=== PATIENT | female | born 1945 | race American Indian/Alaskan Native ===

== ENCOUNTER 2017-04-22 13:23 | Emergency (ER) | payer MEDICARE, OTHER ==
[~2017-04-22] VITALS: Ht 149.9 cm; Wt 101.6 kg
[~2017-04-22 13:23] MED LIST: CENTRAL-VITE H1 EACH PO; CLINDAMYCIN HC150 MG PO; FLEXERIL10 MG PO; GABAPENTIN600 MG PO; HYDROCODON-ACE1 EA10 PO; LEVOTHYROXINE75 MCG PO; LISINOPRIL10 MG PO; PLAQUENIL200 MG; TREXALL5 MG PO; ULTRAM50 MG PO
[2017-04-22] MEDS ORDERED: MAGNESIUM100 MG PO (13:35)
[2017-04-22] MEDS ORDERED: MILLIPRED5 MG PO (13:35)
[2017-04-22] MEDS ORDERED: FOLIC ACID1 MG PO (13:36)
== END 2017-04-22 13:41 | disposition home or self-care (01) ==
LOC: ED 13:23
DX: R52 Pain, unspecified (principal); Z00.8 Encounter for other general examination

== ENCOUNTER 2018-03-03 01:33 | Observation (INO) | payer MEDICARE, OTHER ==
[~2018-03-03] VITALS: Ht 149.9 cm; Wt 97.4 kg
--- OUTSIDE RECORDS SUMMARY | ~2018-03-03 | XMS | Encounter Summary ---
Demographics + + + | Address | [address] | | | [place] [address] | + + + | Home Phone | | + + + | Preferred Language | Unknown | + + + | Marital Status | | + + + | Protestant Affiliation | Unknown | + + + | Race | Unknown | + + + | Ethnic Group | Unknown | + + + Author + + + | Author | [facility] | + + + | Organization | [facility] | + + + | Address | [...] Team Providers + +------+ + | Care Box Office Attendant Name | Role | Phone | + +------+ + | Arnulfo Pacheco MD | PCP | | + +------+ + Reason for Visit + + + | Reason | Comments | + + + | Rheumatology visit | | + + + | Rheumatoid Arthritis | 3-4 month follow up | + + + Encounter Details +--------+---------+ + + + | Date | Type | Department | Care Team | Description | +--------+---------+ + + + | 01/03/ | Office | [facility] | [place], | Rheumatoid arthritis | | 2018 | Visit | Rheumatology [address] | involving multiple | | | | [facility] | [facility] | sites with positive | | | | [place] [address] | [place] [address] | rheumatoid factor | | | | [phone] | [phone] | ([facility]) (Primary Dx); | | | | | | High risk medication | | | | | | use; Chronic | | | | | | left-sided low back | | | | | | pain without | | | | | | sciatica; Primary | | | | | | osteoarthritis | | | | | | involving multiple | | | | | | joints | +--------+---------+ + + + Social History + +-------+ [...] + +---------+ + | Alcohol Use | Drinks/We | oz/Week | Comments | | | ek | | | + + +---------+ + | No | | | | + + +---------+ + + + + | Sex Assigned at | Date Recorded | | | | + + + | Not on file | | + + + as of this encounter Last Filed Vital Signs + + + + | Vital Sign | Reading | Time Taken | + + + + | Blood Pressure | 132/92 | 01/03/2018 2:31 PM PDT | + + + + | Pulse | 103 | 01/03/2018 2:31 PM PDT | + + + + | Temperature | 36.3 C (97.3 F) | 01/03/2018 2:31 PM PDT | + + + + | Respiratory Rate | - | - | + + + + | Oxygen Saturation | - | - | + + + + | Inhaled Oxygen | - | - | | Concentration | | | + + + + | Weight | 96.2 kg (212 lb) | 01/03/2018 2:31 PM PDT | + + + + | Height | 149.9 cm (4' 11") | 01/03/2018 2:31 PM PDT | + + + + | Body Mass Index | 42.82 | 01/03/2018 2:31 PM PDT | + + + + in this encounter Instructions Patient Instructions - Ignacia Guardado MA - 01/03/2018 2:30 PM PDTWe hope that you méndez ve experienced exceptional care today and that you found our service to be courteous and hel pful. If you have any questions you can send us a message/request using [employer] or call our o oscar at [phone]. To reach Samantha HERRERA type extension [phone]. If you are unable to reach a nurse during clinic hours, please leave a detailed message. We check our messages often and return calls in a timely manner during clinic hours. Medication refills- please contact your pharmacy first Orders for labs or imaging: Please remember that Annika will only call you if something i s of concern AND needs to be addressed, otherwise results will be discussed at your next of fice visit. You can also look at your results on [facility]. If you are experiencing an emergency, please call 911 in this encounter Progress Notes Annika Murdock, [facility] - 01/03/2018 2:30 PM PDTFormatting of this note may be differe nt from the original. Subjective: Patient ID: Michelle Amaya is a 72 y.o. female. Reason for visit: Rheumatoid Arthritis Here forFollow up Rheumatological History Patient was diagnosed in 1985 with RA. Established care with 2003. Initial pre sentation is unknown Serology: Positive RF and Negative PEYMAN Pertinent Imaging:OA changes to H/F- xrays-2008 HPI Last visit: 08/23/17 Changes in overall health since last visit: No Main Concern: RA-joint pain and swelling in the hands has resolved after increasing dose of Plaquenil 400 mg qd. She does occasionally miss the p.m. dose of Plaquenil as she forgets t o take the medication Main concern today is right sided low back pain. She is using an OTC TENS unit which does r elieve back symptoms. She did attend physical therapy 6 months ago for chronic low back pain and found this beneficial for relief of symptoms. She does not perform home exercises for c hronic low back pain Denies joint pain, swelling, AM stiffness > 30 minutes, fevers, illness, infection, rashes or abdominal pain. Location: Low back- right side Quality: ache Severity: mild Duration: chronic Timing:intermittent Aggravated by:rest Relieved by:OTC TENS unit and PT prn Current medications:MTX 20 mg weekly, FA 1,g QD,Plaquenil 400mg daily, prednisone 5mg daily Previous Medications tried and failed: Cimizia-sepsis, diclofenac-dec.renal function The following portions of the patient's history were reviewed and updated as appropriate an d is available elsewhere in the record: allergies, current medications, past family history, past social history, past surgical history and problem list. Past Medical History Diagnosis Date Osteoarthritis Rheumatoid arteritis Review of Systems Constitutional: Positive for fatigue. Negative for fever. HENT: Negative for mouth sores and sore throat. Eyes: Negative for pain and redness. Respiratory: Negative for cough and shortness of breath. Cardiovascular: Negative for chest pain. Gastrointestinal: Negative for abdominal pain and blood in stool. Genitourinary: Negative for dysuria and hematuria. Musculoskeletal: Positive for back pain. Negative for arthralgias and joint swelling. Skin: Negative for rash. Neurological: Negative for numbness and headaches. Psychiatric/Behavioral: The patient is not nervous/anxious. Aninka Dooley, reviewed the above ROS. Objective: Physical Exam Constitutional: She is oriented to person, place, and time. She appears well-developed and well-nourished. HENT: Head: Normocephalic. Mouth/Throat: Oropharynx is clear and moist. Eyes: Conjunctivae are normal. Pupils are equal, round, and reactive to light. Neck: Normal range of motion. Neck supple. Cardiovascular: Normal rate, regular rhythm and normal heart sounds. Pulmonary/Chest: Effort normal and breath sounds normal. Musculoskeletal: Normal range of motion. Musculoskeletal examination of the RIGHT and LEFT upper extremity, RIGHT and LEFT lower ext remity, spine, ribs ,pelvis ,head and neck was performed Musculoskeletal examination reveals no synovitis with no tenderness,soft tissue swelling or instability in all the joints She is ambulatory without assistance and using cane Musculoskeletal examination reveals degenerative changes. Lymphadenopathy: Head (right side): No submandibular adenopathy present. Head (left side): No submandibular adenopathy present. She has no cervical adenopathy. Neurological: She is alert and oriented to person, place, and time. Skin: Skin is warm, dry and intact. [facility] AMB RHEUM JOINT EXAM: Tender Joints: 0 Swollen Joints: 0 Patient Assessment: 5 Provider Assessment: 2 CDAI: 7 Labs reviewed in Epic 08/23/172007- Hep B/C neg. 04/22/17- [facility] L knee x-ray- no acute fractures/dislocations. Joint spaces maintain ed. 12/07 eye exam-satisfactory Reviewed chart notes, labs and imaging form other provider(s) since the last visit. Assessment and Plan: Visit Diagnoses and Associated Orders: Rheumatoid arthritis involving multiple sites with positive rheumatoid factor (HCC) Initially diagnosed with RA in 1985. Positive rheumatoid factor, negative PEYMAN No clinical evidence of active disease on today's exam Doing well on current regimen No change in plan of care. Continue methotrexate 20 mg once per week and Plaquenil 400 mg qd (if she misses PM dose of Plaquenil, ok to take 2 tabs in the AM) Return to clinic 3-4 months High risk medication use Update labs today and continue to monitor closely while on DMARD and/or biologic medication . Counseled regarding medication compliance as well as potential toxicities with medication s such as cytopenias, liver abnormalities and risks for infection, and the need for routine blood work monitoring. Chronic left-sided low back pain without sciatica Right sided low back pain. She is using OTC TENS unit She would like to resume physical therapy. She will make appointment to discuss this with Tamy MINA Primary osteoarthritis involving multiple joints Continue conservative measures, encourage low-impact exercise and discussed ways to avoid fall risk in the home Risks and benefits of a treatment plan were explained to patient. Patient will follow up with their primary care physician in regards to non-rheumatological symptoms listed under review of systems. Patient was advised to contact our office if there are any change in their symptoms. This document has been prepared with [employer] voice recognition system. The possibility of "s ound alike" extraction operator errors, and additions, or deletions may occur. If there is any que stion with respect to clarity of the message being conveyed, please contact me directly for clarification. Answers for HPI/ROS submitted by the patient on 01/03/2018 Joint problem FN subscore: : 4.66 Patient overall Assessment: 5 RAPID3 Score: : 9.16 in this encounter Plan of Treatment +--------+---------+ + + + | Date | Type | Specialty | Care Team | Description | +--------+---------+ + + + | 05/17/ | Office | Rheumatology | [place], | | | 2017 | Visit | | [address] | | | | | | [facility] | | | | | | [place] [address] | | | | | | [phone] | | | | | | | | +--------+---------+ + + + as of this encounter Results C-reactive protein (01/03/2018 2:49 PM) + +---------+ + + | Component | Value | Ref Range | Performed At | + +---------+ + + | CRP | 0.5 (H) | <0.5 mg/dL | [facility] | | | | | LABORATORY | + +---------+ + + + + | Specimen | + + | Blood | + + + + + + + | Performing | Address | City/State/Zipcode | Phone Number | | Organization | | | | + + + + + | [facility] | [address] | [place] [address] | [phone] | | LABORATORY | [address] | | | + + + + + Comprehensive metabolic panel (01/03/2018 2:49 PM) + + + + + | Component | Value | Ref Range | Performed At | + + + + + | SODIUM | 142 | 135 - 145 mmol/L | [facility] | | | | | LABORATORY | + + + + + | POTASSIUM | 4.0 | 3.5 - 4.9 mmol/L | [facility] | | | | | LAB[facility]AT[facility] | + + + + + | CHLORIDE | 105 | 99 - 109 mmol/L | [facility] | | | | | LAB[facility]AT[facility] | + + + + + | CO2 | 30 | 23 - 32 mmol/L | [facility] | | | | | LAB[facility]AT[facility] | + + + + + | ANION GAP AGAP | 11 | 5 - 20 mmol/L | [facility] | | | | | LAB[facility]AT[facility] | + + + + + | GLUCOSE | 96 | 65 - 99 mg/dL | [facility] | | | | | [facility] | + + + + + | BUN | 12 | 8 - 25 mg/dL | [facility] | | | | | LAB[facility] | + + + + + | CREATININE | 0.9 | 0.50 - 1.00 mg/dL | [facility] | | | | | LAB[facility]ATORY | + + + + + | BUN/CREAT | 13 | | [facility] | | | | | LAB[facility] | + + + + + | CALCIUM | 9.7 | 8.5 - 10.5 mg/dL | [facility] | | | | | LAB[facility]ATORY | + + + + + | TOTAL PROTEIN | 7.1 | 6.3 - 8.2 g/dL | [facility] | | | | | LABORATORY | + + + + + | Albumin | 3.7 | 3.3 - 4.8 g/dL | [facility] | | | | | LAB[facility] | + + + + + | GLOBULIN | 3.4 | 1.3 - 4.9 g/dL | [facility] | | | | | LAB[facility] | + + + + + | A/G | 1.1 | 1.0 - 2.4 | [facility] | | | | | LAB[facility] | + + + + + | TBIL | 0.7 | 0.1 - 1.5 mg/dL | [facility] | | | | | LAB[facility] | + + + + + | ALK PHOS | 66 | 35 - 115 U/L | [facility] | | | | | LAB[facility] | + + + + + | AST | 29 | 10 - 45 U/L | [facility] | | | | | LAB[facility] | + + + + + | ALT | 20 | 10 - 65 U/L | [facility] | | | | | LAB[facility]ATORY | + + + + + | EGFR | >60Comment: GFR <60: | >60 mL/min/1.73_m2 | [facility] | | | CHRONIC KIDNEY DISEASE, | | LABORATORY | | | IF FOUND OVER A 3 MONTH | | | | | PERIOD. GFR <15: KIDNEY | | | | | FAILURE. FOR | | | | | AMERICANS, MULTIPLY THE | | | | | CALCULATED GFR BY 1.210. | | | | | This eGFR is calculated | | | | | using the MDRD IDMS | | | | | traceable equation. | | | | | PLEASE NOTE NEW | | | | | CALCULATION EFFECTIVE | | | | | 12/19/2017 | | | + + + + + + + | Specimen | + + | Blood | + + + + + + + | Performing | Address | City/State/Zipcode | Phone Number | | Organization | | | | + + + + + | [facility] | [address] | [place] [address] | [phone] | | LABORATORY | [address] | | | + + + + + Sedimentation rate, automated (01/03/2018 2:49 PM) + +--------+ + + | Component | Value | Ref Range | Performed At | + +--------+ + + | ESR | 32 (H) | 0 - 30 mm/h | [facility] | | | | | LABORATORY | + +--------+ + + + + | Specimen | + + | Blood | + + + + + + + | Performing | Address | City/State/Zipcode | Phone Number | | Organization | | | | + + + + + | [facility] | [address] | [place] [address] | [phone] | | LABORATORY | [address] | | | + + + + + CBC W/Auto Diff (Reflex to Manual) (01/03/2018 2:49 PM) + + + + + | Component | Value | Ref Range | Performed At | + + + + + | WBC | 6.85 | 3.80 - 11.00 10*3/uL | [facility] | | | | | LABORATORY | + + + + + | RBC | 4.73 | 3.70 - 5.10 10*6/uL | [facility] | | | | | LAB[facility]ATORY | + + + + + | HGB | 13.3 | 11.3 - 15.5 g/dL | [facility] | | | | | LABORATORY | + + + + + | HCT | 39.3 | 34.0 - 46.0 % | [facility] | | | | | LABORATORY | + + + + + | MCV | 83.1 | 80.0 - 100.0 fL | [facility] | | | | | LABORATORY | + + + + + | MCH | 28.0 | 27.0 - 34.0 pg | [facility] | | | | | LABORATORY | + + + + + | MCHC | 33.7 | 32.0 - 35.5 g/dL | [facility] | | | | | LABORATORY | + + + + + | RDW SD | 47.7 | 37 - 53 fL | [facility] | | | | | LABORATORY | + + + + + | PLT | 233 | 150 - 400 10*3/uL | [facility] | | | | | LAB[facility]ATORY | + + + + + | MPV | 7.3 | fL | [facility] | | | | | LAB[facility]ATORY | + + + + + | DIFF TYPE | AUTOMATED | | [facility] | | | | | LAB[facility]ATORY | + + + + + | NEUTROPHILS | 73.08 | % | [facility] | | | | | LAB[facility]ORY | + + + + + | LYMPHOCYTES | 17.63 | % | [facility] | | | | | LAB[facility]ORY | + + + + + | MONOCYTES | 6.86 | % | [facility] | | | | | LABORATORY | + + + + + | EOSINOPHILS | 1.77 | % | [facility] | | | | | LABORATORY | + + + + + | BASOPHILS | 0.66 | % | [facility] | | | | | LABORATORY | + + + + + | NEUTROPHILS ABS | 5.01 | 1.90 - 7.40 10*3/uL | [facility] | | | | | LABORATORY | + + + + + | LYMPHOCYTES ABS | 1.21 | 1.00 - 3.90 10*3/uL | [facility] | | | | | LAB[facility]ATORY | + + + + + | MONOCYTES ABS | 0.47 | 0.00 - 0.80 10*3/uL | [facility] | | | | | LABORATORY | + + + + + | EOSINOPHILS ABS | 0.12 | 0.00 - 0.50 10*3/uL | [facility] | | | | | LABORATORY | + + + + + | BASOPHILS ABS | 0.05 | 0.00 - 0.10 10*3/uL | [facility] | | | | | LABORATORY | + + + + + + + | Specimen | + + | Blood | + + + + + + + | Performing | Address | City/State/Zipcode | Phone Number | | Organization | | | | + + + + + | [facility] | [address] | [place] [address] | [phone] | | LABORATORY | [address] | | | + + + + + in this encounter Visit Diagnoses + + | Diagnosis | + + | Rheumatoid arthritis involving multiple sites with positive rheumatoid factor (HCC) - | | Primary | + + | High risk medication use | + + | Encounter for long-term (current) use of other medications | + + | Chronic left-sided low back pain without sciatica | + + | Primary osteoarthritis involving multiple joints | + +
--- OUTSIDE RECORDS SUMMARY | ~2018-03-03 | XMS | Encounter Summary ---
Demographics + + + | Address | [address] | | | [place] [address] | + + + | Home Phone | | + + + | Preferred Language | Unknown | + + + | Marital Status | | + + + | Congregation Affiliation | Unknown | + + + | Race | Unknown | + + + | Ethnic Group | Unknown | + + + Author + + + | Author | [facility] | + + + | Organization | [facility] | + + + | [...] Team Providers + +------+ + | Care Lace Tearing Supervisor Name | Role | Phone | + +------+ + | Arnulfo Pacheco MD | PCP | | + +------+ + Encounter Details +--------+ + + + + | Date | Type | Department | Care Team | Description | +--------+ + + + + | 01/03/ | Orders Only | [facility] | Denis Eric, | Rheumatoid arthritis | | 2018 | | [address] | Pick Up | involving multiple | | | | [place] [address] | | sites with positive | | | | [phone] | | rheumatoid factor | | | | | | ([facility]); High risk | | | | | | medication use | +--------+ + + + + Social [...] + + + as of this encounter Plan of Treatment +--------+---------+ + + + | Date | Type | Specialty | Care Team | Description | +--------+---------+ + + + | 05/17/ | Office | Rheumatology | [place], | | | 2018 | Visit | | [address] | | | | | | [facility] | | | | | | [place] [address] | | | | | | [phone] | | | | | | | | +--------+---------+ + + + as of this encounter Procedures + +--------+ + + + | Procedure Name | Priori | Date/Time | Associated Diagnosis | Comments | | | ty | | | | + +--------+ + + + | SEDIMENTATION RATE, | Routin | 01/03/2018 | Rheumatoid | Results for this | | AUTOMATED | e | 2:49 PM | arthritis involving | procedure are in the | | | | PDT | multiple sites with | results section. | | | | | positive rheumatoid | | | | | | factor (HCC) High | | | | | | risk medication use | | + +--------+ + + + | CBC W/AUTO DIFF | Routin | 01/03/2018 | Rheumatoid | Results for this | | (REFLEX TO MANUAL) | e | 2:49 PM | arthritis involving | procedure are in the | | | | PDT | multiple sites with | results section. | | | | | positive rheumatoid | | | | | | factor (HCC) High | | | | | | risk medication use | | + +--------+ + + + | C-REACTIVE PROTEIN | Routin | 01/03/2018 | Rheumatoid | Results for this | | | e | 2:49 PM | arthritis involving | procedure are in the | | | | PDT | multiple sites with | results section. | | | | | positive rheumatoid | | | | | | factor (HCC) High | | | | | | risk medication use | | + +--------+ + + + | COMPREHENSIVE | Routin | 01/03/2018 | Rheumatoid | Results for this | | METABOLIC PANEL | e | 2:49 PM | arthritis involving | procedure are in the | | | | PDT | multiple sites with | results section. | | | | | positive rheumatoid | | | | | | factor (HCC) High | | | | | | risk medication use | | + +--------+ + + + in this encounter Results C-reactive protein (01/03/2018 2:49 [...] + + + | [facility] | [address] | [place] [address] | [phone] | | LABORATORY | Blvd. | | [...] | | | | using the MDRD IDUT | | | | | traceable equation. [...] | + + + + + | [facility] | [address] | [place] [address] | [phone] | | LABORATORY | Blvd. | | [...] | + + + + + | [facility] | [address] | [place] [address] | [phone] | | LABORATORY | Blvd. | | [...] | + + + + + | [facility] | [address] | [place] [address] | [phone] | | LABORATORY | Blvd. | | | + + + + + in this encounter Visit Diagnoses + + | Diagnosis | + + | Rheumatoid arthritis involving multiple sites with positive rheumatoid factor (HCC) | + + | High risk medication use | + + | Encounter for long-term (current) use of other medications | + +"
--- OUTSIDE RECORDS SUMMARY | ~2018-03-03 | XMS | Encounter Summary ---
Demographics + + + | Address | [address] | | | [place] [address] | + + + | Home Phone | | + + + | Preferred Language | Unknown | + + + | Marital Status | | + + + | Holiness Affiliation | Unknown | + + + | Race | Unknown | + + + | Ethnic Group | Unknown | + + + Author + + + | Author | [facility] | + + + | Organization | [facility] | + + + [...] Team Providers + +------+ + | Care Brim Shaper Name | Role | Phone | + [...] + + | 01/03/ | Office | [facility] | [place], | Rheumatoid arthritis | | 2018 | Visit | Rheumatology [address] | [address] | involving multiple | | | | [facility] | [facility] | sites with positive | | | | [place] [address] | [place] [address] | rheumatoid factor | | | | [phone] | [phone] | ([facility]) (Primary Dx); | | | | | [...] you can send us a message/request using MeriTaleem or call our o oscar at [phone]. To reach Samantha HERRERA type extension [phone]. If you are unable to reach a [...] can also look at your results on [facility]. If you are experiencing an emergency, please call 911 in this encounter Progress Notes Annika Murdock, [facility] - 01/03/2018 2:30 PM PDTFormatting of this [...] not nervous/anxious. Annika Dooley, reviewed the above ROS. Objective: Physical [...] in Epic 08/23/172007- Hep B/C neg. 04/22/17- Baden's L knee x-ray- no acute fractures/dislocations. Joint [...] symptoms. This document has been prepared with [employer] voice recognition system. The possibility of "s ound alike" public information coordinator errors, and additions, or deletions may occur. [...] [address] | | | | | | [facility] | | | | | | [place] [address] | | | | | | [phone] | | | | | | | [...] + + + | [facility] | [address] | [place] [address] | [phone] | | LABORATORY | Blvd. | | [...] | + + + + + | [facility] | [address] | [place] [address] | [phone] | | LABORATORY | [address] | | [...] + + + | [facility] | [address] | [place] [address] | [phone] | | LABORATORY | Blvd. | | [...] + + + | [facility] | [address] | [place] [address] | [phone] | | LABORATORY | Blvd. | | [...]
--- OUTSIDE RECORDS SUMMARY | ~2018-03-03 | XMS | Clinical Summary ---
Demographics + + + | Address | [address] | | | [place] [address] | + + + | Home Phone | | + + + | Preferred Language | Unknown | + + + | Marital Status | | + + + | Baptist Affiliation | Unknown | + + + | Race | Unknown | + + + | Ethnic Group | Unknown | + + + Author + + + | Author | [facility] [facility] | + + + | Organization | [facility] | + + + | Address | Unknown | + + + | Phone | Unavailable | + + + Support + + +---------+ + | Name | Relationship | Address | Phone | + + +---------+ + | Dian Clarke | ECON | Unknown | | + + +---------+ + | Doyle Clarke | ECON | Unknown | | + + +---------+ + Care Team Providers + +------+ + | Care Construction Specialist Name | Role | Phone | + +------+ + | Arnulfo Pacheco MD | PP | | + +------+ + Allergies + + + + + + | Active Allergy | Reactions | Severity | Noted | Comments | | | | | Date | | + + + + + + | Sulfa Antibiotics | Hives | High | 05/14/20 | | | | | | 15 | | + + + + + + Current Medications + + +---------+---------+------+------+-------+ | Prescription | Sig. | Disp. | Refills | Star | End | Statu | | | | | | t | Date | s | | | | | | Date | | | + + +---------+---------+------+------+-------+ | lisinopril | Take 10 mg by mouth | | | | | Activ | | (ZESTRIL) 10 MG | daily. | | | | | e | | tablet | | | | | | | + + +---------+---------+------+------+-------+ | Magnesium 100 MG | Take by mouth. | | | | | Activ | | TABS | | | | | | e | + + +---------+---------+------+------+-------+ | levothyroxine | Take 100 mcg by | | | | | Activ | | (SYNTHROID) 100 MCG | mouth every morning | | | | | e | | tablet | before breakfast. | | | | | | + + +---------+---------+------+------+-------+ | cyclobenzaprine | Take 10 mg by mouth | | | | | Activ | | (FLEXERIL) 10 MG | every evening. | | | | | e | | tablet | | | | | | | + + +---------+---------+------+------+-------+ | gabapentin | Take 1 capsule by | 60 | 2 | 02/0 | | Activ | | (NEURONTIN) 300 MG | mouth 2 (two) times | capsule | | 4/20 | | e | | capsuleIndications: | daily. | | | 16 | | | | Low back pain, | | | | | | | | unspecified back | | | | | | | | pain laterality, | | | | | | | | with sciatica | | | | | | | | presence unspecified | | | | | | | + + +---------+---------+------+------+-------+ | folic acid | Take 1 mg by mouth | | | | | Activ | | (FOLVITE) 1 MG | daily. | | | | | e | | tablet | | | | | | | + + +---------+---------+------+------+-------+ | Multiple | Take 1 tablet by | | | | | Activ | | Vitamins-Minerals | mouth daily. | | | | | e | | (MULTIVITAMIN WITH | | | | | | | | MINERALS) tablet | | | | | | | + + +---------+---------+------+------+-------+ | | Take 1 tablet by | | | | | Activ | | HYDROcodone-acetamin | mouth every 6 (six) | | | | | e | | ophen (NORCO) 10-325 | hours as needed for | | | | | | | MG per tablet | Pain. | | | | | | + + +---------+---------+------+------+-------+ | predniSONE | Take 1 tablet by | 90 | 1 | 05/0 | | Activ | | (DELTASONE) 5 MG | mouth daily with | tablet | | 3/20 | | e | | tabletIndications: | breakfast. | | | 18 | | | | Rheumatoid arthritis | | | | | | | | involving multiple | | | | | | | | sites with positive | | | | | | | | rheumatoid factor | | | | | | | | (HCC) | | | | | | | + + +---------+---------+------+------+-------+ | methotrexate 2.5 | Take 8 tablets by | 96 | 0 | 06/1 | 09/1 | Activ | | MG | mouth once a week | tablet | | 3/20 | 1/20 | e | | tabletIndications: | for 90 days. | | | 18 | 18 | | | Rheumatoid Arthritis | | | | | | | + + +---------+---------+------+------+-------+ | hydroxychloroquine | Take 2 tablets by | 180 | 0 | 06/1 | | Activ | | (PLAQUENIL) 200 MG | mouth daily. | tablet | | 3/20 | | e | | tabletIndications: | | | | 18 | | | | Rheumatoid arthritis | | | | | | | | involving multiple | | | | | | | | sites with positive | | | | | | | | rheumatoid factor | | | | | | | | (HCC) | | | | | | | + + +---------+---------+------+------+-------+ Active Problems + + + | Problem | Noted Date | + + + | Chronic left-sided low back pain without sciatica | 04/25/2017 | + + + + + | Last Assessment & Plan: Right sided low back pain. She is | | using OTC TENS unitShe would like to resume physical therapy. She | | will make appointment to discuss this with PCP | + + + + + | Rheumatoid arthritis involving multiple sites with positive | 04/25/2017 | | rheumatoid factor (HCC) | | + + + + + | Last Assessment & Plan: Initially diagnosed with RA in 1985. | | Positive rheumatoid factor, negative ANANo clinical evidence of | | active disease on today's examDoing well on current regimenNo | | change in plan of care. Continue methotrexate 20 mg once per week | | and Plaquenil 400 mg qd (if she misses PM dose of Plaquenil, ok | | to take 2 tabs in the AM)Return to clinic 3-4 months | + + + + + | High risk medication use | 04/25/2017 | + + + + + | Last Assessment & Plan: Update labs today and continue to | | monitor closely while on DMARD and/or biologic medication. | | Counseled regarding medication compliance as well as potential | | toxicities with medications such as cytopenias, liver | | abnormalities and risks for infection, and the need for routine | | blood work monitoring. | + + + + + | Primary osteoarthritis involving multiple joints | 04/25/2017 | + + + + + | Last Assessment & Plan: Continue conservative measures, | | encourage low-impact exercise and discussed ways to avoid fall | | risk in the home | + + + + + | Acute pain of left knee | 04/25/2017 | + + + + + | Last Assessment & Plan: Treatment options, risks and benefits | | discussed. Verbal consent given for Kenalog injection 40 mg for | | relief of acute L knee pain.Instructed on post injection care and | | if no improvement, contact our office.Will refer to PT for L | | knee painMay benefit to use an adaptive device such as a walker | | with L sided low back and L knee pain. | + + Encounters +--------+ + + + + | Date | Type | Specialty | Care Team | Description | +--------+ + + + + | 02/01/ | Telephone | | Samantha Flores, | | | 2018 | | | MUSEUM INFORMATICS SPECIALIST | | +--------+ + + + + | 01/03/ | Office | | [place], | Rheumatoid arthritis | | 2018 | Visit | | KASEY Mackenzie | involving multiple | | | | | | sites with positive | | | | | | rheumatoid factor | | | | | | ([facility]) (Primary Dx); | | | | | [...] | | | | | joints | +--------+ + + + + | 01/03/ | Orders Only | | Denis Eric, | Rheumatoid arthritis | | 2017 | | | Employee Health Nurse | involving multiple | | | | | | sites with positive | | | | | | rheumatoid factor | | | | | | ([facility]); High risk | | | | | | medication use | +--------+ + + + + from Last 3 Months Family History + +------+ + + | Relation | Name | Status | Comments | + +------+ + + | Father | | | | + +------+ + + | Mother | | | | + +------+ + + Social History + +-------+ +--------+------+ [...] on file | | + + + Last Filed Vital Signs + + + [...] PM PDT | + + + + Plan of Treatment +--------+---------+ + + + | Date | Type | Specialty | Care Team | Description | +--------+---------+ + + + | 05/17/ | Office | | [place], | | | 2018 | Visit | | [address] | | | | | | [facility] | | | | | | [place] [address] | | | | | | [phone] | | | | | | | | +--------+---------+ + + + + + + + + | Health Maintenance | Due Date | Last Done | Comments | + + + + + | Vaccine: | | | | | Dtap/Tdap/Td (1 - | 2 | | | | Tdap) | | | | + + + + + | Breast Cancer | | | | | Screening | 3 | | | | (Mammogram) | | | | + + + + + | Colon Cancer | | | | | Screening | 3 | | | | (Colonoscopy) | | | | + + + + + | DEXA SCAN SCREENING | | | | | | 8 | | | + + + + + | Vaccine: | | | | | Pneumococcal 65+ | 8 | | | | Low/Medium Risk (1 | | | | | of 2 - PCV13) | | | | + + + + + | Vaccine: Influenza | | | | | (#1) | 8 | | | + + + + + Procedures + +--------+ + + + | [...] | | + +--------+ + + + from Last 3 Months Results Sedimentation rate, automated (01/03/2018 2:49 PM) + [...] + + + | [facility] | [address] | [place] [address] | [phone] | | LABORATORY | Blvd. | | [...] + + + | [facility] | [address] | [place] [address] | [phone] | | LABORATORY | Blvd. | | | + + + + + C-reactive protein (01/03/2018 2:49 PM) + +---------+ [...] | + + + + + | [facility] | [address] | [place] [address] | [phone] | | LABORATORY | Blvd. | | [...] | | | | using the MDRD IDCT | | | | | traceable equation. [...] | + + + + + | [facility] | [address] | [place] [address] | [phone] | | LABORATORY | Blvd. | | | + + + + + from Last 3 Months Insurance + +--------+ +------+-------+ + | Payer | Benefi | Subscriber | Type | Phone | Address | | | t Plan | ID | | | | | | / | | | | | | | Group | | | | | + +--------+ +------+-------+ + | MEDICARE | MEDICA | [id number] | | | [address] | | | RE | | | | [place] [id number] | | | IP-OP | | | | | + +--------+ +------+-------+ + | /[employer] | YELLOW | [id number] | | | | | PLANS | [place] | | | | | + +--------+ +------+-------+ + + +--------+ +--------+ + + | Guarantor Name | Accoun | Relation to | Date | Phone | Billing Address | | | t Type | Patient | of | | | | | | | | | | + +--------+ +--------+ + + | NIKITA CLARKE | Person | Self [birth year] | Home: | [address] | | | al/Fam | | 1945 | [phone] | [place] | | | [place] | | | [phone] | [phone] | + +--------+ +--------+ + +
--- OUTSIDE RECORDS SUMMARY | ~2018-03-03 | XMS | Clinical Summary ---
Demographics + + + | Address | [address] | | | [place] [address] | + + + | Home Phone | | + + + | Preferred Language | Unknown | + + + | Marital Status | | + + + | Church Affiliation | Unknown | + + + | Race | Unknown | + + + | Ethnic Group | Unknown | + + + Author + + + | Author | [facility] | + + + | Organization | [facility] | + + + | [...] Team Providers + +------+ + | Care Process Control Specialist Name | Role | Phone | [...] | | | 2018 | | | LOADING RACK SUPERVISOR | | +--------+ + + + + | 01/03/ | Office | | [place], | Rheumatoid arthritis | | 2018 | Visit | | KASEY Mackenzie | involving multiple | | | | | | sites with positive | | | | | | rheumatoid factor | | | | | | ([facility]) (Primary Dx); | | | | | [...] arthritis | | 2017 | | | Block Greaser | involving multiple | | | | | | sites with positive | | | | | | rheumatoid factor | | | | | | ([facility]); High risk | | | [...] [address] | | | | | | [facility] | | | | | | [place] [address] | | | | | | [phone] | | | | | | | [...] + + + | [facility] | [address] | [place] [address] | [phone] | | LABORATORY | Blvd. | | [...] + + + | [facility] | [address] | [place] [address] | [phone] | | LABORATORY | Blvd. | | [...] | + + + + + | [facility] | [address] | [place] [address] | [phone] | | LABORATORY | Blvd. | | [...] | | | | using the MDRD IDWA | | | | | traceable equation. [...] | + + + + + | [facility] | [address] | [place] [address] | [phone] | | LABORATORY | Blvd. | | [...] +------+-------+ + | MEDICARE | MEDICA | [id number] | | | [address] | | | RE | | | | [place] [id number] | | | IP-OP | | | | | + +--------+ +------+-------+ + | /[employer] | YELLOW | [id number] | | | | | PLANS | [...] | Self | [birth year] | Home: | [address] | | | al/Fam | | 1945 | [phone] | [place] | | | [place] | | | [phone] | [phone] | + +--------+ +--------+ + +
--- OUTSIDE RECORDS SUMMARY | ~2018-03-03 | XMS | Clinical Summary ---
Demographics + + + | Address | [address] | | | [place] [address] | + + + | Home Phone | | + + + | Preferred Language | Unknown | + + + | Marital Status | | + + + | Restorationist Affiliation | Unknown | + + + | Race | Unknown | + + + | Ethnic Group | Unknown | + + + Author + + + | Author | [facility] | | | and [place] | + + + | Organization | [facility] | | | and [place] | + + + | Address | Unknown | + + + | Phone | Unavailable | + + + Support + + +---------+ + | Name | Relationship | Address | Phone | + + +---------+ + | Dian Clarke | ECON | Unknown | | + + +---------+ + Care Team Providers + +------+ + | Care Sail Maker Name | Role | Phone | + +------+ + | Arnulfo Pacheco DO | PP | | + +------+ + Allergies Not on File Current Medications Not on file Active Problems Not on file Social History + +-------+ +--------+------+ | Tobacco [...] on file | | + + + Plan of Treatment + + + + + | Health [...] | | + + + + + Results Not on filefrom Last 3 Months Insurance + +--------+ +--------+ +---------+ | Payer | Benefi | Subscriber | Type | Phone | Address | | | t Plan | ID | | | | | | / | | | | | | | Group | | | | | + +--------+ +--------+ +---------+ | MEDICARE | MEDICA | [id number] | Medica | [phone] | | | | RE | | re | [phone] | | | | PART A | | | | | | | AND B | | | | | + +--------+ +--------+ +---------+ | HEALTH | IHS | [id number] | Indemn | | | | SERVICE | YELLOW | | ity | | | | | [place] | | | | | + +--------+ +--------+ +---------+ + +--------+ +--------+ + + | Guarantor Name | Accoun | Relation to | Date | Phone | Billing Address | | | t Type | Patient | of | | | | | | | | | | + +--------+ +--------+ + + | NIKITA CLARKE | Person | Self [birth year] | Home: | [address] | | | al/Fam | | 1945 | [phone] | [place] | | | [place] | | | [phone] | [phone] | + +--------+ +--------+ + +"
--- OUTSIDE RECORDS SUMMARY | ~2018-03-03 | XMS | Clinical Summary ---
Demographics + + + | Address | [address] | | | [place] [address] | + + + | Home Phone | | + + + | Preferred Language | Unknown | + + + | Marital Status | | + + + | Mu-Ism Affiliation | Unknown | + + + [...] Team Providers + +------+ + | Care Steam Flattener Name | Role | Phone | + [...] +--------+ +---------+ | MEDICARE | MEDICA | [id number] | Medica | [phone] | | | | RE | | re | [phone] | | | | PART A | | | | | | | AND B | | | | | + +--------+ +--------+ +---------+ | HEALTH | IHS | [id number] | Indemn | | | | SERVICE [...] | Self | [birth year] | Home: | [address] | | | al/Fam | | 1945 | [phone] | [place] | | | [place] | | | [phone] | [phone] | + +--------+ +--------+ + +"
--- OUTSIDE RECORDS SUMMARY | ~2018-03-03 | XMS | Clinical Summary ---
Demographics + + + | Address | [address] | | | [place] [address] | + + + | Home Phone | | + + + | Preferred Language | Unknown | + + + | Marital Status | | + + + | Congregation Affiliation | Unknown | + + + | Race | Unknown | + + + | Ethnic Group | Unknown | + + + Author + + + | Author | [facility] | | | and [place] | + + + | Organization | [facility] | | [...] Team Providers + +------+ + | Care Explosive Ordnance Manager Name | Role | Phone | + [...] +--------+ +---------+ | MEDICARE | MEDICA | [id number] | Medica | [phone] | | | | RE | | re | [phone] | | | | PART A | | | | | | | AND B | | | | | + +--------+ +--------+ +---------+ | HEALTH | IHS | [id number] | Indemn | | | | SERVICE [...] | Self | [birth year] | Home: | [address] | | | al/Fam | | 1945 | [phone] | [place] | | | [place] | | | [phone] | [phone] | + +--------+ +--------+ + +"
--- OUTSIDE RECORDS SUMMARY | ~2018-03-03 | XMS | Encounter Summary ---
Demographics + + + | Address | [address] | | | [place] [address] | + + + | Home Phone | | + + + | Preferred Language | Unknown | + + + | Marital Status | | + + + | Yazdanism Affiliation | Unknown | + + + | Race | Unknown | + + + | Ethnic Group | Unknown | + + + Author + + + | Author | [facility] | + + + | Organization | [facility] | + + + | [...] Team Providers + +------+ + | Care Fourth Hand Name | Role | Phone | [...] 2018 | | [address] | Book Store Associate | involving multiple | | | | [place] [address] | | sites with positive | | | | [phone] | | rheumatoid factor | | | | | | ([facility]); High risk | | | | | [...] | 05/17/ | Office | Rheumatology | [place], | | | 2018 | Visit | | [address] | | | | | | [facility] | | | | | | [place] [address] | | | | | | [phone] | | | | | | | [...] + + + | [facility] | [address] | [place] [address] | [phone] | | LABORATORY | Blvd. | | [...] | | | | using the MDRD IDMN | | | | | traceable equation. [...] | + + + + + | [facility] | [address] | [place] [address] | [phone] | | LABORATORY | Blvd. | | [...] | + + + + + | [facility] | [address] | [place] [address] | [phone] | | LABORATORY | Blvd. | | [...] | + + + + + | [facility] | [address] | [place] [address] | [phone] | | LABORATORY | Blvd. | | [...]
--- OUTSIDE RECORDS SUMMARY | ~2018-03-03 | XMS | Encounter Summary ---
Demographics + + + | Address | [address] | | | [place] [address] | + + + | Home Phone | | + + + | Preferred Language | Unknown | + + + | Marital Status | | + + + | Yazidism Affiliation | Unknown | + + + | Race | Unknown | + + + | Ethnic Group | Unknown | + + + Author + + + | Author | [facility] | + + + | Organization | [facility] | + + + [...] Team Providers + +------+ + | Care Fruit Picker Name | Role | Phone | + [...] 2018 | | [address] | Chili Powder Mixer | involving multiple | | | | [place] [address] | | sites with positive | | | | [phone] | | rheumatoid factor | | | | | | ([facility]); High risk | | | | [...] 2018 | Visit | | KASE[address] Mackenzie [address] | | | | | | [facility] | | | | | | [place] [address] | | | | | | [phone] | | | | | | | [...] + + + | [facility] | [address] | [place] [address] | [phone] | | LABORATORY | [address]vd. | | [...] | | | | using the MDRD IDAR | | | | | traceable equation. [...] | + + + + + | [facility] | [address] | [place] [address] | [phone] | | LABORATORY | Blvd. | | [...] | + + + + + | [facility] | [address] | [place] [address] | [phone] | | LABORATORY | Blvd. | | [...] | + + + + + | [facility] | [address] | [place] [address] | [phone] | | LABORATORY | Blvd. | | [...]
--- OUTSIDE RECORDS SUMMARY | ~2018-03-03 | XMS | Encounter Summary ---
Demographics + + + | Address | [address] | | | [place] [address] | + + + | Home Phone | | + + + | Preferred Language | Unknown | + + + | Marital Status | | + + + | Zoroastrian Affiliation | Unknown | + + + | Race | Unknown | + + + | Ethnic Group | Unknown | + + + Author + + + | Author | [facility] [facility] | + + + | Organization | [facility] | + + + [...] Providers + +------+ + | Care Process Technician Name | Role | Phone | + +------+ + | Arnulfo Pacheco MD | PCP | | + +------+ + Encounter Details +--------+ + + + + | Date | Type | Department | Care Team | Description | +--------+ + + + + | 02/01/ | Telephone | [facility] | Samantha Flores, | | | 2018 | | Rheumatology [address] | [address] | | | | | [address] | | | | | | [place] [address] | | | | | | [phone] | | | +--------+ + + + [...] [address] | | | | | | [facility] | | | | | | [place] [address] | | | | | | [phone] | | | | | | | | +--------+---------+ + + + as of this encounter Visit Diagnoses Not on filein this encounter"
--- OUTSIDE RECORDS SUMMARY | ~2018-03-03 | XMS | Encounter Summary ---
Demographics + + + | Address | [address] | | | [place] [address] | + + + | Home Phone | | + + + | Preferred Language | Unknown | + + + | Marital Status | | + + + | Jain Affiliation | Unknown | + + + | Race | Unknown | + + + | Ethnic Group | Unknown | + + + Author + + + | Author | [facility] | + + + | Organization | [facility] | + + + [...] Team Providers + +------+ + | Care Cd Reactor Operator Head Name | Role | Phone | + [...] + + | 01/03/ | Office | [facility] | [place], | Rheumatoid arthritis | | 2018 | Visit | Rheumatology [address] | [address] | involving multiple | | | | [facility] | [facility] | sites with positive | | | | [place] [address] | [place] [address] | rheumatoid factor | | | | [phone] | [phone] | ([facility]) (Primary Dx); | | | | | [...] you can send us a message/request using [employer] or call our o oscar at [phone]. To reach Samantha HERRERA type extension [phone]. If you are unable to reach a [...] in this encounter Progress Notes Annika Murdock, [facility] - 01/03/2018 2:30 PM PDTFormatting of this [...] in Epic 08/23/172007- Hep B/C neg. 04/22/17- Navarre's L knee x-ray- no acute fractures/dislocations. Joint [...] symptoms. This document has been prepared with [employer] voice recognition system. The possibility of "s ound alike" scrap hoist operator errors, and additions, or deletions may [...] [address] | | | | | | [facility] | | | | | | [place] [address] | | | | | | [phone] | | | | | | | [...] + + | [facility] | [address] | [place] [address] | [phone] | | LABORATORY | Blvd. | | [...] | + + + + + | [facility] | [address] | [place] [address] | [phone] | | LABORATORY | [address] | | [...] + + | [facility] | [address] | [place] [address] | [phone] | | LABORATORY | Blvd. | | [...] + + | [facility] | [address] | [place] [address] | [phone] | | LABORATORY | Blvd. | | [...]
--- OUTSIDE RECORDS SUMMARY | ~2018-03-03 | XMS | Clinical Summary ---
Demographics + + + | Address | [address] | | | [place] [address] | + + + | Home Phone | | + + + | Preferred Language | Unknown | + + + | Marital Status | | + + + | Sikh Affiliation | Unknown | + + + | Race | Unknown | + + + | Ethnic Group | Unknown | + + + Author + + + | Author | [facility] | + + + | Organization [...] Team Providers + +------+ + | Care Accounting Assistant Name | Role | Phone | [...] | | | 2018 | | | MAGICIAN/ILLUSIONIST | | +--------+ + + + + | 01/03/ | Office | | [place], | Rheumatoid arthritis | | 2018 | Visit | | KASEY Mackenzie | involving multiple | | | | | | sites with positive | | | | | | rheumatoid factor | | | | | | ([facility]) (Primary Dx); | | | | [...] arthritis | | 2017 | | | Marsh Buggy Operator | involving multiple | | | | | | sites with positive | | | | | | rheumatoid factor | | | | | | ([facility]); High risk | | | | [...] [address] | | | | | | [facility] | | | | | | [place] [address] | | | | | | [phone] | | | | | | | [...] + + + | [facility] | [address] | [place] [address] | [phone] | | LABORATORY | Blvd. | | [...] + + + | [facility] | [address] | [place] [address] | [phone] | | LABORATORY | Blvd. | | [...] | + + + + + | [facility] | [address] | [place] [address] | [phone] | | LABORATORY | Blvd. | | [...] | | | | using the MDRD IDGA | | | | | traceable equation. [...] | + + + + + | [facility] | [address] | [place] [address] | [phone] | | LABORATORY | Blvd. | | [...] +------+-------+ + | MEDICARE | MEDICA | [id number] | | | [address] | | | RE | | | | [place] [id number] | | | IP-OP | | | | | + +--------+ +------+-------+ + | /[facility] | YELLOW | [id number] | | | | | PLANS | [...] | Self | [birth year] Home: | [address] | | | al/Fam | | 1945 | [phone] | [place] | | | tonie | | | [phone] | [phone] | + +--------+ +--------+ + +
--- OUTSIDE RECORDS SUMMARY | ~2018-03-03 | XMS | Encounter Summary ---
Demographics + + + | Address | [address] | | | [place] [address] | + + + | Home Phone | | + + + | Preferred Language | Unknown | + + + | Marital Status | | + + + | Anglican Affiliation | Unknown | + + + | Race | Unknown | + + + | Ethnic Group | Unknown | + + + Author + + + | Author | [facility] | + + + | Organization | [facility] | + + + | [...] Team Providers + +------+ + | Care Manager Voice Name | Role | Phone | + +------+ + | Arnulfo Pacheco MD | PCP | | + +------+ + Encounter Details +--------+ + + + + | Date | Type | Department | Care Team | Description | +--------+ + + + + | 02/01/ | Telephone | [facility] | Samantha Flores, | | | 2018 | | Rheumatology [address] | [address] | | | | | [address] | | | | | | [place] [address] | | | | | | [phone] | | | +--------+ + + + [...] [address] | | | | | | [facility] | | | | | | [place] [address] | | | | | | [phone] | | | | | | | | +--------+---------+ + + + as of this encounter Visit Diagnoses Not on filein this encounter"
--- OUTSIDE RECORDS SUMMARY | ~2018-03-03 | XMS | Encounter Summary ---
Demographics + + + | Address | [address] | | | [place] [address] | + + + | Home Phone | | + + + | Preferred Language | Unknown | + + + | Marital Status | | + + + | Anabaptist Affiliation | Unknown | + + + | Race | Unknown | + + + | Ethnic Group | Unknown | + + + Author + + + | Author | [facility] [facility] | + + + | Organization | [facility] | + [...] Team Providers + +------+ + | Care Jumpbasting Machine Operator Name | Role | Phone | + +------+ + | Arnulfo Pacheco MD | PCP | | + +------+ + Encounter Details +--------+ + + + + | Date | Type | Department | Care Team | Description | +--------+ + + + + | 02/01/ | Telephone | [facility] | Samantha Flores, | | | 2018 | | Rheumatology [address] | [address] | | | | | [address] | | | | | | [place] [address] | | | | | | [phone] | | | +--------+ + + + [...] | | | | | | [facility] | | | | | | [place] [address] | | | | | | [phone] | | | | | | | | +--------+---------+ + + + as of this encounter Visit Diagnoses Not on filein this encounter"
[~2018-03-03 01:33] MED LIST changes: -CENTRAL-VITE H1 EACH PO; +FOLIC ACID1 MG PO; +MAGNESIUM250 M1 PO; -PLAQUENIL200 MG; +PLAQUENIL200 MG PO; +PREDNISONE5 MG PO; +[UNRECOGNIZED DRUG - OTHER] PO
--- NOTE | 2018-03-03 04:15 | NUR ---
PT ARRIVES FROM ER ADMITTED ICU OBS FOR SEPSIS AND ABDOMINAL CELLULTIIS, WAS TREATED FOR THIS CELLULTIS APPROX ONE MONTH AGO, FINISHED HER ANTIBIOTICS AND HAD NOT HAD ANY PROBLEMS UNTIL LAST NIGHT WHEN HER FEVER SPIKED TO 103 F . HAS BEEN GIVEN IVF BOLUS AND ANTIBIOTICS. SHE WAS GIVEN TYLENOL AND IBUPROFEN IN THE ED, CURRENT TEMP IS 100.3 ORALLY. HR 100, ON ROOM AIR SPO2 94% WITH RR 26 AND LUNGS CLEAR BUT DIM IN BASES. UP TO VOID IN BR, HAD APPROX 100ML OUT DARK URINE AND SMALL STOOL. BACK TO BED, QUESTIONS ABOUT PLAN PT IS ALERT AN ORIENTED.
--- NOTE | 2018-03-03 06:24 | NUR ---
PT STATES SHE HAS BEEN ABLE TO SLEEP FOR A COUPLE HOURS. HR 105, BPS A LITTLE LOW, 109/47 MAP 58, RR 24 AND SPO2 94%. PT STILL REEIVING BOLUS OF LR, WILL CONTT TO MONITOR FOR NOW. DENIES ANY PAIN/NAUSEA/SOB, NO REQUESTS.
--- NOTE | 2018-03-03 08:14 | NUR ---
PT AWAKE AND ALERT X4, C/O SLIGHT NAUSEA GIVEN PO ZOFRAN. PT DENIES PAIN AND SOB AT THIS TIME. IV SITES INTACT, NO REDNESS OR SWELLING NOTED AT EITHER SITE, FLUSH AND FLUIDS INFUSE EASILY. PT ABLE TO AMBULATED TO BSC WITH ONE PERSON ASSIST.
--- NOTE | 2018-03-03 09:50 | NUR ---
IV TO SL AT THIS TIME. PT RESTING COMFORTABLY.
--- NOTE | 2018-03-03 12:10 | NUR ---
MINIMAL ASSIST UP TO BSC FOR MED BM, IN GOOD SPIRITS, SPOKE WITH SON ON THE PHONE, DENIES ANY PAIN. DR TAVAREZ IN TO SEE PT. RECIEVED ORDER FOR MRSA NASAL SWAB TO BE DONE. COMPLETED AND SENT TO LAB. PT SITTING UP EATING LUNCH IN CHAIR. CALL LIGHT IN EASY REACH.
[2018-03-03] MEDS ORDERED: CYCLOBENZAPRINE10 MG PO (12:23)
--- NOTE | 2018-03-03 14:30 | NUR ---
SPOKE WITH DR TAVAREZ, STATES HE IS CHANGING ABX ORDERS, WILL LOOK AT LABS FIRST. PT DOES NOT WANT TO TAKE METHOTREXATE UNTIL DINNER TIME. JEANIE IN PHARMACY NOTIFIED AND WILL CHANGE TIME OF DOSE. DAUGHTER HAS JUST GOT HERE TO VISIT. PT ASSISTED INTO BED TO REST. CALL LIGHT IN EASY REACH. DENIES FURTHER NEEDS.
--- NOTE | 2018-03-03 15:10 | NUR ---
ORDER NOTED TO TRANSFER PT TO MED-SURG UNIT. REPORT GIVEN TO HERNAN BURKS. PT TRANSPORTED IN HER BED AT THIS TIME ACCOMPANIED BY HER DAUGHTER.
--- NOTE | 2018-03-03 15:15 | NUR ---
PT ARRIVED TO RO0M 113 AT THIS TIME. PT ALERT AND ORIENTED. REPORT FROM [facility].
--- NOTE | 2018-03-03 15:53 | NUR ---
PT UP TO BATHROOM ONE PERSON ASSIST WITH FWW. TOELRATED ACTIVITY WELL. PT REPORTED MILD DISCOMFORT AND AT LEFT SHOULDER PROVIDED PILLOW TO RE-POSITION ARM, PT REPORTS FEELS MUCH BETTER.
--- NOTE | 2018-03-03 15:56 | NUR ---
Medications reconciled with patient interview. Methotrexate dose verified at 20mg every Monday. As patient did not take yesterday's dose, she will take it today
--- NOTE | 2018-03-03 16:01 | NUR ---
ABD ASSESSMENT. RED AREA OUTLINED WITH SKIN MARKER, REDDNESS REMAINS WITHIN THE LINES, WARM TO TOUCH PT REPORTS TENDER, BUT IMPOVING
--- NOTE | 2018-03-03 16:50 | NUR ---
PT REPORTS NAUSEA, NO EMESIS. PO ZOFRAN 4MG ADMINISTERED. SHE IS SITTING UP IN RECLINER AT THIS TIME, PT REPORTS SITTING UP ALSO HELPS WITH UPSET STOMACH.
--- NOTE | 2018-03-03 17:12 | NUR ---
PT TRANSFERED FROM CCU AT 1515. SHE HAS BEEN UP TO BATHROOM TWICE ONE PERSON ASSIST WITH FWW. AMBUALTES WELL WITH STEADY GAIT. SHE REPORTS MILD CONTINUOUS, PO ZOFRAN 4MG PRN ADMINISTERED. PT APPETITE POOR FOR LUNCH AND DINNER. DAUGHTER HAS BEEN IN ROOM WITH HER SINCE TRANSFER. PT IS ALERT AND ORIENTED REPORTS MILD DISCOMFORT AT LEFT SHOULDER IMPROVED WITH REPOSITIONING, PILLOWS.
--- NOTE | 2018-03-03 17:30 | NUR ---
CALLED TO REPORT PT AND DAUGHTER IN ROOM WOULD LIKE TO SEE IF PATIENTS REGULAR HOME PAIN REGIME COULD BE ORDER PT IS HAVING CHRONIC PAIN. STATED HE WOULD PUT ORDERS IN AND PT AND DAUGHTER NOTIFIED OF THIS.
--- NOTE | 2018-03-03 17:43 | NUR ---
pt was sitting up in chair walked to bathroom, used the toilet, then walked to bed and is now resting in bed with call light in reach. pt did not need anything else at the moment
--- NOTE | 2018-03-03 19:05 | NUR ---
RECEIVED REPORT FROM DAY SHIFT RN. PT APPEARS TO BE SLEEPING IN BED, REPORT OUTSIDE PT ROOM D/T PRECAUTION STATUS. FAMILY AT BEDSIDE. RESPIRATIONS ARE EQUAL AND NONLABORED. PT SL. CALL LIGHT IN REACH.
--- NOTE | 2018-03-03 19:40 | NUR ---
CALL LIGHT ANSWERED. SBA TO BATHROOM. PT STEADY ON FEET WITH NO C/O SOB WHILE AMBULATING. VOIDED 400ML. BACK TO BED. CALL IGHT IN REACH. REPORTS NO OTHER NEEDS.
--- NOTE | 2018-03-03 19:47 | EKG ---
[facility] [address] [place], [place] [address] Signed Sinus tachycardia Right bundle branch block Left anterior fascicular block Bifascicular block Left ventricular hypertrophy with repolarization abnormality Possible Lateral infarct , age undetermined Abnormal ECG No previous ECGs available Confirmed by SELENA MATTHEW MD ([id number]) on 03/03/2018 7:47:14 PM Electronically Signed By: SELENA MATTHEW MD 03/03/18 1947 PATIENT NAME: NIKITA CLARKE PAUL Electrocardiogram DATE OF : 41 PHYSICIAN: SELENA MATTHEW MD REPORT #: [id number] REPORT IS CONFIDENTIAL AND NOT TO BE RELEASED WITHOUT AUTHORIZATION
--- NOTE | 2018-03-03 21:30 | NUR ---
PT REQUESTING HOME GABAPENTIN AND FLEXERIL. DR BLACKBURN NOTIFIED. NEW ORDERS RECIEVED.
--- NOTE | 2018-03-03 22:11 | NUR ---
ASSESSMENT COMPLETED. LUNGS HAVE FINE CRACKLES IN BASE. IS ENCOURAGED. HEART SOUNDS NORMAL. REDDENED AREA ON PANNUS MARKED. AREA HOT TO THE TOUCH. PT REPORTS GENERAL CHRONIC PAIN. TYLENOL AND HOME MEDS GIVEN. CALL LIGHT WITHIN REACH. WATER REFRESHED. PT TO BATHROOM AND BACK WITH FWW AND SBA. VOIDED 400ML.
--- NOTE | 2018-03-04 00:09 | NUR ---
PT ASLEEP IN BED, WAKING BRIEFLY. LIGHTS TURNED OUT AND TV SHUT OFF. CALL LIGHT IN REACH. REPORTS 5/10 GENERAL PAIN. DENIES NEEDS AT THIS TIME.
--- NOTE | 2018-03-04 02:15 | NUR ---
PT APPEARS TO BE SLEEPING. RESPIRATIONS EQUAL NAD NONLABRED. SCD'S IN PLACE. CALL LIGHT IN REACH. CONTACT PRECAUTIONS IN PLACE.
--- NOTE | 2018-03-04 07:42 | NUR ---
REPORT RECEIVED FROM JESSEE BURKS. WHITE BOARD UPDATED. PATIENT LYING IN BED RESTING COMFORTABLY. THYROID PILL RESCHEDULED FOR 732 TO ADMINISTER BEFORE BREAKFAST. BREAKFAST CALLED DOWN TO DIETARY AFTER REPORT. C/O 09/30 DISCOMFORT IN STERNUM AREA. DESCRIBES "PINCHING" SENSATION. ALL BELONGINGS WITHIN REACH. NO NEEDS AT THIS TIME.
--- NOTE | 2018-03-04 09:47 | NUR ---
PATIENT WAS GETTING UP TO USE THE RESTROOM W/ THE NURSE NURSE SAID SHE WOULD DO THE VITAL SIGNS, WILL RETURN TO ENTER INTAKE AND OUTPUT
--- NOTE | 2018-03-04 13:52 | NUR ---
PT DAUGHTER CALLED TO UPDATE ON CARE PLAN AND NOTIFY PT TO STAY ANOTHER NIGHT IN HOSPITAL, PER PT REQUEST TO NOTIFY DAUGHTER
--- NOTE | 2018-03-04 15:14 | NUR ---
pt is resting bed. pt asked for extra blanket, blanket given. call light within reach.
--- NOTE | 2018-03-04 17:44 | NUR ---
SBA FWW. SHOWERED TODAY. PANNUS MARKED EDGED FROM REDNESS. WARM TO TOUCH. REDNESS IMPROVING. NO PAIN. VIBRAMYCIN STARTED PO. SALINE LOCKED. NAPPED MOST OF DAY. DAILY WEIGHT. LIKELY DISCHARGING HOME TOMORROW.
--- NOTE | 2018-03-04 18:34 | NUR ---
pt resting in bed safely. pt family visiting. call light within reach. pt needed nothing at this time.
--- NOTE | 2018-03-04 19:41 | NUR ---
RECEIVED REPORT FROM VERONICA BURKS. PT IN BED WITH DAUGHTER AT BEDSIDE. PT REPORTS NO NEEDS AT THIS TIME. CALL LIGHT IN REACH. DENIES SOB. CALL LIGHT IN REACH.
--- NOTE | 2018-03-04 21:05 | NUR ---
ROUNDED CHARGE. PATIENT IS RESTING IN BED VISITING WITH FAMILY. PATIENT AND FAMILY DENY ANY COMMENTS, QUESTIONS, OR CONCERNS. NO NEEDS NOTED. CALL LIGHT IN REACH.
--- NOTE | 2018-03-04 22:00 | NUR ---
ASSESSMENT COMPLETED. RESPIRATIONS EQUAL AND NONLABORED. LUNGS ARE DIM IN BASES. HEART SOUNDS NORMAL. REDNESS ON PANNUS IS MARKED AND APPEARS TO BE DECREASING. AREA HOT TO TOUCH. PULSES +2 RADIAL AND PEDAL. TRACE EDEMA IN BILAT ANKLES. VS TAKEN AND STABLE. PT UP IN CHAIR. CALL LIGHT IN REACH. REPORTS 5/10 PAIN. PRN PAIN MEDICATION GIVEN. CALL LIGHT IN REACH. DENIES FURTHER NEEDS.
--- NOTE | 2018-03-04 23:42 | NUR ---
PT REPORTED FEELING NAUSEOUS. 4MG ZOFRAN GIVEN. PT COMFORTABLE IN BED. CALL LIGHT IN REACH. DENIES OTHER NEEDS.
--- NOTE | 2018-03-05 03:16 | NUR ---
PT APPEARS TO BE SLEEPING. REPIRATIONS EQUAL AND NONLABORED. CALL LIGHT IN REACH.
--- NOTE | 2018-03-05 04:44 | NUR ---
SLEPT ALL NIGHT. PRN PAIN MEDICAITON. PO ABX. PANNUS MARKED FOR CELLULITIS. AFEBRILE. VSS. AMBULATING WELL WITH MIN ASSISTANCE. PLAN TO DC HOME BEFORE 12 FOR SISTERS .
--- NOTE | 2018-03-05 05:42 | NUR ---
SBA TO BATHROOM. VOIEDED 800ML. BACK TO BED. REPORTS NO PAIN AT THIS TIME. CALL LIGHT IN REACH. DENIES FURTHER NEEDS.
--- NOTE | 2018-03-05 07:05 | NUR ---
REPORT RC'D FROM FIELD INSPECTOR NURSE, REPORTS PT SELPT WELL THROUGH NIGHT AND PT REQUESTING TO DC EARLY THIS MORNING FOR SISTER . PT RESTING IN BED WITH EYES CLOSED, RESPIRATIONS EVEN AND UNLABORED, NO ACUTE DISTRESS NOTED.
--- NOTE | 2018-03-05 09:10 | NUR ---
PATIENT RESTING IN BED WITH EYES CLOSED. WASHCLOTH PROVIDED TO PATIENT TO HELP WAKE UP. PATIENT TO BATHROOM WITH 1 PERSON ASSIST FWW. CLEAN GOWN AND DEPENDS PROVIDED. LINENS CHANGED. PATIENT CURRENTLY SITTING UP IN BED. CALL LIGHT IN REACH. NO FURTHER NEEDS AT THIS TIME.
--- NOTE | 2018-03-05 09:20 | NUR ---
PT RESTING COMFORTABLY IN BED SLEEPING, EASILY AWAKENS. PT A&O X3, RESPONDING APPROPRIATELY, VERBALIZATIONS CLEAR, PERRLA. HEART RHYTHM REGULAR, CPT LESS THAN 3 SECONDS, PERIPHERAL PULSE PALPABLE +2, NO EDEMA NOTED, ANALI HOSE AND SCD IN PLACE, PT REPORTS CHRONIC NUMBNESS IN BLE. RESPIRATIONS EVEN AND UNLABORED, LUNGS CLEAR IN BUL AND CLEAR/DIMINISHED IN BLL, NO COUGH NOTED. ABD SOFT, OBESE, ACTIVE BOWEL TONES X 4 QUADRANTS, LAST BM 03/03/18, DUE FOR BM, DENIES NAUSEA, TOLERATING CARDIAC DIET. PT VOIDING QS, REPORTS DRIBBLING OF URINE, ATTEND IN PLACE. CELLULITIS OF ABD OUTLINED AND IMPROVING, REDDENED, WARM TO TOUCH, NO OPEN AREAS, DENIES PAIN, PO ABX. LFA AND RAC IV SITES WNL AND SALINE LOCKED. PT REPORTS RECENT LOSS OF SISTER AND WOULD LIKE TO DC HOME FOR TODAY. DENIES OTHER NEEDS AT THIS TIME. CALL LIGHT WITHIN REACH.
[2018-03-05] MEDS ORDERED: DOXYCYCLINE HY100 MG PO (11:00)
--- NOTE | 2018-03-05 11:50 | NUR ---
PT UP IN CHAIR EATING LUNCH. NO ACUTE CHANGES. IV SITES DC'D WNL. SANTY PAPERWORK DISCUSSED. PT TO DC HOME THIS AFTERNOON.
--- NOTE | 2018-03-05 12:06 | NUR ---
CASE MANAGEMENT EDITA CALLED IN REGARDS TO PT REQUEST IF POSSIBLE TO HAVE REPLACEMENT CANE. EDITA SAID SHE WILL GO TO PT ROOM TO DISCUSS WITH HER
--- NOTE | 2018-03-05 12:20 | NUR ---
CALLED TO PT ROOM FOR A QUESTION REGARDING GETTING HER A NEW CANE, WHEN I ENTERED HER ROOM GRACE RN IN ROOM AND SHE IS TALKING WITH PT ABOUT GETTING A NEW CANE [facility]ROUGH [facility]. PT AGREEABLE TO THIS.
== END 2018-03-05 12:30 | disposition home or self-care (01) ==
LOC: ED 01:33 → CCU 01:34 → MS 15:15
PROVIDERS: ADMIT Student in an Organized Health Care Education/Training Program
DX: A41.9 Sepsis, unspecified organism (principal); L03.311 Cellulitis of abdominal wall; M06.9 Rheumatoid arthritis, unspecified; E66.01 Morbid (severe) obesity due to excess calories; I10 Essential (primary) hypertension; E03.9 Hypothyroidism, unspecified; M54.9 Dorsalgia, unspecified; G89.29 Other chronic pain; R00.0 Tachycardia, unspecified; J44.9 Chronic obstructive pulmonary disease, unspecified; M19.90 Unspecified osteoarthritis, unspecified site; Z87.891 Personal history of nicotine dependence; Z79.899 Other long term (current) drug therapy; Z79.891 Long term (current) use of opiate analgesic; Z79.52 Long term (current) use of systemic steroids; Z88.2 Allergy status to sulfonamides; Z68.41 Body mass index [BMI] 40.0-44.9, adult
CPT/HCPCS: 36415; 71045; 80048; 80053; 81001; 82550; 83605; 85025; 86140; 93005; 93010; 94640; 96361; 96365; 96367; 96372; 96375; 96376; 99285; G0378; J0690; J0692; J1650; J3370; J7030; J7060; J7120; J7512; J8610

== ENCOUNTER 2018-08-13 01:33 | Inpatient (IN) | payer MEDICARE, OTHER ==
[~2018-08-13] VITALS: Ht 149.9 cm; Wt 94.1 kg
[~2018-08-13 01:33] MED LIST changes: +CYCLOBENZAPRINE10 MG PO; +DOXYCYCLINE HY100 MG PO
--- NOTE | 2018-08-13 05:15 | NUR ---
ADMIT TO CCU AT 0430. ABLE TO TRANSFER FROM STRETCHER TO BED BY AMB WITH ASSIST. MOVES SLOWLY DUE TO KNEE PAIN WHICH IS NORMAL FOR HER DUE TO RHEUMATOID ARTHRITIS. LOWER ABD IS DARK RED FROM LEFT OF UMBILICUS TO ALMOST R FLANK AND TO GROIN. PT STATED IT STARTED AFTER HER SHOWER. PT STATES SHE USES A BRUSH ON HER SKIN. WHEN ASKED WHEN THE BRUSH WAS LAST CHANGED STATED MAYBE 2 YEARS AGO. ADVISED NEEDED TO CHANGE BRUSH OR PREFERABLY USE WASHCLOTHS. PT ACKNOWLEGDED THIS. CALL LIGHT GIVEN AND ADVISED NOT TO GET UP WITHOUT CALLING STAFF.
--- NOTE | 2018-08-13 05:50 | NUR ---
UP TO BSC TO VOID AND BM. KATTY WELL.
--- NOTE | 2018-08-13 06:36 | NUR ---
SLEEPING AT THIS TIME.
--- NOTE | 2018-08-13 07:11 | NUR ---
AWAKENS EASILY, ASKING FOR TEMPERATURE IN ROOM TO BE TURNED DOWN. TEMP IS 99.9. CONT TO MONITOR BP.
--- NOTE | 2018-08-13 07:30 | NUR ---
PT SHIFT REPORT RECEIVED FROM FISHER TRAMMEL NET RN. PT IS RESTING IN BED AT THIS TIME. PT RESTING IN BED AND CALLS APPROPRIATELY. CALL LIGHT IN REACH. PT DENIES ANY NEEDS AT THIS TIME.
--- NOTE | 2018-08-13 08:15 | NUR ---
MD MAGANAO IN TO VISIT WITH PATIENT REGUARDING CURRENT HOSPITALIZATION. ALL QUESTIONS ANSWERED. WILL GIVE A LITTER BOLUS PER MD AND NEW ORDERES TO FOLLOW. WILL CONTINUE TO CLOSELY MONITOR.
--- NOTE | 2018-08-13 09:36 | NUR ---
PT UP TO CAMMODE WITH RN ASSIST. PT TOELRATED WELL. PT IS A 1 PERSON STAND-BY. PT NOW EATING BREAKFAST. WILL CONTINUE TO CLOSELY MONITOR. ASSESSMENT COMPLETED. BREATH SOUNDS CLEAR. BOWEL TONES ACTIVE. RED AREA OVER ABD REGION. MD ALREADY SEEN IT THIS AM. WILL CONTINUE TO CLOSELY MONITOR.
--- NOTE | 2018-08-13 10:00 | NUR ---
PT UP AND WORKING WITH PHYSICAL THERAPY. PT WALKING THE MADRID WITH A WALK. WILL CONTINUE TO CLOSELY MONITOR.
--- NOTE | 2018-08-13 11:15 | NUR ---
PT UP TO CAMMODE. PT TOLERATED WELL. ASSISTED BACK TO BED. PT DENIES ANY OTHER NEEDS AT THIS TIME. WILL CONTINUE TO CLOSELY MONITOR.
--- NOTE | 2018-08-13 12:08 | NUR ---
ASSISTED PT UP TO BATHROOM WITH FRONT WHEEL WALKER. PT TOELRATED WELL. WILL CONTINUE TO CLOSELY MONITOR.
--- NOTE | 2018-08-13 12:15 | NUR ---
PATIENT VISITING WITH CLERGY. WILL RETURN ANOTHER TIME.
--- NOTE | 2018-08-13 12:24 | NUR ---
PT IS RESTING IN BED AT THSI TIME WITH A VISITOR AT THE BEDSIDE. PT DENEIS LUNCH AT THIS TIME. FRESH ICE WATER REFILLED AND AT BEDSIDE. CALL LIGHT IN REACH. ASSESSMENT REMAINS UNCHANGED FROM PRIOR ASSESSMENT. WILL CONTINUE TO CLOSELY MONITOR.
--- NOTE | 2018-08-13 13:20 | NUR ---
PT TRANSFERED AT THIS TIME TO ROOM 112 FROM [facility] CCU. PT ALERT, REPORTS MILD NAUSEA. WILL GIVEN ZOFRAN AND CALL IN REGARDS TO PT REPORT FEELING SHORT OF BREATH
--- NOTE | 2018-08-13 13:25 | NUR ---
PT REPORT GIVEN TO VITALIY WEN AND TOM CHARGE NURSE. WHEN CHARGE NURSE CAME TO MOVE PT TO ROOM, PT COMPLAINED OF BELLY PAIN WITH SITTING UP RIGHT. PT STATES SHE NORMALLY TAKES A STOOL FOTENER AND HYDROCODONE FOR HER PAIN. OTHER RN WILL ADRESS THIS WITH MD. ALL BELONGINGS GATHERED AND PATIENT TRANSFERED TO ROOM 112.
--- NOTE | 2018-08-13 13:37 | NUR ---
CALLED AFTER PT TRANSFERED, PT RR 28, SHE REPORTS FEELING SHORT OF BREATH. SHE REPORTS NAUSEA, AND PAIN AT HER BACK THAT IS CHRONIC. SAID HE WOULD COME DOWN TO ASSESS PT.
--- NOTE | 2018-08-13 13:41 | NUR ---
PT HAS SOME FINE CRACKLES IN LLL.
--- NOTE | 2018-08-13 13:51 | NUR ---
PT SITTING UP IN CHAIR, REPORTS BEING SOB. 02 SATURATION LEVEL IS 98%, RESPIRATIONS ARE NON LABORED, 24/MIN. DR. BLACKBURN AWARE.
--- NOTE | 2018-08-13 13:55 | NUR ---
PROVIDER TO COME SEE PT.
--- NOTE | 2018-08-13 14:11 | NUR ---
Dr. Recio in to see pt. New order to be placed for a diuretic per provider.
--- NOTE | 2018-08-13 15:06 | NUR ---
MED REC COMPLETE-PATIENT INTERVIEW
--- NOTE | 2018-08-13 16:36 | NUR ---
1PA WITH JAMEL. RA. IV AB/SL. LASIX. TOLERATING REG DIET. C/O SOB THIS SHIFT. NEW ORDER FOR LASIX GIVEN; RESOLVED. CELLULITIS ABD MANUELA. MRSA CULTURE PENDING.
--- NOTE | 2018-08-13 17:30 | NUR ---
PT RESTING IN BED AT THIS TIME, RESP EVEN AND NON LABORED. PT DENIES NEEDS AT THIS TIME.
--- NOTE | 2018-08-13 19:10 | NUR ---
CHARGE NURSE REPORT [facility]. PT AWAKE, DENIED NEEDS.
--- NOTE | 2018-08-13 19:24 | NUR ---
RECIEVED CHANGE OF SHIFT REPORT FROM BEHZAD BURKS. PATIENT RESTING AWAKE IN BED WITH FAMILY AT BEDSIDE. WHITE BOARD UPDATED. NO MORE NEEDS AT THIS TIME. CALL LIGHT WITHIN REACH.
--- NOTE | 2018-08-13 21:39 | NUR ---
ASSESSMENT COMPLETE. SCHEDULED MEDICATION ADMINSTRATION COMPLETE. PATIENT DENIES CHEST PAIN OR SOB. PATIENT REPORTS HAVING DIFFICULTY BREATHING, STATES THIS IS NORMAL AND HER DOCTOR KNOWS ABOUT IT, PATIENT SHOWS NO SIGNS OF RESPIRATORY DISTRESS, ABLE TO TALK IN COMPLETE AND CONCISE SENTENCES. PATIENT REPORTS HAVING SLIGHT NAUSEA, DENIES PRN NAUSEA MEDICATION. DRESSING ON IV CHANGED. PATIENT REPORTS PAIN A "5/10" IN ABDOMEN, DENIES WANTING PRN PAIN MEDICATION. REDDENED AREA ON ABDOMEN IS WARM TO TOUCH AND CONTAINED WITHIN OUTLINED AREA OF ABDOMEN. PATIENT SBA ASSIST TO RESTROOM WITH FWW, PATIENT SAFELY BACK INTO BED. FRESH WATER BROUGHT TO PATIENT. CALL LIGHT WITHIN REACH. NO MORE NEEDS AT THIS TIME.
--- NOTE | 2018-08-14 01:01 | NUR ---
ROUNDED ON PATIENT. RESTING IN BED WITH EYES CLOSED, RESPIRATORY RATE IS EVEN AND UNLABORED. NO SIGN OF TENSING OR GRIMACING. IV INFUSING PER MAR ORDER. CALL LIGHT WITHIN REACH.
--- NOTE | 2018-08-14 02:30 | NUR ---
ASSESSEMENT COMPLETE. INTAKE AND OUTPUT ASSESSED AND RECORDED. VITALS ASSESSED AND RECORDED. PATIENT DENIES SOB, CHEST PAIN, OR DIFFICULTY BREATHING. IV ASSESSED TO BE LEAKING, D/C'd WNL. PATIENT REPORTS PAIN A "2-3/10 PAIN IN ABDOMEN, DENIES WANTING PRN PAIN MEDICATION. PATIENT SBA TO RESTROOM WITH FWW. ABDOMEN IS WARM TO TOUCH, REDDNESS CONTAINED WITHIN OUTLINED AREA. CALL LIGHT WITHIN REACH.
--- NOTE | 2018-08-14 02:39 | NUR ---
VITALIY CLEANING IS AWARE RE PATIENT'S TEMP.
--- NOTE | 2018-08-14 03:42 | NUR ---
NEW IV STARTED BY ADAM BURKS. PATIENT HAS IV ABX INFUSING PER ORDER IN IV. PATIENT TOLERATED ACTIVITY WELL. PATIENT RATES PAIN AT A 3/10. PATIENT DENIES THE NEED FOR PRN PAIN MEDICATION AT THIS TIME. CALL LIGHT IN REACH.
--- NOTE | 2018-08-14 04:54 | NUR ---
ROUNDED ON PATIENT RESTING IN BED, RESPIRATORY RATE IS EVEN AND UNLABORED. CALL LIGHT WITHIN REACH. IV INFUSING PER MAR ORDER.
--- NOTE | 2018-08-14 06:24 | NUR ---
PATIENT RESTED WELL THROUGHOUT THE SHIFT. PATIENTIS ON A REGUALR DIET. PATIENT IS ON RA. PATIENT IS WORKING WITH PT. PATIENT IS A SBA W/FWW. PATIENT IS SL. PATIENTS ABD IS RED AND WARM TO THE TOUCH. REDNESS ON ABD IS OUTLINED. PATIENT IS AAOX3 ANS USES CALL LIGHT APPROPRIATELY.
--- NOTE | 2018-08-14 06:25 | NUR ---
ASSESSMENT COMPLETE. INTAKE AND OUTPUT ASSESSED AND RECORDED. VITALS ASSESSED AND RECORDED. PATIENT REPORTS "6/10" IN RIGHT LEG, PATIENT REPORTS PAIN IS FROM HER "SCIATIC NERVE", DENIES WANTING PRN PAIN MEDICATION. REDDENED AREA ON ABDOMEN IS STILL CONTAINED WITHIN OUTLINED AREA, WARM TO TOUCH. SCHEDULED MEDICATIONS PROVIDED PER [facility] ORDER. SBA PATIENT TO RESTROOM WITH FWW. PATIENT DENIES HAVING CHEST PAIN, SOB, OR DIFFICULTY BREATHING. IV ASSESSED TO BE PATENT, WNL. CALL LIGHT WITHIN REACH. NO MORE NEEDS AT THIS TIME.
--- NOTE | 2018-08-14 07:35 | NUR ---
BEDSIDE REPORT RECEIVED FROM CHRISTY BURKS. WHITE BOARD UPDATED. PATIENT ASLEEP LYING ON LEFT SIDE. MAXIPIME INFUSING NOW. VANCO TROUGH EXPECTED TODAY. ATTENDS IN PLACE FOR DRIBBLING. NO NEEDS AT THIS TIME.
--- NOTE | 2018-08-14 08:57 | NUR ---
PT AWAKENED TO VOICE AND TOUCH. UP TO BATHROOM. VOIDED 700ML YELLOW CLEAR URINE. REDNESS OUTLINED WITH PEN ON ABDOMEN. NO PAIN TO TOUCH. PT UP TO RECLINER NOW. FIELD APPLICATION ENGINEER, EDITA, VISITING WITH PATIENT NOW. WARM BLANKET AND COFFEE PROVIDED TO PATIENT.
--- NOTE | 2018-08-14 09:43 | NUR ---
PATIENT SITTING UP IN CHAIR EATING BREAKFAST. FRESH WATER GIVEN. CALL LIGHT IN REACH. NO FURTHER NEEDS AT THIS TIME.
--- NOTE | 2018-08-14 10:47 | NUR ---
SALINE LOCKED PATIENT. RESTING WITH EYES CLOSED IN RECLINER. TV ON. NO NEEDS AT THIS TIME.
--- NOTE | 2018-08-14 11:32 | NUR ---
TALKED WITH PT ABOUT THE [facility] NURSE COMING TO SEE HER AND SHE SAYS IT IS OK FOR THEM TO DO THAT, STATES MAYBE THAT WILL HELP. CALLED AND SPOKE WITH JONNY ONE OF [facility] AT [facility]. AND JONNY STATES THAT UP TO THIS POINT THE PT HAS NOT LET THE [facility] INTO THE HOME. I TOLD JONNY SHE HAS TOLD US THAT SHE WOULD HAVE THEM COME IN.
--- NOTE | 2018-08-14 13:17 | NUR ---
PT UP TO BATHROOM. PICC LINE NURSE AND ORIENTEE ARE IN TO SEE PATIENT FOR LINE PLACEMENT.
--- NOTE | 2018-08-14 13:41 | NUR ---
PT SITTING IN CHAIR, MENTIONED THAT SHE IS FEELING BETTER. THANKED ME FOR COMING BY, EXTENDED A BLESSING. WILL FOLLOW NEEDED
--- NOTE | 2018-08-14 14:39 | NUR ---
UP TO SHOWER. DID MOST OF SHOWER INDEPENDENTLY. NEW GOWN, SOCKS, AND ATTENDS ON. CEFEPIME INFUSING INTO NEW PERIPHERAL LINE. DR MATTHEW IN TO SEE PATIENT. EXPECT TO STAY FOR SEVERAL MORE DAYS FOR IV ABX THERAPY.
--- NOTE | 2018-08-14 14:41 | NUR ---
PATIENT IN BED WATCHING TV. FRESH WATER GIVEN. CALL LIGHT IN REACH. NO FURTHER NEEDS AT THIS TIME.
--- NOTE | 2018-08-14 16:16 | NUR ---
CALLED VIA CALL LIGHT TO USE BATHROOM. VOIDED 600ML AND UP TO RECLINER NOW. CALL LIGHT WITHIN REACH.
--- NOTE | 2018-08-14 17:04 | NUR ---
Changed to inpatient. Expect to stay for several more days of abx therapy. Vanco and Rocephin. Vanco rescheduled d/t high trough level today. Longer peripheral IV placed in LFA. Attends in place for dribbling. Showered today. Redness on abdomen marked with pen. Non-tender, warm, red. Saline locked between abx. MRSA abd swab negative. No pain medicine today. Working with physical therapy. SBA with FWW. Lives with daughter at home.
--- NOTE | 2018-08-14 17:59 | NUR ---
PATIENT IN CHAIR WATIING FOR DINNER. FRESH WATER GIVEN. CALL LIGHT IN REACH. NO FURTHER NEEDS AT THIS TIME.
--- NOTE | 2018-08-14 19:17 | NUR ---
RECIEVED CHANGE OF SHIFT REPORT FROM VERONICA BURKS. PATIENT LAYING AWAKE IN BED WITH FAMILY AT BEDSIDE. WHITE BOARD UPDATED. CALL LIGHT WITHIN REACH. POSSESSIONS AT BEDSIDE. NO MORE NEEDS AT THIS TIME.
--- NOTE | 2018-08-14 20:40 | NUR ---
ASSESSMENT COMPLETE. INTAKE AND OUTPUT ASSESSED AND RECORDED. VITALS ASSESSED AND RECORDED. PATIENT REPORTS "6/10" PAIN IN ABDOMEN, PRN PAIN MEDICATION PROVIDED PER MAR ORDER. SCHEDULED MEDICATIONS ADMINISTRED PER ORDER. REDNESS ON ABDOMEN CONTAINED WITHIN OUTLINED MARGINS, WARM TO TOUCH. NYSTATIN POWDER APPLIED BENEATH ABDOMINAL FOLD/PANNUS. PATIENT DENIES CHEST PAIN, SOB, OR DIFFICULTY BREATHING. FINE CRACKLES NOTED IN BASES OF LUNGS, NO SOB OR DIFFICULTY BREATHING EXHIBITED, CLEAR AND CONCISE SENTENCES SPOKEN. DENIES NUMBNESS AND TINGLING. CALL LIGHT WITHIN REACH. NO MORE NEEDS AT THIS TIME.
--- NOTE | 2018-08-14 20:45 | NUR ---
VITALS TAKEN AND RECORDED. PATIENTS INTAKE AND OUPUT RECORDED. HERMILA BURKS IN THE ROOM.
--- NOTE | 2018-08-14 21:37 | NUR ---
PATIENT ASSISTED TO THE RESTROOM A SBA W/FWW. PATIENT IS STEADY ON HER FEET. PATIENT WAS ABLE TO VOID. PATIENT IS NOW BACK IN BED RESTING. PATIENTS IV ABX COMPLETED INFUSING. PATIENT IS NOW SL PER ORDER. NO FURTHER NEEDS NOTED. CALL LIGHT IN REACH.
--- NOTE | 2018-08-14 23:18 | NUR ---
ROUNDED ON PATIENT FOR SCHEDULED MEDICATION ADMINISTRATON PER MAR ORDER. PROVIDED PATIENT POUCH THAT CONTAINED TOOTHBRUSH, COMB, TOOTHPASTE, ECT. PER PATIENT REQUEST. FRESH WATER BROUGHT TO PATIENT. CALL LIGHT WITHIN REACH. NO MORE NEEDS AT THIS TIME.
--- NOTE | 2018-08-15 01:15 | NUR ---
PATIENTS IV ABX DONE INFUSING. PATIENT IS RESTING IN BED WITH EYES CLOSED, RR 18. CALL LIGHT IN REACH.
--- NOTE | 2018-08-15 02:50 | NUR ---
THIS RN ANSWERED PATIENT CALL LIGHT. SBA PATIENT TO RESTROOM. PATIENT REPORTS PAIN IS "DOING OK", DENIES WANTING PAIN MEDICATION AT THIS TIME. PATIENT SAFELY BACK IN BED. CALL LIGHT WITHIN REACH. NO MORE NEEDS AT THIS TIME.
--- NOTE | 2018-08-15 05:08 | NUR ---
ASSESSMENT COMPLETE. PATIENT REPORTS THAT EARLIER IN NIGHT WHEN SHE MOVED IN BED SHE FELT "CHEST PRESSURE" AND HAD "SHORTNESS OF BREATH" THAT LASTED ONLY A "FEW SECONDS". PATIENT DENIES HAVING CHEST PAIN, SOB, OR DIFFICULY BREATHING AT THIS TIME. EDUCATED PATIENT TO UPDATE NURSING STAFF IF PATIENT FEELS THIS WAY AGAIN, PATIENT EXPRESSED UNDERSTANDING. REDDNESS ON ABDOMEN PRESENT, CONTAINED WITHIN OUTLINED REGION, SLIGHTLY WARMER TO TOUCH THAN SKIN THAT IS NOT REDDENED. PATIENT REPORTS "6/10" PAIN IN RIGHT LEG, PRN PAIN MEDICATION PROVIDED. IV PATENT, WNL. CALL LIGHT WITHIN REACH. NO MORE NEEDS AT THIS TIME.
--- NOTE | 2018-08-15 06:21 | NUR ---
PATIENT RESTED WELL THROUGHOUT THE SHIFT. PATIENT IS ON A REGULAR DIET. PATIENT IS WORKING WITH PT. PATIENT IS A SBA W/FWW. PATIENT IS SL. PATIENTS ABD IS OUTLINED, WARM TO THE TOUCH, AND RED IN COLOR. PATIENT IS AAOX3 AND USES CALL LIGHT APPROPRIATELY.
--- NOTE | 2018-08-15 06:39 | NUR ---
morning medication given per order. dru ricketts in room completing vitals.
--- NOTE | 2018-08-15 07:50 | NUR ---
BEDSIDE REPORT RECEIVED FROM DENNIS BURKS. PATIENT SLEEPING ON LEFT SIDE. WHITE BOARD UPDATED. RECEIVED ONE DOSE OF OXYCODONE OVERNIGHT FOR RIGHT LEG PAIN. NO COMPLAINTS OF PAIN FROM CELLULITIS ON ABDOMEN. SALINE LOCKED NOW.
--- NOTE | 2018-08-15 09:18 | NUR ---
PT REPORTS NOT SLEEPING WELL OVERNIGHT. ATE 75% OF BREAKFAST. "I ATE IT TOO FAST". WANTS TO CONTINUE TO REST. DENIED WANT TO SIT UP IN CHAIR. ENCOURAGED PLAN TO AMBULATE LATER TODAY. PT SOUNDS COOPERATIVE WITH PLAN. IV FLUSHED IN LFA. NYSTATIN APPLIED UNDER PANUS. PT REPORTS ITCHING. PROVIDED LOTION TO APPLY TO ITCHING AREAS. NO OTHER NEEDS AT THIS TIME. CALL LIGHT WITHIN REACH.
--- NOTE | 2018-08-15 11:24 | NUR ---
pt napping most of morning. vancomycin infusing now. ambulated [address] this morning. tolerated well. SBA FWW. up in recliner now with call light and belongings in reach. reports soreness in muscles after exercising.
--- NOTE | 2018-08-15 11:55 | NUR ---
PT SITTING IN CHAIR, BIG SMILE AND WELCOMING. PT STATED THAT SHE FEELS BETTER, BUT NOT MUCH SLEEP LAST NIGHT. PT MENTIONED THAT SHE WAS RESTLESS AND HAD STRANGE DREAMS. EXTENDED A BLESSING, WILL FOLLOW NEEDED
--- NOTE | 2018-08-15 12:58 | NUR ---
LFA IV INFILTRATED. CALLED PICC LINE NURSE TO POSSIBLY REINSERT A NEW IV.
--- NOTE | 2018-08-15 14:41 | NUR ---
REPORT FROM VERONICA BURKS, PATIENT SITTING UP IN RECLINER. PLAN FOR PATIENT TO GET MIDLINE TODAY. PATIENT WORKING WITH PHYSICAL THERAPY. NO COMPLAINTS OF PAIN AT THIS TIME. CALL LIGHT WITHIN REACH.
--- NOTE | 2018-08-15 17:31 | NUR ---
PATIENT UP THROUGHOUT DAY WITH PHYSICAL THERAPY. IV TO RIGHT FA INFILATRATED, MIDLINE TO LEFT ARM PLACED FOR 2-3 DAYS OF IV ANTIBIOTICS. PATIENT PAIN WELL CONTROLLED. VS STABLE.
--- NOTE | 2018-08-15 19:17 | NUR ---
RECEIVED CHANGE OF SHIFT FROM JAZMIN BURKS. PATIENT SITTING ON SIDE OF BED. PRESSURE DRESSING IN PLACE, PLACED BY DAY SHIFT NURSE. ARM ELEVATED ON PILLOW. BROUGHT PATIENT WARM BLANKET. ASSISTED PATIENT TO LAY BACK IN BED. CALL LIGHT WITHIN REACH. NO MORE NEEDS AT THIS TIME.
--- NOTE | 2018-08-15 19:42 | NUR ---
ROUNDED ON PATIENT DUE TO PATIENT REPORTING PAIN IN LEFT ARM. PRESSURE DRESSING ON LEFT ARM REWRAPPED. PATIENT REPORTS DECREASED TINGLING IN LEFT ARM. LEFT ARM ELEVATED ON PILLOW. CALL LIGHT WITHIN REACH. NO MORE NEEDS AT THIS TIME.
--- NOTE | 2018-08-15 19:44 | NUR ---
PATIENT MIDLINE SITE BLOODY, ONCOMING NURSE HERRERA PLACED TIGHT PRESSURE DRESSING TO SIGHT, AND THEN CALLED PICC LINE NURSE NICOLE TO COME IN. NICOLE ADVISED NURSE TO FLUSH AND SEE IF PULLS BACK BLOOD AND THEN FLUSH WITH 20 MLS OF NS. MIDLINE IV PATENT, FLUSHES EASILY AND DRAWS BACK BLOOD. NICOLE TO ROOM, OKAYED FOR PRESSURE DRESSING TO STAY. REASSURED GOOD PLACEN- MENT OF IV CATHETER.
--- NOTE | 2018-08-15 21:55 | NUR ---
ASSESSMENT COMPLETE. PATIENT REPORTS "5/10" PAIN BACK, "6/10" PAIN IN ABDOMEN, PRN PAIN MEDICATION PROVIDED. SCHEDULED MEDICATIONS ADMINISTERED PER MAR ORDER. PATIENT REPORTS RESTLESS LEGS MAKES PATIENT FEEL "ANXIOUS", LASTS "5-10 MINUTES", PATIENT STATES NO RESTLESS LEGS AT THIS TIME. BLOOD PRESENT AT PICC LINE INSERTION SITE, REFER TO ASSESSMENT, PICC FLUSHES WELL AND GOOD BLOOD RETURN. PATIENT REPORTS CHRONIC NUMBNESS AND TINGLING AT "BOTTOMS OF FEET". LEFT ARM ELEVATED ON PILLOW. PATIENT DENIES CHEST PAIN, SOB, OR DIFFICULY BREATHING. NYSTATIN POWDER APPLIED TO PANNUS REGION. CALL LIGHT WITHIN REACH. NO MORE NEEDS AT THIS TIME.
--- NOTE | 2018-08-15 22:09 | NUR ---
ROUNDED CHARGE. HERMILA BURKS IN THE ROOM. PATIENT DENIES ANY COMMENTS, QUESTIONS OR CONCERNS. NO NEEDS NOTED. CALL LIGHT IN REACH.
--- NOTE | 2018-08-15 23:00 | NUR ---
ROUNDED ON PATIENT FOR MEDICATION ADMINSTRATION PER MAR ORDER. PATIENT REPORTS PAIN A "4/10" IN BACK. POSSESSIONS AT BEDSIDE. PATIENT WATCHING TV. CALL LIGHT WITHIN REACH. NO MORE NEEDS AT THIS TIME.
--- NOTE | 2018-08-16 01:48 | NUR ---
PATIENTS MIDLINE DRESSING CHANGED. PATIENT TOLERATED ACITVITY WELL. PATIENT IS NOW HEPLOCKER. BLOOD RETURN NOTED. HERMILA BURKS IN THE ROOM.
--- NOTE | 2018-08-16 03:24 | NUR ---
ASSISTED PATIENT TO THE BATHROOM A SBA. PATIENT IS STEADY ON HER FEET. PATIENT WAS ABLE TO VOID. PATIENTS BEDDING AND GOWEN CHANGED. PATIENT IS NOW BACK IN BED RESTING. PATIENTS ICE WATER REFILLED. PATIENTS MIDLINE ASSESED. NO NEW DRAINAGE NOTED AFTER DRESSING CHANGE. PATIENT DENIES ANY NEEDS. CALL LIGHT IN REACH.
--- NOTE | 2018-08-16 04:24 | NUR ---
ROUNDED ON PATIENT RESTING IN BED WITH EYES CLOSED, RESPIRATORY RATE IS EVEN AND UNLABORED. CALL LIGHT WITHIN REACH.
--- NOTE | 2018-08-16 05:12 | NUR ---
SLEPT THROUGHOUT THE NIGHT. MIDLINE PRESENT IN LEFT ARM, FLUSHES WELL, GOOD BLOOD RETURN, HEP LOCKED. DRESSING ON MIDLINE CHANGED THIS SHIFT. PRN PAIN MEDICATION X1. ROOM AIR. PT. SBA WITH FWW. REGULAR DIET.
--- NOTE | 2018-08-16 06:08 | NUR ---
ASSESSMENT COMPLETE. PATIENT DROWSY THROUGHOUT ASSESSMENT. PATIENT DENIES SOB, DIFFICULTY BREATHING OR CHEST PAIN. MIDLINE DRESSING ASSESSED, WNL. PATIENT DENIES NAUSEA. REDNESS ON ABDOMEN WARM TO TOUCH, CONTAINED WITHIN OUTLINE REGION, SLIGHTLY LESS RED IN COLOR. MEDCATION ADMINSTRATION COMPLETE PER MAR ORDER. PATIENT DENIES PAIN. CALL LIGHT WITHIN REACH. NO MORE NEEDS AT THIS TIME.
--- NOTE | 2018-08-16 07:00 | NUR ---
MARIELOS RECELIZABETH FROM NIGHT BRADLEY BURKS. PT IN BED WITH EYES CLOSED. RESPIRATIONS EQUAL AND NONLABORED. CALL LIGHT IN REACH.
--- NOTE | 2018-08-16 08:00 | NUR ---
PATIENT SITTING UP IN CHAIR. PATIENT'S BREAKFAST ORDERED
--- NOTE | 2018-08-16 08:15 | NUR ---
PATIENT USING BATHROOM. LINENS CHANGED. PATIENT BACKS TO CHAIR. PATIENT REFUSED SHOWER. CALL LIGHT WITHIN REACH. NO OTHER NEEDS AT THIS TIME
--- NOTE | 2018-08-16 09:38 | NUR ---
PATIENT SITTING UP IN CHAIR. VITAL SIGNS AND I&O DONE. ICE WATER GIVEN. CALL LIGHT WITHIN REACH. NO OTHER NEEDS AT THIS TIME
--- NOTE | 2018-08-16 10:00 | NUR ---
PT UP IN CAIR. SOMEWHAT DROWSY. ASSESSMENT COMPLETED. CELLULITIS ON ABDOMEN APEEARS TO BE DECREASING IN REDNESS. PT REPORTS SOME TENDERNEES WITH TOUCH, IS WARM. LUNGS DIM IN BASES. HEART SOUNDS REGULAR. NO EDEMA. CALL LIGHT IN REACH. BOWEL TONES HYPOACTIVE. REPORTS BM THIS AM.
--- NOTE | 2018-08-16 12:52 | NUR ---
LOBO STARTED. PT UP IN CHAIR WITH VISITOR AT BEDSIDE. DENIES NEEDS. CALL LIGHT IN REACH
--- NOTE | 2018-08-16 13:10 | NUR ---
PT SITTING IN CHAIR, ALERT, ORIENTED AND EATING LUNCH. PT SAID SHE SLEPT REALLY WELL, AND HAD A HARD TIME WAKING UP. PLEASANT VISIT, PT SAID SHE WAS WAITING FOR FR RODRIGUEZ TO COME AFTER MASS TODAY. EXTENDED A BLESSING, WILL FOLLOW NEEDED
--- NOTE | 2018-08-16 13:26 | NUR ---
TOOK OVER CARE OF THIS PATIENT AT THIS TIME, PATIENT ATE 75% OF HER LUNCH AND TOLERATED IT WITHOUT ANY NAUSEA OR VOMITING. SHE DENIES ANY PAIN AT THIS TIME AND IS A ONE PERSON ASSIST UP TO THE BATHROOM WITH A FWW.
--- NOTE | 2018-08-16 13:33 | NUR ---
PATIENT SITTING UP IN CHAIR. PATIENT WALKS TO USE BATHROOM USING A WALKER. ONE PERSON ASSISTING. PATIENT BACKS TO BED. VITAL SIGNS AND I&O DONE. CALL LIGHT WITHIN REACH. NO OTHER NEEDS AT THIS TIME
--- NOTE | 2018-08-16 13:53 | NUR ---
LOBO COMPLETED. PIV S/L AT THIS TIME.
--- NOTE | 2018-08-16 14:34 | NUR ---
PATIENT RESTING WITH EYES CLOSED ON RIGHT LATERAL SIDE AT THIS TIME. RAILS REMAIN UP AND BED IS IN THE LOW POSITON. CALL LIGHT WITHIN REACH.
--- NOTE | 2018-08-16 15:16 | NUR ---
PATIENT GIVEN 5MG OF OXYCODONE PO AT THIS TIME. SHE IS AGREEABLE TO AMBULATE BUT WANTS TO WAIT UNTIL PAIN PILL IS EFFECTIVE. PAIN IS CURRENTLY AT A 6/10.
--- NOTE | 2018-08-16 16:12 | NUR ---
PATIENT AMBULATED AROUND BOTH NURSES STATIONS WITH 2 PERSON STANDBY AND HER FWW. SHE DENIED ANY SOB OR PAIN WHILE UP AMBULATING.
--- NOTE | 2018-08-16 17:00 | NUR ---
THIS NURSE IS TAKING OVER CARES FOR THIS PT.
--- NOTE | 2018-08-16 18:17 | NUR ---
PATIENT SITTING UP IN BED. DAUGHTER IN ROOM. VITAL SIGNS AND I&O DONE. CALL LIGHT WITHIN REACH. NO OTHER NEEDS AT THIS TIME
--- NOTE | 2018-08-16 18:26 | NUR ---
PT HAD GOOD DAY. AMBULATED IN [place] X1. PRN OXYCODONE FOR CHRONIC BACK PAIN. PT IS AAO. MIDLINE TO LEFT UPPER ARM FLUSHES WELL BUT DOES NOT PULL BACK BLOOD. TOELRATING PO INTAKE WELL. REDNESS ON ABDOMEN OUTLOINED AND APPEARS TO BE IMPROVING. SBA WITH FWW.
--- NOTE | 2018-08-16 19:50 | NUR ---
CHARGE NURSE ROUNDING NOTE: AWAKE, VISITING WITH FAMILY, MEDICATED EARLIER PER LEG PAIN, NO REUESTS, TOLERATING FLUIDS AND DIET WELL. CALL LIGHT AND FLUIDS AT BEDSIDE.
--- NOTE | 2018-08-16 20:00 | NUR ---
PATIENT SITTING IN BED WATCHING TV AND HAVING NO PAIN.
--- NOTE | 2018-08-16 21:50 | NUR ---
HELPED PT TO THE BATHROOM AND BACK TO BED WITH HER FWW. BEDSIDE TABLE AND CALL LIGHT IN REACH.
--- NOTE | 2018-08-16 21:59 | NUR ---
VITALS AND I&OS DONE AND CHARTED. FRESH ICE WATER GIVEN. BEDSIDE TABLE AND CALL LIGHT IN REACH.
--- NOTE | 2018-08-17 00:16 | NUR ---
LOBO REAL, PATIENT STILL AWAKE AND WATCHING TV AND EATING.
--- NOTE | 2018-08-17 01:53 | NUR ---
PATIENT CONTINUES TO BE AWAKE AND IS WATCHING TV.
--- NOTE | 2018-08-17 05:45 | NUR ---
vitals and i&os done and charted. emptied garbages , helped pt to the bathroom and back to bed with her fww.fresh water given bedside table and call light in reach.
--- NOTE | 2018-08-17 06:09 | NUR ---
PATIENT HAS REMAINED AWAKE MOST OF THE SHIFT WATCHING TV. SHE DID ASK FOR A PAIN PILL FOR HER HIPS AND BACK THIS AM AND HER PAIN WENT DOWN TO A 5/10 FROM 6-7/10 AND SHE WAS COMFORTABLE WITH THAT AND DID NOT FEEL SHE NEEDED ANY OTHER MEDICATION FOR PAIN. PATIENT CURRENTLY RESTING EYES CLOSED, RESPIRATIONS REGULAR AND EVEN AT A RATE OF 18, AND NO S/S OF DISTRESS NOTED AT THIS TIME.
--- NOTE | 2018-08-17 07:39 | NUR ---
REPORT RECIEVED FROM CASTING MACHINE SERVICE OPERATOR RN. PT IN BED WITH EYES CLOSED. RESPIRATIONS EQUAL AND NONLABORED.
--- NOTE | 2018-08-17 08:00 | NUR ---
PT UP TO SIDE OF BED WITH BREAKFAST. DENIES PAIN. PLAN FOR WALK AT 0900
--- NOTE | 2018-08-17 09:00 | NUR ---
PATIENT WENT FOR A WALK AROUND MED/SURG. SHE ONLY DID ONE LAP WITH QIANA OSUNA. SHOWER WAS SET UP PATIENT WHEN SHE IS READY. CALL LIGHT IN REACH. NO FURTHER NEEDS AT THIS TIME.
--- NOTE | 2018-08-17 09:00 | NUR ---
PT UP WITH SBA FOR WALK IN [place]. DENEIS NEED FOR PAIN MEDICATION. TOLERATED WALK WELL. ABLE TO DO 1 LAP.
--- NOTE | 2018-08-17 09:45 | NUR ---
PATIENT IN BED. PATIENT WALKS TO USE BATHROOM. PATIENT BACKS TO BED. VITAL SIGNS AND I&O DONE. CALL LIGHT WITHIN REACH. NO OTHER NEEDS AT THIS TIME
--- NOTE | 2018-08-17 10:11 | NUR ---
SUPPOSITORY ADMINSITERED.
--- NOTE | 2018-08-17 13:43 | NUR ---
PATIENT USING BATHROOM. PATIENT BACKS TO BED. ONE PERSON ASSISTING. VITAL SIGNS AND I&O DONE. ICE WATER GIVEN. CALL LIGHT WITHIN REACH. NO OTHER NEEDS AT THIS TIME
--- NOTE | 2018-08-17 16:45 | NUR ---
PATIENT USING BATHROOM. PATIENT BACKS TO BED. ICE WATER GIVEN. CALL LIGHT WITHIN REACH. NO OTHER NEEDS AT THIS TIME
--- NOTE | 2018-08-17 17:00 | NUR ---
PT SBA TO BATHROOM FOR LARGE LIQ BM.
--- NOTE | 2018-08-17 18:05 | NUR ---
PATIENT SITTING UP IN BED. SON IN ROOM. VITAL SIGNS AND I&O DONE. ICE WATER GIVEN. CALL LIGHT WITHIN REACH. NO OTHER NEEDS AT THIS TIME
--- NOTE | 2018-08-17 18:55 | NUR ---
SBA WIT H FWW BATHROOM FOR LARGE LIQUID BM
--- NOTE | 2018-08-17 19:00 | NUR ---
REPORT RECEIVED, PT RESTING IN BED, FAMILY AT BEDSIDE. PT STATES THAT SHE WOULD LIKE TO HAVE HER OXYCODONE WITH HER EVENING MEDS IF POSSIBLE RELATED TO PAIN IN HER KNEES. PT DENIES FURTHER NEEDS AT THIS TIME, CALL LIGHT WITHIN REACH. FALL PRECAUTIONS IN PLACE.
--- NOTE | 2018-08-17 20:54 | NUR ---
IN ROOM TO ADMIN EVENING MEDS. PT GIVEN PRN PAIN MED PER EMAR PER PT'S REQUEST, PT C/O 7/10 PAIN IN BACK AND KNEES, PT TOLERATED PO MEDS WELL. IV ABX STARTED, MIDLINE FLUSHED, FLUSHES WELL. PT AOX4, CELLULITIS ON STOMACH APPEARS DARK RED, OUTLINE NOTED, REDNESS HAS RECEEDED FROM OUTLINE, PT DENIES ANY DISCOMFORT ASSOCIATED WITH CELLULITIS, NYSTATIN APPLIED BENEATH PANNUS, PT REPOSTITIONED IN BED FOR COMFORT, PT DENIES FURTHER NEEDS, PT AGREEABLE TO POC, AGREES TO USE CALL LIGHT IF A NEED ARISES, CALL IGHT WITHIN REACH, FALL PRECAUTIONS IN PLACE, HYDRATION AT BEDSIDE.
--- NOTE | 2018-08-17 23:15 | NUR ---
PT RESTING IN BED WATCHING TV, NO REQUESTS AT THIS TIME, CALL LIGHT WITHIN REACH, FALL PRECAUTIONS IN PLACE, PT DENIES ANY SIGNIFICANT PAIN AT THIS TIME, DENIES NEED FOR PRN MEDICATION.
--- NOTE | 2018-08-18 00:29 | NUR ---
PT RESTING IN BED, IV ABX INFUSING PER EMAR WNL, BLANKET PROVIDED TO PT, NO FURTHER REQUESTS AT THIS TIME, CALL LIGHT WITHIN REACH. FALL PRECAUITON IN PLACE.
--- NOTE | 2018-08-18 01:54 | NUR ---
ASSESSMENT COMPLETE, PT C/O 12/31 PAIN RELATED TO CHRONIC BACK/HIP PAIN. PT GIVEN PRN PAIN MEDICATION PER EMAR, TOLERATED WELL. PT ALSO GIVEN EYE DROPS PER REQUEST. NO FURTHER NEEDS AT THIS TIME, CALL LIGHT WITHIN REACH. FALL PRECAUITONS IN PLACE. MIDLINE HEP LOCKED.
--- NOTE | 2018-08-18 04:15 | NUR ---
PT RESTING IN BED, EYES CLOSED, BREATHS EVEN, UNLABORED, NO REQUESTS AT THIS TIME, CALL LIGHT WITHIN REACH. FALL PRECAUTIONS IN PLACE.
--- NOTE | 2018-08-18 04:59 | NUR ---
PT AOX4 THIS SHIFT, ON RA. MIDLINE IN LEFT ARM HEPARIN LOCKED, PT RECEIVING IV VANCO AND ROCEPHIN, PT TOLERATING REGULAR DIET WELL, PT RECEIVED PRN PAIN MEDICATION X2 THIS SHIFT RELATED TO CHRONIC BACK/HIP PAIN. NO C/O SOB/CP, NO C/O NAUSEA. PT'S REDNESS ON STOMACH OUTLINED, REDNESS RECEEDING. NYSTATIN PLACED UNDER PT'S PANNUS. 1 PERSON SBA/FWW. VSS.
--- NOTE | 2018-08-18 06:38 | NUR ---
MORNING MEDS ADMINISTERED, PT DENIES ANY PAIN, NO REQUESTS AT THIS TIME, CALL LIGHT WITHIN REACH. FALL PRECAUTIONS IN PLACE.
--- NOTE | 2018-08-18 07:34 | NUR ---
Pt awake, alert and oriented x3. Pt is on ra, resp even and non labored. Pt denies pain at this time. Personal supplies and call light within reach.
--- NOTE | 2018-08-18 07:34 | NUR ---
PATIENT RESTING IN BED. PATIENT'S BREAKFAST ORDERED. CALL LIGHT WITHIN REACH. NO OTHER NEEDS AT THIS TIME
[2018-08-18] MEDS ORDERED: DOXYCYCLINE HY100 MG PO (09:57)
--- NOTE | 2018-08-18 10:01 | NUR ---
PATIENT IN BED. VITAL SIGNS AND I&O DONE. CALL LIGHT WITHIN REACH. NO OTHER NEEDS AT THIS TIME
--- NOTE | 2018-08-18 12:45 | NUR ---
MIDLINE REMOVED PER PROTOCOL. PT TOLERATED WELL.
== END 2018-08-18 12:50 | disposition home or self-care (01) | DRG 872 ==
LOC: ED 01:33 → MS 01:34 → ED 04:11 → CCU 04:11 → MS 13:20 → CCU 13:20 → MS 13:20
PROVIDERS: ADMIT Student in an Organized Health Care Education/Training Program
PROC: 05HY33Z Insertion of Infusion Device into Upper Vein, Percutaneous Approach (ICD-10-PCS; principal; 2018-08-15 15:30)
DX: A41.2 Sepsis due to unspecified staphylococcus (principal); L03.311 Cellulitis of abdominal wall; A40.9 Streptococcal sepsis, unspecified; M06.9 Rheumatoid arthritis, unspecified; E66.9 Obesity, unspecified; I10 Essential (primary) hypertension; E03.9 Hypothyroidism, unspecified; M54.9 Dorsalgia, unspecified; G89.29 Other chronic pain; Z88.2 Allergy status to sulfonamides; Z79.899 Other long term (current) drug therapy; Z79.891 Long term (current) use of opiate analgesic; Z79.52 Long term (current) use of systemic steroids
CPT/HCPCS: 36415; 36569; 71045; 80048; 80053; 80202; 81001; 82565; 83605; 83735; 84520; 85025; 85730; 86060; 87040; 87077; 87088; 87186; 96365; 96367; 97110; 97116; 97162; 99284-25; C1751; J0692; J0696; J1650; J1940; J2405; J3370; J3475; J7030; J7060; J7120; J7512

== ENCOUNTER 2019-04-11 04:02 | Inpatient (IN) | payer MEDICARE, OTHER ==
[~2019-04-11] VITALS: Ht 149.9 cm; Wt 91.9 kg
[~2019-04-11 04:02] MED LIST changes: +AUGMENTIN 875-1 EACH PO; -HYDROCODON-ACE1 EA10 PO; +LEVOTHYROXINE112 MCG PO; -MAGNESIUM250 M1 PO; +MAGOX 400400 MG PO; +NEURONTIN300 MG PO; +NORCO 10-325 T1 EACH PO; +ZESTRIL5 MG PO
--- OUTSIDE RECORDS SUMMARY | 2019-04-11 04:08 | XMS ---
PreManage Notification: NIKITA CLARKE Security Gluer [employer] Wedger Events No recent Security Events currently on file CRITERIA MET - [facility] - Has Care Guidelines CARE PROVIDERS MARCELLUS ARCEO Nurse Practitioner 02/07/2019-Current PHONE: [phone] Myla has no Care Guidelines for this patient. Care History Medical/Surgical 02/07/2019 [facility] \T\middot;\T\nbsp; PATIENT IS A [employer] MEMBER. \T\middot;\T\nbsp; PLEASE REFER PATIENT TO [facility] FOR NON EMERGENT MEDICAL NEEDS. \T\middot;\ T\nbsp; [facility] CAN SEE PATIENTS SAME DAY FOR APTS IF PATIENT CALLS FIRST THING IN THE MORNING. E.D. VISIT COUNT (12 MO.) 3 [facility] TOTAL 3 NOTE: Visits indicate total known visits. ED/UCC VISIT TRACKING (12 MO.) 04/11/2019 04:03 [facility] TYPE: Emergency COMPLAINT: - CHILLS 02/06/2019 03:32 [facility] TYPE: Emergency COMPLAINT: - FACIAL SWELLING/PAIN DIAGNOSES: - Sialoadenitis, unspecified - Other emt intermediate (current) drug therapy - Personal history of nicotine dependence - Allergy status to sulfonamides status - Hypothyroidism, unspecified - Essential (primary) hypertension - Cervicalgia - Chronic obstructive pulmonary disease, unspecified - half-way (current) use of systemic steroids 08/13/2018 01:33 [facility] TYPE: Emergency COMPLAINT: - SEPSIS INPATIENT VISIT TRACKING (12 MO.) 08/14/2018 14:42 [facility] TYPE: Medical Surgical COMPLAINT: - SEPSIS, CELLULITIS DIAGNOSES: - Dorsalgia, unspecified - Obesity, unspecified - Allergy status to sulfonamides status - Sepsis due to unspecified staphylococcus - Cellulitis of abdominal wall - Rheumatoid arthritis, unspecified - Other penitentiary (current) drug therapy - Hypothyroidism, unspecified - Sepsis, unspecified organism - Other chronic pain - Essential (primary) hypertension - half-way (current) use of systemic steroids - termination clerk (current) use of opiate analgesic - Streptococcal sepsis, unspecified [email or web address]
--- NOTE | 2019-04-11 08:22 | NUR ---
IN TO COMPLETE INITIAL CASE MANAGEMENT ASSESSMENT. PTS FAMILY AT BEDSIDE. DENIED ANY ISSUES AT HOME.
--- NOTE | 2019-04-11 10:38 | NUR ---
FAILED PICC INSERTION NOTE ORDERS RECIEVED TO EVALUATE "DONNIE" FOR POSSIBLE PICC INSERTION, AFTER REVEIWING THE CHART AND INTERVEIWNG THE PATIENT, NO ABSOLUTE CONTRANDICATIONS WERE IDENTIFIED. RISKS AND COMPLICATIONS OF PICC LINE INSERTION WERE REVIEWED WITH ALBIN WITH FAMILY AT THE BEDSIDE AND INFORMED CONSENT WAS SIGNED PRIOR TO THE START OF THE PROCEDURE. THE RIGHT ARM WAS ASSESSED AND HER BASILIC VEIN WAS LARGE ENOUGH TO ACCOMIDATE A 5 FR PICC PER SITE RITE U/S. THE LENTGTH OF THE VEIN WAS EXAMINED AND NO ABNORMALATIES WERE FOUND. THE RIGHT CEPHALIC VEIN WAS ALSO EXAMINED. THE RIGHT BASILIC VEIN WAS ACCESSED WITH A 20G 1.75 CATH JELCO AND THE GUIDEWIRE PASSED EASILY UP THE VEIN. THE DILATOR WAS PASSED OVER THE GUIDEWIRE AND ABNORMAL RESISTANCE WAS FELT. THE DILATOR WAS THEN TAKEN INTO TWO PIECES AND THE SMALLER INTERNAL PIECE OF THE DILATOR WAS PASSED OVER THE GUIDWIRE, REMOVED, AND REINSERTED WITH THE OUTER PORTION IN PLACE. THE ABNORMAL RESISTANCE WAS STILL FELT SO THE U/S WAS USED AND IT DID CONFIRM THE TIP OF THE INTRODUCER IN THE VESSEL. THE PICC WOULD NOT PASS UP THE ARM AFTER MULTIPLE ATTEMPTS AT SUBTLE REPOSITIONING. THE SITE WAS ABANDONED AND ATTENTION TURNED TO THE LEFT ARM. THE LEFT BASILIC VEIN WAS ACCESSED TWICE WITH AN IV BUT THE IV WOULD NOT THREAD UP THE VEIN AND THE GUIDEWIRE COULD NOT PASS UP THE VEIN EITHER. MY INABILITY TO PALCE A PICC WAS DISCUSSED WITH THE OTHER IV ACCESS NURSES, THE DANIEL CCU RN, AND THE MD. IF SHE DOES INDEED NEED CENTRAL ACCESS, PERHAPS A GENERAL SURGEON COULD PLACE A CENTRAL LINE.
--- NOTE | 2019-04-11 14:40 | NUR ---
PT ASSISTED WITH BEDPAN, ABLE TO VOID 600 ML STRONG SMELLING FLUID. DRAW SHEET AND WIN PAD UNDER PT CHANGED. PT COOPERTIVE, ALERT AND ORIENTED.
--- NOTE | 2019-04-11 15:02 | NUR ---
[facility]ITAL[facility] STEELE REQUESTED I LET PT REST. 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 WILL FOLLOW NEEDED
--- NOTE | 2019-04-11 18:00 | NUR ---
PT UP TO BEDSIDE COMMODE FROM BED. TWO PERSON ASSIST TO COMMODE. PT ABLE TO VOID 650 ML URINE. PT ABLE TO TAKE A FEW STEPS TO CHAIR WITH ONE PERSON ASSIST. PT HAS CALL LIGHT WITHIN REACH. ALERT AND ORIENTED X4, COOPERATIVE.
--- NOTE | 2019-04-11 18:52 | NUR ---
PT STARTED SHIFT WITH SOFT BP'S AND ELEVATED HR. CALLED TO UPDATE, ORDER GIVEN FOR LR BOLUS. ONCE EVALUATED BY MD, ORDER GIVEN TO ATTEMPT PICC LINE FOR POSSIBLE NOREPI DRIP TO CONTROL BP. PICC LINE ATTEMPT UNSUCESSFUL. PT RECIEVED ADDITIONAL IV FLUIDS AND STEROIDS. PT REMAINS ALERT AND ORIENTED FOR ALL SHIFT, DROWSY AND SLEEPS EASILY. PT GIVEN PO PAIN MEDICATION 3 TIMES FOR CRONIC NECK, JOINT, AND LEG PAIN. PT VITALS IMPROVED SLOWLY OVER THE SHIFT. PT USED BEDPAN TO VOID UNTIL APPROXIMATLY 1700 UP TO BEDSIDE COMMODE. PT KATTY PO WATER AND SMALL MEALS WELL. VOIDS QS.
--- NOTE | 2019-04-11 19:17 | NUR ---
IN TO CHECK ON PATIENT.DAUGHTERE AT BEDSIDE. NO NEEDS AT THIS TIME. CALL LIGHT WITHIN REACH.
--- NOTE | 2019-04-11 20:00 | NUR ---
PT BACK IN BED, REQUESTING PAIN MEDICAITON AT THIS TIME. PT GIVEN PRN TYLENOL. CALL LIGHT WITHIN REACH. NO FURTHER REQUESTS AT THIS TIME.
--- NOTE | 2019-04-11 21:00 | NUR ---
IN FOR ASSESSMENT. PT DROWSY BUT EASILY AROUSABLE, ANSWERING QUESTIONS APPROPRIATELY. LUNGS DIM IN THE BASES. HEART RATE IN THE MID 90S AT REST, SATURATIONS 95 PERCENT ON ROOM AIR. CALL LIGHT WITHIN REACH. NO FURTHER NEEDS AT THIS TIME
--- NOTE | 2019-04-11 21:10 | EKG ---
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 rate has decreased BY 40 BPM Borderline criteria for Lateral infarct are no longer present T wave inversion now evident in Inferior leads Confirmed by ODALIS BLACKBURN DO ([id number]) on 04/11/2019 9:10:20 PM Electronically Signed By: ODALIS BLACKBURN DO 04/11/192109 PATIENT NAME: NIKITA CLARKE PAUL Electrocardiogram DATE OF : 41 PHYSICIAN: ODALIS BLACKBURN DO REPORT #: [id number] REPORT IS CONFIDENTIAL AND NOT TO BE RELEASED WITHOUT AUTHORIZATION
--- NOTE | 2019-04-11 21:10 | EKG ---
[facility] [address] [facility] [place] [address] Signed Sinus tachycardia Left axis deviation Right bundle branch block Left ventricular hypertrophy with repolarization abnormality Possible Lateral infarct (cited on or before 03-MAR-2018) Inferior infarct , age undetermined Abnormal ECG When compared with ECG of 03-MAR-2018 01:45, T wave inversion more evident in Anterior leads Confirmed by ODALIS BLACKBURN DO ([id number]) on 04/11/2019 9:10:11 PM Electronically Signed By: ODALIS BLACKBURN DO 04/11/192109 PATIENT NAME: NIKITA CLARKE PAUL Electrocardiogram DATE OF : 41 PHYSICIAN: ODALIS BLACKBURN DO REPORT #: [id number] REPORT IS CONFIDENTIAL AND NOT TO BE RELEASED WITHOUT AUTHORIZATION
--- NOTE | 2019-04-11 23:15 | NUR ---
ASSISTED PT TO BSC, PT REQUIRING STAND BY ASSIST ONLY. URINE HAS STRONG ODOR AND IS YESIKA IN COLOR. PT BACK IN BED. PAIN MEDICATION ADMINISTERED. IV ABX INFUSING. NO FURTHER NEEDS AT THIS TIME.
--- NOTE | 2019-04-12 02:01 | NUR ---
PT UP TO BATHROOM, REQUIRED ONE PERSON STAND BY ASSIST ONLY. BACK IN BED. ASSISTED PT WITH REPOSITIONING IN BED. CALL LIGHT WITHIN REACH. NO FURTHER REQUESTS AT THIS TIME.
--- NOTE | 2019-04-12 04:00 | NUR ---
IN FOR ASSESSMENT PATIENT DROWSY BUT AWOKE LONG ENOUGH TO ANSWER QUESTIONS. ASSISTED PT WITH REPOSITIONING. PERSONAL ITEMS AND CALL LIGHT WITHIN REACH. NO FURTHER NEEDS AT THIS TIME.
--- NOTE | 2019-04-12 04:35 | NUR ---
IN TO RECHECK PATIENT BLOOD PRESSURE, PT RESTING ON RIGHT SIDE, ASSISTED WITH REPOSITIONING ONTO BACK. PT DENIES PAIN OR DISCOMFORT AT THIS TIME. CALL LIGHT WITHIN REACH, NO FURTHER NEEDS AT THIS TIME.
--- NOTE | 2019-04-12 05:40 | NUR ---
PT UP TO BSC. NO COMPLAINTS OF PAIN OR DISCOMFORT AT THIS TIME. REQUIRING STAND BY ASSIST ONLY TO GET UP FROM BED TO COMMODE. BACK IN BED AT THIS TIME. WARM BLANKETS PROVIDED. CALL LIGHT WITHIN REACH. NO FURTHER NEEDS AT THIS TIME.
--- NOTE | 2019-04-12 08:04 | NUR ---
PT SLEEPING SOUNDLY AT THIS TIME, VITALS WNL. CALL LIGHT WITHIN REACH.
[2019-04-12] MEDS ORDERED: VITAMIN D5000 UNIT PO (08:58)
--- NOTE | 2019-04-12 09:20 | NUR ---
IV SITE FLUSHES EASILY, SLIGHT LEAKING NOTED, PT DENIES PAIN AT THE SITE. PT IS ALERT AND ORIENTED X4. VITALS ARE WNL.
[2019-04-12] MEDS ORDERED: COLACE100 MG PO (10:56)
--- NOTE | 2019-04-12 10:56 | NUR ---
MED REC COMPLETE
--- NOTE | 2019-04-12 12:14 | NUR ---
IV SITE IN LEFT AC DC'D DUE TO LEAKING. PT KATTY WELL. PT IS ALERT AND ORIENTED X4, DENIES NEED FOR PAIN MEDICATION AT THIS TIME. VITALS ARE WNL.
--- NOTE | 2019-04-12 13:01 | NUR ---
22 G IV STARTED IN LEFT HAND, BLOOD RETURN OBTAINED EASILY, FLUSHES EASILY. PT DENIES PAIN WITH INFUSION OF FLUIDS. PT IS ALERT AND ORIENTED X4, DENIES SOB, REPORTS PAIN IS WELL CONTROLED AND DENIES NAUSEA. PT HAS CALL LIGHT WITHIN REACH. VITALS ARE WNL AT THIS TIME.
--- NOTE | 2019-04-12 13:45 | NUR ---
PT UP TO BEDSIDE COMMODE TO VOID. PT THEN UP TO CHAIR. VITALS WNL AT THIS TIME PT DEINES NEED FOR PAIN MEDICATION, SOB, OR NAUSEA. PT IS ALERT AND ORIENTED X4. IV SITE IS INTACT, NO REDNESS OR SWELLING NOTED, FLUIDS INFUSE EASILY.
--- NOTE | 2019-04-12 16:40 | NUR ---
PT BACK TO BED FROM BEDSIDE COMMODE. PT ASSISTED WITH BED BATH, PT ABLE TO DO OWN ORAL CARES WHEN GIVEN SUPPLIES. VITALS ARE WNL. IV ACCESS IS INTACT, NO REDNESS OR SWELLING NOTED, FLUIDS AND FLUSHES INFUSE EASILY. ASSISTED PT TO ORDER DINNER. DAUGHTER IS AT THE BEDSIDE. PT GIVEN PO TYLENOL AND 5 MG PO OXYCODONE FOR 6/10 ARM/BACK/LEG PAIN. PT DENIES SOB AND NAUSEA.
--- NOTE | 2019-04-12 17:59 | NUR ---
PT EATING DINNER WHILE SITTING UP IN BED WITH DAUGHTER AT BEDSIDE. PT REPORTS IMPROVEMENT IN CRONIC PAIN AFTER MEDICATION, DENIES NEED FOR ADDITIONAL MEDICATIONS AT THIS TIME. PT IS ALERT AND ORIENTED.
--- NOTE | 2019-04-12 19:46 | NUR ---
SHIFT REPORT RECEIVED. PATIENT RESTING IN BED WATCHING TV. FAMILY AT BEDSIDE. PATIENT DENIES ANY NEEDS AT THIS TIME.
--- NOTE | 2019-04-12 20:15 | NUR ---
PATIENT REQUEST HER EVENING DOSE OF FLEXERIL. SPOKE WITH DR. BLACKBURN, VERBAL ORDER RECIEVED.
--- NOTE | 2019-04-12 20:56 | NUR ---
ASSISTED PATIENT UP TO BSC, PATIENT REQUIRES MINIMAL ASSISTANCE. PATIENT RETUNRED TO BED, WARM BLANKET PROVIDED. PATIENT REPORTS WELL CONTROLLED PAIN 4/10 IN JOINTS. LUNGS ARE CLEAR. NO NAUSEA. AFEBRILE AT THIS TIME. REDNESS NOTED ON PANIS AND ABD, SKIN IS HOT AND TENDER TO TOUCH. IV FLUIDS INFUSING PER ORDER, IV SITE WNL. PATIENT DENIES ANY FURTHER NEEDS. CALL LIGHT IN HAND. FAMILY LEFT FOR THE NIGHT.
--- NOTE | 2019-04-13 00:15 | NUR ---
ASSISTED PATIENT UP TO BSC. PATIENT REPORTS PAIN IN HER RIGHT EYE, DESCRIBED A DULL THROBBING. PRN TYLNEOL PROVIDED. WARM BLANKET PROVIDED. PATIENT DENIES ANY FURTHER NEEDS. ASSESSMENT REMAINS UNCHANGED. VS STABLE.
--- NOTE | 2019-04-13 02:00 | NUR ---
PATIENT REPORTS UPSET STOMACH, DECRIBED HEARTBURN MORE THAN NAUSEA. NIO FOR MAALOX PROVIDED. PATIENT ALSO HAD SOME CRACKERS. PATIENT SITTING UP TO BEDSIDE READING THE NEWS PAPER. DENIES ANY FURTHER NEEDS.
--- NOTE | 2019-04-13 02:24 | NUR ---
PT TO BSC X1 ASSIST. VOIDED, PERICARE DONE PER PT. BACK TO BED WITH SBA. CALL LIGHT IN REACH. KATTY ACTIVITY WELL.
--- NOTE | 2019-04-13 04:00 | NUR ---
PATIENT APPEARS TO BE SLEEPING SOUNDLY. VS STABLE.
--- NOTE | 2019-04-13 06:00 | NUR ---
ASSISTED PATIENT UP TO BSC. NEW ATTENDS PROVIDED. PATIENT BACK TO BED. WARM BLANKET PROVIDED. IV FLUIDS AND ABX PER ORDER, SITES WNL. PATIENT DENIES ANY NEEDS AT THIS TIME.
--- NOTE | 2019-04-13 07:45 | NUR ---
NORM SHIFT REPORT RECIEVED FROM IT BUSINESS PROCESS ARCHITECT RN. PATIENT IS RESTING IN BED AND ASKED TO GET UP TO BATHROOM. ASSISTED TO CAMMODE WITH NO ISSUES AND BACK TO BED. PATIENT DENIES ANY OTHER NEEDS AT THIS TIME. WILL CONTINUE TO CLOSELY MONITOR.
--- NOTE | 2019-04-13 09:21 | NUR ---
PT SHIFT ASSESSMENT COMPLETED. ASSISTED PATIENT UP TO THE CHAIR WITH 1 PERSON STAND-BY ASSIST. PATIENT TOELRATED WELL. MEDICATIONS ADMINISTERED. PATIENT BREATH SOUNDS CLEAR, BOWEL TONES ACTIVE. PANNUS/BELLY REDNESS IS IMPROVED THIS MORNING. MD IN TO SEE PATIENT. WILL TRANSFER PATIENT TO [facility] TODAY. PATIENT IS AGREEABLE TO PLAN OF CARE. WILL CONTINUE TO CLOSELY MONITOR.
--- NOTE | 2019-04-13 10:51 | NUR ---
PATIENT BACK IN BED RESTING AT THIS TIME. PATIENT DENIES ANY NEEDS AT THIS TIME. CALL LIGHT IN REACH. WILL CONTINUE TO CLOSELY MONITOR.
--- NOTE | 2019-04-13 11:15 | NUR ---
PATIENT CALLED AND REQUESTED A PAIN PILL. PATIENT STATES IT IS A 7/10 AND IT IS MOSTLY HER HANDS BUT ALSO ALL OVER PAIN TOO. GAVE PRN PAIN MEDICATION. PATIENT DENIES ANY OTHER NEEDS AT THIS TIME. WILL CONTINUE TO CLOSELY MONITOR.
--- NOTE | 2019-04-13 13:30 | NUR ---
IN TO CHECK ON PATINET. OTHER RN ASSISTED PATIENT UP TO CHAIR. PATIENT IS RESTING IN THE CHAIR AT THIS TIME. ORDERED ICE CREAM AND COOKIE PER PATIENT REQUEST. PATIENT DENIES BEING HUNGRY FOR ANYTHING ELSE AT THIS TIME.
--- NOTE | 2019-04-13 15:40 | NUR ---
PATIENT REPORT GAVE TO EUGENIO BURKS. PATIENT IS RESTING IN CHAIR AT THIS TIME AND WHEELED OVER TO [facility] WITH ALL BELONINGS. UPDATED RN REGARDING ASSESSMENT FINDINGS AND HISTORY. PATIENT AND RN DENY FURTHER QUESTIONS. PATIENT TRANSFERED TO ROOM 119. OTHER RN WILL RESUME CARE AT THIS TIME.
--- NOTE | 2019-04-13 17:29 | NUR ---
PATIENT RESTING IN BED. VITAL SIGNS AND I&O DONE. ICE WATER GIVEN. CALL LIGHT WITHIN REACH. NO OTHER NEEDS AT THIS TIME
--- NOTE | 2019-04-13 18:39 | NUR ---
PT ALERT AND COOPERATIVE SITTING UP FOR EVENING MEAL. DENIES DISCOMFORTS OR FURTHER NEEDS AGREES OXY 5 MG GIVEN EARLIER HAS BEEN EFFECTIVE FOR HER
--- NOTE | 2019-04-13 21:54 | NUR ---
PT AWAKE, WATCHING TV, NO C/O PAIN. COOP WITH ASSESSMENT. LOTION TO R UPPER EYEBROW, R MID FACE AND R LOW LIP. AREAS SLIGHTLY RED, SCALY. R MID-TO-LOW ABD AREA RED COLORED, WARM TO TOUCH, NON TENDER. , 2 SL PATENT, INTACT. TOLERATING FLUIDS WELL. NO C/O PAIN. CALL LIGHT AT BEDSIDE
--- NOTE | 2019-04-14 00:07 | NUR ---
PT AWAKE, WATCHING TV. C/O 7/ H/A AND BACK PAIN, MEDICATED WITH TYLENOL 650MG PO. CALL LIGHT AND FLUIDS AT BEDSIDE
--- NOTE | 2019-04-14 01:56 | NUR ---
up sitting edge opf bed, c/o 7/10 Back and generalized pains and aches, cooperative. tolerating fluids well, no n/v. repositions self in bed. Call light at bedside, fresh fluids given
--- NOTE | 2019-04-14 08:06 | NUR ---
BEDSIDE REPORT RECEIVED PT RESTING SOUNDLY EYES CLOSED
--- NOTE | 2019-04-14 08:10 | NUR ---
DR BLACKBURN IN TO SEE PT DISCUSSES PLAN OF CARE
--- NOTE | 2019-04-14 10:03 | NUR ---
PATIENT RESTING IN BED. VITAL SIGNS AND I&O DONE. PATIENT DID NOT VOID DURING THIS PERIOD STILL WHEN WAS ENCOURAGE TO USE THE TOILET. RN NOTIFIED. CALL LIGHT WITHIN REACH. NO OTHER NEEDS AT THIS TIME
--- NOTE | 2019-04-14 11:17 | NUR ---
PATIENT RESTING IN BED. PHYSICAL THERAPIST IN ROOM. PATIENT IV WRAPPED. PATIENT GOES TO THE BATHROOM TO TAKE A SHOWER. PATIENT USES WALKER. ONE PERSON ASSISTING. PATIENT USING A CLEAN GOWN AND ADULT PULL UP. PATIENT BACKS TO CHAIR. LINENS CHANGED. WARM BLANKET PROVIDED. CALL LIGHT WITHIN REACH. NO OTHER NEEDS AT THIS TIME
--- NOTE | 2019-04-14 11:32 | NUR ---
PT SITTING UPRIGHT IN THE RECLINER, REPORTS SHE HAD HER SHOWER AND NOW FEELS SLEEPY. NO C/O PAIN OR OTHER DISCOMFORTS
--- NOTE | 2019-04-14 13:02 | NUR ---
PT HAS SPENT MUCH OF THE SHIFT UP IN HER CHAIR RETURNS TO BED AT THIS TIME AFTER TOILETING. PT REFUSES LUNCH/SNACK, STATES SHE'S JUST NOT HUNGRY. SHE DID HAVE A LARGE BREAKFAST.
--- NOTE | 2019-04-14 13:06 | NUR ---
PATIENT RESTING IN BED. RN IN ROOM. PATIENT REFUSED TO ORDER LUNCH. VITAL SIGNS AND I&O DONE. CALL LIGHT WITHIN REACH. NO OTHER NEEDS AT THIS TIME
--- NOTE | 2019-04-14 14:27 | NUR ---
PT SITTING UP IN A CHAIR WATCHING FOOTBALL WITH HER DAUGHTER. DENIES NEEDS OF AT THIS TIME
--- NOTE | 2019-04-14 14:50 | NUR ---
CALL LIGHT ANSWERED. PATIENT SITTING UP IN CHAIR. DAUGHTER IN ROOM. PATIENT GOES TO USE BATHROOM. PATIENT USES WALKER. ONE PERSON ASSISTING. PATIENT ASKS FOR PAIN MEDICINE. RN NOTIFIED. CALL LIGHT WITHIN REACH. NO OTHER NEEDS AT THIS TIME
--- NOTE | 2019-04-14 17:05 | NUR ---
CALL LIGHT ANSWERED. PATIENT RESTING IN BED. DAUGHTER IN ROOM. PATIENT GOES TO USE BATHROOM. PATIENT USES WALKER. ONE PERSON ASSISTING. PATIENT BACKS TO BED. VITAL SIGNS AND I&O DONE. CALL LIGHT WITHIN REACH. NO OTHER NEEDS AT THIS TIME
--- NOTE | 2019-04-14 19:50 | NUR ---
RECIEVED BEDSIDE REPORT FROM LIMA BURKS. PT UP IN CHAIR, WATCHING TV. NO NEEDS AT THIS TIME. CALL LIGHT WITHIN REACH.
--- NOTE | 2019-04-14 20:44 | NUR ---
PT ASSESSMENT COMPLETED. PRN PAIN MEDICATION GIVEN PER EMAR. PT UP TO VOID IN TOILET SBA FWW. PT IN BED, WATHCING TV, REQUESTS SNACK. PUDDING AND SORBET GIVEN. IV FLUSHED AND DRESSING INTACT. PT DENIES ANY OTHER NEEDS AT THIS TIME. BED ALARMS ON, CALL LIGHT AND BELONGINGS IN REACH.
--- NOTE | 2019-04-14 23:10 | NUR ---
PT AWAKE IN ROOM, WATCHING TV. PAIN 5/10, GERNERAL BODY ACHE. PT UP TO TOILET AND BACK TO BED SBA, FWW. PT POSITION CHANGED. WARM BLANKET APPLIED. DISCUSSED PRN PAIN MEDICATIONS. NO OTHER NEEDS AT THIS TIME. BED ALARM ON. CALL LIGHT AND BELONGINGS IN REACH.
--- NOTE | 2019-04-15 01:13 | NUR ---
CALL LIGHT ANSWERED. SWEATER HANDED TO PT REQUESTED. DENIES ADDITIONAL NEEDS. RESTING IN BED, LIGHTS OFF IN ROOM. CALL LIGHT IN REACH.
--- NOTE | 2019-04-15 03:03 | NUR ---
PT CALL LIGHT ON. UP TO TOILET AND BACK TO BED SBA, FWW. PT STATES PAIN IN KNEES 01/30. PT REPOSITIONED. PRN PAIN MEDICATION GIVEN PER EMAR. PT STATES SHE WILL READ FOR AWHILE. ASSESSMENT COMPLETED. VSS. NO OTHER NEEDS AT THIS TIME. CALL LIGHT AND BELONGINGS IN REACH.
--- NOTE | 2019-04-15 05:10 | NUR ---
PT WOKE X2 THIS SHIFT WITH INCREASED PAIN IN HER KNEES. PT GIVEN LAST PRN PAIN MED AT 0300 WITH RELIEF. AAO X 3. IV SL LEFT HAND. 2G LOW SODIUM DIET. SBA, FWW TO BATHROOM. PT HAS SLEPT WELL SINCE LAST PRN PAIN MED.
--- NOTE | 2019-04-15 06:13 | NUR ---
PT WAKES TO VOICE. SBA, FWW UP TO TOILET, STANDING WEIGHT AND BACK TO BED. PAIN 5/10. PRN PAIN MEDICATION GIVEN PER EMAR. PT REPOSITIONED. CALL LIGHT AND BELONGINGS IN REACH.
--- NOTE | 2019-04-15 08:46 | NUR ---
PT SITTING UP AT BEDSIDE EATING BREAKFAST. NO COMPLAINTS OF PAIN AT THIS TIME
--- NOTE | 2019-04-15 10:22 | NUR ---
PATIENT IN BED WATCHING TV. PATIENT REFUSED SHOWER. FRESH WATER GIVEN. CALL LIGHT IN REACH. NO FURTHER NEEDS AT THIS TIME.
[2019-04-15] MEDS ORDERED: AMOX TR-K CLV1 EAC1 PO (11:22)
[2019-04-15] MEDS ORDERED: TERBINAFINE HCL30 GM TOP (11:23)
--- NOTE | 2019-04-15 11:30 | NUR ---
PT UP AMBULATING IN HALLS WITH PHYSCIAL THERAPY MARYJO
--- NOTE | 2019-04-15 13:23 | NUR ---
PATIENT UP TO BATHROOM AND BACK TO CHAIR, SBA FWW. PATIENT DRESSED SELF. IV TAKEN OUT UPON RN REQUEST. CATH INTACT AND LOOKED GOOD, RN NOTIFIED. CALL LIGHT IN REACH. NO FURTHER NEEDS AT THIS TIME.
--- NOTE | 2019-04-15 13:30 | NUR ---
DISCHARGE EDUCATIONS GIVEN ON MEDICATIONS LAST DOSE, NEXT DOSE. SIGNS AND SYMPTOMS TO SEEK MEDICAL ATTENTION RIGHT AWAY. FOLLOW UP APPOINTMENT TO BE SEEN IN 7-10 DAYS, [facility] IS TO CONTACT PT WITH APPOINTMENT. PT ABLE TO VERBALIZE UNDERSTANDING, NO FURTHER QUESTIONS. IV SITE REMOVED WNL TIP INTACT.
--- NOTE | 2019-04-15 13:42 | NUR ---
oxycodone 5mg po admin for 6/10 right knee pain.
== END 2019-04-15 13:57 | disposition home or self-care (01) | DRG 872 ==
LOC: ED 04:02 → CCU 04:04 → MS 04-13 15:35
PROVIDERS: ADMIT Student in an Organized Health Care Education/Training Program
DX: A40.1 Sepsis due to streptococcus, group B (principal); N17.9 Acute kidney failure, unspecified; L03.311 Cellulitis of abdominal wall; N39.0 Urinary tract infection, site not specified; Z68.41 Body mass index [BMI] 40.0-44.9, adult; R65.20 Severe sepsis without septic shock; R82.71 Bacteriuria; B96.20 Unspecified Escherichia coli [E. coli] as the cause of diseases classified elsewhere; M06.9 Rheumatoid arthritis, unspecified; E66.9 Obesity, unspecified; I10 Essential (primary) hypertension; E03.9 Hypothyroidism, unspecified; M54.9 Dorsalgia, unspecified; G89.29 Other chronic pain; M48.062 Spinal stenosis, lumbar region with neurogenic claudication; R21 Rash and other nonspecific skin eruption; B35.9 Dermatophytosis, unspecified; Z88.2 Allergy status to sulfonamides; Z79.52 Long term (current) use of systemic steroids; Z79.899 Other long term (current) drug therapy; Z79.891 Long term (current) use of opiate analgesic
CPT/HCPCS: 36415; 51701; 71045; 80048; 80053; 80202; 81001; 83605; 83735; 83880; 85025; 87040; 87077; 87088; 87186; 93005; 93010; 93308; 97116; 97162; 97165; 97530; 99285-25; J0692; J0696; J1650; J1720; J3370; J3475; J7030; J7060; J7120; J7512

== ENCOUNTER 2020-03-16 16:58 | Emergency (ER) | payer MEDICARE, OTHER ==
[~2020-03-16] VITALS: Ht 149.9 cm; Wt 95.2 kg
--- OUTSIDE RECORDS SUMMARY | ~2020-03-16 | XMS | Encounter Summary ---
Demographics + + + | Address | [address] | | | [place] [address] | + + + | Home Phone | | + + + | Preferred Language | Unknown | + + + | Marital Status | | + + + | Buddhism Affiliation | Unknown | + + + | Race | or | + + + | Ethnic Group | Not or | + + + Author + + + | Author | [facility] | | | and [place] | + + + | Organization | [facility] | | | and [place] | + + + | Address | Unknown | + + + | Phone | Unavailable | + + + Support + + +---------+ + | Name | Relationship | Address | Phone | + + +---------+ + | Dian Amaya | ECON | Unknown | | + + +---------+ + | Doyle Jose Luis | ECON | Unknown | | + + +---------+ + Care Team Providers + +------+ + | Care Primary Special Educator Name | Role | Phone | + +------+ + | Anrulfo Pacheco DO | PCP | | + +------+ + Encounter Details +--------+ + + + + | Date | Type | Department | Care Team | Description | +--------+ + + + + | 03/08/ | Orders Only | [facility] | [facility], | Other termite inspector | | 2019 | | RHEUMATOLOGY [address] | [address] | (current) drug | | | | [address] | [address] | therapy; Rheumatoid | | | | [place], [place] | [place] [address] | arthritis of | | | | [address] | [phone] | multiple sites | | | | [phone] | | without organ or | | | | | | system involvement | | | | | | with positive | | | | | | rheumatoid factor | | | | | | (HCC) | +--------+ + + + + Social History + +-------+ +--------+------+ | Tobacco Use | Types | Packs/Day | Years | Date | | | | | Used | | + +-------+ +--------+------+ | Former Smoker | | | | | + +-------+ +--------+------+ + + + | Sex Assigned at | Date Recorded | | | | + + + | Not on file | | + + + documented as of this encounter Plan of Treatment +--------+---------+ + + + | Date | Type | Specialty | Care Team | Description | +--------+---------+ + + + | 04/16/ | Office | Rheumatology | [place], | | | 2019 | Visit | | [address] | | | | | | [address] | | | | | | [place] [address] | | | | | | [phone] | | | | | | | | +--------+---------+ + + + + +------+--------+ + + | Name | Type | Priori | Associated Diagnoses | Order Schedule | | | | ty | | | + +------+--------+ + + | CBC with | Lab | Routin | Other termite inspector | Expected: | | Differential | | e | (current) drug | 05/17/2018, Expires: | | | | | therapy Rheumatoid | 05/16/2019 | | | | | arthritis of | | | | | | multiple sites | | | | | | without organ or | | | | | | system involvement | | | | | | with positive | | | | | | rheumatoid factor | | | | | | (HCC) | | + +------+--------+ + + | Sedimentation Rate | Lab | Routin | Other residential | Expected: | | | | e | (current) drug | 05/17/2018, Expires: | | | | | therapy Rheumatoid | 05/16/2019 | | | | | arthritis of | | | | | | multiple sites | | | | | | without organ or | | | | | | system involvement | | | | | | with positive | | | | | | rheumatoid factor | | | | | | (HCC) | | + +------+--------+ + + | Comprehensive | Lab | Routin | Other termite inspector | Expected: | | Metabolic Panel | | e | (current) drug | 05/17/2018, Expires: | | | | | therapy Rheumatoid | 05/16/2019 | | | | | arthritis of | | | | | | multiple sites | | | | | | without organ or | | | | | | system involvement | | | | | | with positive | | | | | | rheumatoid factor | | | | | | (HCC) | | + +------+--------+ + + | CBC with | Lab | Routin | Other termite inspector | 3 Occurrences | | Differential | | e | (current) drug | starting 03/08/2019 | | | | | therapy Rheumatoid | until 01/30/2020, 2 | | | | | arthritis of | completed | | | | | multiple sites | | | | | | without organ or | | | | | | system involvement | | | | | | with positive | | | | | | rheumatoid factor | | | | | | (HCC) | | + +------+--------+ + + | Comprehensive | Lab | Routin | Other residential | 3 Occurrences | | Metabolic Panel | | e | (current) drug | starting 03/08/2019 | | | | | therapy Rheumatoid | until 01/30/2020, 2 | | | | | arthritis of | completed | | | | | multiple sites | | | | | | without organ or | | | | | | system involvement | | | | | | with positive | | | | | | rheumatoid factor | | | | | | (HCC) | | + +------+--------+ + + | Sedimentation Rate | Lab | Routin | Other termite inspector | 3 Occurrences | | | | e | (current) drug | starting 03/08/2019 | | | | | therapy Rheumatoid | until 01/30/2020, 2 | | | | | arthritis of | completed | | | | | multiple sites | | | | | | without organ or | | | | | | system involvement | | | | | | with positive | | | | | | rheumatoid factor | | | | | | (HCC) | | + +------+--------+ + + | Comprehensive | Lab | Routin | Other residential | Expected: | | Metabolic Panel | | e | (current) drug | 02/14/2019, Expires: | | | | | therapy Rheumatoid | 01/31/2020 | | | | | arthritis of | | | | | | multiple sites | | | | | | without organ or | | | | | | system involvement | | | | | | with positive | | | | | | rheumatoid factor | | | | | | (HCC) | | + +------+--------+ + + documented as of this encounter Results Sedimentation Rate (12/04/2019 2:20 PM PDT) + + + + + + | Component | Value | Ref Range | Performed | Pathologist | | | | | At | Signature | + + + + + + | ESR | 33 (H)Comment: Testing | 0 - 30 mm/Hr | REFERENCE | | | | performed at [facility];[address] | | LAB | | | | [place] | | [facility] | | | | [address];[place] [address] | | LABORATORY | | + + + + + + + + | Specimen | + + | Blood | + + + + + + + | Performing | Address | City/State/Zipcode | Phone Number | | Organization | | | | + + + + + | REFERENCE LAB | [address] [facility] | [place] | [phone] | | [facility] | [address] | [address] | | | LABORATORY | | | | + + + + + | REFERENCE LAB | [address] [place] [address] | [place] | | | [facility] | Bl[address] | [address] | | | LABORATORY | | | | + + + + + Comprehensive Metabolic Panel (12/04/2019 2:20 PM PDT) + + + + + + | Component | Value | Ref Range | Performed | Pathologist | | | | | At | Signature | + + + + + + | Na | 140 | 135 - 145 | REFERENCE | | | | | mmol/L | LAB | | | | | | [facility] | | | | | | LABORATORY | | + + + + + + | K | 4.2 | 3.5 - 4.9 | REFERENCE | | | | | mmol/L | LAB | | | | | | [facility] | | | | | | LABORATORY | | + + + + + + | Cl | 106 | 99 - 109 mmol/L | REFERENCE | | | | | | LAB | | | | | | [facility] | | | | | | LABORATORY | | + + + + + + | CO2 | 29 | 23 - 32 mmol/L | REFERENCE | | | | | | LAB | | | | | | [facility] | | | | | | LABORATORY | | + + + + + + | Anion Gap | 9 | 5 - 20 mmol/L | REFERENCE | | | | | | LAB | | | | | | [facility] | | | | | | LABORATORY | | + + + + + + | Glucose | 69 | 65 - 99 mg/dL | REFERENCE | | | | | | LAB | | | | | | [facility] | | | | | | LABORATORY | | + + + + + + | BUN | 15 | 8 - 25 mg/dL | REFERENCE | | | | | | LAB | | | | | | [facility] | | | | | | LABORATORY | | + + + + + + | Creatinine | 1.0 | 0.50 - 1.00 | REFERENCE | | | | | mg/dL | LAB | | | | | | [facility] | | | | | | LABORATORY | | + + + + + + | BUN/Creatin | 15 | | REFERENCE | | | ine Ratio | | | LAB | | | | | | [facility] | | | | | | LABORATORY | | + + + + + + | Calcium | 9.8 | 8.5 - 10.5 | REFERENCE | | | | | mg/dL | LAB | | | | | | [facility] | | | | | | LABORATORY | | + + + + + + | Protein, | 7.4 | 6.3 - 8.2 g/dL | REFERENCE | | | Total | | | LAB | | | | | | [facility] | | | | | | LABORATORY | | + + + + + + | Albumin | 3.4 | 3.3 - 4.8 g/dL | REFERENCE | | | | | | LAB | | | | | | [facility] | | | | | | LABORATORY | | + + + + + + | Globulin | 4.0 | 1.3 - 4.9 g/dL | REFERENCE | | | | | | LAB | | | | | | [facility] | | | | | | LABORATORY | | + + + + + + | A/G Ratio | 0.9 (L) | 1.0 - 2.4 | REFERENCE | | | | | | LAB | | | | | | [facility] | | | | | | LABORATORY | | + + + + + + | BILIRUBIN, | 0.7 | 0.1 - 1.5 mg/dL | REFERENCE | | | TOTAL | | | LAB | | | | | | [facility] | | | | | | LABORATORY | | + + + + + + | ALK PHOS | 65 | 35 - 115 U/L | REFERENCE | | | | | | LAB | | | | | | [facility] | | | | | | LABORATORY | | + + + + + + | AST | 28 | 10 - 45 U/L | REFERENCE | | | | | | LAB | | | | | | [facility] | | | | | | LABORATORY | | + + + + + + | ALT | 21 | 10 - 65 U/L | REFERENCE | | | | | | LAB | | | | | | [facility] | | | | | | LABORATORY | | + + + + + + | Estimated | 54 (L)Comment: GFR <60: | >60 | REFERENCE | | | GFR | CHRONIC KIDNEY DISEASE, | mL/min/1.73m2 | LAB | | | | IF FOUND OVER A 3 MONTH | | [facility] | | | | PERIOD.GFR <15: KIDNEY | | LABORATORY | | | | FAILURE.FOR | | | | | | AMERICANS, MULTIPLY THE | | | | | | CALCULATED GFR BY | | | | | | 1.210.This eGFR is | | | | | | calculated using the | | | | | | MDRD IDMS traceable | | | | | | equation.Testing | | | | | | performed at [facility];[address] | [address] | | | [facility] | | | | | | Blvd;[place] [address] | | | | | | | | | | + + + + + + + + | Specimen | + + | Blood | + + + + + + + | Performing | Address | City/State/Zipcode | Phone Number | | Organization | | | | + + + + + | REFERENCE LAB | [address] | [place], [place] | [phone] | | [facility] | Bl[address] | [address] | | | LABORATORY | | | | + + + + + | REFERENCE LAB | [address] | [place] | | | [facility] | [address] | [address] | | | LABORATORY | | | | + + + + + CBC with Differential (12/04/2019 2:20 PM PDT) + + + + + + | Component | Value | Ref Range | Performed | Pathologist | | | | | At | Signature | + + + + + + | WBC | 7.25 | 3.80 - 11.00 | REFERENCE | | | | | K/uL | LAB | | | | | | [facility] | | | | | | LABORATORY | | + + + + + + | Red Blood | 4.76 | 3.70 - 5.10 | REFERENCE | | | Cells | | M/uL | LAB | | | | | | [facility] | | | | | | LABORATORY | | + + + + + + | Hemoglobin | 12.9 | 11.3 - 15.5 | REFERENCE | | | | | g/dL | LAB | | | | | | [facility] | | | | | | LABORATORY | | + + + + + + | Hematocrit | 40.1 | 34.0 - 46.0 % | REFERENCE | | | | | | LAB | | | | | | [facility] | | | | | | LABORATORY | | + + + + + + | MCV | 84.2 | 80.0 - 100.0 fl | REFERENCE | | | | | | LAB | | | | | | [facility] | | | | | | LABORATORY | | + + + + + + | MCH | 27.1 | 27.0 - 34.0 pg | REFERENCE | | | | | | LAB | | | | | | [facility] | | | | | | LABORATORY | | + + + + + + | MCHC | 32.2 | 32.0 - 35.5 | REFERENCE | | | | | g/dL | LAB | | | | | | [facility] | | | | | | LABORATORY | | + + + + + + | RDW-SD | 43.7 | 37 - 53 fl | REFERENCE | | | | | | LAB | | | | | | [facility] | | | | | | LABORATORY | | + + + + + + | Platelet | 221 | 150 - 400 K/uL | REFERENCE | | | Count | | | LAB | | | | | | [facility] | | | | | | LABORATORY | | + + + + + + | MPV | 9.2Comment: NO NORMAL | fl | REFERENCE | | | | RANGE ESTABLISHED | | LAB | | | | | | [facility] | | | | | | LABORATORY | | + + + + + + | Diff Type | AUTOMATED | | REFERENCE | | | | | | LAB | | | | | | [facility] | | | | | | LABORATORY | | + + + + + + | % nRBC | 0.0 | 0 /100WBC | REFERENCE | | | | | | LAB | | | | | | [facility] | | | | | | LABORATORY | | + + + + + + | % | 61.90 | % | REFERENCE | | | Neutrophils | | | LAB | | | | | | [facility] | | | | | | LABORATORY | | + + + + + + | IMMATURE | 0.60 | % | REFERENCE | | | GRANULOCYTE | | | LAB | | | | | | [facility] | | | | | | LABORATORY | | + + + + + + | % | 26.10 | % | REFERENCE | | | Lymphocytes | | | LAB | | | | | | [facility] | | | | | | LABORATORY | | + + + + + + | Monocyte % | 8.10 | % | REFERENCE | | | | | | LAB | | | | | | [facility] | | | | | | LABORATORY | | + + + + + + | Eosinophils | 2.90 | % | REFERENCE | | | % | | | LAB | | | | | | [facility] | | | | | | LABORATORY | | + + + + + + | Basophils % | 0.40 | % | REFERENCE | | | | | | LAB | | | | | | [facility] | | | | | | LABORATORY | | + + + + + + | Neutrophils | 4.49 | 1.90 - 7.40 | REFERENCE | | | , Absolute | | K/uL | LAB | | | | | | [facility] | | | | | | LABORATORY | | + + + + + + | IMMATURE | 0.04Comment: NOTE NEW | 0.00 - 0.07 | REFERENCE | | | GRANS AB | REFERENCE RANGE | K/uL | LAB | | | | | | [facility] | | | | | | LABORATORY | | + + + + + + | Absolute | 1.89 | 1.00 - 3.90 | REFERENCE | | | Lymphocytes | | K/uL | LAB | | | | | | [facility] | | | | | | LABORATORY | | + + + + + + | Absolute | 0.59 | 0.00 - 0.80 | REFERENCE | | | Monocytes | | K/uL | LAB | | | | | | [facility] | | | | | | LABORATORY | | + + + + + + | Eosinophils | 0.21 | 0.00 - 0.50 | REFERENCE | | | , Absolute | | K/uL | LAB | | | | | | [facility] | | | | | | LABORATORY | | + + + + + + | Basophils, | 0.03Comment: Testing | 0.00 - 0.10 | REFERENCE | | | Absolute | performed at [facility];[address] | [address] | LAB | | | | [facility] | | [facility] | | | | [address];[place] [address] | | LABORATORY | | + + + + + + + + | Specimen | + + | Blood | + + + + + + + | Performing | Address | City/State/Zipcode | Phone Number | | Organization | | | | + + + + + | REFERENCE LAB | [address] [place] [address] | [place], [place] | [phone] | | [facility] | Bl[address] | [address] | | | LABORATORY | | | | + + + + + | REFERENCE LAB | [address] [place] [address] | [place], [place] | | | [facility] | Blvd[address] | [address] | | | LABORATORY | | | | + + + + + Sedimentation Rate (09/03/2019 2:33 PM PST) + + + + + + | Component | Value | Ref Range | Performed | Pathologist | | | | | At | Signature | + + + + + + | ESR | 39 (H)Comment: Testing | 0 - 30 mm/Hr | REFERENCE | | | | performed at [facility];[address] | | LAB | | | | [place] | | [facility] | | | | Blvd;[place] [address] | | LABORATORY | | + + + + + + + + | Specimen | + + | Blood | + + + + + + + | Performing | Address | City/State/Zipcode | Phone Number | | Organization | | | | + + + + + | REFERENCE LAB | [address] [place], [place] [address] | [place] | [phone] | | [facility] | [address] | [address] | | | LABORATORY | | | | + + + + + | REFERENCE LAB | [address] [place], [place] [address] | [place] | | | [facility] | [address] | [address] | | | LABORATORY | | | | + + + + + Comprehensive Metabolic Panel (09/03/2019 2:33 PM PST) + + + + + + | Component | Value | Ref Range | Performed | Pathologist | | | | | At | Signature | + + + + + + | Na | 141 | 135 - 145 | REFERENCE | | | | | mmol/L | LAB | | | | | | [facility] | | | | | | LABORATORY | | + + + + + + | K | 4.4 | 3.5 - 4.9 | REFERENCE | | | | | mmol/L | LAB | | | | | | [facility] | | | | | | LABORATORY | | + + + + + + | Cl | 107 | 99 - 109 mmol/L | REFERENCE | | | | | | LAB | | | | | | [facility] | | | | | | LABORATORY | | + + + + + + | CO2 | 27 | 23 - 32 mmol/L | REFERENCE | | | | | | LAB | | | | | | [facility] | | | | | | LABORATORY | | + + + + + + | Anion Gap | 11 | 5 - 20 mmol/L | REFERENCE | | | | | | LAB | | | | | | [facility] | | | | | | LABORATORY | | + + + + + + | Glucose | 92 | 65 - 99 mg/dL | REFERENCE | | | | | | LAB | | | | | | [facility] | | | | | | LABORATORY | | + + + + + + | BUN | 15 | 8 - 25 mg/dL | REFERENCE | | | | | | LAB | | | | | | [facility] | | | | | | LABORATORY | | + + + + + + | Creatinine | 0.9 | 0.50 - 1.00 | REFERENCE | | | | | mg/dL | LAB | | | | | | [facility] | | | | | | LABORATORY | | + + + + + + | BUN/Creatin | 17 | | REFERENCE | | | ine Ratio | | | LAB | | | | | | [facility] | | | | | | LABORATORY | | + + + + + + | Calcium | 10.0 | 8.5 - 10.5 | REFERENCE | | | | | mg/dL | LAB | | | | | | [facility] | | | | | | LABORATORY | | + + + + + + | Protein, | 7.7 | 6.3 - 8.2 g/dL | REFERENCE | | | Total | | | LAB | | | | | | [facility] | | | | | | LABORATORY | | + + + + + + | Albumin | 3.6 | 3.3 - 4.8 g/dL | REFERENCE | | | | | | LAB | | | | | | [facility] | | | | | | LABORATORY | | + + + + + + | Globulin | 4.1 | 1.3 - 4.9 g/dL | REFERENCE | | | | | | LAB | | | | | | [facility] | | | | | | LABORATORY | | + + + + + + | A/G Ratio | 0.9 (L) | 1.0 - 2.4 | REFERENCE | | | | | | LAB | | | | | | [facility] | | | | | | LABORATORY | | + + + + + + | BILIRUBIN, | 0.9 | 0.1 - 1.5 mg/dL | REFERENCE | | | TOTAL | | | LAB | | | | | | [facility] | | | | | | LABORATORY | | + + + + + + | ALK PHOS | 71 | 35 - 115 U/L | REFERENCE | | | | | | LAB | | | | | | [facility] | | | | | | LABORATORY | | + + + + + + | AST | 26 | 10 - 45 U/L | REFERENCE | | | | | | LAB | | | | | | [facility] | | | | | | LABORATORY | | + + + + + + | ALT | 17 | 10 - 65 U/L | REFERENCE | | | | | | LAB | | | | | | [facility] | | | | | | LABORATORY | | + + + + + + | Estimated | >60Comment: GFR <60: | >60 | REFERENCE | | | GFR | CHRONIC KIDNEY DISEASE, | mL/min/1.73m2 | LAB | | | | IF FOUND OVER A 3 MONTH | | [facility] | | | | PERIOD.GFR <15: KIDNEY | | LABORATORY | | | | FAILURE.FOR | | | | | | AMERICANS, MULTIPLY THE | | | | | | CALCULATED GFR BY | | | | | | 1.210.This eGFR is | | | | | | calculated using the | | | | | | MDRD IDMS traceable | | | | | | equation.Testing | | | | | | performed at [facility];[address] | | | | | [facility] | | | | | | Blvd;[place] [address] | | | | | | | | | | + + + + + + + + | Specimen | + + | Blood | + + + + + + + | Performing | Address | City/State/Zipcode | Phone Number | | Organization | | | | + + + + + | REFERENCE LAB | [address] | [place], [place] | [phone] | | [facility] | [address] | [address] | | | LABORATORY | | | | + + + + + | REFERENCE LAB | [address] [facility] | [place] | | | [facility] | [address] | [address] | | | LABORATORY | | | | + + + + + CBC with Differential (09/03/2019 2:33 PM PST) + + + + + + | Component | Value | Ref Range | Performed | Pathologist | | | | | At | Signature | + + + + + + | WBC | 5.62 | 3.80 - 11.00 | REFERENCE | | | | | K/uL | LAB | | | | | | [facility] | | | | | | LABORATORY | | + + + + + + | Red Blood | 4.66 | 3.70 - 5.10 | REFERENCE | | | Cells | | M/uL | LAB | | | | | | [facility] | | | | | | LABORATORY | | + + + + + + | Hemoglobin | 13.0 | 11.3 - 15.5 | REFERENCE | | | | | g/dL | LAB | | | | | | [facility] | | | | | | LABORATORY | | + + + + + + | Hematocrit | 38.0 | 34.0 - 46.0 % | REFERENCE | | | | | | LAB | | | | | | [facility] | | | | | | LABORATORY | | + + + + + + | MCV | 81.6 | 80.0 - 100.0 fl | REFERENCE | | | | | | LAB | | | | | | [facility] | | | | | | LABORATORY | | + + + + + + | MCH | 27.8 | 27.0 - 34.0 pg | REFERENCE | | | | | | LAB | | | | | | [facility] | | | | | | LABORATORY | | + + + + + + | MCHC | 34.1 | 32.0 - 35.5 | REFERENCE | | | | | g/dL | LAB | | | | | | [facility] | | | | | | LABORATORY | | + + + + + + | RDW-SD | 49.0 | 37 - 53 fl | REFERENCE | | | | | | LAB | | | | | | [facility] | | | | | | LABORATORY | | + + + + + + | Platelet | 289 | 150 - 400 K/uL | REFERENCE | | | Count | | | LAB | | | | | | [facility] | | | | | | LABORATORY | | + + + + + + | MPV | 7.6 | fl | REFERENCE | | | | | | LAB | | | | | | [facility] | | | | | | LABORATORY | | + + + + + + | Diff Type | AUTOMATED | | REFERENCE | | | | | | LAB | | | | | | [facility] | | | | | | LABORATORY | | + + + + + + | % | 52.68 | % | REFERENCE | | | Neutrophils | | | LAB | | | | | | [facility] | | | | | | LABORATORY | | + + + + + + | % | 32.67 | % | REFERENCE | | | Lymphocytes | | | LAB | | | | | | [facility] | | | | | | LABORATORY | | + + + + + + | Monocyte % | 9.36 | % | REFERENCE | | | | | | LAB | | | | | | [facility] | | | | | | LABORATORY | | + + + + + + | Eosinophils | 4.81 | % | REFERENCE | | | % | | | LAB | | | | | | [facility] | | | | | | LABORATORY | | + + + + + + | Basophils % | 0.48 | % | REFERENCE | | | | | | LAB | | | | | | [facility] | | | | | | LABORATORY | | + + + + + + | Neutrophils | 2.96 | 1.90 - 7.40 | REFERENCE | | | , Absolute | | K/uL | LAB | | | | | | [facility] | | | | | | LABORATORY | | + + + + + + | Absolute | 1.84 | 1.00 - 3.90 | REFERENCE | | | Lymphocytes | | K/uL | LAB | | | | | | [facility] | | | | | | LABORATORY | | + + + + + + | Absolute | 0.53 | 0.00 - 0.80 | REFERENCE | | | Monocytes | | K/uL | LAB | | | | | | [facility] | | | | | | LABORATORY | | + + + + + + | Eosinophils | 0.27 | 0.00 - 0.50 | REFERENCE | | | , Absolute | | K/uL | LAB | | | | | | [facility] | | | | | | LABORATORY | | + + + + + + | Basophils, | 0.03Comment: Testing | 0.00 - 0.10 | REFERENCE | | | Absolute | performed at [facility];[address] | [address] | LAB | | | | [place] | | [facility] | | | | [address];[place] [address] | | LABORATORY | | + + + + + + + + | Specimen | + + | Blood | + + + + + + + | Performing | Address | City/State/Zipcode | Phone Number | | Organization | | | | + + + + + | REFERENCE LAB | [address] | [place] | [phone] | | [facility] | [address] | [address] | | | LABORATORY | | | | + + + + + | REFERENCE LAB | [address] | [place] | | | [facility] | [address] 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
--- OUTSIDE RECORDS SUMMARY | ~2020-03-16 | XMS | Encounter Summary ---
Demographics + + + | Address | [address] | | | [place] [address] | + + + | Home Phone | | + + + | Preferred Language | Unknown | + + + | Marital Status | | + + + | Church Affiliation | Unknown | + + + | Race | or | + + + | Ethnic Group | Not or | + + + Author + + + | Author | [facility] | | | and [place] | + + + | Organization | [facility] | | | and [place] | + + + | Address | Unknown | + + + | Phone | Unavailable | + + + Support + + +---------+ + | Name | Relationship | Address | Phone | + + +---------+ + | Dianwally Amaya | ECON | Unknown | | + + +---------+ + | Doyle Jose Luis | ECON | Unknown | | + + +---------+ + Care Team Providers + +------+ + | Care Airline Pilot Flight Instructor Name | Role | Phone | + +------+ + | Agatha Hamm | PCP | | + +------+ + Encounter Details +--------+ + + + + | Date | Type | Department | Care Team | Description | +--------+ + + + + | 08/19/ | Imaging | [facility] | Provider, | | | 2019 | Exam | [facility] | [facility] [address] | | | | | IM[facility] [address] | | | | | [address] [place] | [place] [address] | | | | | [place] [address] | | | | | | [phone] | | | +--------+ + + + + Social History + +-------+ +--------+------+ | Tobacco Use | Types | Packs/Day | Years | Date | | | | | Used | | + +-------+ +--------+------+ | Never Assessed | | | | | + +-------+ [...] 2019 | Visit | | [address] | | | | | | [address] | | | | | | [place] [address] | | | | | | [phone] | | | | | | | | +--------+---------+ + + + documented as of this encounter Procedures + +--------+ + + + | Procedure Name | Priori | Date/Time | Associated Diagnosis | Comments | | | ty | | | | + +--------+ + + + | MRI LUMBAR SPINE WO | Routin | 02/18/2013 | | Results for this | | CONTRAST | e | 12:00 AM | | procedure are in the | | | | PDT | | results section. | + +--------+ + + + documented in this encounter Results MRI Lumbar Spine wo Contrast (02/18/2013 12:00 AM PDT) + + | Specimen | + + | | + + + + + | Narrative | Performed At | + + + | External films for comparison only | [facility] | | | | | No results will be in the chart. | | + + + + +---------+ + + | Performing | Address | City/State/Zipcode | Phone Number | | Organization | | | | + +---------+ + + | [facility] | | | | + +---------+ + + documented in this encounter Visit Diagnoses Not on filedocumented in this encounter"
--- OUTSIDE RECORDS SUMMARY | ~2020-03-16 | XMS | Encounter Summary ---
Demographics + + + | Address | [address] | | | [place] [address] | + + + | Home Phone | | + + + | Preferred Language | Unknown | + + + | Marital Status | | + + + | Gnosticist Affiliation | Unknown | + + + | Race | or | + + + | Ethnic Group | Not or | + + + Author + + + | Author | [facility] | | | and [place] | + + + | Organization | [facility] | | | and [...] Team Providers + +------+ + | Care French Pastry Cook Name | Role | Phone | + +------+ + PCP | Unavailable | + +------+ + Encounter Details +--------+ + + + + | Date | Type | Department | Care Team | Description | +--------+ + + + + | 05/12/ | Hospital | [facility] | Conversion | Pain | | 2015 | Encounter | [address] | Transaction, | | | | [address] | Provider Unknown | | | | | [place], [place] | [phone] | | | | | [address] | | | | | | [phone] | | | +--------+ + + + [...] | Rheumatology | [place], | | | 2020 | Visit | | Annika Saeed [facility] [address] | | | | | | [address] | | | | | | [place] [address] | | | | | | [phone] | | | | | | | | +--------+---------+ + + + documented as of this encounter Procedures + +--------+ + + + | Procedure Name | Priori | Date/Time | Associated Diagnosis | Comments | | | ty | | | | + +--------+ + + + | MRI LUMBAR SPINE WO | Routin | 04/17/2015 | | Results for this | | CONTRAST | e | 11:24 PM | | procedure are in the | | | | PDT | | results section. | + +--------+ + + + documented in this encounter Results MRI Lumbar Spine wo Contrast (04/17/2015 11:24 PM PDT) + + | Specimen | + + | | + + + + + | Narrative | Performed At | + + + | This is a non-reportable procedure without a radiologist report and | | | is used for image storage only | | + + + + + | Procedure Note | + + | Oseas You Conversion - 03/08/2019 1:10 AM PDT This is a non-reportable procedure | | without a radiologist report and isused for image storage only | + + documented in this encounter Visit Diagnoses + + | Diagnosis | + + | Pain Generalized pain | + + documented in this encounter"
--- OUTSIDE RECORDS SUMMARY | ~2020-03-16 | XMS | Encounter Summary ---
Demographics + + + | Address | [address] | | | [place] [address] | + + + | Home Phone | | + + + | Preferred Language | Unknown | + + + | Marital Status | | + + + | Christian Affiliation | Unknown | + + + | Race | or | + + + | Ethnic Group | Not or | + + + Author + + + | Author | [facility] | | | and [place] | + + + | Organization | [facility] | | | and [...] Team Providers + +------+ + | Care Technical Service Rep Name | Role | Phone | + +------+ + | Arnulfo Pacheco DO | PCP | | + +------+ + Encounter Details +--------+ + + + + | Date | Type | Department | Care Team | Description | +--------+ + + + + | 01/30/ | Orders Only | [facility] | Naveen Hobbs, | | | 2010 | | MEDICAL CENTER | [address] | | | | | CLINICAL LABORATORY | [place] [address] | | | | | [address] | [phone] | | | | | [place], [place] | | | | | | [address] | | | | | | [phone] | | | +--------+ + + + [...] 2019 | Visit | | KASEY Mackenzie [address] | | | | | | [address] | | | | | | [place] [address] | | | | | | [phone] | | | | | | | | +--------+---------+ + + + documented as of this encounter Procedures + +--------+ + + + | Procedure Name | Priori | Date/Time | Associated Diagnosis | Comments | | | ty | | | | + +--------+ + + + | PH, BODY FLUID | STAT | 01/30/2011 | | Results for this | | | | 5:52 PM | | procedure are in the | | | | PDT | | results section. | + +--------+ + + + documented in this encounter Results PH, Body Fluid (01/30/2011 5:52 PM PDT) + + | Specimen | + + | | + + + + + | Narrative | Performed At | + + + | FLUID PH 7.40 | EXTERNAL LAB | | Testing performed at [facility];[address] [facility];[place] [address] | | + + + + +---------+ + + | Performing | Address | City/State/Zipcode | Phone Number | | Organization | | | | + +---------+ + + | EXTERNAL LAB | | | | + +---------+ + + documented in this encounter Visit Diagnoses Not on filedocumented in this encounter"
--- OUTSIDE RECORDS SUMMARY | ~2020-03-16 | XMS | Encounter Summary ---
Demographics + + + | Address | [address] | | | [place] [address] | + + + | Home Phone | | + + + | Preferred Language | Unknown | + + + | Marital Status | | + + + | Advent Affiliation | Unknown | + + + | Race | or | + + + | Ethnic Group | Not or | + + + Author + + + | Author | [facility] | | | and [place] | + + + | Organization | [facility] | | | [...] Team Providers + +------+ + | Care Roll Wrapper Name | Role | Phone | + +------+ + | Arnulfo Pacheco DO | PCP | | + +------+ + Encounter Details +--------+ + + + + | Date | Type | Department | Care Team | Description | +--------+ + + + + | 01/30/ | Orders Only | [facility] | Navene Hobbs, | | | 2010 | | MEDICAL CENTER | [address] | | | | | CLINICAL LABORATORY | [place] [address] | | | | | [address] | [phone] | | | | | [place], [place] | | | | | | [address] | | | | | | [phone] | | | +--------+ + + + [...] | | | | | [place] [address] | | | | | | [phone] | | | | | | | | +--------+---------+ + + + documented as of this encounter Procedures + +--------+ + + + | Procedure Name | Priori | Date/Time | Associated Diagnosis | Comments | | | ty | | | | + +--------+ + + + | CULTURE, BLOOD | Timed | 01/30/2011 | | Results for this | | | | 8:18 AM | | procedure are in the | | | | PDT | | results section. | + +--------+ + + + documented in this encounter Results Culture, Blood (01/30/2011 8:18 AM PDT) + + | Specimen | + + | | + + + + + | Narrative | Performed At | + + + | Specimen Description BLOOD, PERIPHERAL DRAW | EXTERNAL LAB | | Testing performed | | | at [facility];[address] [place] [address];[place] [address] SPECIAL REQUESTS | | | RT HAND | | | Testing performed at [facility];[address] [place] [address];[place] [address] | | | CULTURE NO GROWTH IN 5 DAYS. | | | Testing performed | | | at [facility];[address] [place] [address];[place] [address] REPORT STATUS | | | 02/05/2011 FINAL | | + + + + +---------+ + + | Performing | Address | City/State/Zipcode | Phone Number | | Organization | | | | + +---------+ + + | EXTERNAL LAB | | | | + +---------+ + + documented in this encounter Visit Diagnoses Not on filedocumented in this encounter"
--- OUTSIDE RECORDS SUMMARY | ~2020-03-16 | XMS | Encounter Summary ---
Demographics + + + | Address | [address] | | | [place] [address] | + + + | Home Phone | | + + + | Preferred Language | Unknown | + + + | Marital Status | | + + + | Yazidi Affiliation | Unknown | + + + | Race | or | + + + | Ethnic Group | Not or | + + + Author + + + | Author | [facility] | | | and [place] | + + + | Organization | [facility] | | | and [place] | + + + | Address | Unknown | + + + | Phone | Unavailable | + + + Support + + +---------+ + | Name | Relationship | Address | Phone | + + +---------+ + | Dian Robertsyakov | ECON | Unknown | | + + +---------+ + | Doyle Amaya | ECON | Unknown | | + + +---------+ + Care Team Providers + +------+ + | Care Web Feeder Name | Role | Phone | + +------+ + | Agatha Hamm | PCP | | + +------+ + Reason for Visit + +--------+ + | Reason | Onset | Comments | | | Date | | + +--------+ + | Imaging Only | 04/10/ | | | | 2019 | | + +--------+ + Encounter Details +--------+ + + + + | Date | Type | Department | Care Team | Description | +--------+ + + + + | 04/10/ | Telephone | [facility] | Mari Jackson | Imaging Only | | 2019 | | [address]SIATRY [address] | LINDA [address] | | | | | [address] [facility] [address] | [facility] | | | | | [place] | [address] | | | | | [address] | [address] | | | | | [phone] | | | +--------+ + + + + Social History + +-------+ +--------+------+ | Tobacco Use | Types | Packs/Day | Years | Date | | | | | Used | | + +-------+ +--------+------+ | Former Smoker | | | | | + +-------+ +--------+------+ + +---+---+---+ | Smokeless Tobacco: | | | | | Never Used | | | | + +---+---+---+ + + +---------+ + | Alcohol Use | Drinks/Week | oz/Week | Comments | + + +---------+ + | Never | | | | + + +---------+ + + + + + | Alcohol Habits | Answer | Date Recorded | + + + + | How often do you have a drink containing | Never | 03/26/2019 | | alcohol? | | | + + + + | How many drinks containing alcohol do you | Not asked | | | have on a typical day when you are | | | | drinking? | | | + + + + | How often do you have six or more drinks on | Not asked | | | one occasion? | | | + + + + + + + | Sex Assigned at | Date Recorded | | | | + + + | Not on file | | + + + documented as of this encounter Miscellaneous Notes Telephone Encounter - Geo Saunders Exchange Consultant - 04/10/2019 12:02 PM PDTCopy of dex ascan and neurosurgery referral placed in the front office to [facility] Telephone Encounter - Liana Cannon - 04/10/2019 11:10 AM [facility] and Outpatient referral for Neurosurgery. Please fax to att n: Gisela @ [facility], fax# [phone] signed by Liana Cannon at 11:13 AM PDTdocumented in this encounter Plan of Treatment +--------+---------+ + + + | Date | Type | Specialty | Care Team | Description | +--------+---------+ + + + | 04/16/ | Office | Rheumatology | [place], | | | 2019 | Visit | | Annika Saeed [facility] [address] | | | | | | [address] | | | | | | [place] [address] | | | | | | [phone] | | | | | | | | +--------+---------+ + + + documented as of this encounter Visit Diagnoses Not on filedocumented in this encounter"
--- OUTSIDE RECORDS SUMMARY | ~2020-03-16 | XMS | Encounter Summary ---
Demographics + + + | Address | [address] | | | [place] [address] | + + + | Home Phone | | + + + | Preferred Language | Unknown | + + + | Marital Status | | + + + | Congregational Affiliation | Unknown | + + + | Race | or | + + + | Ethnic Group | Not or | + + + Author + + + | Author | [facility] | | | and [place] | + + + | Organization | [facility] | | | and [...] Team Providers + +------+ + | Care Pst Supervisor Name | Role | Phone | + +------+ + | Arnulfo Pacheco DO | PCP | | + +------+ + Encounter Details +--------+ + + + + | Date | Type | Department | Care Team | Description | +--------+ + + + + | 05/30/ | Orders Only | [facility] | Conversion | | | 2016 | | RHEUMATOLOGY [address] | Transaction, | | | | [address] | Provider Unknown | | | | | [place] | | | | | | [phone] | (Fax) | | | | | [phone] | | | +--------+ + + + [...] 2019 | Visit | | KASEY Mackenzie [address] | | | | | | [address] | | | | | | [place] [id number] | | | | | | [phone] | | | | | | | | +--------+---------+ + + + documented as of this encounter Procedures + +--------+ + + + | Procedure Name | Priori | Date/Time | Associated Diagnosis | Comments | | | ty | | | | + +--------+ + + + | EXTERNAL LAB: CBC | Routin | 05/30/2016 | | Results for this | | | e | 12:00 AM | | procedure are in the | | | | PST | | results section. | + +--------+ + + + | SEDIMENTATION RATE, | Routin | 05/30/2016 | | Results for this | | AUTOMATED | e | 12:00 AM | | procedure are in the | | | | PST | | results section. | + +--------+ + + + | COMPREHENSIVE | Routin | 05/30/2016 | | Results for this | | METABOLIC PANEL | e | 12:00 AM | | procedure are in the | | | | PST | | results section. | + +--------+ + + + documented in this encounter Results Sedimentation rate, automated (05/30/2016 12:00 AM PST) + +-------+ + + + | Component | Value | Ref Range | Performed | Pathologist | | | | | At | Signature | + +-------+ + + + | Sed Rate | 16 | 0 - 20 | EXTERNAL | | | | | | LAB | | + +-------+ + + + + + | Specimen | + + | Blood specimen | | (specimen) | + + + +---------+ + + | Performing | Address | City/State/Zipcode | Phone Number | | Organization | | | | + +---------+ + + | EXTERNAL LAB | | | | + +---------+ + + External Lab: CBC (05/30/2016 12:00 AM PST) + +-------+ + + + | Component | Value | Ref Range | Performed | Pathologist | | | | | At | Signature | + +-------+ + + + | WBC | 5.2 | 10 | EXTERNAL | | | | | | LAB | | + +-------+ + + + | Non- | 5.35 | 10 | EXTERNAL | | | Red Blood | | | LAB | | | Cells | | | | | | Counted | | | | | + +-------+ + + + | Hemoglobin | 14.3 | g/dL | EXTERNAL | | | | | | LAB | | + +-------+ + + + | Hematocrit, | 43.4 | % | EXTERNAL | | | POC | | | LAB | | + +-------+ + + + | MCV | 81.1 | fL | EXTERNAL | | | | | | LAB | | + +-------+ + + + | MCH | 27 | pg | EXTERNAL | | | | | | LAB | | + +-------+ + + + | MCHC | 33 | g/dL | EXTERNAL | | | | | | LAB | | + +-------+ + + + | Platelet | 262 | K/ L | EXTERNAL | | | Count | | | LAB | | | Plasma | | | | | + +-------+ + + + | RDW-CV | 16.7 | % | EXTERNAL | | | | | | LAB | | + +-------+ + + + | MPV | | fL | EXTERNAL | | | | | | LAB | | + +-------+ + + + | Differentia | | | EXTERNAL | | | l Type | | | LAB | | + +-------+ + + + | % Segmented | 71.5 | % | EXTERNAL | | | | | | LAB | | | Neutrophils | | | | | + +-------+ + + + | % | 21.8 | % | EXTERNAL | | | Lymphocytes | | | LAB | | + +-------+ + + + | % Monocytes | 4.2 | % | EXTERNAL | | | | | | LAB | | + +-------+ + + + | % | 1.8 | % | EXTERNAL | | | Eosinophils | | | LAB | | + +-------+ + + + | % Basophils | 0.7 | % | EXTERNAL | | | | | | LAB | | + +-------+ + + + | Absolute | | / L | EXTERNAL | | | Segmented | | | LAB | | | Neutrophils | | | | | + +-------+ + + + | Absolute | | / L | EXTERNAL | | | Lymphocytes | | | LAB | | + +-------+ + + + | Absolute | | / L | EXTERNAL | | | Monocytes | | | LAB | | + +-------+ + + + | Absolute | | / L | EXTERNAL | | | Eosinophils | | | LAB | | + +-------+ + + + | Absolute | | / L | EXTERNAL | | | Basophils | | | LAB | | + +-------+ + + + + + | Specimen | + + | Blood specimen | | (specimen) | + + + +---------+ + + | Performing | Address | City/State/Zipcode | Phone Number | | Organization | | | | + +---------+ + + | EXTERNAL LAB | | | | + +---------+ + + Comprehensive Metabolic Panel (05/30/2016 12:00 AM PST) + +-------+ + + + | Component | Value | Ref Range | Performed | Pathologist | | | | | At | Signature | + +-------+ + + + | Glucose, | 86 | mg/dL | EXTERNAL | | | Fasting | | | LAB | | + +-------+ + + + | BUN | 15 | mg/dL | EXTERNAL | | | | | | LAB | | + +-------+ + + + | Creatinine | 0.78 | mg/dL | EXTERNAL | | | | | | LAB | | + +-------+ + + + | BUN/Creatin | 19.2 | | EXTERNAL | | | ine Ratio | | | LAB | | + +-------+ + + + | Calcium | 10.0 | mg/dL | EXTERNAL | | | | | | LAB | | + +-------+ + + + | Protein, | 6.9 | g/dL | EXTERNAL | | | Total | | | LAB | | + +-------+ + + + | Albumin | 3.8 | | EXTERNAL | | | | | | LAB | | + +-------+ + + + | Globulin | 3.1 | | EXTERNAL | | | | | | LAB | | + +-------+ + + + | A/G Ratio | 1.2 | | EXTERNAL | | | | | | LAB | | + +-------+ + + + | Bilirubin | 1.0 | mg/dL | EXTERNAL | | | Total | | | LAB | | + +-------+ + + + | ALP, | 61 | | EXTERNAL | | | External | | | LAB | | + +-------+ + + + | ALT | 16 | U/L | EXTERNAL | | | | | | LAB | | + +-------+ + + + | AST | 24 | U/L | EXTERNAL | | | | | | LAB | | + +-------+ + + + | Na | 138 | mmol/L | EXTERNAL | | | | | | LAB | | + +-------+ + + + | K | 4.2 | mmol/L | EXTERNAL | | | | | | LAB | | + +-------+ + + + | Cl | 104 | mmol/L | EXTERNAL | | | | | | LAB | | + +-------+ + + + | CO2 | 23 | mmol/L | EXTERNAL | | | | | | LAB | | + +-------+ + + + | Anion Gap | 15.2 | mmol/L | EXTERNAL | | | | | | LAB | | + +-------+ + + + | Estimated | 73 | mg/dL | EXTERNAL | | | GFR | | | LAB | | + +-------+ + + + + + | Specimen | + + | Blood specimen | | (specimen) | + + + +---------+ + + | Performing | Address | City/State/Zipcode | Phone Number | | Organization | | | | + +---------+ + + | EXTERNAL LAB | | | | + +---------+ + + documented in this encounter Visit Diagnoses Not on filedocumented in this encounter"
--- OUTSIDE RECORDS SUMMARY | ~2020-03-16 | XMS | Encounter Summary ---
Demographics + + + | Address | [address] | | | [place] [address] | + + + | Home Phone | | + + + | Preferred Language | Unknown | + + + | Marital Status | | + + + | Mandaeism Affiliation | Unknown | + + + | Race | or | + + + | Ethnic Group | Not or | + + + Author + + + | Author | [facility] | | | and [place] | + + + | Organization | [facility] | | [...] Doyle Amaya | ECON | Unknown | + | + + +---------+ + Care Team Providers + +------+ + | Care Transportation Supervisor Name | Role | Phone | + +------+ + | Agatha Hamm | PCP | | + +------+ + Reason for Visit +---------+--------+ + | Reason | Onset | Comments | | | Date | | +---------+--------+ + | Results | 04/02/ | | | | 2018 | | +---------+--------+ + Encounter Details +--------+ + + + + | Date | Type | Department | Care Team | Description | +--------+ + + + + | 04/02/ | Telephone | [facility] | Mari Jackson | Results | | 2018 | | [address]SIATRY [address] | [address] | | | | | [address] [facility] [address] | [facility] | | | | | [address] | [address] | | | | | [address] | [address] | | | | | [phone] | | | +--------+ + + + [...] Miscellaneous Notes Telephone Encounter - Geo Saunders Entertainment Reporter - 04/02/2019 4:24 PM PDTI called an d relayed the results to the patient. I also let the patient know they could call [facility]ology to get scheduled for her Dexascan. I also scheduled the patient for her inject ion. elep dat Encounter - Geo Saunders Entertainment Reporter - 04/02/2019 4:24 PM PDT----- Message anurag Jackson PA-C sent at 03/29/2019 12:24 PDT ----- Please notify the patient that her flexion-extension x-rays seem fairly stable. She does n ot have any significant movement when flexing or extending her lumbar spine. Her x-ray does show possible thinning of the bones. I continue to recommend that she get a DEXA scan whic h was ordered at her visit.Electronically signed by Lito Kothari Assistant at 04/02 4:24 PM PDTdocumented in this encounter Plan of Treatment +--------+---------+ + + + | Date | Type | Specialty | Care Team | Description | +--------+---------+ + + + | 04/16/ | Office | Rheumatology | [place], | | | 2019 | Visit | | KASEY Mackenzie [address] | | | | | | [address] | | | | | | [place] [address] | | | | | | [phone] | | | | | | | | +--------+---------+ + + + documented as of this encounter Visit Diagnoses Not on filedocumented in this encounter"
--- OUTSIDE RECORDS SUMMARY | ~2020-03-16 | XMS | Encounter Summary ---
Demographics + + + | Address | [address] | | | [place] [address] | + + + | Home Phone | | + + + | Preferred Language | Unknown | + + + | Marital Status | | + + + | Taoism Affiliation | Unknown | + + + | Race | or | + + + | Ethnic Group | Not or | + + + Author + + + | Author | [facility] | | | and [place] | + + + | Organization | [facility] | | [...] Team Providers + +------+ + | Care Customer Care Specialist Name | Role | Phone | + +------+ + | Agatha Hamm | PCP | | + +------+ + Encounter Details +--------+ + + + + | Date | Type | Department | Care Team | Description | +--------+ + + + + | 04/25/ | Orders Only | [facility] | Conversion | | | 2017 | | [address] | Transaction, | | | [address] | Provider Unknown | | | | | [place], [place] | [phone] | | | | | [phone] | (Fax) | | | | | [phone] | | | +--------+ + + + [...] 2019 | Visit | | KASEY Mackenzie [address] | | | | | | [address] | | | | | | [place] [address] | | | | | | [phone] | | | | | | | | +--------+---------+ + + + documented as of this encounter Visit Diagnoses Not on filedocumented in this encounter"
--- OUTSIDE RECORDS SUMMARY | ~2020-03-16 | XMS | Encounter Summary ---
Demographics + + + | Address | [address] | | | [place] [address] | + + + | Home Phone | | + + + | Preferred Language | Unknown | + + + | Marital Status | | + + + | Nondenominational Affiliation | Unknown | + + + | Race | or | + + + | Ethnic Group | Not or | + + + Author + + + | Author | [facility] | | | and [place] | + + + | Organization | [facility] | | | [...] Team Providers + +------+ + | Care Pulp Grinder And Blender Name | Role | Phone | + +------+ + | Agatha Hamm | PCP | | + +------+ + Encounter Details +--------+ + + + + | Date | Type | Department | Care Team | Description | +--------+ + + + + | 08/27/ | Orders Only | [facility] | Conversion | | | 2016 | | [address] | Transaction, | | | | [address] | Provider Unknown | | | | | [place], [place] | | | | | | [phone] | (Fax) | | | | | [phone] | | | +--------+ + + + [...] 2019 | Visit | | KASEY Mackenzie [address] | | | | | | [address] | | | | | | [place] [address] | | | | | | [phone] | | | | | | | | +--------+---------+ + + + documented as of this encounter Visit Diagnoses Not on filedocumented in this encounter"
--- OUTSIDE RECORDS SUMMARY | ~2020-03-16 | XMS | Encounter Summary ---
Demographics + + + | Address | [address] | | | [place] [address] | + + + | Home Phone | | + + + | Preferred Language | Unknown | + + + | Marital Status | | + + + | Scientology Affiliation | Unknown | + + + | Race | or | + + + | Ethnic Group | Not or | + + + Author + + + | Author | [facility] | | | and [place] | + + + | Organization | [facility] | | [...] Team Providers + +------+ + | Care Tooth Cutter Spur Name | Role | Phone | + +------+ + | Arnulfo Pacheco DO | PCP | | + +------+ + Encounter Details +--------+ + + + + | Date | Type | Department | Care Team | Description | +--------+ + + + + | 10/05/ | Orders Only | [facility] | [facility], | | | 2017 | | RHEUMATOLOGY [address] | Annika Saeed [facility] [address] | | | | | [address] | [address] | | | | | [facility] | [place] [address] | | | | | [address] | [phone] | | | | | [phone] | | | +--------+ + + + [...] 2019 | Visit | | [address] | | | | | | [address] | | | | | | [place] [address] | | | | | | [phone] | | | | | | | | +--------+---------+ + + + documented as of this encounter Procedures + +--------+ + + + | Procedure Name | Priori | Date/Time | Associated Diagnosis | Comments | | | ty | | | | + +--------+ + + + | URINALYSIS WITH | Routin | 10/05/2016 | | Results for this | | MICROSCOPIC IF | e | 2:43 PM | | procedure are in the | | INDICATED | | PDT | | results section. | + +--------+ + + + | URINALYSIS, | Routin | 10/05/2016 | | Results for this | | MICROSCOPIC ONLY | e | 2:43 PM | | procedure are in the | | | | PDT | | results section. | + +--------+ + + + | EXTERNAL LAB: CBC | Routin | 10/05/2016 | | Results for this | | | e | 2:40 PM | | procedure are in the | | | | PDT | | results section. | + +--------+ + + + | HEPATITIS PANEL, | Routin | 10/05/2016 | | Results for this | | CHRONIC | e | 2:40 PM | | procedure are in the | | | | PDT | | results section. | + +--------+ + + + | SEDIMENTATION RATE, | Routin | 10/05/2016 | | Results for this | | AUTOMATED | e | 2:40 PM | | procedure are in the | | | | PDT | | results section. | + +--------+ + + + | C-REACTIVE PROTEIN | Routin | 10/05/2016 | | Results for this | | | e | 2:40 PM | | procedure are in the | | | | PDT | | results section. | + +--------+ + + + | COMPREHENSIVE | Routin | 10/05/2016 | | Results for this | | METABOLIC PANEL | e | 2:40 PM | | procedure are in the | | | | PDT | | results section. | + +--------+ + + + documented in this encounter Results Urinalysis, Microscopic Only (10/05/2016 2:43 PM PDT) + +--------+ + + + | Component | Value | Ref Range | Performed | Pathologist | | | | | At | Signature | + +--------+ + + + | WBC, UA | >100 | 0 - 5 /[HPF] | EXTERNAL | | | | | | LAB | | + +--------+ + + + | RBC, UA | 0-2 | 0 - 5 /[HPF] | EXTERNAL | | | | | | LAB | | + +--------+ + + + | Epithelial | 3-5 | /[LPF] | EXTERNAL | | | Cells | | | LAB | | + +--------+ + + + | Bacteria, | 1+ (A) | | EXTERNAL | | | UA | | | LAB | | + +--------+ + + + + + | Specimen | + + | | + + + +---------+ + + | Performing | Address | City/State/Zipcode | Phone Number | | Organization | | | | + +---------+ + + | EXTERNAL LAB | | | | + +---------+ + + Urinalysis with Microscopic if Indicated (10/05/2016 2:43 PM PDT) + + + + + + | Component | Value | Ref Range | Performed | Pathologist | | | | | At | Signature | + + + + + + | Color | YELLOW | | EXTERNAL | | | | | | LAB | | + + + + + + | Clarity, | HAZY | | EXTERNAL | | | Urine | | | LAB | | + + + + + + | Specific | 1.005 | 1.002 - 1.030 | EXTERNAL | | | [place], | | | LAB | | | Urine | | | | | + + + + + + | Leukocyte | LARGE (A)Comment: | | EXTERNAL | | | [place], | | | LAB | | | Urine | | | | | + + + + + + | Nitrite, | NEGATIVE | | EXTERNAL | | | Urine | | | LAB | | + + + + + + | Urobilinoge | NORMAL | mg/dL | EXTERNAL | | | n, Urine | | | LAB | | + + + + + + | Protein, | NEGATIVE | mg/dL | EXTERNAL | | | Urine | | | LAB | | + + + + + + | pH, Urine | 6.0 | 5.0 - 8.0 | EXTERNAL | | | | | | LAB | | + + + + + + | Blood, | NEGATIVE | | EXTERNAL | | | Urine | | | LAB | | + + + + + + | Ketones | NEGATIVE | mg/dL | EXTERNAL | | | | | | LAB | | + + + + + + | Bilirubin, | NEGATIVE | | EXTERNAL | | | Urine | | | LAB | | + + + + + + | Glucose, | NEGATIVE | mg/dL | EXTERNAL | | | Urine | | | LAB | | + + + + + + + + | Specimen | + + | Urine specimen | | (specimen) | + + + +---------+ + + | Performing | Address | City/State/Zipcode | Phone Number | | Organization | | | | + +---------+ + + | EXTERNAL LAB | | | | + +---------+ + + Hepatitis Panel, Chronic (10/05/2016 2:40 PM PDT) + + + + + + | Component | Value | Ref Range | Performed | Pathologist | | | | | At | Signature | + + + + + + | Hep A Total | NON REACTIVE | | EXTERNAL | | | Ab Interp | | | LAB | | + + + + + + | HEP B | NON REACTIVE | | EXTERNAL | | | SURFACE | | | LAB | | | ANTIBODY | | | | | + + + + + + | Hepatitis B | NON REACTIVE | | EXTERNAL | | | Core Ab | | | LAB | | | Total | | | | | + + + + + + | HEP B | <0.35Comment: <1.00 | {index_val} | EXTERNAL | | | SURFACE | Non Immune1.00 | | LAB | | | ANTIBODY | OR MORE Indicates | | | | | | vaccine response or | | | | | | response to HBV | | | | | | infection. An Index | | | | | | Value (IV) of 1.00 is | | | | | | equivalent to 10 mIU/mL. | | | | | | Samples with an IV of | | | | | | 1.00 or greater are | | | | | | considered reactive | | | | | | (protected) in | | | | | | accordance with CDC | | | | | | Guidelines. | | | | + + + + + + | HCV Ab | NON REACTIVE | | EXTERNAL | | | | | | LAB | | + + + + + + | Hepatitis | No serologic evidence of | | EXTERNAL | | | Interpretat | HAV, HBV, or HCV | | LAB | | | ion | infection. | | | | + + + + + + + + | Specimen | + + | | + + + +---------+ + + | Performing | Address | City/State/Zipcode | Phone Number | | Organization | | | | + +---------+ + + | EXTERNAL LAB | | | | + +---------+ + + Sedimentation rate, automated (10/05/2016 2:40 PM PDT) + +--------+ + + + | Component | Value | Ref Range | Performed | Pathologist | | | | | At | Signature | + +--------+ + + + | Sed Rate | 37 (H) | 0 - 30 mm/h | EXTERNAL | | | | | | LAB | | + +--------+ + + + + + | Specimen | + + | Blood specimen | | (specimen) | + + + +---------+ + + | Performing | Address | City/State/Zipcode | Phone Number | | Organization | | | | + +---------+ + + | EXTERNAL LAB | | | | + +---------+ + + External Lab: CBC (10/05/2016 2:40 PM PDT) + + + + + + | Component | Value | Ref Range | Performed | Pathologist | | | | | At | Signature | + + + + + + | WBC | 8.6 | 3.8 - 11.0 | EXTERNAL | | | | | 10*3/uL | LAB | | + + + + + + | Non- | 5.12 (H) | 3.70 - 5.10 | EXTERNAL | | | Red Blood | | 10*6/uL | LAB | | | Cells | | | | | | Counted | | | | | + + + + + + | Hemoglobin | 14.0 | 11.3 - 15.5 | EXTERNAL | | | | | g/dL | LAB | | + + + + + + | Hematocrit, | 42.4 | 34.0 - 46.0 % | EXTERNAL | | | POC | | | LAB | | + + + + + + | MCV | 82.8 | 80.0 - 100.0 fL | EXTERNAL | | | | | | LAB | | + + + + + + | MCH | 27.3 | 27.0 - 34.0 pg | EXTERNAL | | | | | | LAB | | + + + + + + | MCHC | 33.0 | 32.0 - 35.5 | EXTERNAL | | | | | g/dL | LAB | | + + + + + + | RDW-CV | 47.7 | 37 - 53 fL | EXTERNAL | | | | | | LAB | | + + + + + + | Platelet | 247 | 150 - 400 | EXTERNAL | | | Count | | 10*3/uL | LAB | | | Plasma | | | | | + + + + + + | MPV | 7.1 | fL | EXTERNAL | | | | | | LAB | | + + + + + + | Differentia | AUTOMATED | | EXTERNAL | | | l Type | | | LAB | | + + + + + + | % Segmented | 82.87 | % | EXTERNAL | | | | | | LAB | | | Neutrophils | | | | | + + + + + + | % | 11.89 | % | EXTERNAL | | | Lymphocytes | | | LAB | | + + + + + + | % Monocytes | 4.26 | % | EXTERNAL | | | | | | LAB | | + + + + + + | % | 0.66 | % | EXTERNAL | | | Eosinophils | | | LAB | | + + + + + + | % Basophils | 0.32 | % | EXTERNAL | | | | | | LAB | | + + + + + + | Absolute | 7.09 | 1.90 - 7.40 | EXTERNAL | | | Segmented | | 10*3/uL | LAB | | | Neutrophils | | | | | + + + + + + | Absolute | 1.02 | 1.00 - 3.90 | EXTERNAL | | | Lymphocytes | | 10*3/uL | LAB | | + + + + + + | Absolute | 0.36 | 0.00 - 0.80 | EXTERNAL | | | Monocytes | | 10*3/uL | LAB | | + + + + + + | Absolute | 0.06 | 0.00 - 0.50 | EXTERNAL | | | Eosinophils | | 10*3/uL | LAB | | + + + + + + | Absolute | 0.03 | 0.00 - 0.10 | EXTERNAL | | | Basophils | | 10*3/uL | LAB | | + + + + + + + + | Specimen | + + | Blood specimen | | (specimen) | + + + +---------+ + + | Performing | Address | City/State/Zipcode | Phone Number | | Organization | | | | + +---------+ + + | EXTERNAL LAB | | | | + +---------+ + + C-Reactive Protein (10/05/2016 2:40 PM PDT) + +---------+ + + + | Component | Value | Ref Range | Performed | Pathologist | | | | | At | Signature | + +---------+ + + + | CRP | 0.8 (H) | mg/dL | EXTERNAL | | | | | | LAB | | + +---------+ + + + + + | Specimen | + + | Blood specimen | | (specimen) | + + + +---------+ + + | Performing | Address | City/State/Zipcode | Phone Number | | Organization | | | | + +---------+ + + | EXTERNAL LAB | | | | + +---------+ + + Comprehensive Metabolic Panel (10/05/2016 2:40 PM PDT) + + + + + + | Component | Value | Ref Range | Performed | Pathologist | | | | | At | Signature | + + + + + + | Na | 142 | 135 - 145 | EXTERNAL | | | | | mmol/L | LAB | | + + + + + + | K | 4.4 | 3.5 - 4.9 | EXTERNAL | | | | | mmol/L | LAB | | + + + + + + | Cl | 107 | 99 - 109 mmol/L | EXTERNAL | | | | | | LAB | | + + + + + + | CO2 | 25 | 23 - 32 mmol/L | EXTERNAL | | | | | | LAB | | + + + + + + | Anion Gap | 14 | 5 - 20 mmol/L | EXTERNAL | | | | | | LAB | | + + + + + + | Glucose, | 99 | 65 - 99 mg/dL | EXTERNAL | | | Fasting | | | LAB | | + + + + + + | BUN | 16 | 8 - 25 mg/dL | EXTERNAL | | | | | | LAB | | + + + + + + | Creatinine | 1.0 | 0.50 - 1.00 | EXTERNAL | | | | | mg/dL | LAB | | + + + + + + | BUN/Creatin | 16 | | EXTERNAL | | | ine Ratio | | | LAB | | + + + + + + | Calcium | 10.0 | 8.5 - 10.5 | EXTERNAL | | | | | mg/dL | LAB | | + + + + + + | Protein, | 7.2 | 6.3 - 8.2 g/dL | EXTERNAL | | | Total | | | LAB | | + + + + + + | Albumin | 3.9 | 3.3 - 4.8 g/dL | EXTERNAL | | | | | | LAB | | + + + + + + | Globulin | 3.3 | 1.3 - 4.9 g/dL | EXTERNAL | | | | | | LAB | | + + + + + + | A/G Ratio | 1.2 | 1.0 - 2.4 | EXTERNAL | | | | | | LAB | | + + + + + + | Bilirubin | 1.0 | 0.1 - 1.5 mg/dL | EXTERNAL | | | Total | | | LAB | | + + + + + + | ALP, | 68 | 35 - 115 U/L | EXTERNAL | | | External | | | LAB | | + + + + + + | AST | 28 | 10 - 45 U/L | EXTERNAL | | | | | | LAB | | + + + + + + | ALT | 19 | 10 - 65 U/L | EXTERNAL | | | | | | LAB | | + + + + + + | Estimated | 58 (L)Comment: GFR <60: | mL/min/1.73_m2 | EXTERNAL | | | GFR | CHRONIC KIDNEY DISEASE, | | LAB | | | | IF FOUND OVER A 3 MONTH | | | | | | PERIOD. GFR <15: KIDNEY | | | | | | FAILURE. FOR | | | | | | AMERICANS, MULTIPLY THE | | | | | | CALCULATED GFR BY 1.210. | | | | + + + [...]
--- OUTSIDE RECORDS SUMMARY | ~2020-03-16 | XMS | Encounter Summary ---
Demographics + + + | Address | [address] | | | [place] [address] | + + + | Home Phone | | + + + | Preferred Language | Unknown | + + + | Marital Status | | + + + | Judaism Affiliation | Unknown | + + + | Race | or | + + + | Ethnic Group | Not or | + + + Author + + + | Author | [facility] | | | and [place] | + + + | Organization | [facility] | | [...] Team Providers + +------+ + | Care Compliance Tester Name | Role | Phone | + +------+ + PCP | Unavailable | + +------+ + Encounter Details +--------+ + + + + | Date | Type | Department | Care Team | Description | +--------+ + + + + | 03/15/ | Hospital | [facility] | [place], | | | 2008 | Encounter | [facility] | Stef Berry MD [address] | | | | [address] | [facility] | | | | | [place], [place] | [place] [address] | | | | | [address] | [phone] | | | | | [phone] | | | +--------+ + + + [...] 2019 | Visit | | [address] | | | | | | [address] | | | | | | [place] [address] | | | | | | [phone] | | | | | | | | +--------+---------+ + + + documented as of this encounter Visit Diagnoses Not on filedocumented in this encounter"
--- OUTSIDE RECORDS SUMMARY | ~2020-03-16 | XMS | Encounter Summary ---
Demographics + + + | Address | [address] | | | [place] [address] | + + + | Home Phone | | + + + | Preferred Language | Unknown | + + + | Marital Status | | + + + | Anabaptist Affiliation | Unknown | + + + | Race | or | + + + | Ethnic Group | Not or | + + + Author + + + | Author | [facility] | | | and [place] | + + + | Organization | [facility] | | [...] Team Providers + +------+ + | Care Rehab Consultant Name | Role | Phone | + +------+ + | Agatha Hamm | PCP | | + +------+ + Reason for Referral Diagnostic/Screening (Urgent) +--------+--------+ + + + + | Status | Reason | Specialty | Diagnoses / | Referred By | Referred To | | | | | Procedures | Contact | Contact | +--------+--------+ + + + + | Closed | | Radiology | Diagnoses | [place], | [address] | | | | | Hematuria, | [place] | [place] | | | | | unspecified | MD Galilea | Kendra Gardner, | | | | | type 06/05 | [address] | [place] [address] | | | | | pending 10am | [place] | Phone: | | | | | Procedures | [place] | [phone] | | | | | CT Urogram | [address] | Fax: | | | | | w wo | Phone: | [phone] | | | | | Contrast | [phone] | | | | | | CH[address] CT | Fax: | | | | | | SCAN,ABDOMEN | [phone] | | | | | | AND | | | | | | | PELVIS,COMBO | | | +--------+--------+ + + + + Reason for Visit + + + | Reason | Comments | + + + | New Patient | complicated UTI culture positive MRSA | + + + Evaluate & Treat (Urgent) +--------+--------+ + + + + | Status | Reason | Specialty | Diagnoses / | Referred By | Referred To | | | | | Procedures | Contact | Contact | +--------+--------+ + + + + | Closed | | Urology | Diagnoses | Marielos, | Sharon, | | | | | Complicated | CONNER Snider | Ed[place] Calero, | | | | | UTI | [address] | [place] [address] | | | | | (urinary | [address] | [address] | | | | | tract | ERVIN, | [place] | | | | | infection) | [place] [address] | [address] Phone: | | | | | NEW/ | Phone: | [phone] | | | | | COMPLICATED | [phone] | Fax: | | | | | UTI, CULTURE | Fax: | [phone] | | | | | POSITIVE | [phone] | | | | | | MRSA/ | | | | | | | MARIELOS | | | | | | | Procedures | | | | | | | NEW PATIENT | | | +--------+--------+ + + + + Encounter Details +--------+---------+ + + + | Date | Type | Department | Care Team | Description | +--------+---------+ + + + | 05/14/ | Office | [facility] | Edinson Herrera | Hematuria, | | 2019 | Visit | [address] | MD Galilea [address] | unspecified type | | | | MEHRAN Bryan | [place] | (Primary Dx) | | | | [address] | [address] | | | | | [phone] | | | +--------+---------+ + + + Social History [...] + + documented as of this encounter Last Filed Vital Signs + + + + + | Vital Sign | Reading | Time Taken | Comments | + + + + + | Blood Pressure | 110/64 | 05/14/2019 3:49 PM | | | | | PDT | | + + + + + | Pulse | 88 | 05/14/2019 3:49 PM | | | | | PDT | | + + + + + | Temperature | - | - | | + + + + + | Respiratory Rate | 17 | 05/14/2019 3:49 PM | | | | | PDT | | + + + + + | Oxygen Saturation | - | - | | + + + + + | Inhaled Oxygen | - | - | | | Concentration | | | | + + + + + | Weight | 95.3 kg (210 lb) | 05/14/2019 3:49 PM | | | | | PDT | | + + + + + | Height | 149.9 cm (4' 11") | 05/14/2019 3:49 PM | | | | | PDT | | + + + + + | Body Mass Index | 42.41 | 05/14/2019 3:49 PM | | | | | PDT | | + + + + + documented in this encounter Progress Notes Edinson Herrera MD - 05/14/2019 4:00 PM PDTFormatting of this note might be differ ent from the original. Chief Complaint Patient presents with New Patient complicated UTI culture positive MRSA HPI Michelle Amaya is a 73 y.o. female patient of CONNER Arriaga here today for evaluati on of complicated UTI culture positive MRSA. Recurrent UTI Symptoms of UTI: dysuria, frequency, LUTS: frequency, urgency, nocturia 1-2 per night Incontinence: mixed Severity: 4 pads per day, 1 pad at night No gross hematuria, Today does not have any significant bladder symptoms Has been on oxybutynin before in the past for OAB symptoms, she reports that this did help History of prolapse and 2 prior bladder repairs Assessment Michelle was seen today for new patient. Diagnoses and all orders for this visit: Hematuria, unspecified type - CT Urogram w wo Contrast; Future - POCT Urinalysis Other orders - estradiol (ESTRACE VAGINAL) 0.1 mg/g vaginal cream; Apply 1gm to vagina daily x 2 wee ks then 1gm once weekly - oxybutynin (DITROPAN-XL) 10 MG 24 hr tablet; Take 1 tablet by mouth Daily. Plan Patient demonstrates significant hematuria. Will perform CT urogram as well as cystoscopy. We discussed the importance of good antibiotics stewardship. It is fairly common for postm enopausal woman to have asymptomatic bacteriuria. If early symptoms of UTI are smelly urine or cloudy urine then you probably don't need treatment as these are poor indicators for in fection. We discussed that with chronic antibiotic use, we interfere with the gut microbiol ogy as well as breed bacteria that are resistant to oral antibiotics. We then briefly discussed ways to decrease her risk of urinary tract infections. There are several eoxm-yol-uxdimxl medications that can decrease her risk of infection. These includ e: D-mannose, probiotics, cranberry pills, lactoferrin, bio defense. We then discussed the role of methenamine and finally the role of estrogen cream. Out of all of the treatment opt ions estrogen cream has been shown to be the most effective. He can decrease a woman's risk for infection by 50%. Urge incontinence: discussed conservative management including, weight loss, diet changes, fluid management. We then discussed medical management including anticholenergics. We disc ussed side effects including dry mouth, constipation, blurry vision and mental status change s. We then discussed bladder botox as well as percutaneous tibial nerve stimulation (PTNS) Stress incontinence: discussed conservative measures including vigorous exercise, weight lo ss and pelvic physical therapy to strengthen pelvic floor. We then discussed sling surgery including mesh mid urethral sling and autologous rectus fascial sling. We discussed the pro s of the mesh sling including: A relatively easier recovery, long-lasting ,shorter surgery. Cons for mesh sling include: Chronic pain mesh erosion, recurrent urinary tract infection, recurrence of incontinence, urinary retention, painful sexual intercourse, fistula and need for revision surgery. Pros for autologous rectus fascial sling include: No risk of material rejection using her own tissue relatively no risk of chronic pain. The cons for autologous rectus fascial sling include: A bigger surgery and longer time spent in the hospital, longe r recovery and not as durable as the mesh sling. We will start patient with estrogen cream as well as oxybutynin. Past Medical History Past Medical History: Diagnosis Date Acute pain of left knee Asthma Chronic obstructive lung disease (HCC) Cramp in lower leg Depressive disorder Gastroesophageal reflux disease Hypermetropia Hypertensive disorder Hypothyroidism Lumbosacral stenosis Meniere's disease Osteoarthritis Osteopenia Rheumatoid arteritis (HCC) Sciatica Seropositive rheumatoid arthritis (HCC) Past Surgical History History reviewed. No pertinent surgical history. Family History: Family History Problem Relation Age of Onset No known problems Daughter No known problems Son Social History: Social History Socioeconomic History Marital status: Spouse name: Not on file Number of children: Not on file Years of education: Not on file Highest education level: Not on file Occupational History Comment: RETIRED Tobacco Use Smoking status: Former Smoker Smokeless tobacco: Never Used Substance and Sexual Activity Alcohol use: Never Frequency: Never Drug use: Not Currently Comment: Drug use: No Sexual activity: Not Currently Allergies Allergen Reactions Sulfa Antibiotics Hives Medications: Current Outpatient Medications: CERTOLIZUMAB PEGOL SC, Inject under the skin Every 30 days., Disp: , Rfl: Chelated Magnesium 100 MG TABS, Take by mouth., Disp: , Rfl: cholecalciferol (VITAMIN D-3) 5000 units CAPS, Take 5,000 Units by mouth Daily., Disp: , Rfl: cyclobenzaprine (FLEXERIL) 10 mg tablet, Take 10 mg by mouth nightly as needed for Mus doc spasms., Disp: , Rfl: estradiol (ESTRACE VAGINAL) 0.1 mg/g vaginal cream, Apply 1gm to vagina daily x 2 week s then 1gm once weekly, Disp: 42.5 g, Rfl: 3 folic acid 1 mg tablet, Take 1 mg by mouth daily., Disp: , Rfl: gabapentin (NEURONTIN) 300 mg capsule, Take 300 mg by mouth 3 times daily., Disp: , Rf l: HYDROcodone-acetaminophen (NORCO) 10-325 mg per tablet, Take 1 tablet by mouth every 4 hours as needed for Pain., Disp: , Rfl: hydroxychloroquine (PLAQUENIL) 200 mg tablet, Take 2 tablets by mouth daily., Disp: 18 0 tablet, Rfl: 0 levothyroxine (SYNTHROID) 100 mcg tablet, Take 100 mcg by mouth every morning before b reakfast., Disp: , Rfl: levothyroxine (SYNTHROID) 112 mcg tablet, Take 112 mcg by mouth every morning (before breakfast)., Disp: , Rfl: lisinopril (PRINIVIL, ZESTRIL) 10 mg tablet, Take 10 mg by mouth daily., Disp: , Rfl: lisinopril (PRINIVIL, ZESTRIL) 5 mg tablet, Take 5 mg by mouth Daily., Disp: , Rfl: magnesium oxide (MAG-OX) 400 mg tablet, Take 400 mg by mouth Daily., Disp: , Rfl: Multiple Vitamins-Minerals (MULTIVITAMIN WITH MINERALS) tablet, Take 1 tablet by mouth daily., Disp: , Rfl: oxybutynin (DITROPAN-XL) 10 MG 24 hr tablet, Take 1 tablet by mouth Daily., Disp: 30 t ablet, Rfl: 3 predniSONE (DELTASONE) 5 mg tablet, Take 1 tablet by mouth daily with breakfast., Disp : 90 tablet, Rfl: 1 ROS Objective BP 110/64 | Pulse 88 | Resp 17 | Ht 1.499 m (4' 11") | Wt 95.3 kg (210 lb) | BMI 42.41 kg/m General Appearance: Alert, cooperative, no distress, appears stated age, obese Head: Normocephalic, without obvious abnormality, atraumatic Eyes: conjunctiva/corneas clear, EOM's intact Throat: Lips, mucosa, and tongue normal; no gross deformities, mmm Neck: Supple, symmetrical, no adenopathy Lungs: Regular, unlabored breathing MS No CVA tenderness, no spinal tenderness, no scoliosis present Abdomen: Soft, non-tender, no masses, large pannus Extremities: Extremities normal, atraumatic, no cyanosis, clubbing, mild edema Pulses: Radial pulses 2+ and symmetric Skin: Warm and dry Lymph nodes: Cervical and supraclavicular nodes normal Neurologic: Unsteady gait CN 2-12 grossly intact; bilateral medical office technology instructor strength significantly dec reased, very significantly delayed get up and go test. Data: REVIEW OF SYSTEMS: [] Marked All Negative Constitutional Symptoms: [] Fever [x] Chills [] Headache [] Change in appetite [x] Change in weight [x] Change in energy [] Other: Neurological: [] Tremors [] Dizzy Spells [x] Numbness/Tingling [] Seizures [] Other: Endocrine: [x] Excessive thirst [x] Too hot [x] Too cold [x] Tired/Sluggish Gastrointestinal: [] Abdominal pain [] Nausea/Vomiting [] Indigestion/heartburn [] Change in stoo l size [] Change in stool shape [] Change in stool color [] Pain with swallowing [] Other: Cardiovascular: [] Chest Pain [] Rapid heart rate [x] High blood pressure [] Other: Integumentary: [x] Skin rash [] Boils [] Persistent itch [] Other: Musculoskeletal: [] Neck Pain [x] Joint swelling/pain [x] Back pain [] Bone pain [] Other: Respiratory: [x] Wheezing [] Frequent cough [] Shortness of breath [] Other: Hematologic/Lymphatic: [] Swollen glands [] Blood clotting issues [] Prior blood transfusions []Other: Psychologic: Are you generally satisfied with your life? yes Do you feel severely depressed? yes Have you considered suicide? no Habits: Do you smoke? no Results for orders placed or performed in visit on 05/14/19 POCT Urinalysis Result Value Ref Range Color, UA, POC Arleen (A) Yellow, Light Yellow Clarity, UA, POC Clear Glucose, UA, POC Negative Negative Bilirubin, UA, POC Negative Negative Ketones, UA, POC Negative Negative, 100 mg/dL Specific [place], UA, POC 1.020 1.001 - 1.030 Blood, UA, POC Negative Negative pH, UA, POC 6.5 5.0, 6.0, 7.0, 8.0, 5.5, 6.5, 7.5 Protein, UA, POC Trace (A) Negative Urobilinogen, UA, POC 0.2 0.2, Negative, Normal, < 0.2 mg/dL, 1 mg/dL, < 0.2 E.U./dl, 1.0 E.U./dL, 0.2 mg/dL Nitrite, UA, POC Negative Negative Leukocyte Esterase, UA, POC Negative Negative Reducing Substances, Urine Ictotest Remark No results found for: CONNER Marsh's notes were reviewed in clinic today. Return for next available cysto.. This document was generated in part using voice recognition software. Frequent wrong word or sound-alike substitutions may have occurred due to the inherent limitations of the voice recognition software. Although I have attempted to edit the content, I have not thoroughly proofread this note, and site director errors are very likely to occur. CC: CONNER Arriaga documented in this encounter Plan of Treatment +--------+---------+ + + + | Date | Type | Specialty | Care Team | Description | +--------+---------+ + + + | 04/16/ | Office | Rheumatology | [place], | | | 2019 | Visit | | KASEY [address]enzie [address] | | | | | | [address] | | | | | | [place] [address] | | | | | | [phone] | | | | | | | | +--------+---------+ + + + documented as of this encounter Procedures + +--------+ + + + | Procedure Name | Priori | Date/Time | Associated Diagnosis | Comments | | | ty | | | | + +--------+ + + + | POCT URINALYSIS, | Routin | 05/14/2019 | Hematuria, | Results for this | | AUTO WITH CONF | e | 4:45 PM | unspecified type | procedure are in the | | | | PDT | | results section. | + +--------+ + + + documented in this encounter Results CT Urogram w wo Contrast (06/05/2019 10:42 AM PST) + + | Specimen | + + | | + + + + + | Impressions | Performed At | + + + | 1. No suspicious mass, hydronephrosis, hydroureter, or calculi. | [facility] | | 2. Extremely severe circumferential central spinal stenosis at | | | L3-L4. 3. Moderate versus severe central spinal stenosis at | | | L4-L5. 4. Severe diverticulosis. Dictated and Signed by: Gato | | | MD Domingo Electronically signed: 06/05/2019 1:53 PM | | + + + + + + | Narrative | Performed At | + + + | CT UROGRAM W WO CONTRAST 06/05/2019 10:11 AM HISTORY: hematuria. | [facility] | | COMPARISON: None. PROTOCOL: Axial images of the abdomen and | | | pelvis were obtained before and after administration of 125 mL | | | Omnipaque 350. Coronal and sagittal reformations were acquired. | | | FINDINGS: LUNG BASE: The visualized lung bases are clear. | | | HEPATOBILIARY: Question a micronodular contour of the liver. No | | | suspicious mass. Gallbladder is surgically absent. Likely physiologic | | | mild dilatation of the intrahepatic intrahepatic biliary ducts. | | | SPLEEN: Normal parenchyma. No evidence of mass or splenomegaly. | | | PANCREASE: Normal parenchyma. No evidence of pancreatic ductal | | | dilation. ADRENAL GLANDS: No evidence of nodule, mass or suspicious | | | thickening. KIDNEYS: No suspicious mass, hydronephrosis, hydroureter, | | | or calculi. BOWEL: The stomach is normal. Imaged small bowel and | | | colon demonstrate no acute findings. No evidence of dilatation to | | | suggest obstruction or abnormal bowel wall thickening. | | | Noninflamed chronic diverticula are noted VASCULATURE: Aorta is | | | nonaneurysmal and without evidence of dissection. Question developing | | | mild perisplenic portosystemic collaterals. LYMPH NODES: No enlarged | | | lymph nodes are visualized within the omentum or retroperitoneum. | | | PERITONEUM: There is no evidence for free fluid or free air. BLADDER: | | | Unremarkable. REPRODUCTIVE: Uterus is surgically absent. SOFT | | | TISSUES: Body wall soft tissue structures are normal. BONES: There | | | are no acute osseous abnormalities. Extremely severe circumferential | | | central spinal stenosis at L3-L4. Likely moderate to severe central | | | spinal stenosis at L4-L5. Multilevel rpnezajy-gx-fvqxbs degenerative | | | views and facet spondylosis with neural foraminal narrowing. | | + + + + + | Procedure Note | + + | Avelino, Rad Results In - 06/05/2019 1:[address] UROGRAM W WO CONTRAST 06/05/2019 | | 10:11 AMHISTORY: hematuria.COMPARISON: None.PROTOCOL: Axial images of the abdomen and | | pelvis were obtained before and afteradministration of 125 mL Omnipaque 350. Coronal and | | sagittal reformations wereacquired.FINDINGS:LUNG BASE: The visualized lung bases are | | clear. HEPATOBILIARY: Question a micronodular contour of the liver. No suspicious | | mass.Gallbladder is surgically absent. Likely physiologic mild dilatation of | | theintrahepatic intrahepatic biliary ducts.SPLEEN: Normal parenchyma. No evidence of | | mass or splenomegaly.PANCREASE: Normal parenchyma. No evidence of pancreatic ductal | | dilation.ADRENAL GLANDS: No evidence of nodule, mass or suspicious thickening.KIDNEYS: | | No suspicious mass, hydronephrosis, hydroureter, or calculi.BOWEL: The stomach is | | normal. Imaged small bowel and colon demonstrate no acutefindings. No evidence of | | dilatation to suggest obstruction or abnormal bowelwall thickening. Noninflamed chronic | | diverticula are notedVASCULATURE: Aorta is nonaneurysmal and without evidence of | | dissection. Questiondeveloping mild perisplenic portosystemic collaterals.LYMPH NODES: | | No enlarged lymph nodes are visualized within the omentum orretroperitoneum. PERITONEUM: | | There is no evidence for free fluid or free air.BLADDER: Unremarkable.REPRODUCTIVE: | | Uterus is surgically absent. SOFT TISSUES: Body wall soft tissue structures are normal. | | BONES: There are no acute osseous abnormalities. Extremely severecircumferential central | | spinal stenosis at L3-L4. Likely moderate to severecentral spinal stenosis at L4-L5. | | Multilevel ktsnveaz-ns-gxauyr degenerativeviews and facet spondylosis with neural | | foraminal narrowing.IMPRESSION: 1. No suspicious mass, hydronephrosis, hydroureter, or | | calculi.2. Extremely severe circumferential central spinal stenosis at L3-L4. 3. | | Moderate versus severe central spinal stenosis at L4-L5.4. Severe | | diverticulosis.Dictated and Signed by: Gato Lane MD Electronically signed: | | 06/05/2019 1:53 PM | |VASCULATURE: Aorta is nonaneurysmal and without evidence of dissection. Question | |developing mild perisplenic portosystemic collaterals. | |LYMPH NODES: No enlarged lymph nodes are visualized within the omentum or | |retroperitoneum. | |PERITONEUM: There is no evidence for free fluid or free air. | |BLADDER: Unremarkable. | |REPRODUCTIVE: Uterus is surgically absent. | |SOFT TISSUES: Body wall soft tissue structures are normal. | |BONES: There are no acute osseous abnormalities. Extremely severe | |circumferential central spinal stenosis at L3-L4. Likely moderate to severe | |central spinal stenosis at L4-L5. Multilevel mmmvgzxx-uh-jyrbhr degenerative | |views and facet spondylosis with neural foraminal narrowing. | | | |IMPRESSION: | |1. No suspicious mass, hydronephrosis, hydroureter, or calculi. | | | |2. Extremely severe circumferential central spinal stenosis at L3-L4. | | | |3. Moderate versus severe central spinal stenosis at L4-L5. | | | |4. Severe diverticulosis. | | | |Dictated and Signed by: Gato Lane MD | | Electronically signed: 06/05/2019 1:53 PM | + + + +---------+ + + | Performing | Address | City/State/Zipcode | Phone Number | | Organization | | | | + +---------+ + + | [facility] | | | | + +---------+ + + POCT Urinalysis (05/14/2019 4:45 PM PDT) + + + + + + | Component | Value | Ref Range | Performed | Pathologist | | | | | At | Signature | + + + + + + | Color, UA, | Arleen (A) | Yellow, Light | | | | POC | | Yellow | | | + + + + + + | Clarity, | Clear | | | | | UA, POC | | | | | + + + + + + | Glucose, | Negative | Negative | | | | UA, POC | | | | | + + + + + + | Bilirubin, | Negative | Negative | | | | UA, POC | | | | | + + + + + + | Ketones, | Negative | Negative, 100 | | | | UA, POC | | mg/dL | | | + + + + + + | Specific | 1.020 | 1.001 - 1.030 | | | | [place], | | | | | | UA, POC | | | | | + + + + + + | Blood, UA, | Negative | Negative | | | | POC | | | | | + + + + + + | pH, UA, POC | 6.5 | 5.0, 6.0, 7.0, | | | | | | 8.0, 5.5, 6.5, | | | | | | 7.5 | | | + + + + + + | Protein, | Trace (A) | Negative | | | | UA, POC | | | | | + + + + + + | Urobilinoge | 0.2 | 0.2, Negative, | | | | n, UA, POC | | Normal, < 0.2 | | | | | | mg/dL, 1 mg/dL, | | | | | | < 0.2 E.U./dl, | | | | | | 1.0 E.U./dL, | | | | | | 0.2 mg/dL | | | + + + + + + | Nitrite, | Negative | Negative | | | | UA, POC | | | | | + + + + + + | Leukocyte | Negative | Negative | | | | Esterase, | | | | | | UA, POC | | | | | + + + + + + | Reducing | | | | | | Substances, | | | | | | Urine | | | | | + + + + + + | Bilirubin | | | | | | Confirmatio | | | | | | n by | | | | | | Ictotest, | | | | | | Urine | | | | | + + + + + + | Remark | | | | | + + + + + + + + | Specimen | + + | Urine | + + documented in this encounter Visit Diagnoses + + | Diagnosis | + + | Hematuria, unspecified type - Primary | + + documented in this encounter
--- OUTSIDE RECORDS SUMMARY | ~2020-03-16 | XMS | Encounter Summary ---
Demographics + + + | Address | [address] | | | [place] [address] | + + + | Home Phone | | + + + | Preferred Language | Unknown | + + + | Marital Status | | + + + | Yazidi Affiliation | Unknown | + + + | Race | or | + + + | Ethnic Group | Not or | + + + Author + + + | Author | [facility] | | | and [place] | + + + | Organization | [facility] | | | [...] Team Providers + +------+ + | Care Engine Repairer Production Name | Role | Phone | + [...] | | | [address] | [place] [address] | | | | | [place] [address] | | | | | | [phone] | | | +--------+ + + + [...] | | 2020 | Visit | | KASEY Mackenzie [address] | | | | | | [address] | | | | | | [place] [address] | | | | | | [phone] | | | | | | | | +--------+---------+ + + + documented as of this encounter Procedures + +--------+ + + + | Procedure Name | Priori | Date/Time | Associated Diagnosis | Comments | | | ty | | | | + +--------+ + + + | MRI LUMBAR SPINE WO | Routin | 05/31/2019 | | Results for this | | CONTRAST | e | 12:00 AM | | procedure are in the | | | | PST | | results section. | + +--------+ + + + documented in this encounter Results MRI Lumbar Spine wo Contrast (05/31/2019 12:00 AM PST) + + | Specimen | [...]
--- OUTSIDE RECORDS SUMMARY | ~2020-03-16 | XMS | Encounter Summary ---
Demographics + + + | Address | [address] | | | [place] [address] | + + + | Home Phone | | + + + | Preferred Language | Unknown | + + + | Marital Status | | + + + | Christian Affiliation | Unknown | + + + | Race | or | + + + | Ethnic Group | Not or | + + + Author + + + | Author | [facility] | | | and [place] | + + + | Organization | [facility] | [...] Team Providers + +------+ + | Care Hand Printed Circuit Board Assembler Name | Role | Phone | + +------+ + PCP | Unavailable | + +------+ + Encounter Details +--------+ + + + + | Date | Type | Department | Care Team | Description | +--------+ + + + + | 08/20/ | Hospital | [facility] | GarrettMattkimberly Saeed, | | | 1995 | Encounter | MED CTR GENERIC OP | MD [address] | | | | | CONV DEPT [address] | [place], [place] | | | | | [place], | [address] | | | | | [place] [address] | | | | | | [phone] | | | +--------+ + + + [...] 2019 | Visit | | KASEY Mackenzie [address] | | | | | | [address] | | | | | | [place] [address] | | | | | | [phone] | | | | | | | | +--------+---------+ + + + documented as of this encounter Visit Diagnoses Not on filedocumented in this encounter"
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
--- OUTSIDE RECORDS SUMMARY | ~2020-03-16 | XMS | Encounter Summary ---
Demographics + + + | Address | [address] | | | [place] [address] | + + + | Home Phone | | + + + | Preferred Language | Unknown | + + + | Marital Status | | + + + | Baptist Affiliation | Unknown | + + + | Race | or | + + + | Ethnic Group | Not or | + + + Author + + + | Author | [facility] | | | and [place] | + + + | Organization | [facility] | | [...] Team Providers + +------+ + | Care Ambulance Assistant Name | Role | Phone | + +------+ + | Arnulfo Pacheco DO | PCP | | + +------+ + Encounter Details +--------+ + + + + | Date | Type | Department | Care Team | Description | +--------+ + + + + | 01/30/ | Orders Only | [facility] | Naveen Hobbs, | | | 2010 | | MEDICAL CENTER | [address] | | | | | CLINICAL LABORATORY | [place] [address] | | | | | [address] | [phone] | | | | | [place], [place] | | | | | | [address] | | | | | | [phone] | | | +--------+ + + + [...] | | | | | [place] [address] | | | | | | [phone] | | | | | | | | +--------+---------+ + + + documented as of this encounter Procedures + +--------+ + + + | Procedure Name | Priori | Date/Time | Associated Diagnosis | Comments | | | ty | | | | + +--------+ + + + | CULTURE, BODY FLUID, | Routin | 01/30/2011 | | Results for this | | STERILE, SMEAR, | e | 5:58 PM | | procedure are in the | | WITH ANAEROBES | | PDT | | results section. | + +--------+ + + + documented in this encounter Results Culture, Body Fluid, Sterile, Smear, with Anaerobes (01/30/2011 5:58 PM PDT) + + | Specimen | + + | | + + + + + | Narrative | Performed At | + + + | Specimen Description BODY FLUID | EXTERNAL LAB | | Testing performed at [facility] [place] [place];[address] | | | [facility];[place] [address] SPECIAL REQUESTS | | | thoracen. | | | Testing performed at [facility] [place] [place];[address];[place] [address] GRAM STAIN | | | NO CELLS SEEN | | | NO ORGANISMS SEEN | | | Testing performed at [facility], [address] | | [facility], [place] [address] CULTURE | | | NO GROWTH 4 DAYS | | | Testing performed at [facility], [address] [facility], | | | [place] [address] REPORT STATUS | | | 02/03/2011 FINAL | | + + + + +---------+ + + | Performing | Address | City/State/Zipcode | Phone Number | | Organization | | | | + +---------+ + + | EXTERNAL LAB | | | | + +---------+ + + documented in this encounter Visit Diagnoses Not on filedocumented in this encounter"
--- OUTSIDE RECORDS SUMMARY | ~2020-03-16 | XMS | Encounter Summary ---
Demographics + + + | Address | [address] | | | [place] [address] | + + + | Home Phone | | + + + | Preferred Language | Unknown | + + + | Marital Status | | + + + | Restorationism Affiliation | Unknown | + + + | Race | or | + + + | Ethnic Group | Not or | + + + Author + + + | Author | [facility] | | | and [place] | + + + | Organization | [facility] | | | [...] Team Providers + +------+ + | Care One Piece Expansion Maker Hand Name | Role | Phone | + [...] | | Hematuria, | [place] | [address] | | | | | unspecified | MD Galilea | Kendra Gardner, | | | | | type 06/05 | [address] | [place] [address] | | | | | pending 10am | PARKER GARDNER | Phone: | | | | | Procedures | [place] | [phone] | | | | | CT Urogram | [address] | Fax: | | | | | w wo | Phone: | [phone] | | | | | Contrast | [phone] | | | | | | [address] | Fax: | | | | | | SCAN,ABDOMEN | [phone] | | | | | | AND | | | | | | | PELVIS,COMBO | | | +--------+--------+ + + + + Reason for Visit Diagnostic/Screening (Urgent) +--------+--------+ + + + + | Status | Reason | Specialty | Diagnoses / | Referred By | Referred To | | | | | Procedures | Contact | Contact | +--------+--------+ + + + + | Closed | | Radiology | Diagnoses | [place], | [address] | | | | | Hematuria, | [place] | [address] | | | | | unspecified | MD Galilea | Kendra Gardner, | | | | | type 06/05 | [address] | [place] [address] | | | | | pending 10am | PARKER GARDNER | Phone: | | | | | Procedures | [place] | [phone] | | | | | CT Urogram | [address] | Fax: | | | | | w wo | Phone: | [phone] | | | | | Contrast | [phone] | | | | | | [address] CT | Fax: | | | | | | SCAN,[place] | [phone] | | | | | | AND | | | | | | | PELVIS,COMBO | | | +--------+--------+ + + + + Encounter Details +--------+ + + + + | Date | Type | Department | Care Team | Description | +--------+ + + + + | 06/05/ | Hospital | [facility] | [place] Herrera | Hematuria, | | 2019 | Encounter | [address] | MD Galilea [address] | unspecified type | | | | [place], | [place], [place] | | | | | [place] [address] | [address] | | | | | [phone] | | | +--------+ + + + [...] + + documented as of this encounter Medications at Time of Discharge + + + +---------+ + + | Medication | Sig | Dispensed | Refills | Start | End Date | | | | | | Date | | + + + +---------+ + + | Chelated Magnesium | Take by mouth. | | 0 | 05/14/20 | | | 100 MG TABS | | | | 15 | | + + + +---------+ + + | cholecalciferol | Take 5,000 Units by | | 0 | | | | (VITAMIN D-3) 5000 | mouth Daily. | | | | | | units CAPS | | | | | | + + + +---------+ + + | cyclobenzaprine | Take 10 mg by mouth | | 0 | | | | (FLEXERIL) 10 mg | nightly as needed | | | | | | tablet | for Muscle spasms. | | | | | + + + +---------+ + + | folic acid 1 mg | Take 1 mg by mouth | | 0 | 02/19/20 | | | tablet | daily. | | | 16 | | + + + +---------+ + + | gabapentin | Take 300 mg by mouth | | 0 | 08/27/19 | | | (NEURONTIN) 300 mg | 2 times daily. | | | 16 | | | capsule | | | | | | + + + +---------+ + + | | Take 1 tablet by | | 0 | | | | HYDROcodone-acetamin | mouth every 4 hours | | | | | | ophen (NORCO) 10-325 | as needed for Pain | | | | | | mg per tablet | (is taking 1 tablet | | | | | | | every 4 -5 hours). | | | | | | | is taking 1 tablet | | | | | | | every 4 -5 hours | | | | | + + + +---------+ + + | levothyroxine | Take 100 mcg by | | 0 | 05/14/20 | | | (SYNTHROID) 100 mcg | mouth every morning | | | 15 | | | tablet | before breakfast. | | | | | + + + +---------+ + + | lisinopril | Take 5 mg by mouth | | 0 | | | | (PRINIVIL, ZESTRIL) | Daily. | | | | | | 5 mg tablet | | | | | | + + + +---------+ + + | magnesium oxide | Take 400 mg by mouth | | 0 | | | | (MAG-OX) 400 mg | Daily. | | | | | | tablet | | | | | | + + + +---------+ + + | Multiple | Take 1 tablet by | | 0 | 02/19/20 | | | Vitamins-Minerals | mouth daily. | | | 16 | | | (MULTIVITAMIN WITH | | | | | | | MINERALS) tablet | | | | | | + + + +---------+ + + | CERTOLIZUMAB PEGOL | Inject under the | | 0 | | | | SC | skin Every 30 days. | | | | 9 | + + + +---------+ + + | estradiol (ESTRACE | Apply 1gm to vagina | 42.5 g | 3 | 05/14/20 | | | VAGINAL) 0.1 mg/g | daily x 2 weeks then | | | 19 | 9 | | vaginal cream | 1gm once weekly | | | | | + + + +---------+ + + | hydroxychloroquine | Take 2 tablets by | 180 | 0 | 01/31/20 | | | (PLAQUENIL) 200 mg | mouth daily. | tablet | | 19 | 9 | | tablet | | | | | | + + + +---------+ + + | levothyroxine | Take 112 mcg by | | 0 | | | | (SYNTHROID) 112 mcg | mouth every morning | | | | 0 | | tablet | (before breakfast). | | | | | + + + +---------+ + + | lisinopril | Take 10 mg by mouth | | 0 | 05/14/20 | | | (PRINIVIL, ZESTRIL) | daily. | | | 15 | 0 | | 10 mg tablet | | | | | | + + + +---------+ + + | oxybutynin | Take 1 tablet by | 30 | 3 | 05/14/20 | | | (DITROPAN-XL) 10 MG | mouth Daily. | tablet | | 19 | 9 | | 24 hr tablet | | | | | | + + + +---------+ + + | predniSONE | Take 1 tablet by | 90 | 1 | 10/26/19 | | | (DELTASONE) 5 mg | mouth daily with | tablet | | 19 | 0 | | tablet | breakfast. | | | | | + + + +---------+ + + documented as of this encounter [...] [address] | | | | | | [place] [address] | | | | | | [phone] | | | | | | | | +--------+---------+ + + + documented as of this encounter Procedures + +--------+ + + + | Procedure Name | Priori | Date/Time | Associated Diagnosis | Comments | | | ty | | | | + +--------+ + + + | CT UROGRAM W WO | Routin | 06/05/2019 | Hematuria, | Results for this | | CONTRAST | e | 10:42 AM | unspecified type | procedure are in [...] | | spinal stenosis at L4-L5. Multilevel vhnmiflf-rv-jyxjzp degenerative | | | views and facet [...] spinal stenosis at L4-L5. | | Multilevel yaehhesd-oz-bhsldu degenerativeviews and facet spondylosis with neural | [...] | |central spinal stenosis at L4-L5. Multilevel wupstkts-xp-rwvkaf degenerative | |views and facet spondylosis with [...] | + + | Hematuria, unspecified type | + + documented in this encounter Administered Medications + +--------+ +---------+------+------+ | Medication Order | MAR | Action | Dose | Rate | Site | | | Action | Date | | | | + +--------+ +---------+------+------+ | iohexol (OMNIPAQUE 350) 350 | Given | 06/05/20 | 125 mLs | | | | mg/mL injection 125 mL 125 mL, | | 19 10:31 | | | | | Intravenous, ONCE PRN, Other, | | AM PST | | | | | Starting 06/05/19 at 1031, | | | | | | | For 1 dose | | | | | | + +--------+ +---------+------+------+ +---+---+ | | | +---+---+ + +------+ +--------+-------+---+ | sodium chloride 0.9% (NS) bolus | Push | 06/05/20 | 85 mLs | 5100 | | | 85 mL 85 mL, Intravenous, | | 19 10:31 | | mL/hr | | | Administer over 1 Minutes, ONCE | | AM PST | | | | | PRN, FOR CT IMAGING STUDY, | | | | | | | Starting 06/05/19 at 1031, | | | | | | | For 1 dose | | | | | | + +------+ +--------+-------+---+ +---+---+ | | | +---+---+ documented in this encounter"
--- OUTSIDE RECORDS SUMMARY | ~2020-03-16 | XMS | Encounter Summary ---
Demographics + + + | Address | [address] | | | [place] [address] | + + + | Home Phone [...] + + + | Author | [facility] | | | and [place] | + + + | Organization | [facility] | | | [...] Team Providers + +------+ + | Care Agronomy Internship Name | Role | Phone | + +------+ + | Agatha Hamm | PCP | | + +------+ + Encounter Details +--------+ + + + + | Date | Type | Department | Care Team | Description | +--------+ + + + + | 03/27/ | Hospital | [facility] | Mari Jackson | Spondylolisthesis at | | 2019 | Encounter | MED CTR XRAY [address] | [address] | L3-L4 level; | | | | [place] | [facility] | Spondylolisthesis at | | | | [place] [address] | [address] [place], [place] | L4-L5 level | | | | [phone] | [address] | | | | | | | | +--------+ + + + [...] + + + +---------+ + + | methotrexate 2.5 | Take 8 tablets by | 96 | 0 | 01/31/20 | | | mg tablet | mouth once a week | tablet | | 19 | 9 | | | for 90 days. | | | | | + + [...] | +--------+---------+ + + + | 04/16/ Office | Rheumatology | [place], | | | 2019 | Visit | | K[address]enzie [address] | | | | | | [address] | | | | | | [place] [address] | | | | | | [phone] | | | | | | | | +--------+---------+ + + + documented as of this encounter Procedures + +--------+ + + + | Procedure Name | Priori | Date/Time | Associated Diagnosis | Comments | | | ty | | | | + +--------+ + + + | XR LUMBAR SPINE 4 + | Routin | 03/27/2019 | Spondylolisthesis | Results for this | | VW | e | 3:20 PM | at L3-L4 level | procedure are in the | | | | PDT | Spondylolisthesis at | results section. | | | | | L4-L5 level | | + +--------+ + + + documented in this encounter Results XR Lumbar Spine 4 + Vw (03/27/2019 3:20 PM PDT) + + | Specimen | + + | | + + + + + | Narrative | Performed At | + + + | FOUR VIEWS LUMBAR SPINE 03/27/2019 3:20 PM CLINICAL HISTORY: | [facility] | | lumbar spondylolisthesis COMPARISON: MRI MAY 2017 | | | FINDINGS: Five non rib-bearing, lumbar type vertebrae are visible. An | | | AP view and lateral views in neutral, flexed and extended positions | | | are provided. Osteopenia is suggested. Leftward lumbar curvature | | | persists. Vertebral height is maintained, without evident fracture. | | | Multilevel disc space narrowing and extensive facet hypertrophy | | | are apparent. Mild retrolisthesis is again evident at L2-3 and | | | persists with flexion and extension along with greater | | | anterolisthesis at L3-4 and L4-5. The sacroiliac joints and imaged | | | sacrum, bony pelvis and lower ribs are unremarkable. | | | Cholecystectomy clips are suggested. Soft tissues are otherwise | | | unremarkable. IMPRESSION - 1. LUMBAR LEVOSCOLIOSIS WITH | | | MULTILEVEL DEGENERATIVE DISC DISEASE, SPONDYLOSIS AND | | | SPONDYLOLISTHESIS DESCRIBED. 2. OSTEOPENIA. Dictated and | | | Signed by: Den Quispe MD Electronically signed: 03/27/2019 8:36 PM | | | | | + + + + + | Procedure Note | + + | Avelino, Rad Results In - 03/27/2019 8:39 PM PDT FOUR VIEWS LUMBAR SPINE 03/27/2019 3:20 | | PMCLINICAL HISTORY: lumbar spondylolisthesisCOMPARISON: MRI MAY 2017FINDINGS: Five | | non rib-bearing, lumbar type vertebrae are visible. An AP viewand lateral views in | | neutral, flexed and extended positions are provided. Osteopenia is suggested. Leftward | | lumbar curvature persists. Vertebral heightis maintained, without evident fracture. | | Multilevel disc space narrowing andextensive facet hypertrophy are apparent. Mild | | retrolisthesis is again evidentat L2-3 and persists with flexion and extension along | | with greateranterolisthesis at L3-4 and L4-5. The sacroiliac joints and imaged sacrum, | | bonypelvis and lower ribs are unremarkable. Cholecystectomy clips are suggested. Soft | | tissues are otherwise unremarkable.IMPRESSION -1. LUMBAR LEVOSCOLIOSIS WITH MULTILEVEL | | DEGENERATIVE DISC DISEASE, SPONDYLOSISAND SPONDYLOLISTHESIS DESCRIBED.2. | | OSTEOPENIA.Dictated and Signed by: Den Quispe MD Electronically signed: 03/27/2019 8:36 | | PM | |pelvis and lower ribs are unremarkable. Cholecystectomy clips are suggested. | |Soft tissues are otherwise unremarkable. | | | |IMPRESSION - | | | |1. LUMBAR LEVOSCOLIOSIS WITH MULTILEVEL DEGENERATIVE DISC DISEASE, SPONDYLOSIS | |AND SPONDYLOLISTHESIS DESCRIBED. | | | |2. OSTEOPENIA. | | | |Dictated and Signed by: Den Quispe MD | | Electronically signed: 03/27/2019 8:36 PM | + + + +---------+ + + | Performing | Address | City/State/Zipcode | Phone Number | | Organization | | | | + +---------+ + + | [facility] | | | | + +---------+ + + documented in this encounter Visit Diagnoses + + | Diagnosis | + + | Spondylolisthesis at L3-L4 level | + + | Spondylolisthesis at L4-L5 level | + + documented in this encounter"
--- OUTSIDE RECORDS SUMMARY | ~2020-03-16 | XMS | Encounter Summary ---
Demographics + + + | Address | [address] | | | [place] [address] | + + + | Home Phone | | + + + | Preferred Language | Unknown | + + + | Marital Status | | + + + | Jain Affiliation | Unknown | + + + | Race | or | + + + | Ethnic Group | Not or | + + + Author + + + | Author | [facility] | | | and [place] | + + + | Organization | [facility] | | | and [...] Team Providers + +------+ + | Care Wafer Polishing Worker Name | Role | Phone | + +------+ + | Agatha Hamm | PCP | | + +------+ + Reason for Visit Service/Procedure (Routine) +--------+--------+ + + + + | Status | Reason | Specialty | Diagnoses / | Referred By | Referred To | | | | | Procedures | Contact | Contact | +--------+--------+ + + + + | Closed | | Radiology | Diagnoses | | [facility] | | | | | Lumbar | [place], | [address] | | | | | radiculopath | Royce Dumas MD | [place], | | | | | y | [address] | [place] | | | | | Procedures | [place] | [address] | | | | | CO INJECT | [place], [place] | Phone: | | | | | ANES/STEROID | [address] | [phone] | | | | | FORAMEN | Phone: | Fax: | | | | | LUMBAR/SACRA | [phone] | [phone] | | | | | L W IMG | Fax: | | | | | | GUIDE ,1 | [phone] | | | | | | LEVEL CO | | | | | | | INJECT | | | | | | | ANES/STEROID | | | | | | | FORAMEN | | | | | | | LUMBAR/SACRA | | | | | | | L W IMG | | | | | | | GUIDE ,EA | | | | | | | ADD LEVEL | | | | | | | CO | | | | | | | TRIAMCINOLON | | | | | | | E ACET INJ | | | | | | | NOS, 10 MG | | | | | | | 06/10- PEND | | | | | | | YH> DOS | | | | | | | 06/17/19; | | | | | | | Right L4-5 | | | | | | | and L5-S1 | | | | | | | TFESI | | | +--------+--------+ + + + + Encounter Details +--------+ + + + + | Date | Type | Department | Care Team | Description | +--------+ + + + + | 06/17/ | Hospital | [facility] | Mari Jackson | Lumbar | | 2019 | Encounter | MED CTR XRAY [address] | [address] | radiculopathy; | | | | [address] [place] | [facility] [address] | Spondylolisthesis at | | | | [place] [address] | [address] [place] | L4-L5 level | | | | [phone] | [address] | | | | | | | | | | | | [address], [facility] | | | | | | [place] | | +--------+ + + + + [...] this encounter Last Filed Vital Signs + +---------+ + + | Vital Sign | Reading | Time Taken | Comments | + +---------+ + + | Blood Pressure | 131/63 | 06/17/2019 4:22 PM | | | | | PST | | + +---------+ + + | Pulse | 90 | 06/17/2019 4:22 PM | | | | | PST | | + +---------+ + + | Temperature | - | - | | + +---------+ + + | Respiratory Rate | - | - | | + +---------+ + + | Oxygen Saturation | - | - | | + +---------+ + + | Inhaled Oxygen | - | - | | | Concentration | | | | + +---------+ + + | Weight | - | - | | + +---------+ + + | Height | - | - | | + +---------+ + + | Body Mass Index | - | - | | + +---------+ + + documented in this encounter Medications at Time of Discharge [...] 2019 | Visit | | Annika Saeed [facility] [address] | | | | | | [address] | | | | | | [place] [address] | | | | | | [phone] | | | | | | | | +--------+---------+ + + + documented as of this encounter Procedures + +--------+ + + + | Procedure Name | Priori | Date/Time | Associated Diagnosis | Comments | | | ty | | | | + +--------+ + + + | FL EPIDURAL STEROID | Routin | 06/17/2019 | Lumbar | Results for this | | INJECTION LUMBAR | e | 4:43 PM | radiculopathy | procedure are in the | | TRANSFORAMINAL | | PST | Spondylolisthesis at | results section. | | | | | L4-L5 level | | + +--------+ + + + documented in this encounter Results FL DOTTIE Lumbar Transforaminal (06/17/2019 4:43 PM PST) + + | Specimen | + + | | + + + + -+ | Narrative | Performed At | + + -+ | 06/17/2019 | [facility] | | Transforaminal Epidural Steroid Injections Diagnosis: Lumbar | | | radiculopathy ICD-10 Code M54.16 Michelle Amaya presents to the | | | fluoroscopy suite for fluoroscopically-guided right L4-L5 and right | | | L5-S1 transforaminal epidural steroid injections as part of | | | conservative management for chronic pain with lumbar radiculopathy and | | | degenerative disc disease. After informed consent was obtained, the | | | patient lay in the prone position on the fluoroscopy table. The areas | | | were identified under fluoroscopic guidance. The areas were prepped | | | and draped in sterile fashion. A 25-gauge, 1.5-inch needle was | | | inserted into each region and approximately 3 mL of buffered 1% | | | lidocaine was infused. Then, a 22-gauge spinal needle was inserted | | | into the posterior superior transforaminal space at each level and | | | advanced into the epidural space under fluoroscopic guidance. | | | Confirmation into the epidural space was obtained with infusion of | | | approximately 1 mL of Omnipaque contrast which showed epidural flow as | | | well as nerve sheath flow. Then, a combination of 2 mL of 1% | | | lidocaine and 1.5 mL of 10 mg/mL dexamethasone was infused, divided | | | between the two levels. The patient tolerated the procedure well | | | without complications. Pre- and post-procedure blood pressures were | | | stable. The patient was given verbal as well as written follow-up | | | instructions. Prior to the start of the procedure, the following were | | | performed and/or verified, including correct patient identity, | | | correct site/side marked and visible, agreement on the procedure to be | | | done, correct patient positioning and an accurate procedure consent | | | form. Any safety precautions based on clinical history and/or | | | medication use have been addressed. I personally performed the | | | procedure above. Estimated blood loss: MinimalComplications: | | | NoneFindings: As expectedAnesthesia: Local 1% Lidocaine | | |visible, agreement on the procedure to be done, correct patient | | |positioning and an accurate procedure consent form. Any safety precautions | | |based on clinical history and/or medication use have been addressed. I | | |personally performed the procedure above. | | | | | |Estimated blood loss: Minimal | | |Complications: None | | |Findings: As expected | | |Anesthesia: Local 1% Lidocaine | | | | | | | | + + -+ + +---------+ + + | Performing | Address | City/State/Zipcode | Phone Number | | Organization | | | | + +---------+ + + | [facility] | | | | + +---------+ + + documented in this encounter Visit Diagnoses + + | Diagnosis | + + | Lumbar radiculopathy Thoracic or lumbosacral neuritis or radiculitis, unspecified | + + | Spondylolisthesis at L4-L5 level | + + documented in this encounter Administered Medications + +--------+ +-------+------+------+ | Medication Order | MAR | Action | Dose | Rate | Site | | | Action | Date | | | | + +--------+ +-------+------+------+ | dexamethasone (PF) 10 mg/mL | Given | 06/17/20 | 15 mg | | | | injection 15 mg 15 mg, Other, | | 19 4:32 | | | | | ONCE, 11/25/19 at 1630, For 1 | | PM PST | | | | | dose, When ordered IV push: | | | | | | | Dilute to 10-20 mL with NS and | | | | | | | give slowly over 1-2 minutes., | | | | | | + +--------+ +-------+------+------+ +---+---+ | | | +---+---+ + +-------+ +-------+---+---+ | iohexol (OMNIPAQUE 300) 300 | Given | 06/17/20 | 4 mLs | | | | mg/mL injection 4 mL 4 mL, | | 19 4:30 | | | | | Other, ONCE, Mon06/17/19 at | | PM PST | | | | | 1630, For 1 dose | | | | | | + +-------+ +-------+---+---+ +---+---+ | | | +---+---+ + +-------+ +-------+---+---+ | lidocaine (PF) 1% injection 2 | Given | 06/17/20 | 2 mLs | | | | mL 2 mL, Other, ONCE, Mon | | 19 4:33 | | | | | 06/17/19 at 1630, For 1 dose | | PM PST | | | | + +-------+ +-------+---+---+ +---+---+ | | | +---+---+ + +-------+ +-------+---+ + | lidocaine buffered 0.9% | Given | 06/17/20 | 6 mLs | | Other | | injection 6 mL 6 mL, | | 19 4:28 | | | (Comment | | Intradermal, ONCE, 06/17/19 | | PM PST | | | ) | | at 1630, For 1 dose | | | | | | + +-------+ +-------+---+ + +---+---+ | | | +---+---+ documented in this encounter"
--- OUTSIDE RECORDS SUMMARY | ~2020-03-16 | XMS | Encounter Summary ---
Demographics + + + | Address | [address] | | | [place] [address] | + + + | Home Phone | | + + + | Preferred Language | Unknown | + + + | Marital Status | | + + + | Buddhism Affiliation | Unknown | + + + | Race | or | + + + | Ethnic Group | Not or | + + + Author + + + | Author | [facility] | | | and [place] | + + + | Organization | [facility] | | | [...] Team Providers + +------+ + | Care Tapper Balance Wheel Screw Hole Name | Role | Phone | + +------+ + | Agatha Hamm | PCP | | + +------+ + Encounter Details +--------+ + + + + | Date | Type | Department | Care Team | Description | +--------+ + + + + | 06/04/ | Orders Only | [facility] | Edinson Herrera | Hematuria, | | 2019 | | [address] | MD Galilea [address] | unspecified type | | | | [place] | [address] [place] | (Primary Dx) | | | | [address] | [address] | | | | | [phone] | | | +--------+ + + + [...] 2020 | Visit | | KASEY Mackenzie [address] | | | | | | [address] | | | | | | [place] [address] | | | | | | [phone] | | | | | | | | +--------+---------+ + + + documented as of this encounter Results Creatinine (06/05/2019 9:37 AM PST) + + + + + + | Component | Value | Ref Range | Performed | Pathologist | | | | | At | Signature | + + + + + + | Creatinine | 0.78 | 0.55 - 1.02 | [facility] | | | | | mg/dL | [facility] | | | | | | MED[facility] | | | | | | CENTER - | | | | | | LABORATORY | | + + + + + + | eGFR, | >60Comment: GLOMERULAR | >=60 | [facility] | | | non- | FILTRATION | mL/min/1.73m2 | [facility] | | | Ivorian | RATE,ESTIMATED | | MEDICAL | | | | mL/min/1.55s9Opom than | | CENTER - | | | | 60 Chronic kidney | | LABORATORY | | | | disease,if found over a | | | | | | 3-month period.Less than | | | | | | 15 Kidney failureFor | | | | | | | | | | | | Americans,multiply the | | | | | | calculated GFR by 1.21. | | | | | | | | | | + + + + + + + + | Specimen | + + | Blood | + + + + + + + | Performing | Address | City/State/Zipcode | Phone Number | | Organization | | | | + + + + + | [facility] | [address] | [place] | [phone] | | [facility] | | [address] | | | - LABORATORY | | | | + + + + + BUN (06/05/2019 9:37 AM PST) + +-------+ + + + | Component | Value | Ref Range | Performed | Pathologist | | | | | At | Signature | + +-------+ + + + | BUN | 9 | 9 - 23 mg/dL | [facility] | | | | | | [facility] | | | | | | [facility] | | | | | | CENTER - | | | | | | LABORATORY | | + +-------+ + + + + + | Specimen | + + | Blood | + + + + + + + | Performing | Address | City/State/Zipcode | Phone Number | | Organization | | | | + + + + + | [facility] | [address] | [place] | [phone] | | [facility] | | [address] | | | - LABORATORY | | | | + + + + + documented in this encounter Visit Diagnoses + + | Diagnosis | + + | Hematuria, unspecified type - Primary | + + documented in this encounter"
--- OUTSIDE RECORDS SUMMARY | ~2020-03-16 | XMS | Encounter Summary ---
Demographics + + + | Address | [address] | | | [place] [address] | + + + | Home Phone | | + + + | Preferred Language | Unknown | + + + | Marital Status | | + + + | Shinto Affiliation | Unknown | + + + | Race | or | + + + | Ethnic Group | Not or | + + + Author + + + | Author | [facility] | | | and [place] | + + + | Organization | [facility] | | | [...] Team Providers + +------+ + | Care Plant Guide Name | Role | Phone | + +------+ + | Arnulfo Pacheco DO | PCP | | + +------+ + Reason for Visit Diagnostic/Screening (Routine) +--------+--------+ + + + + | Status | Reason | Specialty | Diagnoses / | Referred By | Referred To | | | | | Procedures | Contact | Contact | +--------+--------+ + + + + | Closed | | Radiology | Procedures | Provider, | | | | | | MRI Lumbar | Historical, | | | | | | Spine wo | [address] | | | | | | Contrast | [address] | | | | | | | [place] | | | | | | | [address] | | +--------+--------+ + + + + Encounter Details +--------+ + + + + | Date | Type | Department | Care Team | Description | +--------+ + + + + | 06/14/ | Imaging | [facility] | Provider, | | | 2016 | Exam | MED CTR EXTERNAL | MD [address] | | | | | IMAGING [address] | [address] | | | | | [address] | [place] [address] | | | | | [place] [address] | | | | | | [phone] | | | +--------+ + + + [...] [address] | | | | | | [place] [address] | | | | | | [phone] | | | | | | | | +--------+---------+ + + + documented as of this encounter Procedures + +--------+ + + + | Procedure Name | Priori | Date/Time | Associated Diagnosis | Comments | | | ty | | | | + +--------+ + + + | MRI LUMBAR SPINE WO | Routin | 06/02/2017 | | Results for this | | CONTRAST | e | 1:40 PM | | procedure are in the | | | | PST | | results section. | + +--------+ + + + documented in this encounter Results MRI Lumbar Spine wo Contrast (06/02/2017 1:40 PM PST) + + | Specimen | + + | | + + + + + | Narrative | Performed At | + + + | External films | [facility] | | for comparison only - no result from [place]. | | + + + + +---------+ + + | Performing | Address | City/State/Zipcode | Phone Number | | Organization | | | | + +---------+ + + | [facility] | | | | + +---------+ + + documented in this encounter Visit Diagnoses Not on filedocumented in this encounter"
--- OUTSIDE RECORDS SUMMARY | ~2020-03-16 | XMS | Encounter Summary ---
Demographics + + + | Address | [address] | | | [place] [address] | + + + | Home Phone [...] + + + | Author | [facility] | | | and [place] | + + + | Organization | [facility] | | | and [...] Team Providers + +------+ + | Care Salt Plant Operator Name | Role | Phone | + +------+ + | Arnulfo Pacheco DO | PCP | | + +------+ + Encounter Details +--------+ + + + + | Date | Type | Department | Care Team | Description | +--------+ + + + + | 01/30/ | Orders Only | [facility] | Naveen Hobbs, | | | 2010 | | [facility]ICAL CENTER | [address] | | | | | CLINICAL LABORATORY | [place] [address] | | | | | [address] | [phone] | | | | | [place], [place] | | | | | | [address] | | | | | | [phone] | | | +--------+ + + + [...] | | | | | [place] [address] | | | | | | [phone] | | | | | | | | +--------+---------+ + + + documented as of this encounter Procedures + +--------+ + + + | Procedure Name | Priori | Date/Time | Associated Diagnosis | Comments | | | ty | | | | + +--------+ + + + | EXTERNAL LAB: | Timed | 01/30/2011 | | Results for this | | PROTEIN, TOTAL | | 5:52 PM | | procedure are in the | | | | PDT | | results section. | + +--------+ + + + documented in this encounter Results External Lab: Protein, Total (01/30/2011 5:52 PM PDT) + + | Specimen | + + | | + + + + + | Narrative | Performed At | + + + | FLUID TOTAL PROTEIN 5.4 This is | EXTERNAL LAB | | not a harness repairer validated sample type for this method. No | | | reference ranges have been established. Testing performed at [facility];[address] [address] FLUID TP SOURCE | | | PLEURAL FLUID Testing performed at [facility];[address];[place] [address] | | + + + + +---------+ + + | Performing | Address | City/State/Zipcode | Phone Number | | Organization | | | | + +---------+ + + | EXTERNAL LAB | | | | + +---------+ + + documented in this encounter Visit Diagnoses Not on filedocumented in this encounter"
--- OUTSIDE RECORDS SUMMARY | ~2020-03-16 | XMS | Encounter Summary ---
Demographics + + + | Address | [address] | | | [place] [address] | + + + | Home Phone | | + + + | Preferred Language | Unknown | + + + | Marital Status | | + + + | Baptism Affiliation | Unknown | + + + | Race | or | + + + | Ethnic Group | Not or | + + + Author + + + | Author | [facility] | | | and [place] | + + + | Organization | [facility] | | | [...] Team Providers + +------+ + | Care Marine Equipment Test Engineer Name | Role | Phone | + [...] | | | | | | | [id number] | | +--------+--------+ + + + + [...] | [address] | [place] [address] | | | | | [place] [address] | | | | | | [phone] | | | +--------+ + + + [...] [address] | | | | | | [place] [address] | | | | | | [phone] | | | | | | | [...] this | | CONTRAST | e | 9:15 AM | | procedure are in the | | | | PDT | | results section. | + +--------+ + + + documented in this encounter Results MRI Lumbar Spine wo Contrast (04/17/2015 9:15 AM PDT) + + | Specimen | + + | | + + + + + | Narrative | Performed At | + + + | External films | [facility] | | for comparison only - no result from [place]. | | + + + + +---------+ + + | Performing | Address | City/State/Zipcode | Phone Number | | Organization | | | | + +---------+ + + | [facility] | | | | + +---------+ + + documented in this encounter Visit Diagnoses Not on filedocumented in this encounter"
--- OUTSIDE RECORDS SUMMARY | ~2020-03-16 | XMS | Encounter Summary ---
Demographics + + + | Address | [address] | | | [place] [address] | + + + | Home Phone | | + + + | Preferred Language | Unknown | + + + | Marital Status | | + + + | Quaker Affiliation | Unknown | + + + | Race | or | + + + | Ethnic Group | Not or | + + + Author + + + | Author | [facility] | | | and [place] | + + + | Organization | [facility] | | | [...] Team Providers + +------+ + | Care Prehemmer Name | Role | Phone | + +------+ + | Agatha Hamm | PCP | | + +------+ + Encounter Details +--------+ + + + + | Date | Type | Department | Care Team | Description | +--------+ + + + + | 12/03/ | Orders Only | [facility] | [facility] | | [facility] | | RHEUMATOLOGY [address] | [address] | (current) drug | | | | [address] | [address] | therapy; Rheumatoid | | | | [place], [place] | [place] [address] | arthritis of | | | | [address] | [phone] | multiple sites | | | | [phone] | | without organ or | | [...] | | | | | [place] [address] | | | | | | [phone] | | | | | | | | +--------+---------+ + + + documented as of this encounter Procedures + +--------+ + + + | Procedure Name | Priori | Date/Time | Associated Diagnosis | Comments | | | ty | | | | + +--------+ + + + | SEDIMENTATION RATE | Routin | 12/04/2019 | Other jail | Results for this | | | e | 2:20 PM | (current) drug | procedure are in the | | | | PDT | therapy Rheumatoid | results section. | | | | | arthritis of | | | | | | multiple sites | | | | | | without organ or | | | | | | system involvement | | | | | | with positive | | | | | | rheumatoid factor | | | | | | (HCC) | | + +--------+ + + + | CBC WITH | Routin | 12/04/2019 | Other long term care pharmacist | Results for this | | DIFFERENTIAL | e | 2:20 PM | (current) drug | procedure are in the | | | | PDT | therapy Rheumatoid | results section. | | | | | arthritis of | | | | | | multiple sites | | | | | | without organ or | | | | | | system involvement | | | | | | with positive | | | | | | rheumatoid factor | | | | | | (HCC) | | + +--------+ + + + | COMPREHENSIVE | Routin | 12/04/2019 | Other jail | Results for this | | METABOLIC PANEL | e | 2:20 PM | (current) drug | procedure are in the | | | | PDT | therapy Rheumatoid | results section. | | | | | arthritis of | | | | | | multiple sites | | | | | | without organ or | | | | | | system involvement | | | | | | with positive | | | | | | rheumatoid factor | | | | | | (HCC) | | + +--------+ + + + documented in this encounter Results CBC with Differential (12/04/2019 2:20 PM PDT) [...] | | | Absolute | performed at [facility];[address] | [address] | LAB | | | | [facility] | | [facility] | | | | [address];[place] [address] | | LABORATORY | | + + + + + + + + | Specimen | + + | Blood | + + + + + + + | Performing | Address | City/State/Zipcode | Phone Number | | Organization | | | | + + + + + | REFERENCE LAB | [address] [place] [address] | [place], [place] | [phone] | | [facility] | Bl[address] | [address] | | | LABORATORY | | | | + + + + + | REFERENCE LAB | [address] [place] [address] | [place], [place] | | | [facility] | [address] | [address] | | | LABORATORY | | | [...] | | | | | performed at [facility];[address] | | | | | | [facility] | | | | | | [facility];[place] [address] | | | | | | | | | | + + + + + + + + | Specimen | + + | Blood | + + + + + + + | Performing | Address | City/State/Zipcode | Phone Number | | Organization | | | | + + + + + | REFERENCE LAB | [address] | [place] | [phone] | | [facility] | Bl[address]. | [address] | | | LABORATORY | | | | + + + + + | REFERENCE LAB | [address] | [place] | | | [facility] | Blvd. | [address] | | | LABORATORY | | | | + + + + + Sedimentation Rate (12/04/2019 2:20 PM PDT) + + + + + + | Component | Value | Ref Range | Performed | Pathologist | | | | | At | Signature | + + + + + + | ESR | 33 (H)Comment: Testing | 0 - 30 mm/Hr | REFERENCE | | | | performed at [facility];[address] | | LAB | | | | [place] | | [facility] | | | | Blvd;[place] [address] | | LABORATORY | | + + + + + + + + | Specimen | + + | Blood | + + + + + + + | Performing | Address | City/State/Zipcode | Phone Number | | Organization | | | | + + + + + | REFERENCE LAB | [address] | [place] | [phone] | | [facility] | [address] | [address] | | | LABORATORY | | | | + + + + + | REFERENCE LAB | [address] | [place] | | | [facility] | [address] 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
--- OUTSIDE RECORDS SUMMARY | ~2020-03-16 | XMS | Encounter Summary ---
Demographics + + + | Address | [address] | | | [place] [address] | + + + | Home Phone | | + + + | Preferred Language | Unknown | + + + | Marital Status | | + + + | Zoroastrian Affiliation | Unknown | + + + | Race | or | + + + | Ethnic Group | Not or | + + + Author + + + | Author | [facility] | | | and [place] | + + + | Organization | [facility] | | | and [...] Team Providers + +------+ + | Care Hat Mender Name | Role | Phone | + +------+ + | Agatha Hamm | PCP | | + +------+ + Reason for Visit + + + | Reason | Comments | + + + | Pain Management | intial encounter | + + + Encounter Details +--------+ + + + + | Date | Type | Department | Care Team | Description | +--------+ + + + + | 06/19/ | Documentati | [facility] | Joseph Araujo | Pain Management | | 2019 | on | [address] Jamarcus Alcantara MD [address] | (intial encounter ) | | | | [address] | [address] [facility] | | | | | [place], [place] | [place] [address] | | | | | [address] | [phone] | | | | | [phone] | | | +--------+ + + + [...] + + documented as of this encounter Progress Notes Lashonda Shelby, Emulsion Operator - 06/19/2019 11:32 AM PSTPatient states she is taking Hy drocodone-Acetamin 10-325 mg. (medication strength, dose, frequency) Opioid Risk Tool (ORT): Total Score 0 (06/24/191624) (0 to 3 = Low risk: 6% chance of developing problematic behaviors, 4 to 7 = Moderate risk: 28% chance of developing problematic behaviors, 8 or more = High risk: 90% chance of develop ing problematic behaviors.) PEG Pain screening tool (Pain, enjoyment, general activity) Total score: 6.33 (1623) PHQ9 Depression scale: Date of Last Screening Total Score 1 (06/24/191623) (1-4 = Minimal depression, 5-9 = Mild depression, 10-14 = Moderate depression, 15-19 = Mode rately severe depression, 20-27 = Severe depression) General Anxiety Disorder (KAMRAN-7): Total Score 0 (06/24/191623) (8-9 = consistent with Generalized anxiety disorder, >15 = severe) The following information was obtained from https://Luxodo.eFuneral.gov/myAccess/saw/select .do on 06/19/19. [facility] was checked on 06/19/19 and no medications have been dispensed in the last 3 months. docum ented in this encounter Plan of Treatment +--------+---------+ + + + | Date | Type | Specialty | Care Team | Description | +--------+---------+ + + + | 04/16/ | Office | Rheumatology | [place], | | | 2020 | Visit | | [address] | | | | | | [address] | | | | | | [place] [address] | | | | | | [phone] | | | | | | | | +--------+---------+ + + + documented as of this encounter Visit Diagnoses Not on filedocumented in this encounter"
--- OUTSIDE RECORDS SUMMARY | ~2020-03-16 | XMS | Encounter Summary ---
Demographics + + + | Address | [address] | | | [place] [address] | + + + | Home Phone | | + + + | Preferred Language | Unknown | + + + | Marital Status | | + + + | Christianity Affiliation | Unknown | + + + | Race | or | + + + | Ethnic Group | Not or | + + + Author + + + | Author | [facility] | | | and [place] | + + + | Organization | [facility] | | [...] Team Providers + +------+ + | Care Central Office Equipment Installer Name | Role | Phone | + +------+ + | Arnulfo Pacheco DO | PCP | | + +------+ + Encounter Details +--------+ + + + + | Date | Type | Department | Care Team | Description | +--------+ + + + + | 01/03/ | Orders Only | [facility] | [place], | | | 2017 | | [address] | [address] | | | | | [place], [place] | [address] | | | | | [address] | [place] [address] | | | | | [phone] | [phone] | | | | | | | [...] | | | | | | [place] [address] | | | | | | [phone] | | | | | | | | +--------+---------+ + + + documented as of this encounter Procedures + +--------+ + + + | Procedure Name | Priori | Date/Time | Associated Diagnosis | Comments | | | ty | | | | + +--------+ + + + | EXTERNAL LAB: CBC | Routin | 01/03/2018 | | Results for this | | | e | 2:49 PM | | procedure are in the | | | | PDT | | results section. | + +--------+ + + + | SEDIMENTATION RATE, | Routin | 01/03/2018 | | Results for this | | AUTOMATED | e | 2:49 PM | | procedure are in the | | | | PDT | | results section. | + +--------+ + + + | C-REACTIVE PROTEIN | Routin | 01/03/2018 | | Results for this | | | e | 2:49 PM | | procedure are in the | | | | PDT | | results section. | + +--------+ + + + | COMPREHENSIVE | Routin | 01/03/2018 | | Results for this | | METABOLIC PANEL | e | 2:49 PM | | procedure are in the | | | | PDT | | results section. | + +--------+ + + + documented in this encounter Results Sedimentation rate, automated (01/03/2018 2:49 PM PDT) + +--------+ + + + | Component | Value | Ref Range | Performed | Pathologist | | | | | At | Signature | + +--------+ + + + | Sed Rate | 32 (H) | 0 - 30 [...] + +---------+ + + External Lab: CBC (01/03/2018 2:49 PM PDT) + + + + + + | Component | Value | Ref Range | Performed | Pathologist | | | | | At | Signature | + + + + + + | WBC | 6.85 | 3.80 - 11.00 | EXTERNAL | | | | | 10*3/uL | LAB | | + + + + + + | Non- | 4.73 | 3.70 - 5.10 | EXTERNAL | | | Red Blood | | 10*6/uL | LAB | | | Cells | | | | | | Counted | | | | | + + + + + + | Hemoglobin | 13.3 | 11.3 - 15.5 | EXTERNAL | | | | | g/dL | LAB | | + + + + + + | Hematocrit, | 39.3 | 34.0 - 46.0 % | EXTERNAL | | | POC | | | LAB | | + + + + + + | MCV | 83.1 | 80.0 - 100.0 fL | EXTERNAL | | | | | | LAB | | + + + + + + | MCH | 28.0 | 27.0 - 34.0 pg | EXTERNAL | | | | | | LAB | | + + + + + + | MCHC | 33.7 | 32.0 - 35.5 | EXTERNAL | | | | | g/dL | LAB | | + + + + + + | RDW-CV | 47.7 | 37 - 53 fL | EXTERNAL | | | | | | LAB | | + + + + + + | Platelet | 233 | 150 - 400 | EXTERNAL | | | Count | | 10*3/uL | LAB | | | Plasma | | | | | + + + + + + | MPV | 7.3 | fL | EXTERNAL | | | | | | LAB | | + + + + + + | Differentia | AUTOMATED | | EXTERNAL | | | l Type | | | LAB | | + + + + + + | % Segmented | 73.08 | % | EXTERNAL | | | | | | LAB | | | Neutrophils | | | | | + + + + + + | % | 17.63 | % | EXTERNAL | | | Lymphocytes | | | LAB | | + + + + + + | % Monocytes | 6.86 | % | EXTERNAL | | | | | | LAB | | + + + + + + | % | 1.77 | % | EXTERNAL | | | Eosinophils | | | LAB | | + + + + + + | % Basophils | 0.66 | % | EXTERNAL | | | | | | LAB | | + + + + + + | Absolute | 5.01 | 1.90 - 7.40 | EXTERNAL | | | Segmented | | 10*3/uL | LAB | | | Neutrophils | | | | | + + + + + + | Absolute | 1.21 | 1.00 - 3.90 | EXTERNAL | | | Lymphocytes | | 10*3/uL | LAB | | + + + + + + | Absolute | 0.47 | 0.00 - 0.80 | EXTERNAL | | | Monocytes | | 10*3/uL | LAB | | + + + + + + | Absolute | 0.12 | 0.00 - 0.50 | EXTERNAL | | | Eosinophils | | 10*3/uL | LAB | | + + + + + + | Absolute | 0.05 | 0.00 - 0.10 | EXTERNAL | [...] | + +---------+ + + C-Reactive Protein (01/03/2018 2:49 PM PDT) + +---------+ + + + | Component | Value | Ref Range | Performed | Pathologist | | | | | At | Signature | + +---------+ + + + | CRP | 0.5 (H) | mg/dL | EXTERNAL | | [...] + +---------+ + + Comprehensive Metabolic Panel (01/03/2018 2:49 PM PDT) + + + + + + | Component | Value | Ref Range | Performed | Pathologist | | | | | At | Signature | + + + + + + | Na | 142 | 135 - 145 | EXTERNAL | | | | | mmol/L | LAB | | + + + + + + | K | 4.0 | 3.5 - 4.9 | EXTERNAL | | | | | mmol/L | LAB | | + + + + + + | Cl | 105 | 99 - 109 mmol/L | EXTERNAL | | | | | | LAB | | + + + + + + | CO2 | 30 | 23 - 32 mmol/L | EXTERNAL | | | | | | LAB | | + + + + + + | Anion Gap | 11 | 5 - 20 mmol/L | EXTERNAL | | | | | | LAB | | + + + + + + | Glucose, | 96 | 65 - 99 mg/dL | EXTERNAL | | | Fasting | | | LAB | | + + + + + + | BUN | 12 | 8 - 25 mg/dL | EXTERNAL | | | | | | LAB | | + + + + + + | Creatinine | 0.9 | 0.50 - 1.00 | EXTERNAL | | | | | mg/dL | LAB | | + + + + + + | BUN/Creatin | 13 | | EXTERNAL | | | ine Ratio | | | LAB | | + + + + + + | Calcium | 9.7 | 8.5 - 10.5 | EXTERNAL | | | | | mg/dL | LAB | | + + + + + + | Protein, | 7.1 | 6.3 - 8.2 g/dL | EXTERNAL | | | Total | | | LAB | | + + + + + + | Albumin | 3.7 | 3.3 - 4.8 g/dL | EXTERNAL | | | | | | LAB | | + + + + + + | Globulin | 3.4 | 1.3 - 4.9 g/dL | EXTERNAL | | | | | | LAB | | + + + + + + | A/G Ratio | 1.1 | 1.0 - 2.4 | EXTERNAL | | | | | | LAB | | + + + + + + | Bilirubin | 0.7 | 0.1 - 1.5 mg/dL | EXTERNAL | | | Total | | | LAB | | + + + + + + | ALP, | 66 | 35 - 115 U/L | EXTERNAL | | | External | | | LAB | | + + + + + + | AST | 29 | 10 - 45 U/L | EXTERNAL | | | | | | LAB | | + + + + + + | ALT | 20 | 10 - 65 U/L | EXTERNAL | | | | | | LAB | | + + + + + + | Estimated | >60Comment: GFR <60: | mL/min/1.73_m2 | EXTERNAL | [...] BY 1.210. | | | | | | This eGFR is calculated | | | | | | using the MDRD IDMS | | | | | | traceable equation. | | | | | | PLEASE NOTE NEW | | | | | | CALCULATION EFFECTIVE | | | | | | 12/19/2017 | | | | + + + [...]
--- OUTSIDE RECORDS SUMMARY | ~2020-03-16 | XMS | Encounter Summary ---
Demographics + + + | Address | [address] | | | [place] [address] | + + + | Home Phone | | + + + | Preferred Language | Unknown | + + + | Marital Status | | + + + | Temple Affiliation | Unknown | + + + [...] Team Providers + +------+ + | Care Uptwist Spinner Name | Role | Phone | + [...] | | | [address] [place] | [place] [address] | | | | | [place] [address] | | | | | | [phone] | | | +--------+ + + + [...] 2019 | Visit | | [address] | | | | | | [address] | | | | | | [place] [address] | | | | | | [phone] | | | | | | | | +--------+---------+ + + + documented as of this encounter Procedures + +--------+ + + + | Procedure Name | Priori | Date/Time | Associated Diagnosis | Comments | | | ty | | | | + +--------+ + + + | MRI CERVICAL SPINE | Routin | 03/04/2013 | | Results for this | | WO CONTRAST | e | 12:00 AM | | procedure are in the | | | | PDT | | results section. | + +--------+ + + + documented in this encounter Results MRI Cervical Spine wo Contrast (03/04/2013 12:00 AM PDT) + + | Specimen [...]
--- OUTSIDE RECORDS SUMMARY | ~2020-03-16 | XMS | Encounter Summary ---
Demographics + + + | Address | [address] | | | [place] [address] | + + + | Home Phone | | + + + | Preferred Language | Unknown | + + + | Marital Status | | + + + | Druze Affiliation | Unknown | + + + [...] Team Providers + +------+ + | Care Cupola Charger Name | Role | Phone | + +------+ + | Agatha Hamm | PCP | | + +------+ + Reason for Visit + + + | Reason | Comments | + + + | Follow-up | Cystoscopy for hematuria | + + + Follow Up (Routine) +--------+--------+ + + + + | Status | Reason | Specialty | Diagnoses / | Referred By | Referred To | | | | | Procedures | Contact | Contact | +--------+--------+ + + + + | Closed | | Urology | Diagnoses | Hansel, | Sharon, | | | | | Complicated | Agatha, UNDERGROUND DISTRIBUTION ENGINEER | Edinson Calero, | | | | | UTI | [address] | MD [address] | | | | | (urinary | [address] | [address] [place] | | | | | tract | [place], | [place], [place] | | | | | infection) | [place] [address] | [address] Phone: | | | | | MRSA | Phone: | [phone] | | | | | (methicillin | [phone] | Fax: | | | | | resistant | Fax: | [phone] | | | | | staph | [phone] | | | | | | aureus) | | | | | | | culture | | | | | | | positive | | | | | | | CYSTOSCOPY | | | | | | | Procedures | | | | | | | FOLLOW UP | | | +--------+--------+ + + + + Encounter Details +--------+---------+ + + + | Date | Type | Department | Care Team | Description | +--------+---------+ + + + | 06/05/ | Office | [facility] | Edinson Herrera | Hematuria, | | 2019 | Visit | [address] | MD Galilea [address] | unspecified type | | | | [place] | [place] | (Primary Dx); | | | | [address] | [address] | Recurrent UTI; OAB | | | | [phone] | | (overactive | | | | | | bladder); Urge | | | | | | incontinence | +--------+---------+ + + + Social History [...] + + + | Blood Pressure | 128/68 | 06/05/2019 1:04 PM | | | | | PST | | + + + + + | Pulse | 100 | 06/05/2019 1:04 PM | | | | | PST | | + + + + + | Temperature | - | - | | + + + + + | Respiratory Rate | 20 | 06/05/2019 1:04 PM | | | | | PST | | + + + + + | Oxygen Saturation | - | - | | + + + + + | Inhaled Oxygen | - | - | | | Concentration | | | | + + + + + | Weight | 92.3 kg (203 lb 7.8 | 06/05/2019 1:04 PM | | | | oz) | PST | | + + + + + | Height | 149.9 cm (4' 11") | 06/05/2019 1:04 PM | | | | | PST | | + + + + + | Body Mass Index | 41.1 | 06/05/2019 1:04 PM | | | | | PST | | + + + + + documented in this encounter Progress Notes Edinson Herrera MD - 06/05/2019 1:00 PM PSTFormatting of this note might be differ ent from the original. Chief Complaint Patient presents with Follow-up Cystoscopy for hematuria HPI Nikita Amaya is a 73 y.o. female patient of CONNER Arriaga here today for a Cyst oscopy for hematuria. Consent form signed & time out form completed Recurrent UTI Symptoms of UTI: dysuria, frequency, LUTS: frequency, urgency, nocturia 1-2 per night Incontinence: mixed Severity: 4 pads per day, 1 pad at night No gross hematuria, Today does not have any significant bladder symptoms Has been on oxybutynin before in the past for OAB symptoms, she reports that this did help History of prolapse and 2 prior bladder repairs Cystoscopy Preprocedure timeout was performed. The patient's genitals were then prepped and draped us ual fashion. 10 mL's of viscous lidocaine was instilled per urethra. The scope was then in troduced into the urethra. The anterior urethra was grossly normal. Upon entering the blad michelle quesada cystoscopy was performed. Bilateral UOs were identified in the normal anatomic posi tion effluxing clear urine.No trabeculations were noted. There are no mucosal abnormalities seen. The scope was then removed and the patient tolerated the procedure well. Assessment Nikita was seen today for follow-up. Diagnoses and all orders for this visit: Hematuria, unspecified type - Medical Cytology Recurrent UTI OAB (overactive bladder) Urge incontinence Plan During last clinic visit the patient was started on oxybutynin as well as estrogen cream ho wever she did not start any of these treatments and does not want to pursue any further tita gemquinton. Will patient follow-up in 3 months Past Medical History Past Medical History: Diagnosis [...] 90 tablet, Rfl: 1 ROS Objective BP 128/68 | Pulse 100 | Resp 20 | Ht 1.499 m (4' 11") | Wt 92.3 kg (203 lb 7.8 oz) | B AK 41.10 kg/m General Appearance: Alert, cooperative, no distress, [...] Unsteady gait CN 2-12 grossly intact; bilateral rubber liner strength significantly dec reased, very significantly delayed get up and go test. Data: Results for orders placed or performed in visit on 06/05/19 Creatinine Result Value Ref Range Creatinine 0.78 0.55 - 1.02 mg/dL eGFR if not >60 >=60 mL/min/1.73m2 BUN Result Value Ref Range BUN 9 9 - 23 mg/dL Lab Results Component Value Date CREA 0.78 06/05/2019 CONNER Arriaga's notes were reviewed in clinic today. Return in about 3 months (around 09/05/2019).. This document was generated in part using voice recognition software. Frequent wrong word or sound-alike substitutions may have occurred due to the inherent limitations of the voice recognition software. Although I have attempted to edit the content, I have not thoroughly proofread this note, and moshgiach errors are very likely to occur. CC: [...] [address] | | | | | | [place] [address] | | | | | | [phone] | | | | | | | | +--------+---------+ + + + documented as of this encounter Procedures + +--------+ + + + | Procedure Name | Priori | Date/Time | Associated Diagnosis | Comments | | | ty | | | | + +--------+ + + + | MEDICAL CYTOLOGY | Routin | 06/05/2019 | Hematuria, | Results for this | | | e | 12:00 AM | unspecified type | procedure are in the | | | | PST | | results section. | + +--------+ + + + documented in this encounter Results Medical Cytology (06/05/2019 12:00 AM PST) + + | Specimen | + + | Urine - Urine | | specimen obtained by | | clean catch | | procedure (specimen) | + + + + + | Narrative | Performed At | + + + | ORDERING PHYSICIAN: Edinson Herrera MD PATIENT NAME: [facility] | | NIKITA MILLER GENDER: Alex : 1945 SPECIMEN(S): A | [place] | | URINE, VOIDED GROSS DESCRIPTION: 80 ML OF SLIGHTLY CLOUDY, | | | YELLOW FLUID IN CYTOLYT FIXATIVE CLINICAL HISTORY: NO CLINICAL | | | DATA PROVIDED LABORATORY PREPARATIONS: 1 [facility] | | | INTERPRETATION: Urine, Voided: Negative for High Grade Urothelial | | | Carcinoma ([facility]). DESCRIPTION: The preparation is adequately | | | cellular. Urothelial cells are present without atypical features. | | | Cytologic features of high grade urothelial neoplasia are absent. | | | SPECIMEN ADEQUACY: Satisfactory for Evaluation PERFORMING | | | LABORATORY: Technical preparation was performed by [facility] | | | Diagnostics, [address] [place] [address]. | | | Professional interpretation was performed by [facility] - | | | "[facility]" - [address] [facility] | | | [place] [address] (Manager Managed Backup Services: Efrain Lawson M.D. | | | Diagnostician: Barbra SCHMIDT ([facility]) Metal Bending Machine Operator | | | Diagnostician: Efrain Lawson MD Pathologist Electronically | | | Signed 06/07/2019 | | + + + + +---------+ + + | Performing | Address | City/State/Zipcode | Phone Number | | Organization | | | | + +---------+ + + | [place] [facility] | | | | | [place] | | | | + +---------+ + + documented in this encounter Visit Diagnoses + + | Diagnosis | + + | Hematuria, unspecified type - Primary | + + | Recurrent UTI Urinary tract infection, site not specified | + + | OAB (overactive bladder) Hypertonicity of bladder | + + | Urge incontinence | + + documented in this encounter
--- OUTSIDE RECORDS SUMMARY | ~2020-03-16 | XMS | Encounter Summary ---
Demographics + + + | Address | [address] | | | [place] [address] | + + + | Home Phone | | + + + | Preferred Language | Unknown | + + + | Marital Status | | + + + | Scientologist Affiliation | Unknown | + + + | Race | or | + + + | Ethnic Group | Not or | + + + Author + + + | Author | [facility] | | | and [place] | + + + | Organization | [facility] | | [...] Team Providers + +------+ + | Care Insurance Administrative Assistant Name | Role | Phone | + +------+ + | Arnulfo Pacheco DO | PCP | | + +------+ + Encounter Details +--------+ + + + + | Date | Type | Department | Care Team | Description | +--------+ + + + + | 01/30/ | Orders Only | [facility] | Naveen Hobbs, | | | 2010 | | MEDICAL CENTER | [address] | | | | | CLINICAL LABORATORY | [place] [address] | | | | | [address] | [phone] | | | | | [place], [place] | | | | | | [address] | | | | | | [phone] | | | +--------+ + + + [...] | | | | | [place] [address] | | | | | | [phone] | | | | | | | [...] Results for this | | | | 8:10 AM | | procedure are in the | | | | PDT | | results section. | + +--------+ + + + documented in this encounter Results Culture, Blood (01/30/2011 8:10 AM PDT) + + | Specimen | + + | | + + + + + | Narrative | Performed At | + + + | Specimen Description BLOOD, PERIPHERAL DRAW | EXTERNAL LAB | | Testing performed | | | at [facility] [place] [address];[place] [address] SPECIAL REQUESTS | | | LAC | | | Testing performed at [facility];[address] [place] [address];[place] [address] | | | CULTURE NO GROWTH IN 5 DAYS. | | | Testing | | | performed at [facility];[address] [place] [address];[place] [address] REPORT STATUS | | | 02/05/2011 FINAL [...]
--- OUTSIDE RECORDS SUMMARY | ~2020-03-16 | XMS | Encounter Summary ---
Demographics + + + | Address | [address] | | | [place] [address] | + + + | Home Phone [...] Team Providers + +------+ + | Care Jinriksha Driver Name | Role | Phone | + +------+ + PCP | Unavailable | + +------+ + Encounter Details +--------+ + + + + | Date | Type | Department | Care Team | Description | +--------+ + + + + | 01/30/ | Hospital | [facility] | Alcira Hobbs, | Abdominal pain, | | 2010 - | Encounter | CONVERSION DEP [address] | MD [address] | unspecified site; | | | | [address] | [place] [address] | VIRAL INFECTION; | | | | [place], [place] | [phone] | Unspecified pleural | | 2010 | | [address] | | effusion; Chronic | | | | [phone] | | Airway Obstruction, | | | | | | not Elsewhere | | | | | | Classified ([facility]); | | | | | | Unspecified | | | | | | essential | | | | | | hypertension; Pain | | | | | | in soft tissues of | | | | | | limb; Lumbago; | | | | | | Rheumatoid arthritis | | | | | | ([facility]); Unspecified | | | | | | hypothyroidism | +--------+ + + + + Social [...] 2019 | Visit | | [address] | | | | | | [address] | | | | | | [place] [address] | | | | | | [phone] | | | | | | | | +--------+---------+ + + + documented as of this encounter Procedures + +--------+ + + + | Procedure Name | Priori | Date/Time | Associated Diagnosis | Comments | | | ty | | | | + +--------+ + + + | US CHEST | Routin | 02/01/2011 | | Results for this | | | e | 1:24 PM | | procedure are in the | | | | PDT | | results section. | + +--------+ + + + | XR CHEST 2 VIEWS | Routin | 01/31/2011 | | Results for this | | | e | 9:46 AM | | procedure are in the | | | | PDT | | results section. | + +--------+ + + + | XR CHEST 1 VIEW | Routin | 01/30/2011 | | Results for this | | | e | 6:03 PM | | procedure are in the | | | | PDT | | results section. | + +--------+ + + + | US GUIDED | Routin | 01/30/2011 | | Results for this | | THORACENTESIS WO | e | 5:15 PM | | procedure are in the | | CHEST TUBE | | PDT | | results section. | + +--------+ + + + documented in this encounter Results US Chest (02/01/2011 1:24 PM PDT) + + | Specimen | + + | | + + + + + | Narrative | Performed At | + + + | [facility] [address] Ph: | | | Patient Name: NIKITA CLARKE Date of : | | | 1945 Medical Record: [id number] Account: [id number] | | | Exam Date/Time: 02/01/2011 07:30 Ordering | | | Physician: ALCIRA HOBBS Order Detail: [id number] Exam Description: | | | US CHEST | | | | | | NIKITA CLARKE US CHEST 02/01/2011 7:30 AM HISTORY: 65 years. | | | Female. Left pleural effusion. TECHNIQUE: Sonographic | | | evaluation of the left pleural space. COMPARISON: Chest films | | | dated January 31. FINDINGS: A small left pleural effusion is | | | noted measuring 3.6 cm greatest thickness. IMPRESSION: 1. Small | | | left pleural fluid collection. Due to small size no thoracentesis | | | was performed. Electronically signed by Erick Turner MD on | | | 02/01/2011 1:46 PM | | + + + + + | Procedure Note | + + | Oseas You Conversion - 03/16/2019 5:57 PM PDT | | [facility] | | [facility] [address] | | | | | | Patient Name: NIKITA CLARKE | | Date of : 1945 | | Medical Record: [id number] | | Account: [id number] | | | | | | Exam Date/Time: 02/01/2011 07:30 | | Ordering Physician: ALCIRA HOBBS | | Order Detail: [id number] | | Exam Description: US CHEST | | | | NIKITA CLARKE | | US CHEST | | 02/01/2011 7:30 AM | | | | HISTORY: | | 65 years. Female. Left pleural effusion. | | | | TECHNIQUE: | | Sonographic evaluation of the left pleural space. | | | | COMPARISON: | | Chest films dated January 31. | | | | FINDINGS: | | A small left pleural effusion is noted measuring 3.6 cm greatest thickness. | | | | IMPRESSION: | | 1. Small left pleural fluid collection. Due to small size no | | thoracentesis was performed. | | | | | + + XR Chest 2 Vws (01/31/2011 9:46 AM PDT) + + | Specimen | + + | | + + + + + | Narrative | Performed At | + + + | [facility] [address] Ph: | | | Patient Name: NIKITA CLARKE Date of : | | | 1945 Medical Record: [id number] Account: [id number] | | | Exam Date/Time: 01/31/2011 06:00 Ordering | | | Physician: ALCIRA HOBBS Order Detail: [id number] Exam Description: | | | XR CHEST 2 VIEW | | | | | | NIKITA CLARKE XR CHEST 2 VIEW 01/31/2011 6:00 AM HISTORY: 65 | | | years. Female. Left-sided thoracentesis. Follow-up study. | | | TECHNIQUE: Dual energy frontal and a lateral chest radiograph. | | | COMPARISON: Chest radiograph January 31. FINDINGS: Relatively | | | unchanged pleural-based densities are seen laterally and inferiorly, | | | left greater than right. The strandy bilateral basilar lung opacities | | | are again noted, left greater than right, likely subsegmental | | | atelectasis. No pneumothorax is found. The cardiac silhouette and | | | pulmonary vasculature are normal. IMPRESSION: 1. Pleural based | | | opacities, left greater than right, unchanged, likely subpleural | | | fat, versus pleural thickening. As no significant fluid is found | | | within the posterior sulci, pleural fluid collections are thought less | | | likely. 2. No pneumothorax. 3. Left greater than right | | | subsegmental atelectasis. | | + + + + + | Procedure Note | + + | Oseas You Conversion - 03/16/2019 5:57 PM PDT | | [facility] | | [facility] [address] | | | | | | Patient Name: NIKITA CLARKE | | Date of : 1945 | | Medical Record: [id number] | | Account: [id number] | | | | | | Exam Date/Time: 01/31/2011 06:00 | | Ordering Physician: ALCIRA HOBBS | | Order Detail: [id number] | | Exam Description: XR CHEST 2 VIEW | | | | NIKITA CLARKE | | XR CHEST 2 VIEW | | 01/31/2011 6:00 AM | | | | HISTORY: | | 65 years. Female. Left-sided thoracentesis. Follow-up study. | | | | TECHNIQUE: | | Dual energy frontal and a lateral chest radiograph. | | | | COMPARISON: | | Chest radiograph January 31. | | | | FINDINGS: | | Relatively unchanged pleural-based densities are seen laterally and | | inferiorly, left greater than right. The strandy bilateral basilar lung | | opacities are again noted, left greater than right, likely subsegmental | | atelectasis. No pneumothorax is found. The cardiac silhouette and pulmonary | | vasculature are normal. | | | | IMPRESSION: | | 1. Pleural based opacities, left greater than right, unchanged, likely | | subpleural fat, versus pleural thickening. As no significant fluid is found | | within the posterior sulci, pleural fluid collections are thought less | | likely. | | | | 2. No pneumothorax. | | | | 3. Left greater than right subsegmental atelectasis. | | | | | + + XR Chest 1 Vw (01/30/2011 6:03 PM PDT) + + | Specimen | + + | | + + + + + | Narrative | Performed At | + + + | [facility] [address] Ph: | | | Patient Name: NIKITA CLARKE Date of : | | | 1945 Medical Record: [id number] Account: [id number] | | | Exam Date/Time: 01/30/2011 17:45 Ordering | | | Physician: ALCIRA HOBBS Order Detail: [id number] Exam Description: | | | XR CHEST 1 VIEW | | | | | | NIKITA CLARKE XR CHEST 1 VIEW HISTORY: 65 years. Female. | | | Status post thoracentesis. TECHNIQUE: Single portable anterior | | | view of the chest was obtained. COMPARISON: None. FINDINGS: | | | The heart is normal in size. Mild calcification of the thoracic aorta. | | | No pulmonary vascular congestion. No pneumothorax. Strandy increased | | | density in left lung base to likely represent subsegmental | | | atelectasis and small left-sided pleural effusion. IMPRESSION: | | | 1. Left basilar opacity to likely represent subsegmental atelectasis | | | and small left-sided pleural effusion. | | + + + + + | Procedure Note | + + | Oseas You Conversion - 03/16/2019 5:57 PM PDT | | [facility] | | [facility] [address] | | | | | | Patient Name: NIKITA CLARKE | | Date of : 1945 | | Medical Record: [id number] | | Account: [id number] | | | | | | Exam Date/Time: 01/30/2011 17:45 | | Ordering Physician: ALCIRA HOBBS | | Order Detail: [id number] | | Exam Description: XR CHEST 1 VIEW | | | | NIKITA CLARKE | | XR CHEST 1 VIEW | | | | HISTORY: | | 65 years. Female. Status post thoracentesis. | | | | TECHNIQUE: | | Single portable anterior view of the chest was obtained. | | | | COMPARISON: | | None. | | | | FINDINGS: | | The heart is normal in size. Mild calcification of the thoracic aorta. No | | pulmonary vascular congestion. No pneumothorax. Strandy increased density | | in left lung base to likely represent subsegmental atelectasis and small | | left-sided pleural effusion. | | | | IMPRESSION: | | 1. Left basilar opacity to likely represent subsegmental atelectasis | | and small left-sided pleural effusion. | | | | | + + US Guided Thoracentesis wo Chest Tube (01/30/2011 5:15 PM PDT) + + | Specimen | + + | | + + + + + | Narrative | Performed At | + + + | [facility] [address] Ph: | | | Patient Name: NIKITA CLARKE Date of : | | | 1945 Medical Record: [id number] Account: [id number] | | | Exam Date/Time: 01/30/2011 07:46 Ordering | | | Physician: ALCIRA HOBBS Order Detail: [id number] Exam Description: | | | CCL THORACENTESIS WITH TUBE | | | | | | NIKITA CLARKE US GUIDANCE THORACENTESIS HISTORY: Female.65 | | | years. Pleural effusion TECHNIQUE: Limited sonographic evaluation | | | of the chest performed for ultrasound guided thoracentesis. | | | FINDINGS: The procedure along with its risk and benefits first were | | | discussed with the patient and informed consent was obtained. The | | | patient was sitting in the upright position at the bedside. Limited | | | ultrasound the left side of the chest demonstrates a mild/moderate | | | left-sided pleural effusion. The left side of the back was sterilely | | | prepped, draped, and anesthetized with 1% lidocaine. Under ultrasound | | | guidance the thoracentesis needle and catheter was advanced into the | | | pleural fluid. The needle was removed and the catheter was advanced | | | into the fluid pocket. Only a 120 cc of clear yellow fluid was able | | | to be obtained and sent to laboratory for further evaluation. The | | | catheter was removed and the patient tolerated the procedure well | | | without immediate complication. IMPRESSION: 1. Technically | | | successful diagnostic thoracentesis on left side, as described above. | | | | | + + + + + | Procedure Note | + + | Oseas You - 03/16/2019 5:57 PM PDT | | [facility] | | [facility] [address] | | | | | | Patient Name: NIKITA CLARKE | | Date of : 1945 | | Medical Record: [id number] | | Account: [id number] | | | | | | Exam Date/Time: 01/30/2011 07:46 | | Ordering Physician: ALCIRA HOBBS | | Order Detail: [id number] | | Exam Description: CCL THORACENTESIS WITH TUBE | | | | NIKITA CLARKE | | US GUIDANCE THORACENTESIS | | | | HISTORY: | | Female.65 years. Pleural effusion | | | | TECHNIQUE: | | Limited sonographic evaluation of the chest performed for ultrasound guided | | thoracentesis. | | | | FINDINGS: | | The procedure along with its risk and benefits first were discussed with | | the patient and informed consent was obtained. The patient was sitting in | | the upright position at the bedside. Limited ultrasound the left side of | | the chest demonstrates a mild/moderate left-sided pleural effusion. The | | left side of the back was sterilely prepped, draped, and anesthetized with | | 1% lidocaine. Under ultrasound guidance the thoracentesis needle and | | catheter was advanced into the pleural fluid. The needle was removed and | | the catheter was advanced into the fluid pocket. Only a 120 cc of clear | | yellow fluid was able to be obtained and sent to laboratory for further | | evaluation. The catheter was removed and the patient tolerated the | | procedure well without immediate complication. | | | | IMPRESSION: | | 1. Technically successful diagnostic thoracentesis on left side, as | | described above. | | | | | + + documented in this encounter Visit Diagnoses + + | Diagnosis | + + | Abdominal pain, unspecified site | + + | Unspecified viral infection, in conditions classified elsewhere and of unspecified | | site | + + | Unspecified pleural effusion | + + | Chronic airway obstruction, not elsewhere classified | + + | Unspecified essential hypertension | + + | Pain in limb | + + | Lumbago | + + | Rheumatoid arthritis(714.0) Rheumatoid arthritis | + + | Unspecified hypothyroidism | + + documented in this encounter"
--- OUTSIDE RECORDS SUMMARY | ~2020-03-16 | XMS | Encounter Summary ---
Demographics + + + | Address | [address] | | | [place] [address] | + + + | Home Phone | | + + + | Preferred Language | Unknown | + + + | Marital Status | | + + + | Episcopalian Affiliation | Unknown | + + + | Race | or | + + + | Ethnic Group | Not or | + + + Author + + + | Author | [facility] | | | and [place] | + + + | Organization | [facility] | | | [...] Team Providers + +------+ + | Care Lathe Machine Operator Name | Role | Phone | + +------+ + | Agatha Hamm | PCP | | + +------+ + Reason for Referral Evaluate & Treat (Routine) + + + + + + + | Status | Reason | Specialty | Diagnoses / | Referred By | Referred To | | | | | Procedures | Contact | Contact | + + + + + + + | Authorized | Specialty | Neurosurgery | Diagnoses | Or Nurse Manager, | [facility] | | | Services | | Lumbar | Mari | Neurosurgery | | | Required | | radiculopath | LINDA Landry | [address] | | | | | y | [address] | | | | | Spondylolist | [address] | [place], | | | | | hesis at | STREET | [place] [address] | | | | | L3-L4 level | [address] | Phone: | | | | | | [place], | [phone] | | | | | Spondylolist | [place] [address] | Fax: | | | | | hesis at | Phone: | [phone] | | | | | L4-L5 level | [phone] | | | | | | retirement | Fax: | | | | | | (current) | [phone] | | | | | | use of | | | | | | | systemic | | | | | | | steroids | | | | | | | Procedures | | | | | | | DOS 06/24/19 | | | + + + + + + + Reason for Visit + + + | Reason | Comments | + + + | New Patient | back pain | + + + Evaluate & Treat (Routine) +--------+--------+ + + + + | Status | Reason | Specialty | Diagnoses / | Referred By | Referred To | | | | | Procedures | Contact | Contact | +--------+--------+ + + + + | Closed | | Physical | Diagnoses | Hansel, | José, | | | | Medicine and | Lumbar | CONNER Snider | Royce Dumas MD | | | | Rehabilitatio | stenosis | [id number] | [address] | | | | n | Sciatica | [address] | [address] | | | | | | [place], | [place] | | | | | | [place] [address] | [address] Phone: | | | | | | Phone: | [phone] | | | | | | [phone] | Fax: | | | | | | Fax: | [phone] | | | | | | [phone] | | +--------+--------+ + + + + Encounter Details +--------+---------+ + + + | Date | Type | Department | Care Team | Description | +--------+---------+ + + + | 03/27/ | Office | [facility] | Mari Jackson | Lumbar radiculopathy | | 2019 | Visit | PHYSIATRY [address] | LINDA [address]ry [address] | (Primary Dx); | | | | [address] | [facility] [address] | Spondylolisthesis at | | | | [place] [facility] [place] | [address] [place] | L3-L4 level; | | | | [address] | [address] | Spondylolisthesis at | | | | [phone] | | L4-L5 level; | | | | | | Peripheral | | | | | | polyneuropathy; | | | | | | Rheumatoid | | | | | | arthritis, involving | | | | | | unspecified site, | | | | | | unspecified | | | | | | rheumatoid factor | | | | | | presence (HCC); Long | | | | | | term (current) use | | | | | | of systemic steroids | +--------+---------+ + + + Social History [...] + + + | Blood Pressure | 128/73 | 03/27/2019 1:59 PM | | | | | PDT | | + + + + + | Pulse | 96 | 03/27/2019 1:59 PM | | | | | PDT | | + + + + + | Temperature | - | - | | + + + + + | Respiratory Rate | 18 | 03/27/2019 1:59 PM | | | | | PDT | | + + + + + | Oxygen Saturation | - | - | | + + + + + | Inhaled Oxygen | - | - | | | Concentration | | | | + + + + + | Weight | 95.3 kg (210 lb) | 03/27/2019 1:59 PM | | | | | PDT | | + + + + + | Height | 149.9 cm (4' 11") | 03/27/2019 1:59 PM | | | | | PDT | | + + + + + | Body Mass Index | 42.41 | 03/27/2019 1:59 PM | | | | | PDT | | + + + + + documented in this encounter Patient Instructions Patient Instructions Mari Jackson PA-C - 03/27/2019 2:00 PM PDT1. As discussed I have ordered x-rays to be done at [facility]. The results will be called to to help expla in whether your back is stable or unstable. 2. An epidural steroid injection order has been placed to help reduce pain in her right le g. Once this is approved we will call you to schedule. 3. Referral has been placed to neurosurgery at [facility] 4. A DEXA scan to measure your bone density order has been placed to [facility]. Follow-up at the hospital thirty minutes before your scheduled procedure to allow for time to check in. You may eat and drink as usual on the day of the procedure. If you are scheduled for an epidural injection do not take any blood thinning medications f or at least 5-7 days prior to your procedure unless you have been instructed by another phys ician not to discontinue blood thinning medications. If you are having a procedure other than an epidural injection (i.e. facet injection, media l branch block, SI joint injection or other joint injection) it is not absolutely necessary to discontinue blood thinning medications but doing so will decrease the risk of bruising or bleeding. If you have had a prior stroke, DVT or PE or if you are taking blood thinning medication be cause you have atrial fibrillation, a prosthetic cardiac valve replacement or heart stenting do not stop taking your blood thinning medications unless you have permission from your car diologist or primary care provider. All other medications should be taken as usual on the day of the procedure. Common blood thinning medications include: Aspirin (a baby aspirin is o.k.) Ibuprofen (Advil or Motrin) Naproxen (Aleve) Nabumetone (Relafen) Clopidogrel (Plavix) Dipyridamole/ASA (Aggrenox) Warfarin (Coumadin) Dabigatran (Pradaxa) Rivaroxaban (Xarelto) There are many others. If you have questions about your medications and whether or not you should stop any medications please contact our office. If you are having an epidural injection or if you take any medication for relaxation/sedati on on the day of the procedure you must provide a bull driver to take you home. For all procedur es it is recommended that someone else drive you home. Lumbar Epidural Injection: Your Procedure A lumbar epidural injection is an outpatient procedure. It s often done in a hospital or an outpatient surgery center. Before your shot, your healthcare provider willtell you how to get ready. Getting ready You may need to do the following: Give thehealthcare providera list of all medicines you take, such as aspirin and ant i-inflammatories. (You may need to stop taking some of them before the injection.) You may be asked not toeat or drink anything for several hours before check-in. Arrange for an adult friend or family member to drive you home afterward. Bring any requested X-ray, CT, or MRI images on the day of the procedure. During the procedure The injection takes just a few minutes. But extra time is needed to get ready. You may be g iven medicine beforehand to help you relax: In some cases, monitoring devices may be attached to your chest or side. These devices m easure your heart rate, breathing, and blood pressure. You lie on your stomach or side, depending on where theshot will be given. Your back i s cleaned and may be covered with sterile towels. Medicine is given to numb the skin near the place of the shot. If X-ray imaging (fluoroscopy) is to be used, a contrast dye may be injected into your back. This helps yourhealthcare providerget a better image. A local anesthetic (for numbing), steroids (for reducing inflammation), or both are inje cted into the epidural space. The procedure is very safe. But there is a very small risk of infection or local reaction a fterward. Seek medical care right away if you have: Increasing pain Headaches (especially when standing up) Redness Fever Symptoms of infection After the procedure You ll spendtime in a recovery area after the procedure. Before going home, you may be asked to fill out another survey about your pain. Date Last Reviewed: 12/22/201719998735-6455 [employer]. [address] [place] [address], [place] [address]. All righ ts reserved. This information is not intended as a substitute for professional medical care. Always follow your healthcare professional's instructions. documented in this encounter Progress Notes Mari Jackson PA-C - 03/27/2019 2:00 PM PDTFormatting of this note might be diffe rent from the original. Gris Jackson PA-C [address] [facility] [place] [address] FAX: PHYSICAL MEDICINE AND REHABILITATION H&P CHIEF COMPLAINT: Chief Complaint Patient presents with New Patient back pain HISTORY OF PRESENT ILLNESS: The patient is a 73 y.o. female being seen today for complaint s of progressive lower extremity weakness and pain that began about 3 years ago with esthereagle shante in the last year. The patient has a known history of L3-4 and L4-5 spondylolisthesis [facility] was last evaluated by Dr. Luis in 2016 where he recommended multiple follow-up studies including flexion-extension x-rays, DEXA scan, CT lumbar spine and probable neurosurgical r ecommendations. Patient did not follow-up with the studies and returns today to resume spin e care. Since the symptoms began, she has noticed that symptoms have been worsening. She describes the pain as a throbbing and tingling feeling. She rates the pain as 7-8 on scale of 1-10. He r symptoms worsen with standing and sitting. Her symptoms improve with rest, changing posit ion and sitting. The patient also describes leg symptoms that occur on right side. The leg symptoms account for greater than or equal to 75% of her symptoms. The leg symptoms are constant and the sy mptoms travels from the posterior thigh to the anterior raymond, posterior calf and to the knee in an L4, L5 and S1 dermatone. The patient does describe numbness of the bilateral feet in stocking distribution. She do es report weakness of the bilateral lower extremities right greater than left. She does not have bowel and bladder dysfunction. She does not have saddle anesthesia. Treatments for these complaints have included acupuncture, muscle relaxers, narcotic medica tions, steroid injections. Patient's medications, allergies, past medical, surgical, social and family histories were reviewed and updated as appropriate. PAST MEDICAL HISTORY: Past Medical History: Diagnosis Date Acute pain of left knee Asthma Chronic obstructive lung disease (HCC) Cramp in lower leg Depressive disorder Gastroesophageal reflux disease Hypermetropia Hypertensive disorder Hypothyroidism Lumbosacral stenosis Meniere's disease Osteoarthritis Osteopenia Rheumatoid arteritis Sciatica Seropositive rheumatoid arthritis (HCC) PAST SURGICAL HISTORY: History reviewed. No pertinent surgical history. CURRENT MEDICATIONS: Current Outpatient Medications Medication Sig Dispense Refill CERTOLIZUMAB PEGOL SC Inject under the skin Every 30 days. Chelated Magnesium 100 MG TABS Take by mouth. cholecalciferol (VITAMIN D-3) 5000 units CAPS Take 5,000 Units by mouth Daily. cyclobenzaprine (FLEXERIL) 10 mg tablet Take 10 mg by mouth nightly as needed for Muscl e spasms. folic acid 1 mg tablet Take 1 mg by mouth daily. gabapentin (NEURONTIN) 300 mg capsule Take 300 mg by mouth 3 times daily. HYDROcodone-acetaminophen (NORCO) 10-325 mg per tablet Take 1 tablet by mouth every 4 h ours as needed for Pain. hydroxychloroquine (PLAQUENIL) 200 mg tablet Take 2 tablets by mouth daily. 180 tablet 0 levothyroxine (SYNTHROID) 100 mcg tablet Take 100 mcg by mouth every morning before ruben akfast. levothyroxine (SYNTHROID) 112 mcg tablet Take 112 mcg by mouth every morning (before br eakfast). lisinopril (PRINIVIL, ZESTRIL) 10 mg tablet Take 10 mg by mouth daily. lisinopril (PRINIVIL, ZESTRIL) 5 mg tablet Take 5 mg by mouth Daily. magnesium oxide (MAG-OX) 400 mg tablet Take 400 mg by mouth Daily. methotrexate 2.5 mg tablet Take 8 tablets by mouth once a week for 90 days. 96 tablet 0 Multiple Vitamins-Minerals (MULTIVITAMIN WITH MINERALS) tablet Take 1 tablet by mouth d aily. predniSONE (DELTASONE) 5 mg tablet Take 1 tablet by mouth daily with breakfast. 90 tabl et 1 No current facility-administered medications for this visit. ALLERGIES: Allergies Allergen Reactions Sulfa Antibiotics Hives SOCIAL HISTORY: The patient reports that she has quit smoking. She has never used smokeless tobacco. She r eports that she has current or past drug history. She reports that she does not drink alcoho l. FAMILY HISTORY: Family History Problem Relation Age of Onset No known problems Daughter No known problems Son REVIEW OF SYSTEMS: GENERALLY: No fever, chills, no night sweats, no weight gain, no weight loss, no anemia, no fatigue. EYES: No eye problems, no impaired sight, no eye glasses/contacts, no eye injury, no doubl e vision, no transient blindness. EARS, NOSE, THROAT and MOUTH: No change in sense taste/smell, no hearing difficulty, no ri nging in ears, no drainage from ears, no ear injury, no dizziness, no voice change, no diffi culty swallowing, no snoring, no sleep apnea/CPAP, no sinus trouble, no dental work. NEUROMUSCULAR: No numbness/pain of arms, no numbness/pain of legs, no awake with numbness/ pain, no weakness, no muscle aching, no coordination difficulty, no change in walk, no head injury, no neck injury, no back injury, no pain in neck, no pain in back, no stroke, no kalin ting spells, no loss of consciousness, no tremor/shaking, no seizures, no headaches, no migr aines, no memory loss, no speech difficulty, no confusion, no numbness of face. PSYCHIATRIC: No depression, no difficulty sleeping, no anxiety, no bipolar disorder. CARDIOVASCULAR/PULMONARY: No heart attack, no heart murmur, no fluttering heart, no shortn ess of breath, no cough, no Tuberculosis, no chest pain, no swelling ankles, no bloody cough ing, no asthma, no COPD/emphysema. GASTROINTESTINAL: No bowel disease, no nausea/vomiting, no rectal bleeding/hemorroids, no constipation, no fecal/stool incontinence, no liver/gallbladder disease, no abdominal pain. KIDNEY DISEASE: No frequent urination, no painful/difficult with urination, no urinary inco ntinence, no bladder problems, no impotence, no irregular period, no vaginal discharge. ENDOCRINE: No diabetes, no thyroid disease, no osteoporosis/osteopenia, no drainage from br easts. INTEGUMENTARY/SKIN: No lump in breasts, no skin disease or skin changes, no rash/itch. HEMATOLOGIC: No enlarged lymph nodes, no ease or unusual bleeding, no cancer. RHEUMATOLOGIC: No joint pain/arthritis, no Rheumatoid Arthritis PHYSICAL EXAMINATION: Vitals: 03/27/19 1359 BP: 128/73 Pulse: 96 Resp: 18 PainSc: 7 PainLoc: Back Body mass index is 42.41 kg/m. GENERAL: The patient is well developed and well nourished. She does appear uncomfortable w hen seated. HEENT: HEAD/FACE: EYES: EARS: NASOPHARNYX: OROPHARNYX: Normocephalic and atraumatic. There are no areas of recent trauma. Normal sclerae without icterus. No drainage or tenderness. Clear without drainage. Clear without erythema. SKIN Limited skin exam shows no significant rashes or lesions. There are not scars in the lumbar region. CHEST: The patient is in no acute respiratory distress with unlabored respirations. HEART: There is not lower extremity edema. ABDOMEN: Soft NT/ND NEUROLOGIC: The patient is awake, alert, and oriented to time, place, person. She follows simple and complex commands. Her speech is fluent. She comprehends speech well. She has no apparent deficits with short or manager intermediate memory. Cranial nerves 2-12 appear grossly intact. Sensory exam does show diminished sensation to light touch in the lower extremities. MUSCULOSKELETAL The patient was able to heel and toe walk without difficulty. Lumbar flexi on and extension limited by pain and stability. Lumbar facet loading was positive at L3-4 a nd L4-5. There was tenderness to palpation over bilateral greater trochanters and sacral gallegos lci. There is no tenderness in the midline of the cervical or thoracic spine. There is no m ajor palpable deformity of the spine. The patient localized the majority of the pain to the L3-L region and right trochanteric bursa region. Straight leg raise and slump-sit are negative. Keith's maneuver and impingement testing were negative for any groin pain. Strength testing 4/5 bilateral hip flexion, 4/5 bilate ral knee flexion and extension. Patient has right-sided dorsiflexion 4-/5 in bilateral plan tar flexion 4/5. There was no redness, effusion, warmth or joint line tenderness in the kne es or ankles. Negative Rob sign bilateral RADIOGRAPHIC REVIEW: The patient's imaging was reviewed in detail with the patient today during the visit. Lumb ar MRI from 06/02/2017 shows mild scoliosis. Spondylolisthesis at L3-4 with facet hypertrop hy and presumed L3 pars defect with mild disc bulge causing severe central stenosis and jumb led up nerve roots behind L2 and bilateral neuroforaminal narrowing. L4-5 7 mm anterior lis thesis with L4 pars defect likely present. Disc bulge combined with spondylolisthesis and f acet hypertrophy causing near obliteration of the central canal and severe bilateral neurofo raminal narrowing. Small disc bulges at L1-2 and L2-3. ASSESSMENT & PLAN: Patient is a 73-year-old presenting with significant spinal stenosis due to disc bulge in combination with two-level spondylolisthesis. Complicating her case inclu zayra morbid obesity and possible poor bone mineralization. 1. Lumbar radiculopathy I recommend TFESI right side at L4-5 for right lower extremity radiculopathy. - FL DOTTIE Lumbar Transforaminal; Future - AMB REFERRAL TO [facility]UR[facility]ERY 2. Spondylolisthesis at L3-L4 level Flexion-extension x-rays are being ordered to assess stability of two-level spondylolisthes is. - XR Lumbar Spine 4 + Vw; Future - AMB REFERRAL TO [facility] NEUROS[facility]ERY 3. Spondylolisthesis at L4-L5 level - XR Lumbar Spine 4 + Vw; Future - FL DOTTIE Lumbar Transforaminal; Future - AMB REFERRAL TO [facility] NEUROS[facility]ERY 4. Peripheral polyneuropathy 5. Rheumatoid arthritis, involving unspecified site, unspecified rheumatoid factor presence (HCC) Patient has a history of chronic oral prednisone taken 5 mill grams a day which may have co ntributed to osteoporosis. I recommend a DEXA scan for further evaluation and to help guide future steroid or surgical treatment. - DEXA Bone Density wo Vert Fx Assmt; Future 6. retirement (current) use of systemic steroids - DEXA Bone Density wo Vert Fx Assmt; Future - AMB REFERRAL TO [facility] NEUROSURGERY ELECTRONICALLY SIGNED BY: Dannie Jackson PA-C, 03/27/2019 CC: documented in this encounter Plan of Treatment +--------+---------+ + + + | Date | Type | Specialty | Care Team | Description | +--------+---------+ + + + | 04/16/ | Office | Rheumatology | [place], | | | 2020 | Visit | | [address] | | | | | | [address] | | | | | | [place] [address] | | | | | | [phone] | | | | | | | | +--------+---------+ + + + + +---------+--------+ + + | Name | Type | Priori | Associated Diagnoses | Order Schedule | | | | ty | | | + +---------+--------+ + + | DEXA Bone Density wo | Imaging | Routin | Rheumatoid | Expected: | | Vert Fx Assmt | | e | arthritis, involving | 03/27/2019, Expires: | | | | | unspecified site, | 03/27/2020 | | | | | unspecified | | | | | | rheumatoid factor | | | | | | presence (HCC) Long | | | | | | term (current) use | | | | | | of systemic steroids | | + +---------+--------+ + + + + +--------+ + + | Name | Type | Priori | Associated Diagnoses | Order Schedule | | | | ty | | | + + +--------+ + + | AMB REFERRAL TO [facility] | Outpatient | Routin | Lumbar | Ordered: 03/27/2019 | | [facility] | Referral | e | radiculopathy | | | | | | Spondylolisthesis at | | | | | | L3-L4 level | | | | | | Spondylolisthesis at | | | | | | L4-L5 level Long | | | | | | term (current) use | | | | | | of systemic steroids | | + + +--------+ + + documented as of this encounter Results FL DOTTIE Lumbar Transforaminal [...] | | | + +---------+ + + XR Lumbar Spine 4 + Vw (03/27/2019 [...] Diagnosis | + + | Lumbar radiculopathy - Primary Thoracic or lumbosacral neuritis or radiculitis, | | unspecified | + + | Spondylolisthesis at L3-L4 level | + + | Spondylolisthesis at L4-L5 level | + + | Peripheral polyneuropathy Unspecified hereditary and idiopathic peripheral neuropathy | + + | Rheumatoid arthritis, involving unspecified site, unspecified rheumatoid factor | | presence (HCC) | + + | 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
--- OUTSIDE RECORDS SUMMARY | ~2020-03-16 | XMS | Encounter Summary ---
Demographics + + + | Address | [address] | | | [place] [address] | + + + | Home Phone | | + + + | Preferred Language | Unknown | + + + | Marital Status | | + + + | Cheondoism Affiliation | Unknown | + + + | Race | or | + + + | Ethnic Group | Not or | + + + Author + + + | Author | [facility] | | | and [place] | + + + | Organization | [facility] | | | [...] Team Providers + +------+ + | Care Membership Sales Advisor Name | Role | Phone | + +------+ + | Agatha Hamm | PCP | | + +------+ + Reason for Visit + +--------+ + | Reason | Onset | Comments | | | Date | | + +--------+ + | Medication Refill | 02/09/ | | | | 2019 | | + +--------+ + Encounter Details +--------+--------+ + + + | Date | Type | Department | Care Team | Description | +--------+--------+ + + + | 02/09/ | Refill | [facility] | Edinson Herrera | Medication Refill | | 2019 | | [address] | MD Galilea [address] | | | | | [place] | [place] | | | | | [address] | [address] | | | | | [phone] | | | +--------+--------+ + + + Social History + +-------+ [...] this encounter Miscellaneous Notes Telephone Encounter - Reena Cloud RN - 02/10/2020 9:55 AM PDTReceived fax from Rachel keller requesting refill of oxytbutynin. Last filled on 05/14/19. Last visit 06/05/19, next visit None. Refill approved as per Dr Herrera. Signed paper prescription faxed to [facility], confirmation received. Original shredded............................................Sandy Cloud RN on 02/10/20 at 9:56 AM PDT . documented in this encounter Plan of Treatment +--------+---------+ + + + | Date | Type | Specialty | Care Team | Description | +--------+---------+ + + + | 04/16/ | Office | Rheumatology | [place], | | | 2019 | Visit | | [address]ASEY [address]enzie [address] | | | | | | [address] | | | | | | [place] [address] | | | | | | [phone] | | | | | | | | +--------+---------+ + + + documented as of this encounter Visit Diagnoses Not on filedocumented in this encounter"
--- OUTSIDE RECORDS SUMMARY | ~2020-03-16 | XMS | Encounter Summary ---
Demographics + + + | Address | [address] | | | [place] [address] | + + + | Home Phone | | + + + | Preferred Language | Unknown | + + + | Marital Status | | + + + | Pentecostalism Affiliation | Unknown | + + + | Race | or | + + + | Ethnic Group | Not or | + + + Author + + + | Author | [facility] | | | and [place] | + + + | Organization | [facility] | | [...] Team Providers + +------+ + | Care Biofuels Production Associate Name | Role | Phone | + +------+ + | Arnulfo Pacheco DO | PCP | | + +------+ + Encounter Details +--------+ + + + + | Date | Type | Department | Care Team | Description | +--------+ + + + + | 01/30/ | Orders Only | [facility] | Naveen Hobbs, | | | 2010 | | MEDICAL CENTER | [address] | | | | | CLINICAL LABORATORY | [place] [address] | | | | | [address] | [phone] | | | | | [place], [place] | | | | | | [address] | | | | | | [phone] | | | +--------+ + + + [...] | | | | | [place] [address] | | | | | | [phone] | | | | | | | | +--------+---------+ + + + documented as of this encounter Procedures + +--------+ + + + | Procedure Name | Priori | Date/Time | Associated Diagnosis | Comments | | | ty | | | | + +--------+ + + + | GLUCOSE, BODY FLUID | Timed | 01/30/2011 | | Results for this | | | | 5:52 PM | | procedure are in the | | | | PDT | | results section. | + +--------+ + + + documented in this encounter Results Glucose, Body Fluid (01/30/2011 5:52 PM PDT) + + | Specimen | + + | | + + + + + | Narrative | Performed At | + + + | FLUID GLUCOSE 58 This | EXTERNAL LAB | | is not a assistant clinical nurse manager validated sample type for this method. No | | | reference ranges have been established. Testing performed at [facility];[address] | | [facility];[place] [address] Glucose, Fluid Type | | | PLEURAL FLUID Testing performed at [facility];[address];[place], [place] | | | [address] | | + + + + +---------+ + + | Performing | Address | City/State/Zipcode | Phone Number | | Organization | | | | + +---------+ + + | EXTERNAL LAB | | | | + +---------+ + + documented in this encounter Visit Diagnoses Not on filedocumented in this encounter"
--- OUTSIDE RECORDS SUMMARY | ~2020-03-16 | XMS | Encounter Summary ---
Demographics + + + | Address | [address] | | | [place] [address] | + + + | Home Phone [...] + | Author | [facility] | | | and [place] | + + + | Organization | [facility] | | | and [place] | + + + | Address | Unknown | + + + | Phone | Unavailable | + + + Support + + +---------+ + | Name | Relationship | Address | Phone | + + +---------+ + | Dian Luke | ECON | Unknown | | + + +---------+ + | Doyle Amaya | ECON | Unknown | | + + +---------+ + Care Team Providers + +------+ + | Care Promotions Intern Name | Role | Phone | + +------+ + | Agatha Hamm | PCP | | + +------+ + Encounter Details +--------+ + + + + | Date | Type | Department | Care Team | Description | +--------+ + + + + | 03/26/ | Abstract | [facility] | Provider, | | | 2019 | | PHYSIATRY [address] | [address] | | | | | [facility] [address] | [address] | | | | | [place] | [facility] [place] [address] | | | | | [address] | | | | | | [phone] | | | +--------+ + + + [...] 2020 | Visit | | [address]Y [address] | | | | | | [address] | | | | | | [place] [address] | | | | | | [phone] | | | | | | | | +--------+---------+ + + + documented as of this encounter Visit Diagnoses Not on filedocumented in this encounter"
--- OUTSIDE RECORDS SUMMARY | ~2020-03-16 | XMS | Encounter Summary ---
Demographics + + + | Address | [address] | | | [place] [address] | + + + | Home Phone | | + + + | Preferred Language | Unknown | + + + | Marital Status | | + + + | Advent Affiliation | Unknown | + + + | Race | or | + + + | Ethnic Group | Not or | + + + Author + + + | Author | [facility] | | | and [place] | + + + | Organization | [facility] | | [...] Team Providers + +------+ + | Care Film Sorter Name | Role | Phone | + +------+ + | Agatha Hamm | PCP | | + +------+ + Encounter Details +--------+ + + + + | Date | Type | Department | Care Team | Description | +--------+ + + + + | 02/18/ | Orders Only | [facility] | Conversion | | | 2016 | | CONVERSION DE[address] | Transaction, | | [address] | Provider Unknown | | | | | [place], [place] | [phone] | | | | | [address] | (Fax) | | | | | [phone] | | | +--------+ + + + [...] 2019 | Visit | | [address] | | | | | | [address] | | | | | | [place] [address] | | | | | | [phone] | | | | | | | | +--------+---------+ + + + documented as of this encounter Visit Diagnoses Not on filedocumented in this encounter"
--- OUTSIDE RECORDS SUMMARY | ~2020-03-16 | XMS | Encounter Summary ---
Demographics + + + | Address | [address] | | | [place] [address] | + + + | Home Phone [...] Team Providers + +------+ + | Care Planer Mill Grader Name | Role | Phone | + +------+ + PCP | Unavailable | + +------+ + Encounter Details +--------+ + + + + | Date | Type | Department | Care Team | Description | +--------+ + + + + | 08/11/ | Hospital | [facility] | Unknown, | | | 2006 | Encounter | MED CTR XRAY [address] | MD [address] . | | | | | [place] | | | | | | [place] [address] | (Fax) | | | | | [phone] | | | +--------+ + + + [...] 2019 | Visit | | [address] | | | | | | [address] | | | | | | [place] [address] | | | | | | [phone] | | | | | | | | +--------+---------+ + + + documented as of this encounter Visit Diagnoses Not on filedocumented in this encounter"
--- OUTSIDE RECORDS SUMMARY | ~2020-03-16 | XMS | Encounter Summary ---
Demographics + + + | Address | [address] | | | [place] [address] | + + + | Home Phone [...] + + + | Author | [facility] | | | and [place] | + + + | Organization | [facility] | | | and [place] | + + + | Address | Unknown | + + + | Phone | Unavailable | + + + Support + + +---------+ + | Name | Relationship | Address | Phone | + + +---------+ + | Dina Amaya | ECON | Unknown | | + + +---------+ + | Doyle Jose Luis | ECON | Unknown | | + + +---------+ + Care Team Providers + +------+ + | Care Torch Solderer Name | Role | Phone | + +------+ + PCP | Unavailable | + +------+ + Encounter Details +--------+ + + + + | Date | Type | Department | Care Team | Description | +--------+ + + + + | 10/19/ | Hospital | [facility] | | | | 2009 | Encounter | MED CTR EMERGENCY | | | | | | CENTER [address] | | | | | | [place] | | | | | | [address] | | | | | | [phone] | | | +--------+ + + + [...] | | | | | [place] [address] | | | | | | [phone] | | | | | | | | +--------+---------+ + + + documented as of this encounter Visit Diagnoses Not on filedocumented in this encounter"
--- OUTSIDE RECORDS SUMMARY | ~2020-03-16 | XMS | Encounter Summary ---
Demographics + + + | Address | [address] | | | [place] [address] | + + + | Home Phone | | + + + | Preferred Language | Unknown | + + + | Marital Status | | + + + | Pentecostalism Affiliation | Unknown | + + + | Race | or | + + + | Ethnic Group | Not or | + + + Author + + + | Author | [facility] | | | and [place] | + + + | Organization | [facility] | | [...] Team Providers + +------+ + | Care Blender Name | Role | Phone | + +------+ + | Agatha Hamm | PCP | | + +------+ + Reason for Visit + + + | Reason | Comments | + + + | New Patient | Right leg pain and numbness | + + + Evaluate & Treat (Routine) + + + + + + + | Status | Reason | Specialty | Diagnoses / | Referred By | Referred To | | | | | Procedures | Contact | Contact | + + + + + + + | Authorized | Specialty | Neurosurgery | Diagnoses | Renetta, | [facility] | | | Services | | Lumbar | Mari | Neurosurgery | | | Required | | radiculopath | LINDA Landry | [address] | | | | | y | [address] | | | | | Spondylolist | [address] | [place], | | | | | hesis at | STREET | [place] [address] | | | | | L3-L4 level | [address] | Phone: | | | | | | [place], | [phone] | | | | | Spondylolist | [place] [address] | Fax: | | | | | hesis at | Phone: | [phone] | | | | | L4-L5 level | [phone] | | | | | | halfway | Fax: | | | | | | (current) | [phone] | | | | | | use of | | | | | | | systemic | | | | | | | steroids | | | | | | | Procedures | | | | | | | DOS 06/24/19 | | | + + + + + + + Encounter Details +--------+---------+ + + + | Date | Type | Department | Care Team | Description | +--------+---------+ + + + | 06/24/ | Office | [facility] | Joseph Araujo | Spinal stenosis of | | 2019 | Visit | NEUROSURGERY [address] | MD [address] | lumbar region with | | | | [address] | [address] | neurogenic | | | | [place], [place] | [place] [address] | claudication | | | | [address] | [phone] | (Primary Dx) | | | | [phone] | | | +--------+---------+ + + + [...] + + + | Blood Pressure | 124/58 | 06/24/2019 3:32 PM | | | | | PST | | + + + + + | Pulse | 90 | 06/24/2019 3:32 PM | | | | | PST | | + + + + + | Temperature | - | - | | + + + + + | Respiratory Rate | - | - | | + + + + + | Oxygen Saturation | 96% | 06/24/2019 3:32 PM | | | | | PST | | + + + + + | Inhaled Oxygen | - | - | | | Concentration | | | | + + + + + | Weight | 93.5 kg (206 lb 2.1 | 06/24/2019 3:32 PM | | | | oz) | PST | | + + + + + | Height | - | - | | + + + + + | Body Mass Index | 41.63 | 06/05/2019 1:04 PM | | | | | PST | | + + + + + documented in this encounter Patient Instructions Patient Instructions Milena Gonzalez Cert MA - 06/24/2019 3:15 PM PST - Please try to start losing weight this may help with some of your symptoms. - Surgery does not make your pain go away but we would hope it would make you some better. Recovery is a 1 year long process. - Don't have surgery until you have the 3 Un's = unbearble, unremitting, untreatable. Pleas e contact our office if you wish to proceed with surgery. - Let pain be your guide. If you are doing an activity that starts causing you pain, back off and ease back into it slowly. We don't want you taking any risks that do not need to be taken. - If you ever have significant urinary retention, saddle anesthesia, or sudden loss of erika ls or rectal tone you need to get to the emergency room JB as this is a medical emergency. This is also known as Cauda Equina syndrome. documented in this encounter Progress Notes Joseph Araujo MD - 06/24/2019 3:15 PM PST Joseph Araujo MD [address] [place] [address], [address] [place] [address] FAX: [phone] NEUROSURGERY HISTORY AND PHYSICAL EXAMINATION CHIEF COMPLAINT: Chief Complaint Patient presents with New Patient Right leg pain and numbness HISTORY OF PRESENT ILLNESS: Faydeena Fidelia Luke is a 73 y.o. female with the complaint of pr ogressive lower extremity weakness in her hands, legs and bottom of feet that began about 3 years ago with progression in the last year. 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 The patient was last seen on 03/27/2019 by Gris Jackson PA-C, and it was recommended that she have an injections. She has a know history of L3-4 and L4-5 spondylolisthesis which was last evaluated by Dr. Luis in 2016 where he recommended multiple follow-up studies includi ng flexion-extension x-rays, DEXA scan, CT lumbar spine and probable neurosurgical recommend ations. The leg symptoms have been gradually worsening and describes the pain as moderate. The leg symptoms are daily. She describes the leg pain as sharp, throbbing and weak and states bot h legs hurt but more on the right side. She describes leg symptoms that occur on both sides but worse on the right. She states her right leg feels weak to the point that she feels like she is going to fall. She is using a cane at all times but was here today in a wheel chair. She states today "my hips bones hurt". She has to stay hunched over when she is walking to the bathroom to help relieve the pain. She is only able to walk around the house and if she were to walk a block it would take her about 15-20 minutes. She denies any back pain today but has had it in the past. Her symptoms improve with rest and short walks. Her symptoms worsen with changing position and walking long distances and twisting. She does not report any change in bowel or bladder function recently. She has tried Acupuncture. She had a Right L4/L5 and L5-S1 TFESI on 06/17/[address] Ursula abreu but states "I feel like it made my hips hurt more". She is currently taking Hydrocodo ne, Flexeril and Gabapentin. PAST MEDICAL HISTORY: Past Medical History: Diagnosis Date Abdominal wall [...] Spondylolisthesis L3-L4 L4-L5 UTI (urinary tract infection) PAST SURGICAL HISTORY: History reviewed. No pertinent surgical history. CURRENT MEDICATIONS: Current Outpatient Medications Medication Sig Dispense Refill CERTOLIZUMAB PEGOL SC Inject under the skin. Chelated Magnesium 100 MG TABS Take by mouth. cholecalciferol (VITAMIN D-3) 5000 units CAPS Take 5,000 Units by mouth Daily. cyclobenzaprine (FLEXERIL) 10 mg tablet Take 10 mg by mouth nightly as needed for Muscl e spasms. folic acid 1 mg tablet Take 1 mg by mouth daily. gabapentin (NEURONTIN) 300 mg capsule Take 300 mg by mouth 2 times daily. HYDROcodone-acetaminophen (NORCO) 10-325 mg per tablet Take 1 tablet by mouth every 4 h ours as needed for Pain (is taking 1 tablet every 4 -5 hours). is taking 1 tablet every 4 -5 hours hydroxychloroquine (PLAQUENIL) 200 mg tablet Take 2 [...] tablet Take 400 mg by mouth Daily. Multiple Vitamins-Minerals (MULTIVITAMIN WITH MINERALS) tablet Take 1 tablet by mouth d aily. predniSONE (DELTASONE) 5 mg tablet Take 1 tablet by mouth daily with breakfast. 90 tabl et 1 No current facility-administered medications for this visit. ALLERGIES: Allergies Allergen Reactions Sulfa Antibiotics Hives Bactrim [Sulfamethoxazole-Trimethoprim] Unknown Darvocet [Propoxyphene] Unknown Erythromycin Unknown SOCIAL HISTORY: She reports that she quit smoking about 28 years ago. She quit after 20.00 years of use. S he has never used smokeless tobacco. She reports that she does not drink alcohol or use drug s. FAMILY HISTORY: Family History Problem Relation Age of Onset No known problems Mother No known problems Father No known problems Daughter No known problems Son No known problems Maternal Grandmother No known problems Maternal Grandfather No known problems Paternal Grandmother No known problems Paternal Grandfather Arthritis Other Review of Systems HENT: Positive for hearing loss and tinnitus (right ear been going on for years). Eyes: Positive for blurred vision. Respiratory: Positive for cough. Genitourinary: Positive for frequency and urgency. Musculoskeletal: Positive for joint pain (shoulders and elbows). Neurological: Positive for weakness. Seizures: hand weakness. Endo/Heme/Allergies: Bruises/bleeds easily. Psychiatric/Behavioral: The patient has insomnia. PHYSICAL EXAMINATION: Blood pressure 124/58, pulse 90, weight 93.5 kg (206 lb 2.1 oz), SpO2 96 %. Body mass index is 41.63 kg/m. GENERAL: Michelle Amaya is in no acute distress with unlabored respirations. She does a ppear comfortable throughout the exam today. HEENT: Head: Normocephalic/atraumatic with no areas of recent trauma. Eyes: Normal sclerae without icterus. Ears: No drainage or tenderness. Nasopharynx: Clear without drainage. Oropharynx: Clear without erythema. HEART: Regular rate and rhythm without murmurs. NEUROLOGICAL EXAM: MENTAL STATUS: She is awake, alert, and oriented. She follows simple and complex commands. Her speech is fluent, she comprehends speech well, and she repeats well. She has no apparent deficits with short or lobsterman memory. MOTOR EXAM: (5 IS NORMAL) * Indicates pain limited MUSCLE/ MOVEMENT: RIGHT LEFT Hip Flexion 4 5 Hip Extension 5 5 Knee Flexion 4 5 Knee Extension 4 5 Dorsiflexion 5 5 Extensor Hallicus Longus 5 5 Plantarflexion 5 5 REFLEXES: (2 OR 2+ IS NORMAL) REFLEX: RIGHT LEFT PATELLAR 0 0 ACHILLES 0 0 PERIPHERAL NERVE/MISC: Straight leg raise is negative bilaterally. Keith's test of the hips is negative bilaterally. TEST AND RADIOGRAPHIC REVIEW: Her imaging was reviewed in detail today during the visit. The MRI from 04/21/2019 shows s evere spinal stenosis at L3-4 and L4-5 due to the combination of mild spondylolisthesis and broad-based disc protrusion with superimposed hypertrophic facet arthropathy. ASSESSMENT: Symptomatic lumbar spinal stenosis. NEUROSURGICAL DIAGNOSES: Encounter Diagnosis Name Primary? Spinal stenosis of lumbar region with neurogenic claudication Yes GENERAL DIAGNOSES: Past Medical History: Diagnosis Date Abdominal wall [...] Spondylolisthesis L3-L4 L4-L5 UTI (urinary tract infection) PLAN: Michelle Amaya presented today, and I greatly appreciate this referral. I spent a major ity of the visit discussing her neurologic problems. She has a traumatic lumbar spinal stenosis but after our discussion today she decided that she probably did not want to consider surgical intervention. I had a lengthy discussion with her about her options for care including surgical and non-s urgical options. I discussed with the patient that she needs to start losing weight. In discussing surgical options, we discussed a set of decompressive l[facility]om[facility]-4 and L4-5. She understands that in most instances the recovery from surgery can be lengthy and sometim es difficult. I emphasized that this operation does not routinely result in a completely pa in-free state. I also emphasized that she would have to work very hard at restoring her bas stefanie level of conditioning and that her recovery cycle would likely be a year in length She would like to continue conservative care and return to discuss surgery or additional tr eatment options if the symptoms worsen. She will need primary care physician clearance prio r to any surgery. I would like this patient to follow up with me or Neurosurgery PA if symptoms worsen or rissa l to improve. I, Joseph Araujo MD, personally performed the services described in this documentatio n, as scribed by JAVIER Bae in my presence, and it is both accurate and complete. Joseph Araujo MD 06/24/19 ELECTRONICALLY SIGNED BY: Joseph Araujo MD, 06/24/2019 4:10 PM documented in this encounter Plan of Treatment +--------+---------+ + + + | Date | Type | Specialty | Care Team | Description | +--------+---------+ + + + | 04/16/ | Office | Rheumatology | [place], | | | 2019 | Visit | | [address] | | | | | | [address] | | | | | | [place] [address] | | | | | | [phone] | | | | | | | | +--------+---------+ + + + documented as of this encounter Visit Diagnoses + + | Diagnosis | + + | Spinal stenosis of lumbar region with neurogenic claudication - Primary Spinal | | stenosis, lumbar region, with neurogenic claudication | + + documented in this encounter
--- OUTSIDE RECORDS SUMMARY | ~2020-03-16 | XMS | Encounter Summary ---
Demographics + + + | Address | [address] | | | [place] [address] | + + + | Home Phone [...] Team Providers + +------+ + | Care Biztalk Architect Name | Role | Phone | + +------+ + | Agatha Hamm | PCP | | + +------+ + Reason for Visit +--------+--------+ + | Reason | Onset | Comments | | | Date | | +--------+--------+ + | Other | 03/10/ | Prereg | | | 2019 | | +--------+--------+ + Encounter Details +--------+ + + + + | Date | Type | Department | Care Team | Description | +--------+ + + + + | 03/10/ | Telephone | [facility] | [place], | Other (Prereg) | | 2019 | | RHEUMATOLOGY [address] | Annika [address]aeed, [facility] [address] | | | | [address] | [address] | | | | | [place] | [place] [address] | | | | | [address] | [phone] | | | | | [phone] | | | +--------+ + + + [...] this encounter Miscellaneous Notes Telephone Encounter - Perla Berg - 03/10/2020 2:28 PM PDT1. For your safety and to he lp prevent further spread of the COVID-19, your provider would like to offer you a telephone /virtual visit. Would you like to change your office visit to a telephone/virtual visit? NO 2. Have you been exposed to anyone diagnosed with or is currently being tested for COVID-19 ? a. If yes, ask #3, then transfer to triage b. If no, see below NO 3. Do you currently have a cough, SOB, a fever, muscle aches, sore throat or loss of taste or smell? a. If yes, ask #4, then transfer to triage b. If no, see below NO 4. Has there been any new or unusual headache, congestion, runny nose, vomiting, nausea, di arrhea? a. If yes, transfer to triage b. If no, see below NO Remind patients of no visitor policy if they are coming to clinic Remind patients to wear a mask when coming into the clinic Set up mychart and offer e-checkin option When you change the apt to a telephonic/virtual visit please: -Confirm insurance -if telephone, Confirm what phone number they want called, check to making sure they get go od receptionist clerk in their area -Gather any questions ahead of time -They need to be in a quiet area, away from distractions -Tell them what time they should be expecting the call (just their scheduled apt time) -if virtual, send EXO5hart message -computer needs to have webcam, microphone and speakers -smart phone should have webcam, microphone and speakers documented in this encoun ter Plan of Treatment +--------+---------+ + + + | Date | Type | Specialty | Care Team | Description | +--------+---------+ + + + | 04/16/ | Office | Rheumatology | [place], | | | 2020 | Visit | | [address] | | | | | | [address] | | | | | | [place] [address] | | | | | | [phone] | | | | | | | | +--------+---------+ + + + documented as of this encounter Visit Diagnoses Not on filedocumented in this encounter"
--- OUTSIDE RECORDS SUMMARY | ~2020-03-16 | XMS | Encounter Summary ---
Demographics + + + | Address | [address] | | | [place] [address] | + + + | Home Phone | | + + + | Preferred Language | Unknown | + + + | Marital Status | | + + + | Episcopal Affiliation | Unknown | + + + | Race | or | + + + | Ethnic Group | Not or | + + + Author + + + | Author | [facility] | | | and [place] | + + + | Organization | [facility] | | [...] Team Providers + +------+ + | Care Job Training Supervisor Name | Role | Phone | + +------+ + | Agatha Hamm | PCP | | + +------+ + Reason for Referral Diagnostic/Screening (Routine) +--------+--------+ + + + + | Status | Reason | Specialty | Diagnoses / | Referred By | Referred To | | | | | Procedures | Contact | Contact | +--------+--------+ + + + + | Closed | | Radiology | Diagnoses | [employer], | [facility] | | | | | Lumbar | Mari | [address] | | | | | radiculopath | LIN[place] | [place], | | | | | y | [address] | [place] | | | | | Procedures | [address] | [address] | | | | | MRI Lumbar | STREET | Phone: | | | | | Spine wo | [address] | [phone] | | | | | Contrast | CARINE HAWK, | Fax: | | | | | 05/16- | [place] [address] | [phone] | | | | | DOS [facility] | Phone: | | | | | | | [phone] | | | | | | | Fax: | | | | | | | [phone] | | +--------+--------+ + + + + Encounter Details +--------+ + + + + | Date | Type | Department | Care Team | Description | +--------+ + + + + | 04/21/ | Orders Only | [facility] [place] | Mari Jackson | Spinal stenosis, | | 2018 | | PHYSIATRY [address] | [address] [address] | unspecified spinal | | | | [address] | [address] | region (Primary Dx); | | | | [place], [place] | [address] [place], [place] | Lumbar | | | | [address] | [address] | radiculopathy | | | | [phone] | | | +--------+ + + + [...] | 2019 | Visit | | Annika Saeed, [facility] [address] | | | | | | [address] | | | | | | [place] [address] | | | | | | [phone] | | | | | | | | +--------+---------+ + + + + +---------+--------+ + + | Name | Type | Priori | Associated Diagnoses | Order Schedule | | | | ty | | | + +---------+--------+ + + | MRI Lumbar Spine wo | Imaging | Routin | Lumbar | Expected: | | Contrast | | e | radiculopathy | 04/21/2019, Expires: | | | | | | 04/21/2020 | + +---------+--------+ + + documented as of this encounter Visit Diagnoses + + | Diagnosis | + + | Spinal stenosis, unspecified spinal region - Primary | + + | Lumbar radiculopathy Thoracic or lumbosacral neuritis or radiculitis, unspecified | + + documented in this encounter"
--- OUTSIDE RECORDS SUMMARY | ~2020-03-16 | XMS | Encounter Summary ---
Demographics + + + | Address | [address] | | | [place] [address] | + + + | Home Phone | | + + + | Preferred Language | Unknown | + + + | Marital Status | | + + + | Orthodoxy Affiliation | Unknown | + + + [...] Team Providers + +------+ + | Care Head Of Measurement & Insights Name | Role | Phone | + +------+ + | Arnulfo Pacheco DO | PCP | | + +------+ + Encounter Details +--------+ + + + + | Date | Type | Department | Care Team | Description | +--------+ + + + + | 05/01/ | Orders Only | [facility] | Conversion | | | 2014 | | RHEUMATOLOGY [address] | Transaction, | | | | [address] | Provider Unknown | | | | | [place] | | | | | | [address] | (Fax) | | | | | [phone] | | | +--------+ + + + [...] 2019 | Visit | | KASEY Mackenzie [address] | | | | | [address] | | | | | | [place] [address] | | | | | | [phone] | | | | | | | | +--------+---------+ + + + documented as of this encounter Procedures + +--------+ + + + | Procedure Name | Priori | Date/Time | Associated Diagnosis | Comments | | | ty | | | | + +--------+ + + + | EXTERNAL LAB: CBC | Routin | 05/01/2015 | | Results for this | | | e | 12:00 AM | | procedure are in the | | | | PDT | | results section. | + +--------+ + + + | SEDIMENTATION RATE, | Routin | 05/01/2015 | | Results for this | | AUTOMATED | e | 12:00 AM | | procedure are in the | | | | PDT | | results section. | + +--------+ + + + | C-REACTIVE PROTEIN | Routin | 05/01/2015 | | Results for this | | | e | 12:00 AM | | procedure are in the | | | | PDT | | results section. | + +--------+ + + + | COMPREHENSIVE | Routin | 05/01/2015 | | Results for this | | METABOLIC PANEL | e | 12:00 AM | | procedure are in the | | | | PDT | | results section. | + +--------+ + + + documented in this encounter Results Sedimentation rate, automated (05/01/2015 12:00 AM PDT) + +-------+ + + + | Component | Value | Ref Range | Performed | Pathologist | | | | | At | Signature | + +-------+ + + + | Sed Rate | 17 | | EXTERNAL | | | | [...] + +---------+ + + External Lab: CBC (05/01/2015 12:00 AM PDT) + +-------+ + + + | Component | Value | Ref Range | Performed | Pathologist | | | | | At | Signature | + +-------+ + + + | WBC | 6.0 | 10 | EXTERNAL | | | | | | LAB | | + +-------+ + + + | Non- | 4.86 | 10 | EXTERNAL | | | Red Blood | | | LAB | | | Cells | | | | | | Counted | | | | | + +-------+ + + + | Hemoglobin | 13.9 | g/dL | EXTERNAL | | | | | | LAB | | + +-------+ + + + | Hematocrit, | 41.5 | % | EXTERNAL | | | POC | | | LAB | | + +-------+ + + + | MCV | 85.3 | fL | EXTERNAL | | | | | | LAB | | + +-------+ + + + | MCH | 29 | pg | EXTERNAL | | | | | | LAB | | + +-------+ + + + | MCHC | 33 | g/dL | EXTERNAL | | | | | | LAB | | + +-------+ + + + | Platelet | 222 | K/ L | EXTERNAL | | | Count | | | LAB | | | Plasma | | | | | + +-------+ + + + | RDW-CV | 16.0 | % | EXTERNAL | | | [...] + + + | % Segmented | 64.6 | % | EXTERNAL | | | | | | LAB | | | Neutrophils | | | | | + +-------+ + + + | % | 23.3 | % | EXTERNAL | | | Lymphocytes | | | LAB | | + +-------+ + + + | % Monocytes | 6.6 | % | EXTERNAL | | | | | | LAB | | + +-------+ + + + | % | 4.9 | % | EXTERNAL | | | Eosinophils | | | LAB | | + +-------+ + + + | % Basophils | 0.6 | % | EXTERNAL | | | [...] | + +---------+ + + C-Reactive Protein (05/01/2015 12:00 AM PDT) + +-------+ + + + | Component | Value | Ref Range | Performed | Pathologist | | | | | At | Signature | + +-------+ + + + | CRP | 9.5 | mg/dL | EXTERNAL | | | [...] + +---------+ + + Comprehensive Metabolic Panel (05/01/2015 12:00 AM PDT) + +-------+ + + + | Component | Value | Ref Range | Performed | Pathologist | | | | | At | Signature | + +-------+ + + + | Glucose, | 86 | mg/dL | EXTERNAL | | | Fasting | | | LAB | | + +-------+ + + + | BUN | 17 | mg/dL | EXTERNAL | | | | | | LAB | | + +-------+ + + + | Creatinine | 0.86 | mg/dL | EXTERNAL | | | | | | LAB | | + +-------+ + + + | BUN/Creatin | 19.8 | | EXTERNAL | | | ine Ratio | | | LAB | | + +-------+ + + + | Calcium | 9.7 | mg/dL | EXTERNAL | | | | | | LAB | | + +-------+ + + + | Protein, | 6.9 | g/dL | EXTERNAL | | | Total | | | LAB | | + +-------+ + + + | Albumin | 4.1 | | EXTERNAL | | | | | | LAB | | + +-------+ + + + | Globulin | 2.8 | | EXTERNAL | | | | | | LAB | | + +-------+ + + + | A/G Ratio | 1.5 | | EXTERNAL | | | | | | LAB | | + +-------+ + + + | Bilirubin | 1.0 | mg/dL | EXTERNAL | | | Total | | | LAB | | + +-------+ + + + | ALP, | 62 | | EXTERNAL | | | External | | | LAB | | + +-------+ + + + | ALT | 21 | U/L | EXTERNAL | | | | | | LAB | | + +-------+ + + + | AST | 27 | U/L | EXTERNAL | | | | | | LAB | | + +-------+ + + + | Na | 136 | mmol/L | EXTERNAL | | | | | | LAB | | + +-------+ + + + | K | 4.2 | mmol/L | EXTERNAL | | | | | | LAB | | + +-------+ + + + | Cl | 102 | mmol/L | EXTERNAL | | | | | | LAB | | + +-------+ + + + | CO2 | 27 | mmol/L | EXTERNAL | | | | | | LAB | | + +-------+ + + + | Anion Gap | 11.2 | mmol/L | EXTERNAL | | | | | | LAB | | + +-------+ + + + | Estimated | 65 | mg/dL | EXTERNAL | | | [...]
--- OUTSIDE RECORDS SUMMARY | ~2020-03-16 | XMS | Encounter Summary ---
Demographics + + + | Address | [address] | | | [place] [address] | + + + | Home Phone | | + + + | Preferred Language | Unknown | + + + | Marital Status | | + + + | Tenriism Affiliation | Unknown | + + + | Race | or | + + + | Ethnic Group | Not or | + + + Author + + + | Author | [facility] | | | and [place] | + + + | Organization | [facility] | | | [...] Team Providers + +------+ + | Care Sales Marketing Director Name | Role | Phone | + +------+ + | Agatha Hamm | PCP | | + +------+ + Reason for Visit + +--------+ + | Reason | Onset | Comments | | | Date | | + +--------+ + | Medication Refill | 06/28/ | | | | 2018 | | + +--------+ + Encounter Details +--------+--------+ + + + | Date | Type | Department | Care Team | Description | +--------+--------+ + + + | 06/28/ | Refill | [facility] Medication Refill | | 2018 | | RHEUMATOLOGY [address] | [address] | | | | | [address] | [address] | | | | | [place] | [place] [address] | | | | | [address] | [phone] | | | | | [phone] | | | +--------+--------+ + + + [...] this encounter Miscellaneous Notes Telephone Encounter - Samantha Flores, Product Evangelist - 07/01/2019 8:51 AM PSTFaxed cynthia frankel. Confirmation received [phone] signed by Samantha Flores Medical Assist ant at 07/01/2019 8:52 AM PSTTelephone Encounter - Samantha Flores, Product Evangelist - 1 08/29/2018 10:12 AM PSTMedication requested: plaquenil By: [email or web address] Last filled:01/30/2019 Last Labs:01/31/2019 Last visit:01/30/2019 Next visit: 08/07/2019 Eye exam:05/2018 No result notes Last chart note stated:Recommend the followin. Continue methotrexate 20 mg once per week and plaquenil 400 mg QD. 2. Inject left index finger for triggering, Kenalog 10 mg 3. 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
--- OUTSIDE RECORDS SUMMARY | ~2020-03-16 | XMS | Encounter Summary ---
Demographics + + + | Address | [address] | | | [place] [address] | + + + | Home Phone | | + + + | Preferred Language | Unknown | + + + | Marital Status | | + + + | Nondenominational Affiliation | Unknown | + + + | Race | or | + + + | Ethnic Group | Not or | + + + Author + + + | Author | [facility] | | | and [place] | + + + | Organization | [facility] | | [...] Team Providers + +------+ + | Care Probation Officer Name | Role | Phone | + +------+ + | Agatha Hamm | PCP | | + +------+ + Reason for Visit +--------+--------+ + | Reason | Onset | Comments | | | Date | | +--------+--------+ + | Other | 11/28/ | called to offer virtual visit | | | 2019 | | +--------+--------+ + Encounter Details +--------+ + + + + | Date | Type | Department | Care Team | Description | +--------+ + + + + | 11/28/ | Telephone | [facility] | [place], | Other (called to | | 2019 | | RHEUMATOLOGY [address] | [address] | offer virtual visit) | | | | [address] | [address] | | | | | [place] | [place] [address] | | | | | [address] | [phone] | | | | | [phone] | | | +--------+ + + + [...] this encounter Miscellaneous Notes Telephone Encounter - Shyla Sutton - 11/29/2019 10:37 AM PDT1. For your safety and to help prevent further spread of the COVID-19, your provider would like to offer you a telepho ne/virtual visit. Would you like to change your office visit to a telephone/virtual visit? a. If no, see below b. If yes, skip 2 and 3 No, no internet 2. Have you been exposed to anyone diagnosed with COVID-19? a. If yes, transfer to triage but ask #3 also b. If no, see below No 3. Do you currently have a cough, SOB, a fever, sore throat or loss of taste or smell? a. If yes, transfer to triage b. If no, see below No Remind patients of no visitor policy if they are coming to clinic When you change the apt to a telephonic/virtual visit please: -Confirm insurance -if telephone, Confirm what phone number they want called, check to making sure they get go od office assistant receptionist in their area -Gather any questions ahead of time -They need to be in a quiet area, away from distractions -Tell them what time they should be expecting the call (just their scheduled apt time) -if virtual, send mychart message -computer needs to have webcam, microphone and speakers -smart phone should have webcam, microphone and speakers documented in this enco unter Plan of Treatment +--------+---------+ + + + | Date | Type | Specialty | Care Team | Description | +--------+---------+ + + + | 04/16/ | Office | Rheumatology | [place], | | | 2019 | Visit | | KASEY Mackenzie [address] | | | | | | [address] | | | | | | [place] [address] | | | | | | [phone] | | | | | | | | +--------+---------+ + + + documented as of this encounter Visit Diagnoses Not on filedocumented in this encounter"
--- OUTSIDE RECORDS SUMMARY | ~2020-03-16 | XMS | Clinical Summary ---
Demographics + + + | Address | [address] | | | [place] [address] | + + + | Home Phone | | + + + | Preferred Language | Unknown | + + + | Marital Status | | + + + | Spiritism Affiliation | Unknown | + + + | Race | or | + + + | Ethnic Group | Not or | + + + Author + + + | Author | [facility] | | | and [place] | + + + | Organization | [facility] | | | [...] Team Providers + +------+ + | Care Supervisor Meter Repair Shop Name | Role | Phone | + +------+ + | Agatha Hamm | PCP | | + +------+ + Allergies + + + + + + | Active Allergy | Reactions | Severity | Noted | Comments | | | | | Date | | + + + + + + | Sulfamethoxazole-Tri | Unknown | | | | | methoprim | | | | | + + + + + + | Propoxyphene | Unknown | | | | + + + + + + | Erythromycin | Unknown | | | | + + + + + + | Sulfa Antibiotics | Hives | High | 05/14/20 | | | | | | 15 | | + + + + + + Medications + + + +---------+------+------+-------+ | Medication | Sig | Dispensed | Refills | Star | End | Statu | | | | | | t | Date | s | | | | | | Date | | | + + + +---------+------+------+-------+ | Chelated Magnesium | Take by mouth. | | 0 | 10/2 | | Activ | | 100 MG TABS | | | | 20 | | e | | | | | | 15 | | | + + + +---------+------+------+-------+ | levothyroxine | Take 100 mcg by | | 0 | 10/2 | | Activ | | (SYNTHROID) 100 mcg | mouth every morning | | | /20 | | e | | tablet | before breakfast. | | | 15 | | | + + + +---------+------+------+-------+ | folic acid 1 mg | Take 1 mg by mouth | | 0 | 07/2 | | Activ | | tablet | daily. | | | 04/12 | | e | | | | | | 16 | | | + + + +---------+------+------+-------+ | Multiple | Take 1 tablet by | | 0 | 07/2 | | Activ | | Vitamins-Minerals | mouth daily. | | | 9/20 | | e | | (MULTIVITAMIN WITH | | | | 16 | | | | MINERALS) tablet | | | | | | | + + + +---------+------+------+-------+ | cholecalciferol | Take 5,000 Units by | | 0 | | | Activ | | (VITAMIN D-3) 5000 | mouth Daily. | | | | | e | | units CAPS | | | | | | | + + + +---------+------+------+-------+ | cyclobenzaprine | Take 10 mg by mouth | | 0 | | | Activ | | (FLEXERIL) 10 mg | nightly as needed | | | | | e | | tablet | for Muscle spasms. | | | | | | + + + +---------+------+------+-------+ | gabapentin | Take 300 mg by mouth | | 0 | 02/0 | | Activ | | (NEURONTIN) 300 mg | 2 times daily. | | | 4/20 | | e | | capsule | | | | 16 | | | + + + +---------+------+------+-------+ | | Take 1 tablet by | | 0 | | | Activ | | HYDROcodone-acetamin | mouth every 4 hours | | | | | e | | ophen (NORCO) 10-325 | as needed for Pain | | | | | | | mg per tablet | (is taking 1 tablet | | | | | | | | every 4 -5 hours). | | | | | | | | is taking 1 tablet | | | | | | | | every 4 -5 hours | | | | | | + + + +---------+------+------+-------+ | lisinopril | Take 5 mg by mouth | | 0 | | | Activ | | (PRINIVIL, ZESTRIL) | Daily. | | | | | e | | 5 mg tablet | | | | | | | + + + +---------+------+------+-------+ | magnesium oxide | Take 400 mg by mouth | | 0 | | | Activ | | (MAG-OX) 400 mg | Daily. | | | | | e | | tablet | | | | | | | + + + +---------+------+------+-------+ | CERTOLIZUMAB PEGOL | Inject under the | | 0 | | | Activ | | SC | skin. | | | | | e | + + + +---------+------+------+-------+ | hydroxychloroquine | Take 2 tablets by | 180 | 0 | 12/0 | | Activ | | (PLAQUENIL) 200 mg | mouth Daily. | tablet | | 6/20 | | e | | tabletIndications: | | | | 19 | | | | Rheumatoid arthritis | | | | | | | | of multiple sites | | | | | | | | without organ or | | | | | | | | system involvement | | | | | | | | with positive | | | | | | | | rheumatoid factor | | | | | | | | (HCC) | | | | | | | + + + +---------+------+------+-------+ | predniSONE | Take 1 tablet by | 90 | 1 | 02/1 | | Activ | | (DELTASONE) 5 mg | mouth daily (with | tablet | | /20 | | e | | tablet | breakfast). | | | 20 | | | + + + +---------+------+------+-------+ | oxybutynin | Take 1 tablet by | 30 | 2 | 07/2 | | Activ | | (DITROPAN-XL) 10 MG | mouth Daily. | tablet | | 0/20 | | e | | 24 hr tablet | | | | 20 | | | + + + +---------+------+------+-------+ Active Problems + + + | Problem | Noted Date | + + + | Trigger index finger of left hand | 05/17/2018 | + + + + + | Overview: Last Assessment & Plan: Treatment options | | discussed. Verbal and written consent given for kenalog | | injection.Instructed on post injection care- Kenalog 10 mg and | | referred to PT/OT hand therapy [place] [place] | | [place] | + + + + + | Chronic left-sided low back pain without sciatica | 04/25/2017 | + + + + + | Overview: Last Assessment & Plan: Right sided low back pain. | | She is using OTC TENS unitShe would like to resume physical | | therapy. She will make appointment to discuss this with PCP | + + + + + | Rheumatoid arthritis involving multiple sites with positive | 04/25/2017 | | rheumatoid factor | | + + + + + | Last Assessment & Plan: Initially diagnosed with RA in 1985. | | Positive rheumatoid factor, negative PEYMAN No clinical evidence | | of inflammatory arthropathy on today's exam.Remain off | | methotrexate until wound heals. Once wound has resolved okay to | | resume methotrexateThe risks and benefit of treatment plan were | | discussed with patient todayRecommend the followin. | | methotrexate 20 mg once per week - currently on hold due to wound | | on abdomen.continue plaquenil 400 mg QD. Update eye exam2. Speak | | to pcp about ensuring DEXA is up to dateReturn to clinic 3-4 | | months | + + + + + [...] | + + + + + | Overview: Last Assessment & Plan: Continue conservative | | measures, encourage low-impact exercise and discussed ways to | | avoid fall risk in the home | + + Encounters +--------+ + + + + | Date | Type | Specialty | Care Team | Description | +--------+ + + + + | 03/10/ | Telephone | Rheumatology | [place], | Ebenezer (Prereg) | | 2019 | | | KASEY Mackenzie | | +--------+ + + + + | 02/09/ | Refill | Urology | Edinson Herrera | Medication Refill | | 2019 | | | MD Galilea | | +--------+ + + + + from Last 3 Months Family History + + + + + | Medical History | Relation | Name | Comments | + + + + + | No known problems | Daughter | Dian | | | | | Alejandrake | | + + + + + | No known problems | Father | Canelo G | | | | | Reddy | | + + + + + | No known problems | Maternal | | | | | Grandfath | | | | | er | | | + + + + + | No known problems | Maternal | | | | | Grandmoth | | | | | er | | | + + + + + | No known problems | Mother | Lizzie | | | | | Ronnell | | + + + + + | Arthritis | Other | | | + + + + + | No known problems | Paternal | | | | | Grandfath | | | | | er | | | + + + + + | No known problems | Paternal | | | | | Grandmoth | | | | | er | | | + + + + + | No known problems | Son | Doyle | | | | | Luke | | + + + + + + + + + + | Relation | Name | Status | Comments | + + + + + | Daughter | Dian | Alive | | | | Luke | | | + + + + + | Father | Canelo G | | Head injury | | | Reddy | | | + + + + + | Maternal Grandfather | | | | + + + + + | Maternal Grandmother | | | | + + + + + | Mother | Lizzie | | Natural Causes | | | Ronnell | | | + + + + + | Other | | | | + + + + + | Paternal Grandfather | | | | + + + + + | Paternal Grandmother | | | | + + + + + | Son | Doyle | Alive | | | | Luke | | | + + + + + Social History + [...] + + + | Blood Pressure | 130/78 | 12/04/2019 2:01 PM | | | | | PDT | | + + + + + | Pulse | 81 | 12/04/2019 2:01 PM | | | | | PDT | | + + + + + | Temperature | 36.3 C (97.4 F) | 12/04/2019 2:01 PM | | | | | PDT | | + + + + + | Respiratory Rate | 20 | 06/05/2019 1:04 PM | | | | | PST | | + + + + + | Oxygen Saturation | 97% | 12/04/2019 2:01 PM | | | | | PDT | | + + + + + | Inhaled Oxygen | - | - | | | Concentration | | | | + + + + + | Weight | 94.3 kg (208 lb) | 12/04/2019 2:01 PM | | | | | PDT | | + + + + + | Height | 149.9 cm (4' 11") | 12/04/2019 2:01 PM | | | | | PDT | | + + + + + | Body Mass Index | 42.01 | 12/04/2019 2:01 PM | | | | | PDT | | + + + + + Plan of Treatment +--------+---------+ + + + | Date | Type | Specialty | Care Team | Description | +--------+---------+ + + + | 04/16/ | Office | Rheumatology | [place], | | | 2019 | Visit | | KASEY Mackenzie [address] | | | | | [address] | | | | | | [place] [address] | | | | | | [phone] | | | | | | | | +--------+---------+ + + + + + + + + | Health Maintenance | Due Date | Last | Comments | | | | Done | | + + + + + | Med Mgmt: TSH | | | | | | 3 | | | + + + + + | Med Mgmt: Vit D | | | | | | 3 | | | + + + + + | Medication | | | | | Management | 3 | | | + + + + + | Vaccine: Zoster (1 | | | | | of 2) | 3 | | | + + + + + | Breast Cancer | | | | | Screening | 8 | | | + + + + + | Vaccine: | | | | | Pneumococcal 65+ (1 | 8 | | | | of 1 - PPSV23) | | | | + + + + + | Adult Annual | | | | | Wellness Visit | 9 | | | + + + + + | Vaccine: Influenza | | 04/26/20 | | | (#1) | 0 | 19, | | | | | 04/25/20 | | | | | 18, | | | | | 05/22/20 | | | | | 17, | | | | | Addition | | | | | al | | | | | history | | | | | exists | | + + + + + | Med Mgmt: Cr | | 12/04/19 | | | | 1 | 20, | | | | | 09/03/19 | | | | | 20, | | | | | 06/05/20 | | | | | 19, | | | | | Addition | | | | | al | | | | | history | | | | | exists | | + + + + + | Med Mgmt: HCT | | 12/04/19 | | | | 1 | 20, | | | | | 09/03/19 | | | | | 20, | | | | | 01/31/20 | | | | | 19, | | | | | Addition | | | | | al | | | | | history | | | | | exists | | + + + + + | Med Mgmt: HGB | | 12/04/19 | | | | 1 | 20, | | | | | 09/03/19 | | | | | 20, | | | | | 01/31/20 | | | | | 19, | | | | | Addition | | | | | al | | | | | history | | | | | exists | | + + + + + | Med Mgmt: K | | 12/04/19 | | | | 1 | 20, | | | | | 09/03/19 | | | | | 20, | | | | | 01/31/20 | | | | | 19, | | | | | Addition | | | | | al | | | | | history | | | | | exists | | + + + + + | Med Mgmt: PLT | | 12/04/19 | | | | 1 | 20, | | | | | 09/03/19 | | | | | 20, | | | | | 01/31/20 | | | | | 19, | | | | | Addition | | | | | al | | | | | history | | | | | exists | | + + + + + | Med Mgmt: RBC | | 12/04/19 | | | | 1 | 20, | | | | | 09/03/19 | | | | | 20, | | | | | 01/31/20 | | | | | 19, | | | | | Addition | | | | | al | | | | | history | | | | | exists | | + + + + + | Med Mgmt: WBC | | 12/04/19 | | | | 1 | 20, | | | | | 09/03/19 | | | | | 20, | | | | | 01/31/20 | | | | | 19, | | | | | Addition | | | | | al | | | | | history | | | | | exists | | + + + + + | Med Mgmt: eGFR | | 12/04/19 | | | | 1 | 20, | | | | | 09/03/19 | | | | | 20, | | | | | 06/05/20 | | | | | 19, | | | | | Addition | | | | | al | | | | | history | | | | | exists | | + + + + + | Vaccine: | | 03/01/20 | | | Dtap/Tdap/Td (2 - | 2 | 12, | | | Td) | | 03/09/20 | | | | | 04, | | | | | 03/16/19 | | | | | 92 | | + + + + + | Hepatitis C | Completed | 10/06/19 | | | Screening | | 17 | | + + + + + Results Not on filefrom Last 3 Months Insurance + +--------+ +--------+ +---------+--------+ | Payer | Benefi | Subscriber | Effect | Phone | Address | Type | | | t Plan | ID | trudy | | | | | | / | | Dates | | | | | | Group | | | | | | + +--------+ +--------+ +---------+--------+ | MEDICARE | MEDICA | [id number] | | [phone] | | Medica | | | RE | | 007-Pr | 5 | | re | | | PART A | | esent | | | | | | AND B | | | | | | + +--------+ +--------+ +---------+--------+ | MEDICARE | MEDICA | [id number] | | [phone] | | Medica | | | RE | | 007-Pr | 5 | | re | | | PART A | | esent | | | | | | AND B | | | | | | + +--------+ +--------+ +---------+--------+ | [facility] | IHS | [id number] | | | | Indemn | | SERVICE | YELLOW | | 017-Pr | | | ity | | | HAWK | | esent | | | | + +--------+ +--------+ +---------+--------+ | [facility] | IHS | [id number] | 06/03/ | | | Indemn | | SERVICE | YELLOW | | 2019-P | | | ity | | | HAWK | | resent | | | | + +--------+ +--------+ +---------+--------+ + +--------+ +--------+ + + | Guarantor Name | Accoun | Relation to | Date | Phone | Billing Address | | | t Type | Patient | of | | | | | | | | | | + +--------+ +--------+ + + | Michelle Amaya | Person | Self | [birth year] | [address] | | | al/Fam | | 1945 | [phone] | [place] | | | [place] | | | 9 (Home) | | + +--------+ +--------+ + + | Michelle Amaya | Person | Self | [birth year] | | [address] | | | al/Fam | | 1945 | [phone] | [place] | | | tonie | | | 9 (Home) | | + +--------+ +--------+ + + Advance Directives + + + + + | Type | Date Recorded | Patient | Explanation | | | | Vp Marketing | | + + + + + | Power of | | | | | Cleaner | | | | + + + + + | Advance | 06/17/2019 | | | | Directive | 3:54 PM | | | + + + + +
--- OUTSIDE RECORDS SUMMARY | ~2020-03-16 | XMS | Encounter Summary ---
Demographics + + + | Address | [address] | | | [place] [address] | + + + | Home Phone | | + + + | Preferred Language | Unknown | + + + | Marital Status | | + + + | Sabianism Affiliation | Unknown | + + + | Race | or | + + + | Ethnic Group | Not or | + + + Author + + + | Author | [facility] | | | and [place] | + + + | Organization | [facility] | | | [...] Providers + +------+ + | Care Supervisor Travel Trailer Name | Role | Phone | + +------+ + | Agatha aHmm | PCP | | + +------+ + Encounter Details +--------+ + + + + | Date | Type | Department | Care Team | Description | +--------+ + + + + | 10/25/ | Orders Only | [facility] | [facility] | | [facility] | | RHEUMATOLOGY [address] | Annika Saeed [facility] [address] | | | | | [address] | [address] | | | | | [place] | [place] [address] | | | | | [address] | [phone] | | | | | [phone] | | | +--------+ + + + [...] 2019 | Visit | | KASEY Mackenzie [address] | | | | | | [address] | | | | | | [place] [address] | | | | | | [phone] | | | | | | | | +--------+---------+ + + + documented as of this encounter Visit Diagnoses Not on filedocumented in this encounter"
--- OUTSIDE RECORDS SUMMARY | ~2020-03-16 | XMS | Encounter Summary ---
Demographics + + + | Address | [address] | | | [place] [address] | + + + | Home Phone | | + + + | Preferred Language | Unknown | + + + | Marital Status | | + + + | Muslim Affiliation | Unknown | + + + [...] Team Providers + +------+ + | Care Delphi Programmer Name | Role | Phone | + +------+ + | Agatha Hamm | PCP | | + +------+ + Encounter Details +--------+ + + + + | Date | Type | Department | Care Team | Description | +--------+ + + + + | 05/14/ | Orders Only | [facility] | Conversion | | | 2015 | | CONVERSION [address] | Transaction, | | | | [address] | Provider Unknown | | | | | [place], [place] | [phone] | | | | | [phone] | (Fax) | | | | | [phone] | | | +--------+ + + + [...] | 04/16/ | Office | Rheumatology | [place], | | | 2019 | Visit | | KASEY Mackenzie [address] | | | | | | [address] | | | | | | [place] [address] | | | | | | [phone] | | | | | | | | +--------+---------+ + + + documented as of this encounter Visit Diagnoses Not on filedocumented in this encounter"
--- OUTSIDE RECORDS SUMMARY | ~2020-03-16 | XMS | Encounter Summary ---
Demographics + + + | Address | [address] | | | [place] [address] | + + + | Home Phone | | + + + | Preferred Language | Unknown | + + + | Marital Status | | + + + | Yarsani Affiliation | Unknown | + + + [...] Providers + +------+ + | Care Film Masker Name | Role | Phone | + +------+ + | Agatha Hamm | PCP | | + +------+ + Encounter Details +--------+ + + + + | Date | Type | Department | Care Team | Description | +--------+ + + + + | 06/19/ | Abstract | [facility] | Provider, | | | 2019 | | NEUROSURGERY [address] | [address] | | | | | [address] | [address] | | | | | [place] | [place] [address] | | | | | [address] | | | | | | [phone] | | | +--------+ + + + [...] 2020 | Visit | | KASEY Mackenzie [address] | | | | | | [address] | | | | | | [place] [address] | | | | | | [phone] | | | | | | | | +--------+---------+ + + + documented as of this encounter Visit Diagnoses Not on filedocumented in this encounter"
--- OUTSIDE RECORDS SUMMARY | ~2020-03-16 | XMS | Encounter Summary ---
Demographics + + + | Address | [address] | | | [place] [address] | + + + | Home Phone | | + + + | Preferred Language | Unknown | + + + | Marital Status | | + + + | Jainism Affiliation | Unknown | + + + | Race | or | + + + | Ethnic Group | Not or | + + + Author + + + | Author | [facility] | | | and [place] | + + + | Organization | [facility] | | [...] Team Providers + +------+ + | Care Clinical Systems Educator Name | Role | Phone | + +------+ + | Arnulfo Pacheco DO | PCP | | + +------+ + Encounter Details +--------+ + + + + | Date | Type | Department | Care Team | Description | +--------+ + + + + | 01/30/ | Orders Only | [facility] | Naveen Hobbs, | | | 2010 | | MEDICAL CENTER | [address] | | | | | CLINICAL LABORATORY | [place] [address] | | | | | [address] | [phone] | | | | | [place], [place] | | | | | | [address] | | | | | | [phone] | | | +--------+ + + + [...] | | | | | [place] [address] | | | | | | [phone] | | | | | | | | +--------+---------+ + + + documented as of this encounter Procedures + +--------+ + + + | Procedure Name | Priori | Date/Time | Associated Diagnosis | Comments | | | ty | | | | + +--------+ + + + | CULTURE, URINE | Timed | 01/30/2011 | | Results for this | | | | 2:34 PM | | procedure are in the | | | | PDT | | results section. | + +--------+ + + + documented in this encounter Results Culture, Urine (01/30/2011 2:34 PM PDT) + + | Specimen | + + | | + + + + + | Narrative | Performed At | + + + | Specimen Description CLEAN CATCH URINE | EXTERNAL LAB | | Testing performed at | | | [facility];[address];[place] [address] CULTURE | | | <10,000 CFU/ML MIXED GRAM POSITIVE HERRERA | | | NO SUSCEPTIBILITY TO FOLLOW | | | Testing performed | | | at L, [address], [place] [address] REPORT STATUS | | | 02/01/2011 FINAL | | + + + + +---------+ + + | Performing | Address | City/State/Zipcode | Phone Number | | Organization | | | | + +---------+ + + | EXTERNAL LAB | | | | + +---------+ + + documented in this encounter Visit Diagnoses Not on filedocumented in this encounter"
--- OUTSIDE RECORDS SUMMARY | ~2020-03-16 | XMS | Encounter Summary ---
Demographics + + + | Address | [address] | | | [place] [address] | + + + | Home Phone | | + + + | Preferred Language | Unknown | + + + | Marital Status | | + + + | Hinduism Affiliation | Unknown | + + + [...] Team Providers + +------+ + | Care Recorder Helper Gravity Prospecting Name | Role | Phone | + +------+ + | Agatha Hamm | PCP | | + +------+ + Encounter Details +--------+ + + + + | Date | Type | Department | Care Team | Description | +--------+ + + + + | 09/03/ | Orders Only | [facility] | Hema Perez | Other intermediate manager | | 2019 | | [address] | R, Revenue Accounting Manager | (current) drug | | | | [place] | | therapy; Rheumatoid | | | | [address] | | arthritis of | | | | [phone] | | multiple sites | | | [...] 2019 | Visit | | Annika Saeed [facility] [address] | | | | | | [address] | | | | | | [place] [address] | | | | | | [phone] | | | | | | | | +--------+---------+ + + + documented as of this encounter Procedures + +--------+ + + + | Procedure Name | Priori | Date/Time | Associated Diagnosis | Comments | | | ty | | | | + +--------+ + + + | SEDIMENTATION RATE | Routin | 09/03/2019 | Other fpc | Results for this | | | e | 2:33 PM | (current) drug | procedure are in the | | | | PST | therapy Rheumatoid | results section. | [...] + | CBC WITH | Routin | 09/03/2019 | Other intermediate manager | Results for this | | DIFFERENTIAL | e | 2:33 PM | (current) drug | procedure are in the | | | | PST | therapy Rheumatoid | results section. | [...] + + | COMPREHENSIVE | Routin | 09/03/2019 | Other fpc | Results for this | | METABOLIC PANEL | e | 2:33 PM | (current) drug | procedure are in the | | | | PST | therapy Rheumatoid | results section. | [...] in this encounter Results CBC with Differential (09/03/2019 2:33 PM PST) [...] | | | Absolute | performed at [facility];[address] | [address] | LAB | | | | [address] | | [facility] | | | | [address];[place] [address] | | LABORATORY | | + + + + + + + + | Specimen | + + | Blood | + + + + + + + | Performing | Address | City/State/Zipcode | Phone Number | | Organization | | | | + + + + + | REFERENCE LAB | [address] | [place] | [phone] | | [facility] | [address] | [address] | | | LABORATORY | | | | + + + + + | REFERENCE LAB | [address] | [place] | | | [facility] | [address] | [address] | | | LABORATORY | | | [...] | | | | | performed at [facility];[address] | | | | | | [facility] | | | | | | [facility];[place] [address] | | | | | | | | | | + + + + + + + + | Specimen | + + | Blood | + + + + + + + | Performing | Address | City/State/Zipcode | Phone Number | | Organization | | | | + + + + + | REFERENCE LAB | [address] [place] [address] | [place] | [phone] | | [facility] | [address] | [address] | | | LABORATORY | | | | + + + + + | REFERENCE LAB | [address] [place] [address] | [place] | | | [facility] | [address] | [address] | | | LABORATORY | | | [...] REFERENCE | | | | performed at [facility];[address] | | LAB | | | | [place] | | [facility] | | | | [address];[place] [address] | | LABORATORY | | + + + + + + + + | Specimen | + + | Blood | + + + + + + + | Performing | Address | City/State/Zipcode | Phone Number | | Organization | | | | + + + + + | REFERENCE LAB | [address] | [place] | [phone] | | [facility] | [address] | [address] | | | LABORATORY | | | | + + + + + | REFERENCE LAB | [address] | [place] | | | [facility] | [address] 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
--- OUTSIDE RECORDS SUMMARY | ~2020-03-16 | XMS | Encounter Summary ---
Demographics + + + | Address | [address] | | | [place] [address] | + + + | Home Phone | | + + + | Preferred Language | Unknown | + + + | Marital Status | | + + + | Jainism Affiliation | Unknown | + + + | Race | or | + + + | Ethnic Group | Not or | + + + Author + + + | Author | [facility] | | | and [place] | + + + | Organization | [facility] | | | [...] Team Providers + +------+ + | Care Inlayer Name | Role | Phone | + +------+ + | Arnulfo Pacheco DO | PCP | | + +------+ + Encounter Details +--------+ + + + + | Date | Type | Department | Care Team | Description | +--------+ + + + + | 01/30/ | Orders Only | [facility] | Naveen Hobbs, | | | 2010 | | MEDICAL CENTER | [address] | | | | | CLINICAL LABORATORY | [place] [address] | | | | | [address] | [phone] | | | | | [place], [place] | | | | | | [address] | | | | | | [phone] | | | +--------+ + + + [...] | | | | | [place] [address] | | | | | | [phone] | | | | | | | | +--------+---------+ + + + documented as of this encounter Procedures + +--------+ + + + | Procedure Name | Priori | Date/Time | Associated Diagnosis | Comments | | | ty | | | | + +--------+ + + + | CELL COUNT, BODY | Timed | 01/30/2011 | | Results for this | | FLUID | | 5:52 PM | | procedure are in the | | | | PDT | | results section. | + +--------+ + + + documented in this encounter Results Cell Count, Body Fluid (01/30/2011 5:52 PM PDT) + + | Specimen | + + | | + + + + + | Narrative | Performed At | + + + | FLUID TYPE PLEURAL FLUID | EXTERNAL LAB | | Testing performed at [facility];[address];[place] [address] COLOR | | | YELLOW Testing performed | | | at [facility] [address];[place] [address] APPEARANCE | | | HAZY Testing performed at [facility] [address] | | [address];[place] [address] RBC'S | | | <[id number] Testing performed at [facility] [address];[place], [place] | | | [address] TOTAL NUCLEATED CELLS 1250 | | | Testing performed at [facility] [address];[place] [address] NEUTROPHILS | | | 26 Testing performed | | | at [facility] [address];[place] [address] LYMPHOCYTES | | | 46 Testing performed at [facility] [address] | | | [address];[place] [address] MONOCYTES/MACROPHAGES 25 | | | Testing performed at [facility] [address];[place] [address] | | | EOSINOPHILS 3 | | | Testing performed at [facility] [address];[place] [address] OTHER CELLS | | | 0 Testing performed | | | at [facility] [address];[place] [address] CELLS COUNTED | | | 100 Testing performed at [facility];[address] [place] [address] | | | Blvd;[place] [address] | | + + + + +---------+ + + | Performing | Address | City/State/Zipcode | Phone Number | | Organization | | | | + +---------+ + + | EXTERNAL LAB | | | | + +---------+ + + documented in this encounter Visit Diagnoses Not on filedocumented in this encounter"
--- OUTSIDE RECORDS SUMMARY | ~2020-03-16 | XMS | Encounter Summary ---
Demographics + + + | Address | [address] | | | [place] [address] | + + + | Home Phone | | + + + | Preferred Language | Unknown | + + + | Marital Status | | + + + | Quaker Affiliation | Unknown | + + + | Race | or | + + + | Ethnic Group | Not or | + + + Author + + + | Author | [facility] | | | and [place] | + + + | Organization | [facility] | | | [...] Team Providers + +------+ + | Care Health And Safety Technician Name | Role | Phone | + +------+ + | Agatha Hamm | PCP | | + +------+ + Reason for Visit + + + | Reason | Comments | + + + | Rheumatoid Arthritis | | + + + Encounter Details +--------+---------+ + + + | Date | Type | Department | Care Team | Description | +--------+---------+ + + + | 12/03/ | Office | [facility] | [place], | Rheumatoid arthritis | | 2020 | Visit | RHEUMATOLOGY [address] | [address] | involving multiple | | | | [address] | [address] | sites with positive | | | | [place] | [facility] [place] [address] | rheumatoid factor | | | | [address] | [phone] | (HCC) (Primary Dx); | | | | [phone] | | High risk medication | | [...] encounter Patient Instructions Patient Instructions Samantha Flores, Molder Floor - 12/04/2019 2:00 PM PDTWe hope that you have experienced exceptional care today and that you found our service to be courte ous and helpful. If you have any questions you can send us a message/request using FrogApps or call our o ffice at [phone]. To reach Samantha HERRERA type extension [phone]. If you are unable to reach a [...] can also look at your results on Quikr Indiabryn athyn. If you are experiencing an emergency, please call 911 documented in this encounter Progress Notes Annika Murdock ARNP - 12/04/2019 2:00 PM PDTFormatting of this note might be diffe rent from the original. Subjective: Patient ID: Michelle Amaya is a 74 y.o. female. Reason for visit: Rheumatoid Arthritis Here forFollow up Rheumatological History Patient was diagnosed in 1985 with RA. Established care with 2003. Initial pre sentation is unknown Serology: Positive RF and Negative PEYMAN Pertinent Imaging:OA changes to H/F- xrays-2008 HPI Last visit:09/03/2019 Changes in overall health since last visit: Currently on antibiotics for open ulcer on the left lateral abdominal wall. She states this wound comes and goes Main Concern:RA---joint pain- hips, hands-due to ulceration she has been off methotrexate f or approximately 2 weeks. Denies joint swelling, AM stiffness > 30 minutes, fevers, illness, infection, rashes, oral ulcers, chest pain, SOB or abdominal pain Location: hip and hands Quality: sharp Severity: moderate Duration: 1-3 months Timing:All day Aggravated by:activity Relieved by:medication and rest Current medications:MTX 20 mg weekly, FA 1,g [...] dysuria and hematuria. Musculoskeletal: Positive for arthralgias (right hip,hands). Negative for joint swelling. Skin: Negative for rash. Neurological: Negative for numbness and headaches. Psychiatric/Behavioral: The patient is not nervous/anxious. Annika Dooley, reviewed the above ROS, all other systems are reviewed and nega tive Objective: BP 130/78 | Pulse 81 | Temp 36.3 C (97.4 F) | Ht 1.499 m (4' 11") | Wt 94.3 kg (20 8 lb) | SpO2 97% | No | BMI 42.01 kg/m Physical Exam Constitutional: Appearance: She is [...] Skin: General: Skin is warm and dry. Findings: Wound present. Neurological: Mental Status: She is alert and oriented to person, place, and time. Psychiatric: Behavior: Behavior normal. GAN-28 (ESR): 2.63 (Low disease activity) I Samantha HERRERA am personally using the Defend Your Headunculus tool/scribing during [facility] patient exam. Labs reviewed in [facility] --09/03/2019 2017- Hep B/C neg. 04/22/17- [facility] [...] clinical evidence of inflammatory arthropathy on today's exam. Remain off methotrexate until wound heals. Once wound has resolved okay to resume methotre xate The risks and benefit of treatment plan were discussed with patient today Recommend the followin. methotrexate 20 mg once per week - currently on hold due to wound on abdomen. continue plaquenil 400 mg QD. Update eye exam 2. Speak to pcp about ensuring DEXA [...] the need for routine blood work monitoring. Risks and benefits of a treatment plan were explained to patient. Patient will follow up with their primary care physician in regards to non-rheumatological symptoms listed under review of systems. Patient was advised to contact our office if there are any change in their symptoms. This document has been prepared with W4 voice recognition system. The possibility of "s ound alike" payroll machine operator errors, and additions, or deletions may occur. If there is any que stion with respect to clarity of the message being conveyed, please contact me directly for clarification. documented in this encounter Miscellaneous Notes Assessment & Plan Note - Annika Murdock ARNP - 12/03/2019 2:54 PM PDTAssociated Pr oblem(s): High risk medication useUpdate labs today and continue to monitor closely while on DMARD and/or biologic medication. Counseled regarding medication compliance as well as pot ential toxicities with medications such as cytopenias, liver abnormalities and risks for inf ection, and the need for routine blood work monitoring. ssessment & Plan Note - Annika Murdock ARNP - 12/03/2019 2:52 PM PDTAssociated Problem(s): Rheu matoid arthritis involving multiple sites with positive rheumatoid factor (HCC)Initially fernandez gnosed with RA in 1985. Positive rheumatoid factor, negative PEYMAN No clinical evidence of inflammatory arthropathy on today's exam. Remain off methotrexate until wound heals. Once wound has resolved okay to resume methotre xate The risks and benefit of treatment plan were discussed with patient today Recommend the followin. methotrexate 20 mg once per week - currently on hold due to wound on abdomen. continue plaquenil 400 mg QD. Update eye exam 2. Speak to pcp about ensuring DEXA is up to date Return to clinic 3-4 monthsElectronically signed by KASEY Evans at 0 3:07 PM PDTdocumented in this encounter Plan of Treatment +--------+---------+ + + + | Date | Type | Specialty | Care Team | Description | +--------+---------+ + + + | 04/16/ | Office | Rheumatology | [place], | | | 2019 | Visit | | [address] | | | | | | [address] | | | | | | [place] [address] | | | | | | [phone] | | | | | | | [...]
--- OUTSIDE RECORDS SUMMARY | ~2020-03-16 | XMS | Encounter Summary ---
Demographics + + + | Address | [address] | | | [place] [address] | + + + | Home Phone [...] Team Providers + +------+ + | Care Professional Organizer Name | Role | Phone | + +------+ + PCP | Unavailable | + +------+ + Encounter Details +--------+ + + + + | Date | Type | Department | Care Team | Description | +--------+ + + + + | 11/15/ | Hospital | [facility] | Conversion | Pain | | 2014 | Encounter | CONVERSION [address] | Transaction, | | | [address] | Provider Unknown | | | | | [place], [place] | [phone] | | | | | [address] | | | | | | [phone] | | | +--------+ + + + [...] 2020 | Visit | | Annika Saeed [facility] [address] | | | | | | [address] | | | | | | [place] [address] | | | | | | [phone] | | | | | | | | +--------+---------+ + + + documented as of this encounter Procedures + +--------+ + + + | Procedure Name | Priori | Date/Time | Associated Diagnosis | Comments | | | ty | | | | + +--------+ + + + | CT ANGIOGRAM | Routin | 01/30/2011 | | Results for this | | PULMONARY | e | 4:57 AM | | procedure are in the | | | | PDT | | results section. | + +--------+ + + + documented in this encounter Results CT Angiogram Pulmonary w Contrast (01/30/2011 4:57 AM PDT) + + | Specimen | + + | | + + + + + | Narrative | Performed At | + + + | This is a non-reportable procedure without a radiologist report and | | | is used for image storage only | | + + + + + | Procedure Note | + + | Oseas You Conversion - 03/09/2019 2:08 AM PDT This is a non-reportable procedure | | without a radiologist report and isused for image storage only | + + documented in this encounter Visit Diagnoses + + | Diagnosis | + + | Pain Generalized pain | + + documented in this encounter"
--- OUTSIDE RECORDS SUMMARY | ~2020-03-16 | XMS | Encounter Summary ---
Demographics + + + | Address | [address] | | | [place] [address] | + + + | Home Phone | | + + + | Preferred Language | Unknown | + + + | Marital Status | | + + + | Confucianism Affiliation | Unknown | + + + | Race | or | + + + | Ethnic Group | Not or | + + + Author + + + | Author | [facility] | | | and [place] | + + + | Organization | [facility] | | [...] Team Providers + +------+ + | Care Superintendent Service Name | Role | Phone | + +------+ + | Agatha Hamm | PCP | | + +------+ + Encounter Details +--------+ + + + + | Date | Type | Department | Care Team | Description | +--------+ + + + + | 01/30/ | Orders Only | [facility] | [facility] | | | 2019 | | RHEUMATOLOGY [address] | Annika Saeed [facility] [address] | | | | | [address] | [address] | | | | | [place] | [place] [address] | | | | | [address] | [phone] | | | | | [phone] | | | +--------+ + + + [...] 2019 | Visit | | [address] | | | | | | [address] | | | | | | [place] [address] | | | | | | [phone] | | | | | | | | +--------+---------+ + + + documented as of this encounter Visit Diagnoses Not on filedocumented in this encounter"
[~2020-03-16 16:58] MED LIST changes: +AMOX TR-K CLV1 EAC1 PO; +COLACE100 MG PO; +TERBINAFINE HCL30 GM TOP; +VITAMIN D5000 UNIT PO
--- OUTSIDE RECORDS SUMMARY | 2020-03-16 17:00 | XMS ---
PreManage Notification: NIKITA CLARKE [employer] Events No recent Security Events currently on file CRITERIA MET - [facility] - Has Care Guidelines - History of Sepsis Dx - PDMP CARE PROVIDERS MARCELLUS ARCEO Nurse Practitioner 02/07/2019-Current PHONE: [phone] Myla has no Care Guidelines for this patient. Care History Medical/Surgical 02/07/2019 [facility] \T\middot;\T\nbsp; PATIENT IS A [employer] MEMBER. \T\middot;\T\nbsp; PLEASE REFER PATIENT TO [facility] FOR NON EMERGENT MEDICAL NEEDS. \T\middot;\ T\nbsp; [facility] CAN SEE PATIENTS SAME DAY FOR APTS IF PATIENT CALLS FIRST THING IN THE MORNING. E.D. VISIT COUNT (12 MO.) 2 [facility] TOTAL 2 NOTE: Visits indicate total known visits. ED/UCC VISIT TRACKING (12 MO.) 03/16/2020 16:59 [facility] TYPE: Emergency COMPLAINT: - SKIN PROBLEM/SORE 04/11/2019 04:03 [facility] TYPE: Emergency COMPLAINT: - CHILLS INPATIENT VISIT TRACKING (12 MO.) 04/11/2019 08:23 [facility] TYPE: Medical Surgical COMPLAINT: - SEPSIS, CELLULITIS, UTI DIAGNOSES: - Bacteriuria - Essential (primary) hypertension - Urinary tract infection, site not specified - intermediate (current) use of systemic steroids - Sepsis due to streptococcus, group B - Severe sepsis without septic shock - Cellulitis of abdominal wall - Allergy status to sulfonamides status - Other custodial (current) drug therapy - Rheumatoid arthritis, unspecified - Obesity, unspecified - Sepsis, unspecified organism - Unspecified Escherichia coli [E. coli] as the cause of diseas - Dorsalgia, unspecified - intermediate (current) use of opiate analgesic - Spinal stenosis, lumbar region with neurogenic claudication - Dermatophytosis, unspecified - Rash and other nonspecific skin eruption - Body mass index (BMI) 40.0-44.9, adult - Other chronic pain - Acute kidney failure, unspecified - Hypothyroidism, unspecified [email or web address]
[2020-03-16] MEDS ORDERED: CLEOCIN HCL300 MG PO (19:59)
== END 2020-03-16 20:18 | disposition home or self-care (01) ==
LOC: ED 16:58
DX: L02.211 Cutaneous abscess of abdominal wall (principal); M06.9 Rheumatoid arthritis, unspecified; E03.9 Hypothyroidism, unspecified; J44.9 Chronic obstructive pulmonary disease, unspecified; I10 Essential (primary) hypertension; Z87.891 Personal history of nicotine dependence; Z88.2 Allergy status to sulfonamides; Z79.899 Other long term (current) drug therapy
CPT/HCPCS: 10060; 99282-25

== ENCOUNTER 2020-08-09 19:42 | Inpatient (IN) | payer MEDICARE, OTHER ==
[~2020-08-09] VITALS: Ht 149.9 cm; Wt 101.4 kg
[~2020-08-09 19:42] MED LIST changes: +CLEOCIN HCL300 MG PO
--- OUTSIDE RECORDS SUMMARY | 2020-08-09 19:44 | XMS ---
PreManage Notification: NIKITA CLARKE Security Tongue Binder Events No recent Security Events currently on file CRITERIA MET - [facility] - Has Care Guidelines - History of Sepsis Dx - PDMP CARE PROVIDERS MARCELLUS ARCEO Nurse Practitioner 02/07/2019-Current PHONE: [phone] Name Unknown Case Management 03/17/2020-Current PHONE: [phone] Myla has no Care Guidelines for this patient. Care History Medical/Surgical 02/07/2019 [facility], \T\middot;\T\nbsp; PLEASE REFER PATIENT TO [facility] FOR NON EMERGENT MEDICAL NEEDS. \T\middot;\T\nbsp; [facility] CAN SEE PATIENTS SAME DAY FOR APTS IF PATIENT CALLS FIRST THING IN THE MORNING. E.D. VISIT COUNT (12 MO.) 2 MICHAELA Schuster TOTAL 2 NOTE: Visits indicate total known visits. ED/UCC VISIT TRACKING (12 MO.) 08/09/2020 19:43 MICHAELA [place] TYPE: Emergency COMPLAINT: - FEVER 03/16/2020 16:59 [place]ELA [place] TYPE: Emergency COMPLAINT: - SKIN PROBLEM/SORE DIAGNOSES: - Personal history of nicotine dependence - Rheumatoid arthritis, unspecified - Allergy status to sulfonamides - Other fci (current) drug therapy - Chronic obstructive pulmonary disease, unspecified - Hypothyroidism, unspecified - Cutaneous abscess of abdominal wall - Essential (primary) hypertension INPATIENT VISIT TRACKING (12 MO.) No inpatient visits to display in this time frame [email or web address]
--- NOTE | 2020-08-10 02:20 | NUR ---
PT IN BED SLEEPING WITH CPAP ON, FIO2 21%. PT RESPIRATIONS EVEN AND PT IS IN NO APPARENT DISTRESS. PT LEFT UNDISTURBED AT THIS TIME, WILL CONTINUE PLAN OF CARE.
--- NOTE | 2020-08-10 03:10 | NUR ---
THIS RN IN TO ASSESS PT, RT IN ROOM. PT REPOSITIONED IN BED WITH THE HELP OF RT. PT GIVEN A SHORT BREAK OFF OF CPAP TO ASK QUESTIONS. PT REPORTED HAVING BODY ACHES, PRN PAIN MEDICATION ADMINISTERED BY VITALIY ROBERT (SEE MAR). IV ABX COMPLETE, IV FLUIDS INFUSING ORDERED. PT STATES SHE STILL DOES NO FEEL WELL. WHILE OFF CPAP PT'S BREATHING WAS LESS LABORED THEN WHEN SHE CAME IN. PT PUT BACK ON CPAP AFTER ASSESSMENT. PT NOW LAYING IN BED SLEEPING, IVF INFUSING, CPAP ON. WILL CONTINUE PLAN OF CARE.
--- NOTE | 2020-08-10 04:50 | NUR ---
THIS RN IN TO CHECK ON PT. CPAP ADJUSTED DUE TO AIR LEAK, PT BRIEFLY WOKE AND WENT BACK TO SLEEP. NO FURTHER NEEDS REPORTED, WILL CONTINUE PLAN OF CARE. IVF INFUSING ORDERED, CPAP STILL AT 21% FIO2, SPO2 AT 92%.
--- NOTE | 2020-08-10 06:40 | NUR ---
PT LAYING IN BED SLEEPING WITH CPAP ON. PT AWOKE TO HER NAME, PT TAKEN OFF OF CPAP MOMENTARILY TO ADMINISTER PO MEDS. PT STATES SHE HAS NO PAIN AT THIS TIME AND STATES HER BREATHING FEELS MUCH BETTER. PT STATES SHE FEELS BETTER OVERALL. IV IN LEFT AC DC/D DUE TO BEING PAINFUL AND NOT PATENT. IV DC/D WNL, CATHETER INTACT, PT TOLERATED REMOVAL WELL. PT REPORTS NO FURTHER NEEDS WHEN ASKED AND WAS PUT BACK ON THE CPAP. WILL CONTINUE PLAN OF CARE. CALL LIGHT WITHIN REACH, BED IN LOWEST POSITION.
--- NOTE | 2020-08-10 06:42 | EKG ---
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
--- NOTE | 2020-08-10 07:30 | NUR ---
REPORT RECIEVED. RESTING ON CPAP.
--- NOTE | 2020-08-10 08:00 | NUR ---
ASSESSMENT DONE. TALKED WITH PATIENT ABOUT POC. CPAP OFF NOW. PATIENT STATES HER BREATHING IS MUCH BETTER THIS AM. RED AREA ON LOWER ABD OUTLINED WITH MARKER. PATIENT RATES OVERALL PAIN 5/10. DR. HEWITT HERE TO SEE PATIENT.ORDERS RECIEVED BREAKFAST ORDERED. IVF INFUSING AT 100 ML/HR TO [facility] SITE. FUENTES CATH PATENT WITH CLEAR YELLOW URINE NOTED.
--- NOTE | 2020-08-10 09:00 | NUR ---
TOOK BREAKFAST WELL. CPAP REMAINS OFF RR-TO MID 20'S.
--- NOTE | 2020-08-10 09:40 | NUR ---
CPAP REAPPLIED PATENT WITH INCREASED WORK OF BREATHING.
--- NOTE | 2020-08-10 10:10 | NUR ---
CPAP OFF AGAIN PATIENT ON PHONE. AFTER CALL COMPLETE, PATIENT WISHES TO REMAIN OFF CPAP. O2 SAT 96 ON RA, RESP RATE 26.
--- NOTE | 2020-08-10 10:47 | NUR ---
DENIES NEED FOR PAIN MEDICATION.
--- NOTE | 2020-08-10 11:00 | NUR ---
CPAP ON, RESTING.
--- NOTE | 2020-08-10 11:05 | NUR ---
NORCO GIVEN FOR GENERALIZED PAIN.
--- NOTE | 2020-08-10 12:00 | NUR ---
ASSESSMENT DONE. STATES PAIN IS LESS AFTER MEDICATION GIVEN. WILL REMOVE CPAP WHEN LUNCH ARRIVES.
[2020-08-10] MEDS ORDERED: SIMPONI AR50 MG/4 ML IV (12:46)
--- NOTE | 2020-08-10 12:48 | NUR ---
MED REC COMPLETE
--- NOTE | 2020-08-10 13:20 | NUR ---
TOOK LUNCH WELL. UP TO COMMODE TO EXPELL SMALL FORMED STOOL. MOVES FAIR WITH ASSIST. STATES HER BREATHING IS BETTER. OFF CPAP SINCE LUNCH.
--- NOTE | 2020-08-10 13:35 | NUR ---
PT ALERT, ORIENTED AND PLEASANT. PT FEELS SHE IS MAKING POSITIVE STRIDES IN HER HEALTH. PT WOULD LIKE FR GRAHAM TO VISIT TODAY, WILL NOTIFY HIM. LEFT G.POST, PT REQUESTED PRAYER. WILL FOLLOW
--- NOTE | 2020-08-10 15:00 | NUR ---
WAS ASKED TO PLACE A PICC LINE FOR MEDICAL I D SALES IV ABX AND LIMITED VEIN ACCESS. THE PT'S RIGHT ARM WAS ASSESSED. THE BASILIC, BRACHIAL, AND CEPHALIC VEINS WERE IDENTIFIED. THE CEPHALIC VEIN WAS LARGE AND ACCORDING TO THE SITE RITE 8 THE 4 FR PICC LINE WOULD TAKE UP 24% OF THE VEIN. THIS VEIN WAS ACCESSED TWICE. THE GUIDEWIRE BOTH TIMES MET RESISTANCE AND THE PT SOUND "OUCH". THE IV WAS TAKEN OUT AND PRESSURE APPLIED. THE PT'S NEXT BEST VEIN WAS THE CEPHALIC AND ACCORDING TO THE SITE RITE 8 THE 4 FR PICC LINE WOULD TAKE UP 34% OF THE VEIN. THIS VEIN WAS ACCESSED AND ONCE AGAIN THE GUIDEWIRE MET RESISTANCE. THE IV WAS TAKEN OUT AND PRESSURE APPLIED. PT IS STILL AGREEABLE WITH RECEIVING A PICC LINE. WILL REACH OUT TO ANOTHER PICC AUTO CLEANER TO ATTEMPT PICC LINE PLACEMENT. EDITH SUAREZ RN UPDATED.
--- NOTE | 2020-08-10 16:00 | NUR ---
ASSESSMENT DONE. UP TO CHAIR WITH ASSIST. DENEIS NEED FOR PAIN MEDICATION. DAUGHTER REMAINS IN ROOM. PATIENT CONTINUES TO DENY SHORTNESS OF BREATH.
--- NOTE | 2020-08-10 16:30 | NUR ---
BACK TO BED WITH ASSIST.
--- NOTE | 2020-08-10 17:00 | NUR ---
IV SITE TO RIGHT AC DC'D. IV STARTED TO LEFT WRIST. READY FOR DINNER. PATIENT DAUGHTER IS IN ROOM.
--- NOTE | 2020-08-10 17:56 | NUR ---
HAVING CHOKING SPELL WHILE EATING DINNER, PATIENT DAUGHTER SAID HER MOM HAS PROBLEMS SWALLOWING AT HOME, WILL LET DR. HEWITT KNOW ABOUT THIS. ROBERTO CARLOS RAE HELD.
--- NOTE | 2020-08-10 18:08 | NUR ---
NORCO GIVEN FOR PAIN, REPOSITIONED TO RIGHT SIDE.
--- NOTE | 2020-08-10 18:52 | NUR ---
NO CHANGES, EYES SHUT. DAUGTHER AT BEDSIDE. IVF REMAINS AT 100 ML/HR FUENTES PATENT.
--- NOTE | 2020-08-10 20:00 | NUR ---
THIS RN IN TO ASSESS PT. PT AWAKE IN BED WITH DAUGHTER AT BEDSIDE. PT IS ALERT AND ORIENTED AND CONVERSING WITH DAUGHTER. PT REPORTS 4/10 PAIN AND STATES THAT THE NORCO SHE WAS GIVEN BY THE PREVIOUS RN HELPED HER PAIN. PT STATED HER ABDOMINAL PAIN WAS AT AN 8/10 BEFORE SHE HAD THE PAIN MEDICATION. ORDERED MEDICATIONS ADMINISTERED, IVF INFUSING AT ORDERED RATE. PT REPORTS NO FURTHER NEEDS WHEN ASKED AT THIS TIME BUT REQUESTED TO HAVE HER PRN FLEXERIL BEFORE SHE GOES TO SLEEP NEAR 10PM. PT NOW IN BED READING NEWSPAPER, DAUGHTER HAS LEFT. WILL CONTINUE PLAN OF CARE, CALL LIGHT WITHIN REACH, BED IN LOWEST POSITION.
--- NOTE | 2020-08-10 21:45 | NUR ---
THIS RN IN TO CHECK ON PT, IV PUMP ALARMING, IV BAG OF NS COMPLETE. PT LAYING IN BED READING A NEWSPAPER. NEW BAG OF NS STARTED, MEDICATIONS ADMINISTERED, PT REQUESTED PRN FLEXERIL WHICH WAS ADMINISTERED. PT REPORTS NO FURTHER NEEDS WHEN ASKED AND WENT BACK TO READING HER NEWSPAPER, WILL CONTINUE PLAN OF CARE. CALL LIGHT WITHIN REACH, BED IN LOWEST POSITION.
--- NOTE | 2020-08-10 23:23 | NUR ---
RESPONDED TO PT CALL LIGHT. PT STATED THAT SHE WANTED TO GO TO SLEEP. PT ALSO STATED SHE HAD 8/10 PAIN IN HER LEGS AND BACK AND REQUESTED HER PRN NORCO. PRN NORCO ADMINISTERED ALONG WITH HER IV ABX. PT REPORTS NO DIFFICULTY BREATHING WHEN ASKED. PT NOW LAYING DOWN ATTEMPTING TO GO TO SLEEP, PT REPORTS NO FURTHER NEEDS WHEN ASKED, WILL CONTINUE PLAN OF CARE. CALL LIGHT WITHIN REACH, BED IN LOWEST POSITION.
--- NOTE | 2020-08-11 01:17 | NUR ---
THIS RN IN TO CHECK ON PT. IV PUMP ALARMING, IV FLUIDS AND ABX RESTARTED AFTER FLUSHING LINE. PT HELPED TO REPOSITION IN BED TO HELP WITH COMFORT. PT REPORTS NO FURTHER NEEDS WHEN ASKED. WILL CONTINUE PLAN OF CARE. CALL LIGHT WITHIN REACH, BED IN LOWEST POSITION.
--- NOTE | 2020-08-11 02:40 | NUR ---
PT IV PUMP ALARMING. RN YESICA IN TO CHECK IV PUMP. THIS RN IN TO HELP REPOSITION THE PATIENT ON THE BED. PT HAS NO FURTHER NEEDS WHEN ASKED AND RETURNED BACK TO SLEEP. WILL CONTINUE PLAN OF CARE. CALL LIGHT WITHIN REACH, BED IN LOWEST POSITION.
--- NOTE | 2020-08-11 05:30 | NUR ---
THIS RN IN TO ASSESS PT. PT IN BED SLEEPING. PT WOKE UP TO ME ENTERING. ORDERED MEDS ADMINISTERED (SEE MAR). PT WAS HELPED IN REPOSITIONING IN BED. PT REPORTS NO FURTHER NEEDS AFTERWARDS AND WENT BACK TO SLEEP. WILL CONTINUE PLAN OF CARE.
--- NOTE | 2020-08-11 06:49 | NUR ---
THIS RN IN TO ADMINISTER ORDERED MEDICATIONS. PT IN BED SLEEPING INITIALLY AND WOKE. PO MEDICATIONS TAKEN WITHOUT DIFFICULTY. PT STATED SHE HAD GENERAL BODY ACHES AND PAINS, PRN PAIN MEDICATION ADMINISTERED (SEE MAR). PT REPORTS NO FURTHER NEEDS AND WAS HELPED TO REPOSITION IN BED. PT RETURNED BACK TO SLEEP, WILL CONTINUE PLAN OF CARE. CALL LIGHT WITHIN REACH, BED IN LOWEST POSITION, IV FLUIDS INFUSING ORDERED.
--- NOTE | 2020-08-11 07:30 | NUR ---
REPORT RECIEVED. PATIENT IS SLEEPING IN BED. NO DISTRESS NOTED.
--- NOTE | 2020-08-11 08:00 | NUR ---
WOKE FOR ASSESSMENT. OOB TO CHAIR WIT ASSIST FOR BREAKFAST. TRANSFERS WELL WITH 1 PERSON ASSIST, USING WALKER. STATES PAIN IS LESS AT THIS TIME. FUENTES CATH PATENT WITH CLEAR YELLOW URINE NOTED. TALKED WITH PATIENT ABOUT POC FOR DAY., INS UNDERSTANDING.
--- NOTE | 2020-08-11 09:15 | NUR ---
TOOK BREAKFAST FAIR. REMAINS IN CHAIR.
--- NOTE | 2020-08-11 09:50 | NUR ---
DR. HEWITT HERE TO SEE PATIENT, PATIENT WILL BE TRANSFERRD TO MEDICAL FLOOR TODAY. MONITOR [place].
--- NOTE | 2020-08-11 10:45 | NUR ---
AMBULATED TO BR USING WALKER, SPONGE BATH GIVEN WHILE UP. BACK TO BED W/O INCIDENT. DENIES SHORTNESS OF BREATH.
--- NOTE | 2020-08-11 11:20 | NUR ---
REPORT TO MED-SURG.
--- NOTE | 2020-08-11 11:30 | NUR ---
TO MED-SURG VIA BED. IVF PATENT, ALFREDO COLVIN.
--- NOTE | 2020-08-11 12:00 | NUR ---
PT ARRIVED FROM CCU. PT RESTING IN BED. PT DENIES PAIN. PT ON ROOM AIR, LUNG SOUNDS CLEAR WITH DIMINISHED BASES. BOWEL TONES ACTIVE, PT DECLINING LUNCH AT THIS TIME, LUNCH PLACED IN FRIDGE. PT WITHOUT EDEMA, CMS INTACT. IV FLUIDS INFUSING NS AT 100ML/HR. CALL LIGHT WITHIN REACH, PT DENIES OTHER NEEDS AT THIS TIME.
--- NOTE | 2020-08-11 13:12 | NUR ---
Progress note faxed to [facility] per their request for today.
--- NOTE | 2020-08-11 13:45 | NUR ---
PT RESTING IN BED. PT REPORTING FEELING SOB, REQUESTING TO USE BIPAP, ARTIST CONSULTANT CALLED TO SET UP, PT CURRENTLY ON ROOM AIR, LUNG SOUNDS CLEAR WITH DIMINISHED BASES. MICONAZOLE POWDER APPLIED TO SKIN FOLDS AND UNDER BREASTS. VSS. FUENTES CATH EMPTIED. PT DENIES OTHER NEEDS AT THIS TIME.
--- NOTE | 2020-08-11 14:45 | NUR ---
PT BIPAP FELL OFF, REPLACED. PT DENIES OTHER NEEDS AT THIS TIME.
--- NOTE | 2020-08-11 16:18 | NUR ---
PT RESTING IN BED, REMAINS OF BIPAP. IV VANCO AND CEFEPIME INFUSING. PT DENIES OTHER NEEDS AT THIS TIME.
--- NOTE | 2020-08-11 17:20 | NUR ---
PT PROVIDED WITH DINNER, SITTING ON EDGE OF BED. PT REMOVED BIPAP AT 1640. PT DENIES OTHER NEEDS AT THIS TIME.
--- NOTE | 2020-08-11 18:11 | NUR ---
PT TRANSFERED FROM CCU. PT ON ROOM AIR, WEARS BIPAP PRN, LUNG SONDS CLEAR AND DIMINISHED. IV FLUIDS INFUSING NS AT 100ML/HR, RECEIVED VANCO AND CEFEPIME.PT TOLERATING DIET, SMALL APPETITE. REDNESS TO PANIS, OUTLINES, MICONAZOLE APPLIED TO SKIN FOLDS AND BREASTS. PT UP WITH 1PA WITH FWW. FUENTES CATH DRAINING QS.
--- NOTE | 2020-08-11 18:53 | NUR ---
PATIENT SITTING ON EDGE OF BED, VISITOR IN ROOM. PATIENT ASKED FOR PAIN PILL, CHARGE NURSE NOTIFIED. CALL LIGHT IN REACH. NO FURTHER NEEDS AT THIS TIME.
--- NOTE | 2020-08-11 19:15 | NUR ---
PT SITTING UP IN BED. SHIFT REPORT RECIEVED BY RN. WHITE BOARD CLEARED. CALL LIGHT IN REACH. FAMILY MEMBER IN ROOM.
--- NOTE | 2020-08-11 21:40 | NUR ---
PT LYING IN BED. ASSESSMENT COMPLETE. VS STABLE . I AND O'S DONE. DISCOLORATION ON ABDOMEN NOTED. PT C/O CRAMPING ON R LEG. PRN SPASM MED ADMINISTERED. SCHEDULED MEDS GIVEN. REPOSITIONED PT IN BED. CALL LIGHT IN REACH. CPAP INTACT. NO FURTHER NEEDS.
--- NOTE | 2020-08-11 22:17 | NUR ---
CALL LIGHT ANSWERED. PT UP TO BSC WITH 1PA AND FWW TO ATTEMPT BM BUT "JUST PASSED GAS". WITH BEARING DOWN PT ABLE TO VOID AROUND FUENTES CATH. FUENTES PATENT WITH CLEAR YELLOW URINE. NO LEAKING NOTED PRIOR TO BSC. TACHYPNEA NOTED. PT DOES NOT WANT BACK ON THE BIPAP AT THIS TIME. REPORTS SHE WORE IT FOR ABOUT 20 MIN AND IT MAKES HER "FEEL PANICKED". RESPIRATIONS DECREASING WITH REST. NO FURTHER NEEDS AT THIS TIME. CALL LIGHT IN REACH.
--- NOTE | 2020-08-12 00:11 | NUR ---
PT SITTING UP IN BED. C/O PAIN 03/02. PAIN MEDS GIVEN PER REQUEST. PT STATES THAT SHE FEELS SOB. PT REFUSED BIPAP DUE TO ANXIETY. 02 SAT 98% RA. CLEAR LUNG SOUNDS. 1P/FWW TO THE CHAIR. EDUCATION GIVEN ON DIMMING LIGHTS AND TURNING DOWN TV TO EASE ANXIETY AND HELP WITH SLEEP. PT VERBALIZED UNDERSTANDING. CALL LIGHT IN REACH. FUENTES PATENT AND INTACT. NO FURTHER NEEDS.
--- NOTE | 2020-08-12 02:31 | NUR ---
PT SITTING UP IN CHAIR. STATES THAT SHE IS FEELING BETTER AND NOT SOB. REPOSITIONED PT IN BED. ASSESSMENT COMPLETE. NO CHANGES ON ABDOMEN CELLULITIS. CALL LIGHT IN REACH. NO FURTHER NEEDS.
--- NOTE | 2020-08-12 03:49 | NUR ---
PT LYING IN BED. EYES CLOSED. RR WNL WITH UNLABORED BREATHING. CALL LIGHT IN REACH.
--- NOTE | 2020-08-12 04:49 | NUR ---
PT LYING IN BED. EYES CLOSED. RR 20, UNLABORED BREATHING. NEW NS IV BAG ADMINISTERED. IV PATENT. CALL LIGHT IN REACH.
--- NOTE | 2020-08-12 06:20 | NUR ---
PT LYING IN BED. EYES CLOSED. RR WNL WITH UNLABORED BREATHING. SCHEDULED MEDS GIVEN. 1P/FWW STANDING AT BEDSIDE. TOLERATED WELL. DAILY WT 101.1KG. FUENTES CARE DONE. I'S AND O'S COMPLETE. REPOSITIONED PT IN BED. CALL LIGHT IN REACH. NO FURTHER NEEDS.
--- NOTE | 2020-08-12 07:10 | NUR ---
BEDSIDE HANDOFF REPORT RECEIVED FROM SPECIAL FORCES SENIOR SERGEANT RN. PT SLEEPING, LEFT UNDISTURBED.
--- NOTE | 2020-08-12 08:20 | NUR ---
CALL LIGHT RINGING. PATIENTS IV IS LEAKING. CHARGE NURSE NOTIFIED. FACE AND HANDS WASHED, PATIENT SITTING AT SIDE OF BED. NEW GOWN PROVIDED.
--- NOTE | 2020-08-12 09:05 | NUR ---
PT SITTING ON EDGE OF BED, AWAITING BREAKFAST. PT ON ROOM AIR, LUNG SOUNDS CLEAR AND DIMINISHED, CONTINUES TO HAVE SOB, STATES SHE DOES NOT FEEL THE CPAP IS HELPING. PT LOST IV ACCESS, ATTMEPTED IV START, UNABLE TO OBTAIN. PT DENIES NAUSEA, BOWL TONES ACTIVE. CMS INTACT, WITHOUT EDEMA. FUENTES CATH DRAINING CLEAR YELLOW URINE. DISCUSSED PLAN OF CARE FOR THE DAY. MEDICATION ADMINISTERED BY WIRELESS DEVELOPMENT MANAGER WITH SUPERVISION FROM THIS RN. PT DENIES OTHER NEEDS AT THIS TIME.
--- NOTE | 2020-08-12 10:17 | NUR ---
PATIENT RESTING IN BED, VITALS AND I&OS CHARTED. WARM BLANKET PROVIDED. CALL LIGHT IN REACH, NO OTHER NEEDS AT THIS TIME
--- NOTE | 2020-08-12 10:40 | NUR ---
In room to round with patient, pt c/o feeling "Short of breath" 02 sats 99% on monitor, however, respirations are 20-22 per minutes. Charge nurse notified for possible resume of BIPAPP. In regards to patient rounding, patient verbalizes that she is happy with her care, and she feels like the nursing staff members are "doing everything they can to take care of me." Pt verbalizes that her care has been good in the ED, in CCU, and now on the medical care. Her transitions of care thus far have been positive, and she does verbalize feeling like everything has been explained to her.
--- NOTE | 2020-08-12 14:12 | NUR ---
PT COMPLAINT OF SOB. ENCOURAGED PT TO GO ON CPAP, PT AGREEABLE, PLACED ON CPAP. PT DENIES OTHER NEEDS AT THIS TIME.
--- NOTE | 2020-08-12 14:26 | NUR ---
ENTERED PT'S RM-SHE WAS IN BED AND SEEMED IN SOME DISTRESS. PT WAS SOB AND SAIDKAILEY IS STRUGGLING WHEN SHE MOVES AND DOESN'T SLEEP ON HER SIDE. PT REQUESTED PRAYER. I ALERTED VITALIY FRAGA OF PT'S SOB. SHE IMMEDIATELY CARED FOR PT. WILL FOLLOW NEEDED
--- NOTE | 2020-08-12 14:29 | NUR ---
PATIENT AWAKE IN BED. VITALS AND I&OS CHARTED. CALL LIGHT IN REACH, NO OTHER NEEDS AT THIS TIME
--- NOTE | 2020-08-12 17:24 | NUR ---
PATIENT SITTING AT BEDSIDE. ROOM TEMP ADJUSTED FOR PATIENT, PATIENT DENIES OTHER NEEDS AT THIS TIME.
--- NOTE | 2020-08-12 17:53 | NUR ---
Patient awake in bed, family in room. 1pa to br/fww. back to bed,warm blanket provided, call light in reach
--- NOTE | 2020-08-12 18:33 | NUR ---
PATIENT SITING AT BEDSIDE WITH ONE PERSON ASSIST TO EAT DINNER. DAUGHTER IS IN ROOM WITH PATIENT.
--- NOTE | 2020-08-12 19:40 | NUR ---
IN TO GET VITALS FOR RN, NO FURTHER NEEDS AT THIS TIME
--- NOTE | 2020-08-12 19:59 | NUR ---
Up to br, voided dark yellow urine, back to bed. 1PA, FWW, SOB with exertion noted, coop with assessment. On room air at this time, was on aerosol precautions, but declines to use CPCP, will use O@ tonight. O2 2LNC set it up for her to wear when she gets ready for bed. Lungs dim at bases. Very anxious. bruising over arms, LE, edema at ankles, redness between pannus, Miconazol powder applied. no IV. family atbedside.
--- NOTE | 2020-08-12 21:40 | NUR ---
C/O GENERALIZED PAIN, SITTING EDGE OF BED., MEDICATED WITH 1 NORCO.
--- NOTE | 2020-08-12 23:00 | NUR ---
IN TO CHECK ON PT, PT REQUESTED TO GET UP TO THE TOILET FOR A BM, NO FURTHER NEEDS, PT SITTING UP AT BEDSIDE
--- NOTE | 2020-08-12 23:20 | NUR ---
PT CALLING, ASKED FOR A SNACK, WAS ABLE TO PROVIDE APPLE SAUCE AND A SODA PER PT'S CHOICE
--- NOTE | 2020-08-13 04:38 | NUR ---
pT ON ROOM AIR, DECLINES cpap, O2 SET AT 2L BUT DIDD NOT USED AT HS. SLEPT WITH HOB ELEVATED,. HAS NO IV, TOLERAING LIQUIDS WELL, NO N/V. VOIDING QS, UP TO BR WITH 1PA/FWW, SLOW STEADY GAIT, HELPS SELF TO BED. ANXIOUS AT BEG OF SHIFT, REASSURED. ABD REDNESS AND RED BETWEEN PANNUS AND BREAST AREA, POWDER APPLIED PER ORDERS. COOP , PLEASANT
--- NOTE | 2020-08-13 07:55 | NUR ---
0725: REPORT RECEIVED FROM HERRERA. PT RESTING IN HER BED WITH HER CALL DAVIS WITHIN REACH AND SHE DENIES ANY NEEDS AT THIS TIME.
--- NOTE | 2020-08-13 09:04 | NUR ---
ASSESSMENT COMPLETED. PATIENT UP IN CHAIR WITH CALL LIGHT IN REACH, EATING BREAKFAST. PT STATES TROUBLE WITH DRY EYES AND REQUESTS EYE DROPS. PINK FISH GIVEN TO PATIENT FOR EYES. NO FURTHER REQUESTS AT THIS TIME. CELLULITIS WITHIN MARKING LINES ON ABDOMEN AND APPEARS SLIGHTLY LESS RED THAN YESTERDAY. PATIENT REPORTS NO BURNING WITH URINATION AND STATES URINE LOOKS CLEAR THE LAST TIME SHE VOIDED. NOTE ENTERED BY [employer] [facility] STUDENT NURSE
--- NOTE | 2020-08-13 11:21 | NUR ---
CALL LIGHT WITHIN REACH. PATIENT APPEARS ASLEEP AND IS IN BED AT THIS TIME. NOTE COMPLETED BY [employer] [facility] STUDENT NURSE.
--- NOTE | 2020-08-13 12:24 | NUR ---
Jefferson DEL CASTILLO MENTIONED HE WAS CONCERNED THAT PT WAS HAVING DIFFICULTY WITH RECENT LOSS OF A SON THAT WAS REALLY HAMPERING HER CARE AND ADDING STRESS TO HER. PT ASKED ME TO CONTACT HER MANAGER [employer]AN [employer]. HE IS IN [place], BUT WILL CALL. PASSED THIS INFO TO VITALIY JOHNSON, SHE WILL TELL PT
--- NOTE | 2020-08-13 13:13 | NUR ---
ASSESSMENT COMPLETED. PATIENT IS RESTING IN BED QUIETLY. PATIENT STATED PAIN LEVEL 6/10 FOLLOWING PHYSICAL THERAPY, NORCO GIVEN. ABDOMENAL CELLULITIS REMAINS SLIGHTLY REDDENED AND DRY, AREA REMAINS WITHIN DEFINED MARKINGS. PATIENT STATES IT FEELS BETTER AND IT APPEARS TO BE IMPROVING. PATIENT REPORTS THAT URINE LOOKS NORMAL THERE HAS BEEN NO DISCOMFORT ASSOCIATED WITH VOIDING. REMAINS FEVER FREE. CALL LIGHT WITHIN REACH. PATIENT REPORTS NO FURTHER NEEDS AT THIS TIME. NOTE AND ASSESSMENT COMPLETED BY [facility] [facility] STUDENT NURSE.
--- NOTE | 2020-08-13 13:19 | NUR ---
In to speak with pt. She is sleeping, not awakened.
--- NOTE | 2020-08-13 14:40 | NUR ---
Pt sitting in her chair watching tv having just completed her shower. She states her pain is improved to a 4/10 which she states is tolerable at this time. Call martínez within reach.
--- NOTE | 2020-08-13 15:41 | NUR ---
Pt resting in her chair with no complaints or needs at this time. Call martínez within reach.
--- NOTE | 2020-08-13 17:36 | NUR ---
PATIENT REPORTS PAIN LEVEL OF A 6. TYLENOL GIVEN. PATIENT UP IN CHAIR VISITING WITH FAMILY AND CALL LIGHT IS WITHIN REACH. DENIES ANY OTHER NEEDS AT THIS TIME. NOTE COMPLETED BY [employer], [facility] STUDENT NURSE.
--- NOTE | 2020-08-13 20:30 | NUR ---
IN TO GET PT VITALS, NO FURTHER NEEDS AT THIS TIME
--- NOTE | 2020-08-13 21:04 | NUR ---
IN TO ASST PT BACK FROM TO TOILET, NO FURTHER NEEDS AT THIS TIME
--- NOTE | 2020-08-13 21:53 | NUR ---
Pt awake, watching tv, sitting edge of bed. Room air, dim lungs at bases, no sob at this time, c/o generalized pain, medicated with 1 Barry, took scheduled med w/o problems. Abd large redness, warm to touch areas withing the marked areas, redness underneath pannus still present, powder applied as per orders. repositons self in bed. 1pa/fww when up to br, edema of ankles. bruising R arm and LE w/o changes. tolerating liquids well.
--- NOTE | 2020-08-13 22:58 | NUR ---
Resting, no distress, call light at bedside
--- NOTE | 2020-08-14 02:00 | NUR ---
RESTING, EYES CLOSED, NO RESP DISTRESS, HOB ELEVTED TO HER COMFORT. ONROOM AIR. CCALL LIGHT AT HANDS REACH
--- NOTE | 2020-08-14 04:02 | NUR ---
RESATING, EYES CLOSED, TURNS SELF IN BED, HOB ELEVATED, ROOM AIR. CALL LIGHT AT BEDSIDE
--- NOTE | 2020-08-14 04:49 | NUR ---
Has slept all this shift since midnight. On room air, abd cellulitis withing th emarked edges, warm, to touch, red areas between pannus, w/o changes, powder applied as per orders. Bruising over arms healing, edema of le w/o changes. 1pa/fww, much improved dtamine, no sob nothed this time. voiding qs, toleratig fluids and diet well. no iv. medicated x1 per c/o generalized pain. pleasant, slow reaction, cooperative
--- NOTE | 2020-08-14 05:34 | NUR ---
IN TO GET VITALS, PT UP TO TOILET, NO FURTHER NEEDS
--- NOTE | 2020-08-14 05:43 | NUR ---
pt up to br, voided, back to bed, 1PA/fww., tolerated very well.
--- NOTE | 2020-08-14 07:40 | NUR ---
0715: Report received from Janey BURKS. Pt sleeping at this time.
--- NOTE | 2020-08-14 08:00 | NUR ---
SBA WITH FWW TO BR FOR VOID. FACE AND TEETH BRUSHED. PATIENT IN CHAIR, WARM BLANKET ON, FRESH ICE WATER AND CALL LIGTH WITHIN REACH
--- NOTE | 2020-08-14 09:29 | NUR ---
Pt states her urine does not smell bad and she denies burning with urination. The reddness on her abd is light in color and is within the marked outline. She states she feels it is getting better. Pt does compain of depression as she lost a son about 6 months ago and she is having a hard time with it. Pt also states her chronic right leg pain is a 5 at this time, see emar.
--- NOTE | 2020-08-14 09:42 | NUR ---
Dr Parker notified of the pts complaints of having some depression and panic attacks at time. She denies any panic attack at this time.
--- NOTE | 2020-08-14 09:50 | NUR ---
Spoke with Tiffani. Discussed we can HH PT set up. Pt states she really doesn't want PT and begins crying. Pt states she is suffering from panic attacks and depression. Her son 10 years ago and she has struggled, her other son dies 6 months ago. He was on the [facility] and was shot and killed by a gang. Pt is struggling with severe depression and panic attacks. She states she no longer enjoys her family or grandchildren. She is exhausted and does not feel she can participate in PT in her home. We discussed counseling and antidepressants and pt feels she needs both. I will call the lime and schedule her with Behavior Health. Pt denies thoughts of harming self. Called and spoke with the corporate receptionist at , she states they are taking or scheduling pt. She can take her name and number and she will receive a call in a few weeks. Updated this is not acceptable she then transfered the call to their fabric worker supervisor, christi. He states they have been overwhelmed with pts. Discussed I am concerned for this pt as she is suffering from panic attacks, nightmares, and what she describes as guilt. She has had difficulty eating and states she cannot function. He states he will make sure someone calls her the beginning of next week. He states it will be few weeks before they can get her in for an eval and medication. I will request hospital speak with pt and order antidepressant.
--- NOTE | 2020-08-14 10:00 | NUR ---
[facility] [place] [phone].
[2020-08-14] MEDS ORDERED: SERTRALINE HCL25 MG PO (10:01)
[2020-08-14] MEDS ORDERED: CEPHALEXIN500 MG PO (10:01)
--- NOTE | 2020-08-14 10:10 | NUR ---
When I returned to the room pt is speaking with Dr. Parker and is tearful. I asked if she made him aware of her depression and she has and then adds further information. Asked if he would be willing to order antidepressant as it will be some time before she can be seen by at the [facility]. He asks pt if she would like and she asks questions about side effects and then requests. He will start her on a low dose antidepressant and reviewed side Effects. When Dr. Parker finished, pt is aware she will be discharged today. She cont. to talk about her son and how she is racked with guilt. I asked if it is okay if I call her daughter and update and she agrees. Pt would now would like to go to OP therapy for PT as she feels she needs to make herself get out of her home. As we are speaking, SHAINA from the [facility] called and discussed an appt. I left so she could speak in private and called her daughter with an update. She is on board with counseling and antidepressant. She will pickup mom around 3:15 today when she gets off work.
--- NOTE | 2020-08-14 10:35 | NUR ---
NORM ABLUATED MADRID TO CORNER AND BACK WITH P/T USING FWW. THIS GREEN LUMBER GRADER FOLLOWED WITH WHEELCHAIR FOR SAFETY, PATIENT STOPPED ONCE TO HAVE A DRINK AND CATCH HER BREATH. TOLERATED WELL. SON IN ROOM NOW
--- NOTE | 2020-08-14 11:47 | NUR ---
PT SLEEPING AT THIS TIME. CALL DAVIS WITHIN REACH.
--- NOTE | 2020-08-14 12:34 | NUR ---
PT SITTING ON SIDE OF BED, VISITING WITH HER SON WHO IS HERE TO TAKE PT FOLLOWING DC. HAD GOOD VISIT WITH PT, SHE IS WORRIED ABOUT NOT BEING AROUND FOR HER FAMILY. FR RODRIGUEZ ID TO CALL THIS PM, GAVE ENCOURAGEMENT AND PRAYED WITH PT. GAVE HER A P.SHAWL AND BLESSING
--- NOTE | 2020-08-14 13:24 | NUR ---
Pt given written and verbal dc instructions of which she states understanding. She denies any problems at this time. Call martínez within reach.
--- NOTE | 2020-08-14 13:36 | NUR ---
PATIENT AWAKE AT SIDE OF BED WATCHING TV. VITALS AND I&OS CHARTED. SBA TO BR USING FWW, WILL CALL WHEN READY
--- NOTE | 2020-08-14 14:33 | NUR ---
Pt in her chair sleeping at this time.
== END 2020-08-14 15:42 | disposition home or self-care (01) | DRG 872 ==
LOC: ED 19:42 → CCU 21:48 → MS 08-11 11:45
PROVIDERS: ADMIT Internal Medicine; ATTEND Internal Medicine
DX: A41.59 Other Gram-negative sepsis (principal); N30.00 Acute cystitis without hematuria; N17.9 Acute kidney failure, unspecified; L03.311 Cellulitis of abdominal wall; Z20.822 Contact with and (suspected) exposure to COVID-19; R06.03 Acute respiratory distress; R65.20 Severe sepsis without septic shock; M06.9 Rheumatoid arthritis, unspecified; E03.9 Hypothyroidism, unspecified; G89.4 Chronic pain syndrome; D69.6 Thrombocytopenia, unspecified; F43.21 Adjustment disorder with depressed mood; Z88.2 Allergy status to sulfonamides; Z79.899 Other long term (current) drug therapy; Z87.891 Personal history of nicotine dependence; Z79.891 Long term (current) use of opiate analgesic; Z79.52 Long term (current) use of systemic steroids
CPT/HCPCS: 36415; 51702; 71045; 71046; 80048; 80053; 81001; 83605; 83735; 83880; 85025; 85651; 87040; 87077; 87088; 87186; 93005; 93010; 94660; 94760; 97116; 97162; 99285-25; C9803; J0692; J1650; J1720; J2930; J3370; J7030; J7060; J7512; U0003

== ENCOUNTER 2021-02-05 20:24 | Emergency (ER) | payer MEDICARE, OTHER ==
[~2021-02-05] VITALS: Ht 149.9 cm; Wt 98.4 kg
[~2021-02-05 20:24] MED LIST changes: +CEPHALEXIN500 MG PO; +SERTRALINE HCL25 MG PO; +SIMPONI AR50 MG/4 ML IV
--- OUTSIDE RECORDS SUMMARY | 2021-02-05 20:26 | XMS ---
PreManage Notification: NIKITA CLARKE [facility] Rn Events No recent Security Events currently on file CRITERIA MET - [facility] - Has Care Guidelines - PDMP CARE PROVIDERS MARCELLUS ARCEO Nurse Practitioner 02/07/2019-Current PHONE: [phone] [facility] Case Management 03/17/2020-[facility] PHONE: [phone] Myla has no Care Guidelines for this patient. Care History Medical/Surgical 02/07/2019 [facility] - PATIENT IS [facility] ELIGIBLE, \T\middot;\T\nbsp; PLEASE REFER PATIENT TO [facility] FOR NON EMERGENT MEDICAL NEEDS. \T\middot;\T\nbsp; [facility] CAN SEE PATIENTS SAME DAY FOR APTS IF PATIENT CALLS FIRST THING IN THE MORNING. E.D. VISIT COUNT (12 MO.) 3 MICHAELA Schuster TOTAL 3 NOTE: Visits indicate total known visits. ED/UCC VISIT TRACKING (12 MO.) 02/05/2021 20:25 MICHAELA Lopez [place] TYPE: Emergency COMPLAINT: - CHEST PAIN, SOB 08/09/2020 19:43 [facility] [place] TYPE: Emergency COMPLAINT: - FEVER 03/16/2020 16:59 [facility] [place] TYPE: Emergency COMPLAINT: - SKIN PROBLEM/SORE DIAGNOSES: - Personal history of nicotine dependence - Rheumatoid arthritis, unspecified - Allergy status to sulfonamides - Other nursing home (current) drug therapy - Chronic obstructive pulmonary disease, unspecified - Hypothyroidism, unspecified - Cutaneous abscess of abdominal wall - Essential (primary) hypertension INPATIENT VISIT TRACKING (12 MO.) 08/09/2020 21:48 MICHAELA [facility] [place] TYPE: Medical Surgical COMPLAINT: - SEPSIS DIAGNOSES: - Hypothyroidism, unspecified - Chronic pain syndrome - Acute cystitis without hematuria - Other Gram-negative sepsis - Acute respiratory distress - Rheumatoid arthritis, unspecified - Rheumatoid arthritis, unspecified - Thrombocytopenia, unspecified - Allergy status to sulfonamides - Cellulitis of abdominal wall - Other Gram-negative sepsis - detention (current) use of opiate analgesic - Personal history of nicotine dependence - Acute cystitis without hematuria - Other nursing home (current) drug therapy - Hypothyroidism, unspecified - Chronic pain syndrome - Cellulitis of abdominal wall - Acute respiratory distress - Adjustment disorder with depressed mood - Sepsis, unspecified organism - Acute kidney failure, unspecified - detention (current) use of systemic steroids - Severe sepsis without septic shock - Thrombocytopenia, unspecified - Acute kidney failure, unspecified - detention (current) use of systemic steroids - Adjustment disorder with depressed mood - Severe sepsis without septic shock - Allergy status to sulfonamides - Personal history of nicotine dependence - detention (current) use of opiate analgesic - Other intermediate designer (current) drug therapy [email or web address]
[2021-02-05] MEDS ORDERED: ONDANSETRON ODT8 MG PO (22:51)
--- NOTE | 2021-02-06 18:56 | EKG ---
[facility] [address] [place] [address] Signed Normal sinus rhythm Left axis deviation Right bundle branch block Minimal voltage criteria for LVH, may be normal variant Possible Lateral infarct , age undetermined Inferior infarct (cited on or before 11-APR-2019) Abnormal ECG When compared with ECG of 09-AUG-2020 20:28, No significant change was found Confirmed by NABIL HEWITT MD ([id number]) on 02/06/2021 6:56:08 PM Electronically Signed By: NABIL HEWITT MD 02/06/21 1856 PATIENT NAME: NIKITA CLARKE [facility] Electrocardiogram DATE OF : 41 PHYSICIAN: NABIL HEWITT MD REPORT #: [id number] REPORT IS CONFIDENTIAL AND NOT TO BE RELEASED WITHOUT AUTHORIZATION
== END 2021-02-05 23:03 | disposition home or self-care (01) ==
LOC: ED 20:24
DX: U07.1 COVID-19 (principal); J12.82 Pneumonia due to coronavirus disease 2019; E03.9 Hypothyroidism, unspecified; J44.9 Chronic obstructive pulmonary disease, unspecified; I10 Essential (primary) hypertension; Z87.891 Personal history of nicotine dependence; Z88.2 Allergy status to sulfonamides; Z79.899 Other long term (current) drug therapy
CPT/HCPCS: 71045; 80053; 81001; 83690; 83735; 84484; 85025; 93005; 93010; 96374; 99285-25; J2405

== ENCOUNTER 2022-09-16 18:58 | Emergency (ER) | payer OTHER, MEDICARE ==
[~2022-09-16] VITALS: Ht 149.9 cm; Wt 98.4 kg
[~2022-09-16 18:58] MED LIST changes: +ONDANSETRON ODT8 MG PO
--- OUTSIDE RECORDS SUMMARY | 2022-09-16 19:00 | XMS ---
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 Care History Medical/Surgical 02/07/2019 [facility] - PATIENT IS [facility] ELIGIBLE, \T\middot;\T\nbsp; PLEASE REFER PATIENT TO [facility] FOR NON EMERGENT MEDICAL NEEDS. \T\middot;\T\nbsp; [facility] CAN SEE PATIENTS SAME DAY FOR APTS IF PATIENT CALLS FIRST THING IN THE MORNING. E.D. VISIT COUNT (12 MO.) 1 MICHAELA Schuster TOTAL 1 NOTE: Visits indicate total known visits. ED/UCC VISIT TRACKING (12 MO.) 09/16/2022 18:58 MICHAELA Lopez [place] TYPE: Emergency COMPLAINT: - FALL INPATIENT VISIT TRACKING (12 MO.) No inpatient visits to display in this time frame [email or web address]
[2022-09-16] MEDS ORDERED: HYDROCODON-ACE1 EA10 PO (22:24)
[2022-09-16] MEDS ORDERED: MACROBID 100 M100 MG PO (22:26)
== END 2022-09-16 23:16 | disposition home or self-care (01) ==
LOC: ED 18:58
DX: S42.031A Displaced fracture of lateral end of right clavicle, initial encounter for closed fracture (principal); N39.0 Urinary tract infection, site not specified; Z20.822 Contact with and (suspected) exposure to COVID-19; W00.0XXA Fall on same level due to ice and snow, initial encounter; M06.9 Rheumatoid arthritis, unspecified; E03.9 Hypothyroidism, unspecified; J44.9 Chronic obstructive pulmonary disease, unspecified; I10 Essential (primary) hypertension; M19.90 Unspecified osteoarthritis, unspecified site; Z87.891 Personal history of nicotine dependence; Z88.2 Allergy status to sulfonamides; Z79.899 Other long term (current) drug therapy; Z79.52 Long term (current) use of systemic steroids
CPT/HCPCS: 36415; 51702; 70450; 72125; 73030; 73502; 80053; 81001; 82553; 83690; 85025; 86850; 86900; 86901; 87502; 99284-25; A9270; G0480; J0696; J2270; J7121; U0003